=== PATIENT | male | born 1960 | race Caucasian/White ===

== ENCOUNTER 2018-10-06 13:06 | Emergency (ER) | payer MEDICAID, SELFPAY ==
[2018-10-06 13:07] VITALS: BP 93/65; PULSE 103; RESP 15; TEMP 36.7; O2SAT 88; BMI 26.3
--- NOTE | 2018-10-06 13:18 | EKG12_ITS ---
Test Reason : SUBSTANCE ABUSE Blood Pressure : / mmHG Vent. Rate : 091 BPM Atrial Rate : 091 BPM P-R Int : 156 ms QRS Dur : 092 ms QT Int : 366 ms P-R-T Axes : 066 080 070 degrees QTc Int : 450 ms Normal sinus rhythm Normal ECG Confirmed by HUMPHREY RAMIREZ, URI ([id number]), industrial editor LI ORTIZ ([id number]) on 10/09/2018 1:53:50 PM Referred By: JASPREET Confirmed By:URI YIN MD
--- NOTE | 2018-10-06 13:18 | RAD_ITS ---
HISTORY: Cough XR Chest 1 View TECHNIQUE: Single frontal view of chest. # of images incl. paperwork: 1 COMPARISON: None. FINDINGS: Hyperinflated lungs. Peripheral attenuation and pruning of the pulmonary vascular tree. Normal heart size. No pulmonary venous congestion. Severe left upper lobe and left apical pleural parenchymal scarring. Remainder of the lungs are clear. No pleural effusions or pneumothorax. No acute osseous abnormality of the thorax. RAD/Chest 1 View (Portable) IMPRESSION: 1. Severe left upper lobe and left apical pleural parenchymal scarring. Without the benefit of prior exams, neoplasm in this region cannot be excluded. Comparison with prior chest x-rays versus follow-up CT chest is recommended. 2. COPD. 3. Otherwise, no acute cardiopulmonary disease. at 1354 Reported and signed by: Nicko Winter MD Electronically Signed: Nicko Winter MD at 13:53 EDT Tel , Service support ,
--- NOTE | 2018-10-06 13:20 | ED.DCSUM_ITS ---
- ER Visit Summary Date of Service: 10/06/18 Chief Complaint: Alcohol abuse History of Present Illness: The patient is a 58 M presents to the emergency department complaining of problem with alcohol. Patient states that he drinks at least 1/2 gallon of vodka a day. States his neighbors told him that he needs to get help. He states he has been through detox twice through the [address] [place] [id number]. He denies any recent detox. He denies any other drug use. He states he has been through withdrawal, but does not think he is ever had a seizure from it. Patient does have a history of COPD but is not on any medication. He denies any other symptoms. Physical Examination: Vital signs reviewed General: Well-nourished, well-developed Head: Normocephalic, atraumatic Eyes: Pupils equal and reactive, extraocular muscles intact Neck, supple, no lymphadenopathy Heart: Regular rate and rhythm Respiratory: No distress, scant wheeze throughout Abdomen: Soft, nontender, nondistended, no peritoneal signs Back: Nontender Extremities: Nontender, no edema, no cords Skin: Normal color no rash Neuro: Alert and oriented, no focal or lateralizing deficits Test Results: [] Emergency Department Course and Treatment: The patient presents with alcohol intoxication. After further discussion with him, he states he is not really interested in detox. He was wheezing and had a borderline oxygen level he was given nebulized breathing treatments with his improvement of aeration. Chest x- ray was concerning for. Atypical pneumonia versus obstructive process. The patient has a long smoking history. He underwent CT of tthe chest. This was relatively inconclusive for malignancy versus scarring. The patient has not had productive sputum. He denies any fevers or weight loss. Due to concern for postobstructive process, I am going to cover him with antibiotics. The patient would benefit from outpatient pulmonology follow-up. He was counseled on his results. However, patient is markedly intoxicated. He will be observed until he can demonstrate clinical sobriety and then will be discharged home as he does not have interest in detox at this time. The patient was evaluated by social work to arrange outpatient resources and appropriate follow-up. Treatment Plan: [] Disposition: Discharge Impression: 1. Alcohol abuse 2. Left upper lobe pneumonia versus malignancy This note was generated with [employer] software. It may contain incorrect words, spelling, and punctuation that were not noted in review of the chart prior to signing ED Disposition - Plan for ED Patient: Instructions: PNEUMONIA (Adult), Alcohol Abuse Prescriptions: Amox/Clavulanate Tablet [Augmentin Tablet] 875 mg PO Q12H #20 tab Prescription Printed Referrals: Tien Baca MD [STAFF PHYSICIAN] -
[2018-10-06] MEDS: 0.9% Normal Saline 1,000 ML 1000 ML IV (13:29)
[2018-10-06 13:36] VITALS: O2SAT 88
[2018-10-06] MEDS: Ipratropium/Albuterol Sulfate 3 ML AMPUL.NEB INHALATION (13:36)
[2018-10-06 13:37] VITALS: PULSE 98; RESP 20
[2018-10-06 13:38] LABS: Absolute Lymphocyte Count 2.85 X10^3/ul (0.83-4.51); Absolute Neutrophil Count 3.3 X10^3/uL (2.0-7.7); Basophil# 0.02 X10^3/uL; Basophil% 0.3 % (0-1); Eosinophil# 0.07 X10^3/uL; Hemoglobin 13.9 g/dl (13.0-16.5); Lymphocyte # 2.85 X10^3/ul (4.0); Lymphocyte % 42.7 % (19-41); Mean Corp Hgb Conc 35.6 g/gl (32-36); Mean Corpuscular Hgb 32.9 pg (27.0-32.0); Mean Corpuscular Volume 92.2 fL (80-94); Mean Platelet Vol. 10.6 fl (6.2-12.0); Monocyte# 0.38 X10^3/uL; Monocyte% 5.7 % (0-10); Neutrophil # 3.33 X10^3/uL (2.7-7.7); Neutrophil % 49.9 % (47-70); Platelet Count 136 K/mm3 (150-450); RBC Distribution Width CV 18.6 % (11.6-14.6); RBC Distribution Width SD 63.1 fl (35.1-43.9); Red Blood Count 4.23 M/mm3 (4.6-6.2); White Blood Count 6.7 K/mm3 (4.4-11.0)
[2018-10-06 13:39] LABS: POSITIVE COUNT NO; POSITIVE DIFFERENTIAL NO; POSITIVE MORPHOLOGY NO
[2018-10-06 13:49] LABS: ALB/GLOB Ratio 0.7 RATIO (0.9-2.4); AST(SGOT) 219 U/L (15-37); Alanine Aminotransfer ALT/SGPT 53 U/L (16-61); Albumin, Serum 3.3 g/dL (3.2-5.0); Alkaline Phosphatase 207 U/L (45-117); Anion Gap 12 (5-15); BUN 13 mg/dL (7-18); BUN/Creat Ratio 14.4 RATIO (10-20); Calcium,Total 8.5 mg/dL (8.5-10.1); Chloride 87 mmol/L (98-107); EST Glomerular Filtration Rate 92 mL/min (>60); Est Glom Filt Rate - Afr Amer 111 mL/min (>60); Estimated Creatinine Clearance 96.45 ml/min; Globulin 4.6 g/dL (2.2-4.2); Glucose 62 mg/dL (74-106); Potassium 3.4 mmol/L (3.5-5.1); Protein, Total 7.9 g/dL (6.4-8.2); Sodium Level 127 mmol/L (136-145)
--- NOTE | 2018-10-06 14:00 | CT_ITS ---
HISTORY: Abnormal chest x-ray, follow-up COMPARISON: Chest x-ray performed earlier same day TECHNIQUE: Helical CT axial images of the thorax with 100 ml of Isovue 300 intravenous contrast. Multiplanar reconstruction. A radiation dose optimization technique was used for this scan. # of images incl. paperwork: 594 FINDINGS: LUNGS and MEDIASTINUM: Large area of left apical and left upper lobe masslike scarring with cystic bronchiectasis versus chronic postobstructive consolidation. There is a left hilar soft tissue density masslike structure measuring 1.8 x 2.4 x 1.8 cm in greatest TV/AP/CC dimensions best seen on axial slice 44 and corresponding coronal slice 75. Mild interstitial parenchymal scarring posterior left upper lobe abutting the major fissure. Within the superior segment left upper lobe best seen on axial slice 54 is a spiculated 1.5 cm density. Subcentimeter area of focal scarring posterior medial left lower lobe, axial slice image 71. No other suspicious pulmonary nodules or densities. Right lung is clear. No confluent areas of acute consolidation of left lower lobe.. Borderline mediastinal lymphadenopathy involving the prevascular space and AP window with lymph nodes measuring 0.9 x 1.3 cm and 0.7 x 1.2 cm. No right hilar lymphadenopathy. PLEURA: No pleural effusion. No pneumothorax. CARDIAC: Normal heart size. No pericardial effusion. VASCULAR: Thoracic aorta is normal in caliber without aneurysm. The pulmonary vasculature demonstrates no significant dilatation. CHEST WALL: Chest wall is intact. No abnormal axillary lymphadenopathy. BONES: No suspicious osseous lytic or blastic lesions seen. Mild thoracic spine degenerative changes. UPPER ABDOMEN: The visualized upper abdomen demonstrates no acute abnormality. Partially seen severe hepatic steatosis. CT/Chest WITH Contrast IMPRESSION: 1. Left hilar soft tissue density mass 1.8 x 2.4 x 1.8 cm which may represent neoplasm with postobstructive chronic consolidation involving the left upper lobe and left apex. Alternatively, findings within the left upper lobe may represent parenchymal scarring with cystic bronchiectasis and reactive left hilar lymphadenopathy. Borderline mediastinal lymphadenopathy. Further evaluation with PET/CT is recommended to evaluate metabolic activity of the left hilar abnormality. 2. Superior segment left lower lobe spiculated 1.5 cm density likely representing a focal area of scarring. Again, neoplasm cannot be excluded and correlation with PET/CT is warranted. Individualized dose optimization techniques were used for this CT. at 1530 Reported and signed by: Nicko Winter MD Electronically Signed: Nicko Winter MD at 15:28 EDT Tel , Service support ,
--- NOTE | 2018-10-06 14:00 | CT_ITS ---
HISTORY: Altered mental status COMPARISON: 12/14/2016 TECHNIQUE: Helical CT axial images are obtained from the base of skull through the vertex without IV contrast. Multiplanar reconstruction. A radiation dose optimization technique was used for this scan. # of images incl. paperwork: 248 FINDINGS: No parenchymal hemorrhage, infarct, intra-axial mass, mass effect, or midline shift. No abnormal extra-axial fluid collections. Ventricles are normal in size and configuration. No hydrocephalus. Minimal periventricular white matter hypodensities. Bone windows show no skull fracture or calvarial lesions. Visualized paranasal sinuses are clear. Visualized mastoid air cells are clear. ASPECTS Score for Acute Strokes: 10 CT/Brain/Head without Contrast IMPRESSION: 1. No acute intracranial disease. 2. Minimal chronic small vessel ischemic white matter changes. 3. No significant interval change. Individualized dose optimization techniques were used for this CT. at 1506 Reported and signed by: Nicko Winter MD Electronically Signed: Nicko Winter MD at 15:05 EDT Tel , Service support ,
--- NOTE | 2018-10-06 14:01 | NURSING ---
NEW VISION WITH PATIENT
--- NOTE | 2018-10-06 14:09 | ED.RN ---
LAB CALLS WITH CRITICAL RESULT, ETOH 487, DR. YOON MADE AWARE.
[2018-10-06 14:16] VITALS: BP 108/78; PULSE 103; RESP 16; O2SAT 93
[2018-10-06 14:18] LABS: Bacteria 0 SEEN /hpf (None Seen); Mucous, Urine 0 SEEN /hpf (<or=2+); Red Blood Cells-Urine 0 SEEN /hpf (0-5); Squamous Epithelial Cells - UA 0 SEEN /hpf (0-5); White Blood Cells 0 SEEN /hpf (0-5)
--- NOTE | 2018-10-06 14:19 | ED.RN ---
PT ATTEMPTING TO LIGHT CIGARETTE WHEN THIS RN ENTERED ROOM. PT EDUCATED ON NO SMOKING POLICY, DANGER OF SMOKING WHILE WEARING O2. PT VOICES UNDERSTANDING, NICOTINE PATCH ORDERED. SKIN PEELING MACHINE OPERATOR REMOVED FROM ROOM.
[2018-10-06 14:23] LABS: Color, Urine Yellow (Yellow); Glucose, Dipstick Normal (Normal); Ketone-Dipstick 15 mg/dl (Negative); Leukocyte Esterase-Dipstick Negative /ul (Negative); Nitrite-Dipstick Negative (Negative); Occult Blood-Urine Negative /ul (Negative); Protein-Dipstick 15 mg/dl (Negative); Specific Gravity, Urine 1.005 (1.002-1.030); Urine Bilirubin Dipstick Negative (Negative); Urine Clarity Clear (Clear); Urine Urobilinogen Normal (Normal); Urine pH 6.5 (5.0 - 8.0)
[2018-10-06 14:46] LABS: Amphetamine Urine VISTA NEGATIVE (<1000 ng/mL); Barbiturate Urine VISTA NEGATIVE (< 200 ng/mL); Benzodiazepine Urine VISTA NEGATIVE (< 200 ng/mL); Cocaine Urine VISTA NEGATIVE (< 300 ng/mL); Ecstacy Urine VISTA NEGATIVE (< 500 ng/mL); Methadone Urine VISTA NEGATIVE (< 300 ng/mL); PCP Urine VISTA NEGATIVE (< 25 ng/mL); THC Urine VISTA NEGATIVE (< 50 ng/mL); Vista UDS pH Range 6
--- NOTE | 2018-10-06 15:30 | CM.ED ---
Social Work Consult: ETOH Abuse, no PCP Informant: Dr. Esposito Spoke with patient in room. Patient reporting to have a primary care physician: Dr. Aggarwal and to be connect with [facility] for substance abuse. Patient reporting to have a weekly appointment with the counselor at [facility] (every at 2:00pm). Patient reporting to have tried AA support groups in the past but to have not found one that would work right now. Patient reporting to not be interested in detox at this time. Patient is open to this social media senior associate setting up a PCP appointment with Dr. Aggarwal as Dr. Esposito is recommending a PCP follow up due to some findings on a scan while in the ED. Telephone call made to Dr. Aggarwal, no open appointments at this time. Patient placed on a waiting list. Patient aware of being placed on waiting list and is not wanting to establish care with any other doctor. Per ED doctor, patient will not be admitted to medical floor. Patient to discharge to the community. Patient stating to not have a ride but to have a card for [employer]. This social media senior associate assisted patient in finding patient way to bus stop for [employer] at [facility]. Patient voicing no further needs. Patient does live at [address] due to loosing housing due to landlord selling property. Patient reporting to be working on finding other housing and to have no concerns with finding other housing. Patient has been living at [address] for the past week. Support provided. PLAN: Patient to discharge to community. Reynaldo BROWN, KATHE
[2018-10-06] MEDS: Amox/Clavulanate 875 MG Tablet PO (15:58)
[2018-10-06 16:29] VITALS: BP 108/61; PULSE 78; RESP 16; O2SAT 94
== END 2018-10-06 16:31 | disposition home or self-care (01) ==
LOC: ED 13:33
PROVIDERS: Emergency Provider Emergency Medicine; Family Provider Family Medicine; PCP Family Medicine
DX: F10.129 Alcohol abuse with intoxication, unspecified (principal); J44.0 Chronic obstructive pulmonary disease with (acute) lower respiratory infection; J18.9 Pneumonia, unspecified organism; R91.8 Other nonspecific abnormal finding of lung field; Z72.0 Tobacco use
CPT/HCPCS: 70450; 71045; 71260; 80053; 80307; 80320; 81001; 85025; 93005; 94640; 96360; 99285; J7030; Q9967; A4216; G0480

== ENCOUNTER 2019-01-12 15:12 | Inpatient (IN) | payer MEDICAID, SELFPAY ==
[2019-01-12] VITALS (8 sets, daily range): BP systolic 112–139; BP diastolic 66–82; PULSE 93–112; RESP 13–24; TEMP 36.7–37.2; O2SAT 82–94; BMI 24.8; BMI 24.7
--- NOTE | 2019-01-12 15:20 | RAD_ITS ---
STUDY: X-RAY CHEST REASON FOR EXAM: Male, 58 years old. Cough. Ethanol abuse. TECHNIQUE: Single AP portable view of the chest. COMPARISON: Comparison is made with prior study dated October 06, 2018. FINDINGS: EKG electrodes are seen. Hyperinflation. Persistent soft tissue density in the medial aspect of the left upper lobe. This has improved as compared to prior study. There is no demonstrated pleural abnormality. Normal size heart. Normal mediastinum and bartolo. Normal visualized pulmonary arteries. Normal visualized aortic arch and descending thoracic aorta. There are diffuse degenerative changes of the visualized thoracic spine. There is degenerative osteoarthritis of the bilateral shoulders. There is no demonstrated abnormality of the visualized soft tissue structures of the upper abdomen. RAD/Chest 1 View (Portable) IMPRESSION: Mild improvement in the soft tissue density in the medial aspect of the left upper lobe. Electronically Signed: Neno Ibarra, at 15:44 EDT , Service support ,
--- NOTE | 2019-01-12 15:20 | EKG12_ITS ---
Test Reason : ETOH Blood Pressure : / mmHG Vent. Rate : 092 BPM Atrial Rate : 092 BPM P-R Int : 150 ms QRS Dur : 080 ms QT Int : 362 ms P-R-T Axes : 063 079 075 degrees QTc Int : 447 ms Normal sinus rhythm Septal infarct , age undetermined Abnormal ECG Confirmed by HUMPHREY RAMIREZ, URI ([id number]), supervising film or videotape editor LI ORTIZ ([id number]) on 01/16/2019 10:23:44 AM Referred By: JASPREET Confirmed By:URI YIN MD
--- NOTE | 2019-01-12 15:33 | ED.DCSUM_ITS ---
History of Present Illness Chief Complaint: ETOH Intox Informant: Patient Onset: Days Context: Gradual Onset Timing: Continuous Current Severity: Moderate Maximum Severity: Moderate Narrative: The patient presents to the emergency department with alcohol abuse. The patient has a long-standing history of alcohol abuse. He states he drinks half gallon of vodka a day. He is unsure why he is even in the emergency department. He states that he has had a cough and been short of breath. The patient was actually evaluated here just over 3 months ago. At that point, he was found to have questionable upper lobe mass. The patient was given oral antibiotics and outpatient follow-up, but states he never followed up. He does smoke at least a pack a day. He is unsure if he had fever. He states he has no interest in detox. He is never been on oxygen in the past. Prior similar symptoms: Yes Recent Illness/Hospitalization: No Past Medical History - Allergies and Home Meds Allergies/Adverse Reactions: Allergies No Known Allergies Allergy (Verified 01/12/19 15:12) Prior records reviewed: Yes Past Medical History: None Smoking Status: Current every day smoker Review of Systems General: Denies: Chills, Fever, Sweats Eyes: Denies: Visual changes - bilaterally, Diplopia ENT: Denies: Rhinorrhea, Sore throat Cardiovascular: Denies: Chest pain, Palpitations Respiratory: Reports: Dyspnea, Cough. Denies: Dyspnea on exertion Gastrointestinal: Denies: Abdominal pain, Nausea, Vomiting, Diarrhea, Melena, Hematochezia Genitourinary: Denies: Dysuria, Hematuria, Frequency Musculoskeletal: Denies: Back pain, Extremity Pain Skin: Denies: Rash, Wounds Neurological: Denies: Headache, Weakness, Numbness Physical Exam Vital Signs/Narrative: Vital Signs Temp Pulse Resp BP Pulse Ox 01/12/19 15:21 92 01/12/19 15:16 98.1 F 95 24 H 123/82 H 83 Inital Vital Signs reviewed: Yes General: Well nourished, Well developed, No Acute Distress Head: Normocephalic, Atraumatic Eyes: Perrl, EOMI ENT: Moist mucous membranes, No rhinorrhea Neck: Supple, Nontender Cardiovascular: Regular rate, Regular rhythm, No murmurs Respiratory: No distress, Chest nontender, Decreased Air Movement Abdomen: Soft, Nontender, Nondistended, Normal bowel sounds Back: Nontender, Normal Inspection Extremities: Nontender, No edema Skin: Normal color, No rash Neurological: Alert, Oriented x3, Cranial nerves II-XII grossly intact, Normal Strength, Normal Sensation Psychological: Normal affect, Normal Mood Diagnostic/Tx/Re-eval Chest X-Ray - ED: 1 View, Normal, Heart, Left Infiltrate Clinical Impression(s) from Imaging Studies Chest X-Ray 01/12/19 15:20 IMPRESSION: Mild improvement in the soft tissue density in the medial aspect of the left upper lobe. Electronically Signed: Neno Stacey, at 15:44 EDT , Service support , Abnormal Lab Results 01/12/19 01/12/19 01/12/19 15:31 15:31 15:31 WBC 14.4 H RBC 4.52 L Hgb 14.1 Hct 44.3 MCV 98.0 H MCH 31.2 MCHC 31.8 L RDW Std Deviation 47.8 H RDW Coeff of Jose J 13.2 Plt Count 214 MPV 9.8 Immature Gran % (Auto) 0.600 Neut % (Auto) 77.2 H Lymph % (Auto) 17.2 L [place] % (Auto) 4.5 Eos % (Auto) 0.1 Baso % (Auto) 0.4 Absolute Neuts (auto) 11.1 H Absolute Lymphs (auto) 2.48 Nucleated RBC % 0 Sodium 135 L Potassium 4.0 Chloride 96 L Carbon Dioxide 28.0 Anion Gap 11 BUN 12 Creatinine 0.88 Estim Creat Clear Calc 98.64 Est GFR (MDRD) Af Amer 114 Est GFR (MDRD) Non-Af 94 BUN/Creatinine Ratio 13.6 Glucose 114 H Lactic Acid Calcium 8.5 Total Bilirubin 0.60 AST 20 ALT 13 L Alkaline Phosphatase 146 H Total Protein 8.5 H Albumin 3.3 Globulin 5.2 H Albumin/Globulin Ratio 0.6 L Ethyl Alcohol 484.0 H* 01/12/19 16:00 WBC RBC Hgb Hct MCV MCH MCHC RDW Std Deviation RDW Coeff of Jose J Plt Count MPV Immature Gran % (Auto) Neut % (Auto) Lymph % (Auto) [place] % (Auto) Eos % (Auto) Baso % (Auto) Absolute Neuts (auto) Absolute Lymphs (auto) Nucleated RBC % Sodium Potassium Chloride Carbon Dioxide Anion Gap BUN Creatinine Estim Creat Clear Calc Est GFR (MDRD) Af Amer Est GFR (MDRD) Non-Af BUN/Creatinine Ratio Glucose Lactic Acid 4.0 H* Calcium Total Bilirubin AST ALT Alkaline Phosphatase Total Protein Albumin Globulin Albumin/Globulin Ratio Ethyl Alcohol - Rhythm Strip Rhythm Strip: Sinus Rhythm Rate: 80 Ectopy: None - Medical Decision Making The patient presents to the emergency department alcohol abuse and hypoxia. He has not had a fever. He was not tachycardic. Metabolic work-up was pursued. He does have mild leukocytosis. His x-ray does demonstrate a left upper lobe infiltrate versus mass. The patient states he is actually getting worked up for lung cancer but has not started any treatment. He is intoxicated with an alcohol level of almost 500. He does have a lactic acidosis at the level of septic shock, but in light of his alcohol abuse and hypoxemia, I do not feel that this represents septic shock from infectious process. However, given his underlying oxygen requirement I do feel that he is going to require admission. The patient was discussed with the hospitalist. Impression 1. Hypoxia 2. Severe sepsis 3. Left upper lobe pneumonia ED Disposition - Plan for ED Patient: Disposition: Home or Assisted Living
[2019-01-12 15:50] LABS: Absolute Lymphocyte Count 2.48 X10^3/uL (0.83-4.51); Absolute Neutrophil Count 11.1 X10^3/uL (2.0-7.7); Basophil# 0.06 X10^3/uL; Basophil% 0.4 % (0-1); Eosinophil# 0.02 X10^3/uL; Eosinophils% 0.1 % (0-5); Hematocrit 44.3 % (40-54); Hemoglobin 14.1 g/dL (13.0-16.5); Lymphocyte # 2.48 X10^3/ul (4.0); Lymphocyte % 17.2 % (19-41); Mean Corp Hgb Conc 31.8 g/dL (32-36); Mean Corpuscular Hgb 31.2 pg (27.0-32.0); Mean Platelet Vol. 9.8 fl (6.2-12.0); Monocyte# 0.65 X10^3/uL; Monocyte% 4.5 % (0-10); NRBC Flagged by Analyzer 0 % (0-5); Neutrophil % 77.2 % (47-70); Platelet Count 214 K/mm3 (150-450); RBC Distribution Width CV 13.2 % (11.6-14.6); RBC Distribution Width SD 47.8 fl (35.1-43.9); Red Blood Count 4.52 M/mm3 (4.6-6.2); White Blood Count 14.4 K/mm3 (4.4-11.0)
[2019-01-12] MEDS: Albuterol 2.5 MG/3 ML VIAL.NEB. INHALATION ×3 (15:50)
[2019-01-12] MEDS: Ipratropium/Albuterol Sulfate 3 ML AMPUL.NEB INHALATION (15:50)
[2019-01-12 16:08] LABS: ALB/GLOB Ratio 0.6 RATIO (0.9-2.4); AST(SGOT) 20 U/L (15-37); Alanine Aminotransfer ALT/SGPT 13 U/L (16-61); Albumin, Serum 3.3 g/dL (3.2-5.0); Alkaline Phosphatase 146 U/L (45-117); Anion Gap 11 (5-15); BUN 12 mg/dL (7-18); BUN/Creat Ratio 13.6 RATIO (10-20); Calcium,Total 8.5 mg/dL (8.5-10.1); Chloride 96 mmol/L (98-107); Creatinine, Serum 0.88 mg/dL (0.70-1.30); EST Glomerular Filtration Rate 94 mL/min (>60); Est Glom Filt Rate - Afr Amer 114 mL/min (>60); Estimated Creatinine Clearance 98.64 ml/min; Globulin 5.2 g/dL (2.2-4.2); Glucose 114 mg/dL (74-106); Protein, Total 8.5 g/dL (6.4-8.2); Sodium Level 135 mmol/L (136-145)
--- NOTE | 2019-01-12 17:09 | ED.RN ---
LACTIC ACID 4.0, DR. YOON AWARE.
--- NOTE | 2019-01-12 17:17 | ED.RN ---
ALCOHOL 484. AWARE.
[2019-01-12] MEDS: 0.9% Normal Saline 1,000 ML 999 ML IV ×2 (17:29→17:30)
--- NOTE | 2019-01-12 17:42 | HP.PCM_ITS ---
Problem List (1) Severe sepsis Status: Acute (2) Pneumonia Status: Acute Qualifiers: Laterality: left Lung location: upper lobe of lung (3) Hypoxia Status: Acute (4) Lung cancer Status: Chronic Qualifiers: Laterality: left Lung location: upper lobe of lung Qualified Code(s): C34.12 - Malignant neoplasm of upper lobe, left bronchus or lung (5) COPD (chronic obstructive pulmonary disease) Status: Chronic (6) Acute alcohol intoxication with alcoholism Status: Chronic History of Present Illness Date of Admission: 01/12/19 Chief Complaint: SOB The patient is a 58 year old M with pmhx of recently diagnosed lung cancer CHE, alcoholism with prior seizures, COPD, and nicotine abuse who presents to the ER by EMS after being brought. He thinks they were called because he was short of breath. He is drunk in the ER and cannot recall much of the events of today, or provide much hx at all. Initially he did not relay that he knew he had lung cancer. He was recently diagnosed with lung cancer. In September he was in the ER and the CHE mass was found. CXR shows this CHE mass. He has had a cough productive of green sputum. He denies hemoptysis. He was hypoxic in the ER at presentation - does not use home o2- was 87% on Room air and stable with 2lpm of O2. He is tachycardic, with leukocytosis, without fever. His mom had lung cancer, dad had liver cancer. He currently drinks about a fifth of diluted vodka per day. He smokes a pack to a pack and a half of cigarettes daily. [] Past Medical History Past Medical History (Chronic Problems): Chronic Problems Lung cancer (Chronic) COPD (chronic obstructive pulmonary disease) (Chronic) Acute alcohol intoxication with alcoholism (Chronic) Allergies No Known Allergies Allergy (Verified 01/12/19 15:12) Home Medications: Ambulatory Orders Medication Instructions Recorded Albuterol Inhaler [Ventolin Hfa 1 - 2 puff INHALATION Q4H PRN PRN 01/12/19 (SP)] Fluticasone/Vilanterol [Breo 1 ea IH DAILY 01/12/19 Ellipta Inhaler] Surgical History: tonsillectomy Psychiatric History: No pertinent psych hx Lives: Alone Smoking Status: Current every day smoker Review of Systems Constitutional: Denies: Chills, Fever, Weight Change HEENT: Denies: Head Aches, Sinus Congestion, Sinus Drainage Cardiovascular: Denies: Chest Pain, Edema, Palpitations Respiratory: Reports: Cough, Shortness of Breath, Shortness of breath at rest, Shortness of breath upon exertion, Sputum production. Denies: Hemoptysis, Wheezing Gastrointestinal: Denies: Abdominal Pain, Nausea, Vomiting Genitourinary: Denies: Dysuria Musculoskeletal: Denies: Joint Pain, Joint Tenderness Skin: Denies: Rash, Wounds Neurological: Denies: Numbness, Tingling, Focal weakness Psychiatric: Denies: Anxiety, Depression, Homicidal Ideations, Suicidal Ideations Hematologic/ Lymphatic: Denies: Easy Bruising, Easy Bleeding VTE Information - Inpt Only VTE Present on Admission: No VTE Mechan Device Prophylaxis: None VTE Pharm Prophylaxis ordered?: Yes Patient Problems: Active and Suspected Problems Severe sepsis (Acute) Pneumonia (Acute) Hypoxia (Acute) - Physical Exam General: Alert, Oriented x3, Cooperative, - - intoxicated HEENT: Atraumatic, PERRLA, EOMI, Normocephalic Neck: Supple, No JVD, Negative Carotid Bruits Lungs: Normal air movement, Diminished, Short of Breath Cardiovascular: Regular rate, No murmurs Abdomen: Bowel Sounds Present, Soft, Non Tender Extremities: No edema, Capillary Refill Less than 3 Seconds Skin: No rashes, No breakdown Musculoskeletal: No Tenderness to Palpation of Joints or Extremities Neurological: Cranial nerves II-XII grossly intact Psych/Mental Status: Normal Affect, Appropriate Vital Signs Temp Pulse Resp BP Pulse Ox 98.1 F 93 18 112/77 93 01/12/19 15:16 01/12/19 15:50 01/12/19 15:50 01/12/19 15:34 01/12/19 15:34 Oxygen Flow Rate (L/min) 3 Oxygen Delivery Method Nasal Cannula Weight: 178 lb 5.663 oz Body Mass Index (BMI) 24.8 Intake and Output for Last 24 Hours 01/10/19 01/11/19 01/12/19 23:59 23:59 23:59 Intake Total 16.65 / 16.65 Balance 16.65 / 16.65 Laboratory Tests Past 24 Hrs 01/12/19 01/12/19 01/12/19 15:31 15:31 15:31 WBC 14.4 H RBC 4.52 L Hgb 14.1 Hct 44.3 MCV 98.0 H MCH 31.2 MCHC 31.8 L RDW Std Deviation 47.8 H RDW Coeff of Jose J 13.2 Plt Count 214 MPV 9.8 Immature Gran % (Auto) 0.600 Neut % (Auto) 77.2 H Lymph % (Auto) 17.2 L [place] % (Auto) 4.5 Eos % (Auto) 0.1 Baso % (Auto) 0.4 Absolute Neuts (auto) 11.1 H Absolute Lymphs (auto) 2.48 Nucleated RBC % 0 Sodium 135 L Potassium 4.0 Chloride 96 L Carbon Dioxide 28.0 Anion Gap 11 BUN 12 Creatinine 0.88 Estim Creat Clear Calc 98.64 Est GFR (MDRD) Af Amer 114 Est GFR (MDRD) Non-Af 94 BUN/Creatinine Ratio 13.6 Glucose 114 H Lactic Acid Calcium 8.5 Total Bilirubin 0.60 AST 20 ALT 13 L Alkaline Phosphatase 146 H Total Protein 8.5 H Albumin 3.3 Globulin 5.2 H Albumin/Globulin Ratio 0.6 L Ethyl Alcohol 484.0 H* 01/12/19 16:00 WBC RBC Hgb Hct MCV MCH MCHC RDW Std Deviation RDW Coeff of Jose J Plt Count MPV Immature Gran % (Auto) Neut % (Auto) Lymph % (Auto) [place] % (Auto) Eos % (Auto) Baso % (Auto) Absolute Neuts (auto) Absolute Lymphs (auto) Nucleated RBC % Sodium Potassium Chloride Carbon Dioxide Anion Gap BUN Creatinine Estim Creat Clear Calc Est GFR (MDRD) Af Amer Est GFR (MDRD) Non-Af BUN/Creatinine Ratio Glucose Lactic Acid 4.0 H* Calcium Total Bilirubin AST ALT Alkaline Phosphatase Total Protein Albumin Globulin Albumin/Globulin Ratio Ethyl Alcohol Assessment/Plan All Active Problems Severe sepsis (Acute) Pneumonia (Acute) Hypoxia (Acute) 1. Severe sepsis 2/2 post obstructive pna, respiratory insufficiency - CHE soft tissue density - productive cough, leukocytosis, tachycardia, elevated lactate. Not septic shock despite lactate of 4.0 - lactate is elevated 2/2 hypoxia as per #3. Start Vanc/Zosyn. Received unasyn in the ER. Culture blood/sputum. Check urine antigens. Mucinex, duonebs, IS, PEP therapy. 87% on room air. Continue prn o2. -Masses seen on chest CT dated 10/06/2018: Left hilar mass, left lower lobe spiculated lesion 2. Lung CA - f/u oncology needs to initiate treatment. It is unclear what has been done as an outpatient. The patient is apparently aware that he has a diagnosis of lung cancer. 3. Lactic acidosis 2/2 hypoxia - he does not have severe sepsis despite his lactate of 4.0, this is likely due to his hypoxia. 4. COPD - no wheezing, diminished lungs. prn albuterol, duonebs. defer steroids at this time. 5. Alcoholism with acute intoxication - alcohol level 484. hx seizure per prior ER visit. not on anticonvulsants, suspect withdrawal seizures. CIWA protocol, folate, thiamine, ativan prn or it would be reasonable to provide vodka prn as he has no plans to stop drinking. He drinks a fifth of vodka daily (diluted). 6. Nicotine abuse - 1-1.5ppd smoker, nicotine patch while here. DVT ppx: lovenox This patient was seen by Gustavo Grimes PA-C under the supervision of Dr. Rosales.
[2019-01-12] MEDS: 0.9% Normal Saline 1,000 ML 125 ML IV (19:19)
[2019-01-12] MEDS: diazePAM 5 MG Tablet 10 MG PO ×2 (20:04→21:51)
[2019-01-12 20:08] LABS: Reflex Lactate? Y
[2019-01-12] MEDS: Folic Acid 1 MG Tablet PO (21:34)
[2019-01-12] MEDS: Thiamine Hydrochloride 100 MG Tablet PO (21:34)
[2019-01-12 21:37] LABS: Lactic Acid 3.5 mmol/L (0.4-2.0)
[2019-01-13] VITALS (18 sets, daily range): BP systolic 127–150; BP diastolic 71–97; PULSE 87–132; RESP 16–20; TEMP 36.6–37.3; O2SAT 92–96
[2019-01-13] MEDS: Budesonide Respules 0.5 MG/2 ML AMPUL.NEB. INHALATION ×2 (00:10→07:00)
[2019-01-13] MEDS: 0.9% Normal Saline 1,000 ML 125 ML IV ×3 (03:18→19:47)
--- NOTE | 2019-01-13 05:00 | RAD_ITS ---
STUDY: X-RAY CHEST REASON FOR EXAM: Male, 58 years old. Right-sided chest pain. TECHNIQUE: PA and lateral views of the chest. COMPARISON: 01/12/2017. FINDINGS: There is persistent soft tissue density and mild stranding in the medial aspect of the right upper lobe unchanged since the prior examination. The lungs remain hyperinflated. No new infiltrate is seen. There is no demonstrated pleural abnormality. Normal size heart. Normal mediastinum and bartolo. Normal visualized pulmonary arteries. Normal visualized aortic arch and descending thoracic aorta. There are degenerative changes of the visualized thoracic spine. There is no demonstrated abnormality of the visualized soft tissue structures of the upper abdomen. RAD/Chest PA and Lateral IMPRESSION: 1. No significant change. 2. Persistent left upper lobe opacity unchanged since the prior examination. 3. No new infiltrate is seen Electronically Signed: Eugenio Larsen MD at 9:06 EDT Tel , Service support ,
[2019-01-13] MEDS: Acetaminophen 325 MG Tablet 650 MG PO (05:25)
[2019-01-13] MEDS: 0.9% NaCl Peripheral Flush Adult/Peds IV ×3 (05:43→21:23)
[2019-01-13] MEDS: 0.9% NaCl IVPB Med Flush (250 mL) 15 ML IV (05:43)
[2019-01-13 06:05] LABS: Color, Urine Yellow (Yellow); Glucose, Dipstick 250 mg/dl (Normal); Ketone-Dipstick 5 mg/dl (Negative); Leukocyte Esterase-Dipstick Negative /ul (Negative); Nitrite-Dipstick Negative (Negative); Occult Blood-Urine Negative /ul (Negative); Protein-Dipstick 15 mg/dl (Negative); Specific Gravity, Urine 1.015 (1.002-1.030); Urine Bilirubin Dipstick Negative (Negative); Urine Clarity Clear (Clear); Urine Urobilinogen 1 mg/dl (Normal)
[2019-01-13] MEDS: oxyCODONE 5 MG Tablet 10 MG PO ×2 (06:16→19:51)
[2019-01-13 06:39] LABS: Absolute Lymphocyte Count 0.87 X10^3/uL (0.83-4.51); Absolute Neutrophil Count 7.8 X10^3/uL (2.0-7.7); Basophil# 0.03 X10^3/uL; Basophil% 0.3 % (0-1); Eosinophil# 0.01 X10^3/uL; Eosinophils% 0.1 % (0-5); Hematocrit 34.3 % (40-54); Hemoglobin 11.2 g/dL (13.0-16.5); Lymphocyte # 0.87 X10^3/ul (4.0); Lymphocyte % 9.3 % (19-41); Mean Corp Hgb Conc 32.7 g/dL (32-36); Mean Corpuscular Hgb 31.7 pg (27.0-32.0); Mean Corpuscular Volume 97.2 fL (80-94); Mean Platelet Vol. 10.2 fl (6.2-12.0); Monocyte# 0.64 X10^3/uL; Monocyte% 6.8 % (0-10); NRBC Flagged by Analyzer 0 % (0-5); Platelet Count 141 K/mm3 (150-450); RBC Distribution Width CV 13.7 % (11.6-14.6); RBC Distribution Width SD 48.6 fl (35.1-43.9); Red Blood Count 3.53 M/mm3 (4.6-6.2); White Blood Count 9.4 K/mm3 (4.4-11.0)
[2019-01-13 06:55] LABS: Anion Gap 3 (5-15); BUN 8 mg/dL (7-18); BUN/Creat Ratio 13.1 RATIO (10-20); Calcium,Total 8.1 mg/dL (8.5-10.1); Chloride 105 mmol/L (98-107); Creatinine, Serum 0.61 mg/dL (0.70-1.30); EST Glomerular Filtration Rate 144 mL/min (>60); Est Glom Filt Rate - Afr Amer 174 mL/min (>60); Estimated Creatinine Clearance 137.96 ml/min; Glucose 107 mg/dL (74-106); Potassium 3.8 mmol/L (3.5-5.1); Sodium Level 137 mmol/L (136-145)
[2019-01-13] MEDS: Ipratropium/Albuterol Sulfate 3 ML AMPUL.NEB INHALATION ×4 (06:59→18:51)
--- NOTE | 2019-01-13 08:25 | EKG12_ITS ---
Test Reason : AM EKG Blood Pressure : / mmHG Vent. Rate : 093 BPM Atrial Rate : 083 BPM P-R Int : 000 ms QRS Dur : 100 ms QT Int : 362 ms P-R-T Axes : 000 070 049 degrees QTc Int : 450 ms Atrial fibrillation Abnormal ECG Confirmed by HUMPHREY RAMIREZ, URI ([id number]), web editor LI ORTIZ ([id number]) on 01/17/2019 2:39:29 PM Referred By: DR JUNG Confirmed By:URI YIN MD
[2019-01-13] MEDS: Thiamine Hydrochloride 100 MG Tablet PO (08:43)
[2019-01-13] MEDS: Multivitamins,Therapeutic Tablet 1 TABLET PO (08:43)
[2019-01-13] MEDS: diazePAM 5 MG Tablet 10 MG PO ×4 (08:43→21:22)
[2019-01-13] MEDS: Folic Acid 1 MG Tablet PO (08:43)
--- NOTE | 2019-01-13 08:50 | ECHOCS_ITS ---
Version 2 Reason For Study: AFIB Procedure This was a 2D Doppler, Color Flow transthoracic echocardiogram. The study was technically limited. Contrast injection was performed. Difficult to assess valves due to heart rate. Exam performed portable in patient room. Left Ventricle Normal size and thickness. The estimated ejection fraction is 65 %. Unable to assess diastolic dysfunction due to arrhythmia. No regional wall motion abnormalities noted. Right Ventricle Normal size and thickness. Normal systolic function. Atria Normal left atrium. Normal right atrium. Normal atrial septum. Mitral Valve The mitral valve is structurally normal. No prolapse or stenosis seen. Tricuspid Valve Normal tricuspid valve. Mild (1+) tricuspid valve insufficiency. Right ventricular systolic pressure estimated to be 44 mmHg. Mild pulmonary hypertension. Aortic Valve Normal aortic valve. Trisinus/trileaflet aortic valve. Pulmonic Valve Normal pulmonic valve. Great Vessels Normal aortic root. Normal arch. Normal inferior vena cava. Inferior vena cava collapse with sniff. Medication Diluted definity 2.0ml given slow IV push to enhance endocardial definition. MMode/2D Measurements & Calculations LVIDd: 4.0 cm IVSd: 1.1 cm Ao root diam: 4.0 cm LVIDs: 3.2 cm LVPWd: 1.1 cm FS: 20.5 % LA dimension(2D): 4.1 cm Doppler Measurements & Calculations Ao V2 max: 105.7 cm/sec LV V1 max: 95.1 cm/sec TR max siddhartha: 261.9 cm/sec Ao max P.5 mmHg LV V1 max P.6 mmHg TR max P.7 mmHg Interpretation Summary The estimated ejection fraction is 65 %. Unable to assess diastolic dysfunction due to arrhythmia. Mild (1+) tricuspid valve insufficiency. Right ventricular systolic pressure estimated to be 44 mmHg. Mild pulmonary hypertension. Pt appears to be in atrial fibrillation. The study was technically difficult. Contrast injection was performed. There is no comparison study available. Ordering Physician: Gustavo Grimes Referring Physician: IDA COREAS Performed By: Lisa Oden, DEMETRIUS, RVT
[2019-01-13 08:58] LABS: Magnesium 1.5 mg/dL (1.6-2.6)
[2019-01-13 09:04] LABS: Phosphorus 2.2 mg/dL (2.5-4.9)
[2019-01-13] MEDS: Metoprolol Tartrate 25 MG Tablet PO ×2 (10:21→15:15)
[2019-01-13] MEDS: Enoxaparin 40 MG/0.4 ML Syringe SC ×2 (10:22→11:32)
--- NOTE | 2019-01-13 11:57 | BH.SGPN.T2 ---
Behaviors/Verbalizations/Mental Status: [] Client Response/Progress/Benefit: [] Narrative Note: []patient up to bathroom, voids with no difficulty, assisted back to bed, bed alarm intact. call light in reach.
--- NOTE | 2019-01-13 13:31 | PCM.PROGNOTE ---
<Gustavo Grimes - Last Filed: 01/13/19 13:31> Patient Problems: Active and Suspected Problems Severe sepsis (Acute) Pneumonia (Acute) Hypoxia (Acute) Subjective: Improved SOB. Improved mentation. He cannot remember being in the ER last night. Ongoing productive cough. No fever/chills. No LE edema. Mild tremor in the hands. Denies payroll auditor/visual hallucinations. He has not seen any oncologist yet. He was supposed to see an oncologist at the [facility] last week but missed his appointment. - Physical Exam General: Alert, Oriented x3, Cooperative HEENT: Atraumatic, PERRLA, EOMI, Normocephalic Neck: Supple, No JVD, Negative Carotid Bruits Lungs: Diminished, Wheezes Cardiovascular: Regular rate, No murmurs Abdomen: Bowel Sounds Present, Soft, Non Tender Extremities: No edema, Capillary Refill Less than 3 Seconds Skin: No rashes, No breakdown Musculoskeletal: No Tenderness to Palpation of Joints or Extremities Neurological: Cranial nerves II-XII grossly intact Psych/Mental Status: Normal Affect, Appropriate, Alert and oriented to time, place, person, mood and affect Vital Signs Temp Pulse Resp BP Pulse Ox 97.9 F 113 H 16 130/83 H 95 01/13/19 10:35 01/13/19 13:18 01/13/19 13:18 01/13/19 10:35 01/13/19 10:35 Oxygen Flow Rate (L/min) 4 Oxygen Delivery Method Nasal Cannula Weight: 176 lb 9.444 oz Body Mass Index (BMI) 24.7 Intake and Output for Last 24 Hours 01/11/19 01/12/19 01/13/19 23:59 23:59 23:59 Intake Total 2769.15 / 2769.15 2110.08 / 1.08 Balance 2769.15 / 2769.15 2110. / 2110.08 Microbiology Past 72 Hours 01/13/19 05:20 Legionella Antigen - Final Urine, Clean Catch Laboratory Tests Past 24 Hrs 01/12/19 01/12/19 01/12/19 15:31 15:31 15:31 WBC 14.4 H RBC 4.52 L Hgb 14.1 Hct 44.3 MCV 98.0 H MCH 31.2 MCHC 31.8 L RDW Std Deviation 47.8 H RDW Coeff of Jose J 13.2 Plt Count 214 MPV 9.8 Immature Gran % (Auto) 0.600 Neut % (Auto) 77.2 H Lymph % (Auto) 17.2 L [place] % (Auto) 4.5 Eos % (Auto) 0.1 Baso % (Auto) 0.4 Absolute Neuts (auto) 11.1 H Absolute Lymphs (auto) 2.48 Nucleated RBC % 0 Sodium 135 L Potassium 4.0 Chloride 96 L Carbon Dioxide 28.0 Anion Gap 11 BUN 12 Creatinine 0.88 Estim Creat Clear Calc 98.64 Est GFR (MDRD) Af Amer 114 Est GFR (MDRD) Non-Af 94 BUN/Creatinine Ratio 13.6 Glucose 114 H Lactic Acid Calcium 8.5 Phosphorus Magnesium Total Bilirubin 0.60 AST 20 ALT 13 L Alkaline Phosphatase 146 H Total Protein 8.5 H Albumin 3.3 Globulin 5.2 H Albumin/Globulin Ratio 0.6 L Urine Color Urine Clarity Urine pH Ur Specific [place] Urine Protein Urine Glucose (UA) Urine Ketones Urine Occult Blood Urine Nitrite Urine Bilirubin Urine Urobilinogen Ur Leukocyte Esterase Ethyl Alcohol 484.0 H* 01/12/19 01/12/19 01/13/19 16:00 20:42 05:20 WBC RBC Hgb Hct MCV MCH MCHC RDW Std Deviation RDW Coeff of Jose J Plt Count MPV Immature Gran % (Auto) Neut % (Auto) Lymph % (Auto) [place] % (Auto) Eos % (Auto) Baso % (Auto) Absolute Neuts (auto) Absolute Lymphs (auto) Nucleated RBC % Sodium Potassium Chloride Carbon Dioxide Anion Gap BUN Creatinine Estim Creat Clear Calc Est GFR (MDRD) Af Amer Est GFR (MDRD) Non-Af BUN/Creatinine Ratio Glucose Lactic Acid 4.0 H* 3.5 H Calcium Phosphorus Magnesium Total Bilirubin AST ALT Alkaline Phosphatase Total Protein Albumin Globulin Albumin/Globulin Ratio Urine Color Yellow Urine Clarity Clear Urine pH 6.0 Ur Specific [place] 1.015 Urine Protein 15 H Urine Glucose (UA) 250 H Urine Ketones 5 H Urine Occult Blood Negative Urine Nitrite Negative Urine Bilirubin Negative Urine Urobilinogen 1 H Ur Leukocyte Esterase Negative Ethyl Alcohol 01/13/19 01/13/19 01/13/19 05:49 05:49 05:49 WBC 9.4 RBC 3.53 L Hgb 11.2 L Hct 34.3 L MCV 97.2 H MCH 31.7 MCHC 32.7 RDW Std Deviation 48.6 H RDW Coeff of Jose J 13.7 Plt Count 141 L MPV 10.2 Immature Gran % (Auto) 0.500 Neut % (Auto) 83.0 H Lymph % (Auto) 9.3 L [place] % (Auto) 6.8 Eos % (Auto) 0.1 Baso % (Auto) 0.3 Absolute Neuts (auto) 7.8 H Absolute Lymphs (auto) 0.87 Nucleated RBC % 0 Sodium 137 Potassium 3.8 Chloride 105 Carbon Dioxide 29.0 Anion Gap 3 L BUN 8 Creatinine 0.61 L Estim Creat Clear Calc 137.96 Est GFR (MDRD) Af Amer 174 Est GFR (MDRD) Non-Af 144 BUN/Creatinine Ratio 13.1 Glucose 107 H Lactic Acid Calcium 8.1 L Phosphorus Magnesium 1.5 L Total Bilirubin AST ALT Alkaline Phosphatase Total Protein Albumin Globulin Albumin/Globulin Ratio Urine Color Urine Clarity Urine pH Ur Specific [place] Urine Protein Urine Glucose (UA) Urine Ketones Urine Occult Blood Urine Nitrite Urine Bilirubin Urine Urobilinogen Ur Leukocyte Esterase Ethyl Alcohol 01/13/19 05:49 WBC RBC Hgb Hct MCV MCH MCHC RDW Std Deviation RDW Coeff of Jose J Plt Count MPV Immature Gran % (Auto) Neut % (Auto) Lymph % (Auto) [place] % (Auto) Eos % (Auto) Baso % (Auto) Absolute Neuts (auto) Absolute Lymphs (auto) Nucleated RBC % Sodium Potassium Chloride Carbon Dioxide Anion Gap BUN Creatinine Estim Creat Clear Calc Est GFR (MDRD) Af Amer Est GFR (MDRD) Non-Af BUN/Creatinine Ratio Glucose Lactic Acid Calcium Phosphorus 2.2 L Magnesium Total Bilirubin AST ALT Alkaline Phosphatase Total Protein Albumin Globulin Albumin/Globulin Ratio Urine Color Urine Clarity Urine pH Ur Specific [place] Urine Protein Urine Glucose (UA) Urine Ketones Urine Occult Blood Urine Nitrite Urine Bilirubin Urine Urobilinogen Ur Leukocyte Esterase Ethyl Alcohol Medical Necessity - Tobacco Use Smoking Status: Current every day smoker Assessment/Plan All Active Problems Severe sepsis (Acute) Pneumonia (Acute) Hypoxia (Acute) 1. Severe sepsis 2/2 post obstructive pna, acute hypoxic respiratory failure (present on admissin) - requiring 4lpm o2 to maintain good sats continue zosyn. legionella ag pending. Strep urine ag pending. WBCs improved. sputum/blood pending. Add IS/PEP therapy. 2. Afib with RVR - new onset. Cardiology consulted. Start metoprolol, lovenox. No prior hx. 3. Lung CA - f/u oncology needs to initiate treatment. It is unclear what has been done as an outpatient. The patient is apparently aware that he has a diagnosis of lung cancer. 4. Lactic acidosis 2/2 hypoxia - he does not have severe sepsis despite his lactate of 4.0, this is likely due to his hypoxia. 5. Acute COPD exacerbation - more wheezy today, add solumedrol, IS, continue duonebs. 6. Alcoholism with acute intoxication - continue CIWA, folate, thiamine, ativan, valium. He has no intention to quit. 7. Nicotine abuse - 1-1.5ppd smoker, nicotine patch while here. 8. Low mag/phos - replete. DVT ppx: lovenox This patient was seen by Gustavo Grimes PA-C under the supervision of Dr. Soriano <Karyn Soriano - Last Filed: 01/13/19 13:58> - Physical Exam Vital Signs Temp Pulse Resp BP Pulse Ox 97.9 F 113 H 16 130/83 H 95 01/13/19 10:35 01/13/19 13:18 01/13/19 13:18 01/13/19 10:35 01/13/19 10:35 Oxygen Flow Rate (L/min) 4 Oxygen Delivery Method Nasal Cannula Weight: 80.1 kg Body Mass Index (BMI) 24.7 Intake and Output for Last 24 Hours 01/11/19 01/12/19 01/13/19 23:59 23:59 23:59 Intake Total 2769.15 / 2769.15 2215.08 / 2215.08 Balance 2769.15 / 2769.15 2215.08 / 2215.08 Microbiology Past 72 Hours 01/13/19 10:30 Gram Stain - Final Sputum, Expectorated/Coughed 01/13/19 05:20 Legionella Antigen - Final Urine, Clean Catch Laboratory Tests Past 24 Hrs 01/12/19 01/12/19 01/12/19 15:31 15:31 15:31 WBC 14.4 H RBC 4.52 L Hgb 14.1 Hct 44.3 MCV 98.0 H MCH 31.2 MCHC 31.8 L RDW Std Deviation 47.8 H RDW Coeff of Jose J 13.2 Plt Count 214 MPV 9.8 Immature Gran % (Auto) 0.600 Neut % (Auto) 77.2 H Lymph % (Auto) 17.2 L [place] % (Auto) 4.5 Eos % (Auto) 0.1 Baso % (Auto) 0.4 Absolute Neuts (auto) 11.1 H Absolute Lymphs (auto) 2.48 Nucleated RBC % 0 Sodium 135 L Potassium 4.0 Chloride 96 L Carbon Dioxide 28.0 Anion Gap 11 BUN 12 Creatinine 0.88 Estim Creat Clear Calc 98.64 Est GFR (MDRD) Af Amer 114 Est GFR (MDRD) Non-Af 94 BUN/Creatinine Ratio 13.6 Glucose 114 H Lactic Acid Calcium 8.5 Phosphorus Magnesium Total Bilirubin 0.60 AST 20 ALT 13 L Alkaline Phosphatase 146 H Total Protein 8.5 H Albumin 3.3 Globulin 5.2 H Albumin/Globulin Ratio 0.6 L Urine Color Urine Clarity Urine pH Ur Specific [place] Urine Protein Urine Glucose (UA) Urine Ketones Urine Occult Blood Urine Nitrite Urine Bilirubin Urine Urobilinogen Ur Leukocyte Esterase Ethyl Alcohol 484.0 H* 01/12/19 01/12/19 01/13/19 16:00 20:42 05:20 WBC RBC Hgb Hct MCV MCH MCHC RDW Std Deviation RDW Coeff of Jose J Plt Count MPV Immature Gran % (Auto) Neut % (Auto) Lymph % (Auto) [place] % (Auto) Eos % (Auto) Baso % (Auto) Absolute Neuts (auto) Absolute Lymphs (auto) Nucleated RBC % Sodium Potassium Chloride Carbon Dioxide Anion Gap BUN Creatinine Estim Creat Clear Calc Est GFR (MDRD) Af Amer Est GFR (MDRD) Non-Af BUN/Creatinine Ratio Glucose Lactic Acid 4.0 H* 3.5 H Calcium Phosphorus Magnesium Total Bilirubin AST ALT Alkaline Phosphatase Total Protein Albumin Globulin Albumin/Globulin Ratio Urine Color Yellow Urine Clarity Clear Urine pH 6.0 Ur Specific [place] 1.015 Urine Protein 15 H Urine Glucose (UA) 250 H Urine Ketones 5 H Urine Occult Blood Negative Urine Nitrite Negative Urine Bilirubin Negative Urine Urobilinogen 1 H Ur Leukocyte Esterase Negative Ethyl Alcohol 01/13/19 01/13/19 01/13/19 05:49 05:49 05:49 WBC 9.4 RBC 3.53 L Hgb 11.2 L Hct 34.3 L MCV 97.2 H MCH 31.7 MCHC 32.7 RDW Std Deviation 48.6 H RDW Coeff of Jose J 13.7 Plt Count 141 L MPV 10.2 Immature Gran % (Auto) 0.500 Neut % (Auto) 83.0 H Lymph % (Auto) 9.3 L [place] % (Auto) 6.8 Eos % (Auto) 0.1 Baso % (Auto) 0.3 Absolute Neuts (auto) 7.8 H Absolute Lymphs (auto) 0.87 Nucleated RBC % 0 Sodium 137 Potassium 3.8 Chloride 105 Carbon Dioxide 29.0 Anion Gap 3 L BUN 8 Creatinine 0.61 L Estim Creat Clear Calc 137.96 Est GFR (MDRD) Af Amer 174 Est GFR (MDRD) Non-Af 144 BUN/Creatinine Ratio 13.1 Glucose 107 H Lactic Acid Calcium 8.1 L Phosphorus Magnesium 1.5 L Total Bilirubin AST ALT Alkaline Phosphatase Total Protein Albumin Globulin Albumin/Globulin Ratio Urine Color Urine Clarity Urine pH Ur Specific [place] Urine Protein Urine Glucose (UA) Urine Ketones Urine Occult Blood Urine Nitrite Urine Bilirubin Urine Urobilinogen Ur Leukocyte Esterase Ethyl Alcohol 01/13/19 05:49 WBC RBC Hgb Hct MCV MCH MCHC RDW Std Deviation RDW Coeff of Jose J Plt Count MPV Immature Gran % (Auto) Neut % (Auto) Lymph % (Auto) [place] % (Auto) Eos % (Auto) Baso % (Auto) Absolute Neuts (auto) Absolute Lymphs (auto) Nucleated RBC % Sodium Potassium Chloride Carbon Dioxide Anion Gap BUN Creatinine Estim Creat Clear Calc Est GFR (MDRD) Af Amer Est GFR (MDRD) Non-Af BUN/Creatinine Ratio Glucose Lactic Acid Calcium Phosphorus 2.2 L Magnesium Total Bilirubin AST ALT Alkaline Phosphatase Total Protein Albumin Globulin Albumin/Globulin Ratio Urine Color Urine Clarity Urine pH Ur Specific [place] Urine Protein Urine Glucose (UA) Urine Ketones Urine Occult Blood Urine Nitrite Urine Bilirubin Urine Urobilinogen Ur Leukocyte Esterase Ethyl Alcohol Assessment/Plan This patient was seen in conjunction with HEMALATHA Mccray. I have independently interviewed and examined the patient and reviewed pertinent historical, laboratory, and other data. Please refer to HEMALATHA Mccray note for his patient's presentation, findings, and recommendations. I have reviewed and his note and concur with his documentation Patient seen and examined. He denies any new complains. Cannot remember why he is in the hospital. Telemetry shows new onset A fib with RVR Physical Exam: Gen: Looks in some discomfort, not pale, not jaundiced CVS:HS I +II, irregular, no murmurs RESP: Diminished, scattered wheezes+ GI: BS present and normal, soft, nontender, no palpable organs EXT:No edema Labs: Blood cultures are pending, Legionella antigen negative ASSESSMENT: 1. Sepsis secondary to postobstructive pneumonia 2. A. fib with RVR 3. Hypomagnesemia 4. Hypophosphatemia 5. Lung CA 6. Acute COPD exacerbation 7. Alcohol use disorder with intoxication 8. Nicotine dependence Plan: Continue with metoprolol, therapeutic Lovenox Alcohol withdrawal protocol Solu-Medrol IV, continue with breathing treatments Replace electrolytes Code Visit Inpatient E&M: 28544 Subs Hosp L2
--- NOTE | 2019-01-13 14:10 | CM.UR ---
RN CM Assessment Introduced role of RN CM to patient. Patient is alert and able to participate in RN CM Assessment. Care providers, pharmacy, and demographics verified. No family at bedside. Presentation: Presented to ER for sob and cough. was intoxicated. Admit Dx: severe sepsis and left upper lobe pneumonia. dx about 3 months ago with Lung cancer. He no-showed to his [facility] appt for it. Re-Admit: no Barriers/Issues: alcoholism. Mental trauma from watching his mother from Lung ca. PCP: magali Preferred Pharmacy: [facility] Insurance: [employer] Benefit: yes, no concerns about paying for meds. LNOK: Sister Siomara LW/HPOA: No and declined education. Living Arrangements: Currently lives in [facility] ADL?s: Independent with all adls. Transportation: Bus or bicycle. DME: None DME co: no preference, just in-network HHC: None SNF: None Goal: [facility]. DC PLAN: to return to [facility]. Possibly need O2 and nebulizer. Green sheet placed on chart for both. Eden Moody RN, CCM.
[2019-01-13] MEDS: Na Biphos/Potassium Phosphate PACKET 1 PACKET PO ×4 (15:18→21:22)
[2019-01-13] MEDS: Metoprolol Tartrate 50 MG Tablet PO (21:21)
[2019-01-13] MEDS: Enoxaparin 80 MG/0.8 ML Syringe SC (21:21)
[2019-01-14] VITALS (18 sets, daily range): BP systolic 108–140; BP diastolic 80–97; PULSE 70–132; RESP 16–18; TEMP 36.4–36.6; O2SAT 90–115
[2019-01-14] MEDS: Ipratropium/Albuterol Sulfate 3 ML AMPUL.NEB INHALATION ×5 (02:10→23:35)
[2019-01-14] MEDS: 0.9% Normal Saline 1,000 ML 125 ML IV ×3 (03:15→19:34)
[2019-01-14] MEDS: oxyCODONE 5 MG Tablet 10 MG PO ×2 (03:18→13:59)
[2019-01-14] MEDS: 0.9% NaCl Peripheral Flush Adult/Peds IV ×2 (05:15→18:35)
[2019-01-14] MEDS: Folic Acid 1 MG Tablet PO (07:58)
[2019-01-14] MEDS: Thiamine Hydrochloride 100 MG Tablet PO (07:58)
[2019-01-14] MEDS: Multivitamins,Therapeutic Tablet 1 TABLET PO (07:58)
[2019-01-14 08:05] LABS: BUN 8 mg/dL (7-18); BUN/Creat Ratio 13.8 RATIO (10-20); Calcium,Total 8.6 mg/dL (8.5-10.1); Creatinine, Serum 0.58 mg/dL (0.70-1.30); EST Glomerular Filtration Rate 153 mL/min (>60); Est Glom Filt Rate - Afr Amer 185 mL/min (>60); Estimated Creatinine Clearance 145.09 ml/min; Glucose 178 mg/dL (74-106); Potassium 4.4 mmol/L (3.5-5.1); Sodium Level 139 mmol/L (136-145)
[2019-01-14 08:06] LABS: Anion Gap 5 (5-15); Chloride 105 mmol/L (98-107)
[2019-01-14 08:37] LABS: Hemoglobin 13.1 g/dL (13.0-16.5); Mean Corp Hgb Conc 32.8 g/dL (32-36); Mean Corpuscular Hgb 32.2 pg (27.0-32.0); Mean Corpuscular Volume 98.3 fL (80-94); Platelet Count 147 K/mm3 (150-450); RBC Distribution Width CV 13.4 % (11.6-14.6); RBC Distribution Width SD 48.5 fl (35.1-43.9); Red Blood Count 4.07 M/mm3 (4.6-6.2); White Blood Count 5.8 K/mm3 (4.4-11.0)
[2019-01-14 08:38] LABS: Absolute Lymphocyte Count 0.46 X10^3/uL (0.83-4.51); Absolute Neutrophil Count 5.2 X10^3/uL (2.0-7.7); Basophil# 0.01 X10^3/uL; Basophil% 0.2 % (0-1); Differential Indicated SCAN CRITERIA MET; Lymphocyte # 0.46 X10^3/ul (4.0); Lymphocyte % 7.9 % (19-41); Mean Platelet Vol. 10.5 fl (6.2-12.0); Monocyte# 0.16 X10^3/uL; Monocyte% 2.7 % (0-10); Neutrophil # 5.17 X10^3/uL (2.7-7.7); Neutrophil % 88.7 % (47-70)
[2019-01-14 08:44] LABS: NRBC Flagged by Analyzer 0 % (0-5)
[2019-01-14] MEDS: Metoprolol Tartrate 50 MG Tablet PO ×2 (09:57→12:16)
[2019-01-14] MEDS: Enoxaparin 80 MG/0.8 ML Syringe SC ×2 (09:57→21:42)
[2019-01-14] MEDS: diazePAM 5 MG Tablet 10 MG PO ×4 (09:58→21:41)
[2019-01-14 11:04] LABS: Magnesium 1.9 mg/dL (1.6-2.6); Phosphorus 3.5 mg/dL (2.5-4.9)
--- NOTE | 2019-01-14 11:57 | PCM.PROGNOTE ---
<Gustavo Grimes - Last Filed: 01/14/19 11:57> Patient Problems: Active and Suspected Problems Severe sepsis (Acute) Pneumonia (Acute) Hypoxia (Acute) Subjective: Pt reports cough is nonproductive so far today. He feels his breathing is improved. No palp. Still with afib/tachy. No Dizziness / LH. Today he is more nausous and has been vomiting - began after eating breakfast. He is less wheezy today. No LE edema. - Physical Exam General: Alert, Oriented x3, Cooperative HEENT: Atraumatic, PERRLA, EOMI, Normocephalic Neck: Supple, No JVD, Negative Carotid Bruits Lungs: Diminished, Rales - RLL, Wheezes - L>R Cardiovascular: No murmurs, Irregular Rate, Tachycardic Abdomen: Bowel Sounds Present, Soft, Non Tender Extremities: No edema, Capillary Refill Less than 3 Seconds Skin: No rashes, No breakdown Musculoskeletal: No Tenderness to Palpation of Joints or Extremities Neurological: Cranial nerves II-XII grossly intact Psych/Mental Status: Normal Affect, Appropriate, Alert and oriented to time, place, person, mood and affect Vital Signs Temp Pulse Resp BP Pulse Ox 97.6 F L 115 H 16 136/90 H 94 01/14/19 07:40 01/14/19 11:20 01/14/19 07:40 01/14/19 09:57 01/14/19 07:40 Oxygen Flow Rate (L/min) 3 Oxygen Delivery Method Nasal Cannula Weight: 176 lb 9.444 oz Body Mass Index (BMI) 24.7 Intake and Output for Last 24 Hours 01/12/19 01/13/19 01/14/19 23:59 23:59 23:59 Intake Total 2769.15 / 2769.15 5028.33 / 5028.33 1628.33 / 1628.33 Balance 2769.15 / 2769.15 5028.33 / 5028.33 1628.33 / 1628.33 Microbiology Past 72 Hours 01/13/19 10:30 Gram Stain - Final Sputum, Expectorated/Coughed Respiratory Culture - Preliminary Appears to be normal respiratory cheryl. Further studies to follow. 01/14/19 07:40 Stool Occult Blood (GAGE) - Final Stool 01/13/19 05:20 Legionella Antigen - Final Urine, Clean Catch Laboratory Tests Past 24 Hrs 01/14/19 01/14/19 01/14/19 07:29 07:29 07:29 WBC 5.8 RBC 4.07 L Hgb 13.1 Hct 40.0 MCV 98.3 H MCH 32.2 H MCHC 32.8 RDW Std Deviation 48.5 H RDW Coeff of Jose J 13.4 Plt Count 147 L MPV 10.5 Immature Gran % (Auto) 0.500 Neut % (Auto) 88.7 H Lymph % (Auto) 7.9 L [place] % (Auto) 2.7 Eos % (Auto) 0.0 Baso % (Auto) 0.2 Absolute Neuts (auto) 5.2 Absolute Lymphs (auto) 0.46 L Nucleated RBC % 0 Sodium 139 Potassium 4.4 Chloride 105 Carbon Dioxide 29.0 Anion Gap 5 BUN 8 Creatinine 0.58 L Estim Creat Clear Calc 145.09 Est GFR (MDRD) Af Amer 185 Est GFR (MDRD) Non-Af 153 BUN/Creatinine Ratio 13.8 Glucose 178 H Calcium 8.6 Phosphorus 3.5 Magnesium 1.9 Medical Necessity - Tobacco Use Smoking Status: Current every day smoker Assessment/Plan All Active Problems Severe sepsis (Acute) Pneumonia (Acute) Hypoxia (Acute) 1. Severe sepsis 2/2 post obstructive pna, acute hypoxic respiratory failure (present on admissin) - requiring 4lpm o2 to maintain good sats continue zosyn. legionella ag negative. Strep urine ag pending. WBCs now normal. sputum with normal cheryl. Blood cx pending. Continue IS/PEP therapy. 2. Afib with RVR - new onset. Cardiology consulted. Metoprolol increased again today. Continue lovenox. No prior hx. Electrolytes replaced. -Stool occult blood is negative. 3. Lung CA - f/u oncology needs to initiate treatment. It is unclear what has been done as an outpatient. The patient is apparently aware that he has a diagnosis of lung cancer. 4. Lactic acidosis 2/2 hypoxia - he does not have severe sepsis despite his lactate of 4.0, this is likely due to his hypoxia. 5. Acute COPD exacerbation - wheezing improved, continue solumedrol, IS, continue duonebs. Wean o2 as tolerated. 6. Alcoholism with withdrawal- continue CIWA, folate, thiamine, ativan, valium. He has no intention to quit. 7. Nicotine abuse - 1-1.5ppd smoker, nicotine patch while here. 8. Low mag/phos - repleted again. DC planning: will likely need home O2. DVT ppx: lovenox This patient was seen by Gustavo Grimes PA-C under the supervision of Dr. Soriano <Krayn Soriano - Last Filed: 01/14/19 13:21> - Physical Exam Vital Signs Temp Pulse Resp BP Pulse Ox 97.6 F L 120 H 16 136/90 H 94 01/14/19 07:40 01/14/19 12:16 01/14/19 07:40 01/14/19 09:57 01/14/19 07:40 Oxygen Flow Rate (L/min) 3 Oxygen Delivery Method Nasal Cannula Weight: 80.1 kg Body Mass Index (BMI) 24.7 Intake and Output for Last 24 Hours 01/12/19 01/13/19 01/14/19 23:59 23:59 23:59 Intake Total 2769.15 / 2769.15 5028.33 / 5028.33 2037.33 / 2037.33 Output Total 200 / 200 Balance 2769.15 / 2769.15 5028.33 / 5028.33 1837.33 / 1837.33 Microbiology Past 72 Hours 01/14/19 11:30 Streptococcus pneumoniae Antigen (M - Final Urine, Clean Catch 01/13/19 10:30 Gram Stain - Final Sputum, Expectorated/Coughed Respiratory Culture - Preliminary Appears to be normal respiratory cheryl. Further studies to follow. 01/14/19 07:40 Stool Occult Blood (GAGE) - Final Stool 01/13/19 05:20 Legionella Antigen - Final Urine, Clean Catch Laboratory Tests Past 24 Hrs 01/14/19 01/14/19 01/14/19 07:29 07:29 07:29 WBC 5.8 RBC 4.07 L Hgb 13.1 Hct 40.0 MCV 98.3 H MCH 32.2 H MCHC 32.8 RDW Std Deviation 48.5 H RDW Coeff of Jose J 13.4 Plt Count 147 L MPV 10.5 Immature Gran % (Auto) 0.500 Neut % (Auto) 88.7 H Lymph % (Auto) 7.9 L [place] % (Auto) 2.7 Eos % (Auto) 0.0 Baso % (Auto) 0.2 Absolute Neuts (auto) 5.2 Absolute Lymphs (auto) 0.46 L Nucleated RBC % 0 Sodium 139 Potassium 4.4 Chloride 105 Carbon Dioxide 29.0 Anion Gap 5 BUN 8 Creatinine 0.58 L Estim Creat Clear Calc 145.09 Est GFR (MDRD) Af Amer 185 Est GFR (MDRD) Non-Af 153 BUN/Creatinine Ratio 13.8 Glucose 178 H Calcium 8.6 Phosphorus 3.5 Magnesium 1.9 Assessment/Plan This patient was seen in conjunction with HEMALATHA Mccray. I have independently interviewed and examined the patient and reviewed pertinent historical, laboratory, and other data. Please refer to HEMALATHA Mccray note for his patient's presentation, findings, and recommendations. I have reviewed and his note and concur with his documentation Patient seen and examined. Remains in A. fib. On 4L oxygen. Denies any complains. Physical Exam: Gen:Comfortable, not pale, not jaundiced CVS:HS I +II, irregular, no murmurs RESP: Diminished, vesicular BS GI: BS present and normal, soft, nontender, no palpable organs EXT:No edema Labs: Blood cultures are pending, Legionella antigen negative, sputum culture negative ASSESSMENT: 1. Sepsis secondary to postobstructive pneumonia 2. A. fib with RVR 3. Hypomagnesemia 4. Hypophosphatemia 5. Lung CA 6. Acute COPD exacerbation 7. Alcohol use disorder with intoxication 8. Nicotine dependence Plan: Increase 50 mg twice daily Continue on therapeutic Lovenox for now Replace magnesium Alcohol withdrawal protocol Switch to short course of oral prednisone from tomorrow Code Visit Inpatient E&M: 40833 Subs Hosp L2
[2019-01-14] MEDS: dilTIAZem 25 MG/5 ML Vial 10 MG IV BOLUS (18:34)
[2019-01-14] MEDS: dilTIAZem CD 180 MG Capsule PO (21:45)
[2019-01-15] VITALS (21 sets, daily range): BP systolic 127–146; BP diastolic 72–95; PULSE 73–125; RESP 18–22; TEMP 36.4–36.8; O2SAT 88–98
[2019-01-15] MEDS: Ipratropium/Albuterol Sulfate 3 ML AMPUL.NEB INHALATION ×3 (00:16→13:30)
[2019-01-15] MEDS: 0.9% Normal Saline 1,000 ML 125 ML IV ×2 (03:56→14:40)
--- NOTE | 2019-01-15 05:00 | STEWCON_ITS ---
Reason For Study: Atrial Fibrillation Stress Results Protocol: Dobutamine Stress Echo Maximum Predicted HR: 163 bpm Target HR: 139 bpm % Maximum Predicted HR: 105 % DurationHeart Rate Stage (mm:ss) (bpm) BP Comment Baseline 104 141/86No Chest Pain; 5 ML Diluted Definity Given DSE 10 MCG 3:00 105 131/75No Chest Pain DSE 20 MCG 2:10 171 142/78No Chest Pain Recovery 101 137/77No Chest Pain Stress Duration: 5:10 mm:ss Maximum Stress HR: 171 bpm METS: 1 Baseline Echocardiogram Findings The estimated ejection fraction is 65 %. Stress Echo Wall motion Data Resting WM Intermediate WM Stress WM Resting Wall Motion Wall Motion Stress No regional wall motion No regional wall motion abnormalities noted. abnormalities noted. EKG Data Atrial fibrillation. The patient was titrated from 10 mcg to a maximum of 20 mcg of dobutamine during the stress. The maximum heart rate attained was 171 beats per minute. This was 104% of maximum predicted heart rate. During dobutamine infusion, there were no ST or T wave changes noted to suggest ischemia. No clinical angina was noted. Interpretation Summary The estimated ejection fraction is 65 %. Normal adequate dobutamine echocardiogram. Negative for ischemia by EKG and echocardiographic criteria. No anginal symptoms noted. Rare PVC noted. Baseline atrial fibrillation with controlled ventricular response. Decreased sensitivity due to poor echo windows and atrial fibrillation requiring Definity enhancing agent. Final LVEF is 75%. Patient tolerated the procedure well. No complication. Test terminated due to the attainment of target heart rate. The study was technically difficult. Contrast injection was performed. Ordering Physician: Jimbo Dent M.D. Referring Physician: Farhan Aggarwal M.D. Performed By: Kellie Fuller, DEMETRIUS, RVT
[2019-01-15] MEDS: LORazepam 2 MG/ML Syringe IV (05:30)
[2019-01-15] MEDS: 0.9% NaCl Peripheral Flush Adult/Peds IV ×2 (05:33→12:28)
--- NOTE | 2019-01-15 05:55 | EKG12_ITS ---
Test Reason : RHYTHM Blood Pressure : / mmHG Vent. Rate : 131 BPM Atrial Rate : 131 BPM P-R Int : 000 ms QRS Dur : 088 ms QT Int : 280 ms P-R-T Axes : 000 078 030 degrees QTc Int : 413 ms Atrial fibrillation with rapid ventricular response Abnormal ECG Confirmed by HUMPHREY RAMIREZ, URI ([id number]), newspaper editor managing LI ORTIZ ([id number]) on 01/17/2019 2:07:03 PM Referred By: NELLY Confirmed By:URI YIN MD
--- NOTE | 2019-01-15 06:03 | NURSING ---
Pt attempting to leave AMA, pt confused-thinks he is at the [facility]. Explained to pt he is in [facility] and reason he is here. Pt still stating plan to leave AMA. Charge Nurse Annette to room, reinforced reasons for hospitalization. PRN Ativan given, pt resting comfortably in bed.
[2019-01-15 06:44] LABS: Albumin, Serum 2.3 g/dL (3.2-5.0); BUN 11 mg/dL (7-18); BUN/Creat Ratio 18.1 RATIO (10-20); Calcium,Total 8.7 mg/dL (8.5-10.1); Chloride 107 mmol/L (98-107); Creatinine, Serum 0.61 mg/dL (0.70-1.30); EST Glomerular Filtration Rate 145 mL/min (>60); Est Glom Filt Rate - Afr Amer 175 mL/min (>60); Estimated Creatinine Clearance 137.96 ml/min; Glucose 167 mg/dL (74-106); Phosphorus 3.4 mg/dL (2.5-4.9); Sodium Level 142 mmol/L (136-145)
--- NOTE | 2019-01-15 07:30 | NURSING ---
Called and spoke with KHADIJAH Willoughby in Nuclear Med. Updated her on patient's condition this am. Fartun states that she will speak with Dr. Dent and the rest of the team and call me back with further instruction.
--- NOTE | 2019-01-15 11:21 | CON.PCM_ITS ---
Problem List (1) Atrial fibrillation Status: Acute (2) Severe sepsis Status: Acute (3) Hypoxia Status: Acute (4) Lung cancer Status: Chronic Qualifiers: Laterality: left Lung location: upper lobe of lung Qualified Code(s): C34.12 - Malignant neoplasm of upper lobe, left bronchus or lung (5) COPD (chronic obstructive pulmonary disease) Status: Chronic (6) Acute alcohol intoxication with alcoholism Status: Chronic Reason for Consult Date of Consultation: 01/15/19 Reason for Consultation: Atrial fibrillation History of Present Illness: The patient is a 58 year old M, no previous cardiac history, no previous atrial fibrillation, heavy alcohol user who was admitted intoxicated and hypoxic requiring IV antibiotic therapy, does not recall the circumstances of his admission, history of heavy smoking of approximately 45 pack years and currently smokes. Patient was admitted for confusion, possible pneumonia, hypoxia, and transition to atrial fibrillation with rapid ventricular response on 01/13/2019. The patient was initially treated with beta-jonatan therapy which is titrated up then appeared to respond to IV Cardizem therapy. Patient was changed from Lopressor to Cardizem CD 180 mg daily. His chest x-ray was not all that impressive for infiltrative processes. Nonetheless he was treated with antibiotic therapy. Upon further history the patient denies any previous atrial fibrillation, cannot sense that he is in atrial fibrillation, denies any associated chest pain, angina, shortness of breath. He underwent an echocardiogram on 01/13/2019 with the following results: Interpretation Summary The estimated ejection fraction is 65 %. Unable to assess diastolic dysfunction due to arrhythmia. Mild (1+) tricuspid valve insufficiency. Right ventricular systolic pressure estimated to be 44 mmHg. Mild pulmonary hypertension. Pt appears to be in atrial fibrillation. The study was technically difficult. Contrast injection was performed. There is no comparison study available. Patient was referred for a dobutamine stress echocardiogram which is pending. Currently he is in atrial fibrillation with controlled ventricular response although he has episodes where his heart rate goes up into the 1 teens when ambulation. He denies any symptoms with his atrial fibrillation. [] Past Medical History Allergies/Adverse Reactions: Allergies No Known Allergies Allergy (Verified 01/12/19 15:12) Home Medications: Ambulatory Orders Medication Instructions Recorded Albuterol Inhaler [Ventolin Hfa 1 - 2 puff INHALATION Q4H PRN PRN 01/12/19 (SP)] Fluticasone/Vilanterol [Breo 1 ea IH DAILY 01/12/19 Ellipta Inhaler] Past Medical History (Chronic Problems): Chronic Problems Lung cancer (Chronic) COPD (chronic obstructive pulmonary disease) (Chronic) Acute alcohol intoxication with alcoholism (Chronic) Surgical History: tonsillectomy Psychiatric History: No pertinent psych hx Lives: Alone Smoking Status: Current every day smoker Review of Systems - Review of Systems General: Denies: Fever, Night Sweats, Fatigue Cardiovascular: Denies: Chest Discomfort, Shortness of Breath, Orthopnea, PND, Peripheral Edema, Palpitations, Lightheadedness, Dizziness, Near Syncope, S yncope Respiratory: Denies: Cough, Sputum Production, Hemoptysis Gastrointestinal: Denies: Hematemesis, Hematochezia, Melena Genitourinary: Denies: Dysuria, Hematuria Skin: Denies: Rash Subjectve: Patient resting comfortably, no acute distress. Objective: Vital Signs Temp Pulse Resp BP Pulse Ox 98.2 F 73 22 H 127/84 H 95 01/15/19 11:00 01/15/19 11:00 01/15/19 11:00 01/15/19 11:00 01/15/19 11:00 Oxygen Flow Rate (L/min) 2 Oxygen Delivery Method Nasal Cannula Weight: 176 lb 9.444 oz Body Mass Index (BMI) 24.7 Intake and Output for Last 24 Hours 01/13/19 01/14/19 01/15/19 23:59 23:59 23:59 Intake Total 5028.33 / 5028.33 4171.33 / 4171.33 Output Total 200 / 200 Balance 5028.33 / 5028.33 3971.33 / 3971.33 General: Awake, Alert, Oriented x 3 HEENT: PERRL, EOMI, Sclera Non Icteric Neck: Supple, Good ROM, No Lymph Node Enlargement Lungs: Clear to auscultation Cardiovascular: Irregular Rhythm, Normal S1, Normal S2, No Murmurs, No Rubs, No Gallops Vascular: No Carotid Bruits, Normal Femoral Pulses, Normal Radial Pulses, Normal Dorsalis Pedal Pulse, Normal Posterior Tibial Pulses Abdomen: Bowel Sounds Present, Soft, Non Tender, No HSM, No Organomegaly Extremities: No Cyanosis, No Clubbing, No edema Neurological: No Focal Motor or Sensory Deficit 01/14/19 07:29: Sodium 139, Potassium 4.4, Chloride 105, Carbon Dioxide 29.0, Anion Gap 5, BUN 8, Creatinine 0.58 L, Est GFR (MDRD) Af Amer 185, Est GFR (MDRD) Non-Af 153, BUN/Creatinine Ratio 13.8, Glucose 178 H, Calcium 8.6 01/15/19 05:46: Sodium 142, Potassium 4.0, Chloride 107, Carbon Dioxide 29.0, BUN 11, Creatinine 0.61 L, Est GFR (MDRD) Af Amer 175, Est GFR (MDRD) Non-Af 145, BUN/Creatinine Ratio 18.1, Glucose 167 H, Calcium 8.7, Phosphorus 3.4 Rhythm: EKG: Atrial fibrillation with controlled ventricular response, no previous myocardial infarction or dynamic changes noted. ECHO:Interpretation Summary The estimated ejection fraction is 65 %. Unable to assess diastolic dysfunction due to arrhythmia. Mild (1+) tricuspid valve insufficiency. Right ventricular systolic pressure estimated to be 44 mmHg. Mild pulmonary hypertension. Pt appears to be in atrial fibrillation. The study was technically difficult. Contrast injection was performed. There is no comparison study available. Stress Test: Pending Cardiac Cath: PCI: CT Surgery: Holter monitor: EPS: PPM: CXR: Chest CT Scan: Assessment/Plan 1. Atrial fibrillation: The patient has new onset atrial fibrillation superimposed on acute alcohol withdrawal which may be exacerbating his atrial fibrillation. He is asymptomatic from an atrial fibrillation standpoint and cannot tell when he goes in and out of atrial fibrillation. To his knowledge he has had no previous diagnosis of atrial fibrillation and denies any previous coronary artery disease. He denies any anginal symptoms with his rapid heart rate. His echocardiogram shows normal LV size and function with an EF of 65% and he is ruled out for myocardial infarction. We have struggled to control his heart rate with initially beta-blockers and then transition to calcium channel blockers. There appeared to be some benefit with heart rate control with calcium channel blockers. He is undergoing a dobutamine echocardiogram currently, with results pending. Assuming that is negative, we will hold off on diagnostic coronary angiogram. If it is abnormal, the patient will require diagnostic coronary angiogram. The patient is a very poor candidate for anticoagulation therapy given his ongoing alcohol use for the past 35 years. However while he is in the hospital would recommend continuing subcu Lovenox for both DVT and CVA. Would recommend starting the patient on Cardizem CD 180 mg p.o. twice daily, and if this fails to control his heart rate he may require beta-jonatan therapy as well. Hopefully the patient's rhythm will normalize once he is through his acute inflammatory illness, and alcohol withdrawal. He is a poor candidate for amiodarone given his ongoing alcohol abuse although his LFTs are within normal limits. If the patient was able to demonstrate refraining from alcohol use, I would recommend anticoagulation therapy such as Eliquis 5 mg p.o. twice daily for 3 weeks time followed by DC cardioversion. Another option would be for a transesophageal evaluation to determine if he has any left atrial appendage thrombus, followed by immediate DC cardioversion. 2. Alcohol abuse: I had a long thorough discussion regarding the patient's alcohol use, strongly encouraged him to discontinue all alcohol products. I have thoroughly explained to the patient the relationship between alcohol use, cardiomyopathy, and atrial fibrillation. 3. Tobacco abuse: I had a long thorough discussion with patient regarding tobacco abuse as well, strongly encouraged him to discontinue all tobacco products. Patient is voiced understanding and agrees to comply. 4. Hyperlipidemia: Recommend obtaining a fasting lipid profile once his acute illness has resolved. 5. Thank you very much for the opportunity to participate in the cardiac care of this patient. Consultation time took place between 8 AM and 8:30 AM. Code Visit Inpatient E&M: 94525 Init Hosp L2
[2019-01-15] MEDS: Multivitamins,Therapeutic Tablet 1 TABLET PO (12:35)
[2019-01-15] MEDS: diazePAM 5 MG Tablet 10 MG PO ×3 (12:35→22:34)
[2019-01-15] MEDS: dilTIAZem CD 180 MG Capsule PO ×2 (12:36→22:34)
--- NOTE | 2019-01-15 13:04 | CASEMGMT ---
SW spoke with patient. Introduced self and role at [facility]. SW talked with patient about his possibly needing O2 and not being able to return to [facility] on O2. He has nowhere else to go. SW spoke with him about mental health diagnoses and he said he has some Anxiety. He is not on medication. SW spoke with him about his alcohol use. He said that is going to stop. SW asked if he needed any resources for mental health or alcohol treatment agencies. He denies any need for any resources. SW asked how he is doing since he found out about his Cancer diagnosis. He said it is what it is and he can't change it now. SW went back to needing O2 at d/c and not being able to go back to [facility]. He said he guesses he would have to go to a detention. He asked SW if SW called anyone at [facility]. SW told him SW has not, but plans on doing so. ALEK then called [facility] and spoke with Kieran. She said patient could return on O2 at d/c. ALEK went back to patient's room and let him know this information. He said that is fine and he will go back there at d/c. Plan: d/c back to [facility] as he is allowed to return on O2. Mayda BROWN
--- NOTE | 2019-01-15 13:39 | PCM.PROGNOTE ---
Patient Problems: Active and Suspected Problems Severe sepsis (Acute) Pneumonia (Acute) Hypoxia (Acute) Atrial fibrillation (Acute) Subjective: No N/V this AM. No abdominal pain. Still with some tachy afib on the monitor. No CP/palp. Going for stress test this AM. Still SOB with exertion and requiring O2. - Physical Exam General: Alert, Oriented x3, Cooperative HEENT: Atraumatic, PERRLA, EOMI, Normocephalic Neck: Supple, No JVD, Negative Carotid Bruits Lungs: Normal air movement, Diminished Cardiovascular: Irregular Rate, Tachycardic Abdomen: Bowel Sounds Present, Soft, Non Tender Extremities: No edema, Capillary Refill Less than 3 Seconds Skin: No rashes, No breakdown Musculoskeletal: No Tenderness to Palpation of Joints or Extremities Neurological: Cranial nerves II-XII grossly intact Psych/Mental Status: Normal Affect, Appropriate Vital Signs Temp Pulse Resp BP Pulse Ox 97.8 F 110 H 20 H 133/89 H 93 01/15/19 12:13 01/15/19 12:13 01/15/19 12:13 01/15/19 12:13 01/15/19 12:13 Oxygen Flow Rate (L/min) 2 Oxygen Delivery Method Nasal Cannula Weight: 176 lb 9.444 oz Body Mass Index (BMI) 24.7 Intake and Output for Last 24 Hours 01/13/19 01/14/19 01/15/19 23:59 23:59 23:59 Intake Total 5028.33 / 5028.33 4171.33 / 4171.33 2019.58 / 2019.58 Output Total 200 / 200 1000 / 1000 Balance 5028.33 / 5028.33 3971.33 / 3971.33 1019.58 / 1019.58 Microbiology Past 72 Hours 01/13/19 10:30 Gram Stain - Final Sputum, Expectorated/Coughed Respiratory Culture - Final Mixed normal respiratory cheryl. No Streptococcus pneumoniae, beta-hemolytic Streptococcus or Staphylococcus aureus isolated. 01/12/19 16:00 Blood Culture - Preliminary Blood Culture (Wb) - Anticubital Right No growth in 48 hours. 01/12/19 18:05 Blood Culture - Preliminary Blood Culture (Wb) - Anticubital Right No growth in 48 hours. 01/14/19 11:30 Streptococcus pneumoniae Antigen (M - Final Urine, Clean Catch 01/14/19 07:40 Stool Occult Blood (GAGE) - Final Stool 01/13/19 05:20 Legionella Antigen - Final Urine, Clean Catch Laboratory Tests Past 24 Hrs 01/15/19 05:46 Sodium 142 Potassium 4.0 Chloride 107 Carbon Dioxide 29.0 BUN 11 Creatinine 0.61 L Estim Creat Clear Calc 137.96 Est GFR (MDRD) Af Amer 175 Est GFR (MDRD) Non-Af 145 BUN/Creatinine Ratio 18.1 Glucose 167 H Calcium 8.7 Phosphorus 3.4 Albumin 2.3 L Medical Necessity - Tobacco Use Smoking Status: Current every day smoker Assessment/Plan All Active Problems Severe sepsis (Acute) Pneumonia (Acute) Hypoxia (Acute) Atrial fibrillation (Acute) 1. Severe sepsis 2/2 post obstructive pna, acute hypoxic respiratory failure (present on admissin) - requiring 4lpm o2 to maintain good sats continue zosyn. legionella ag negative. Strep urine ag pending. WBCs now normal. sputum with normal cheryl. Blood cxs negative. Continue IS/PEP therapy. 2. Afib with RVR - new onset. Cardiology consulted. Metoprolol/Cardizem. Lovenox, may need xarelto/eliquis. However he is an alcoholic so his risk is elevated. Stress test today: EF 65-75%, no ischemic changes. RVSP 44mmHg on 2d echo. 3. Lung CA - f/u oncology needs to initiate treatment. 4. Lactic acidosis 2/2 hypoxia - he does not have severe sepsis despite his lactate of 4.0, this is likely due to his hypoxia. 5. Acute COPD exacerbation - wheezing improved, continue solumedrol, IS, continue duonebs. Wean o2 as tolerated. 6. Alcoholism with withdrawal- continue CIWA, folate, thiamine, ativan, valium. He has no intention to quit. 7. Nicotine abuse - 1-1.5ppd smoker, nicotine patch while here. 8. Low mag/phos - repleted. DC planning: will likely need home O2. DVT ppx: lovenox This patient was seen by Gustavo Grimes PA-C under the supervision of Dr. Tang
--- NOTE | 2019-01-15 16:30 | ONC.CONS.INP ---
Consult Referring Physician: Dr. Ruba Tang Consult Results: Left hilar mass with Upper lobe collapse. Subjective Date of Service:: 01/15/19 Chief Complaint: Asked to see Pt for left hilar mass and upper lobe collapse. History of Present Illness: 58y.o.man, poor historian, was found to have Left hilar mass and partial upper lobe collapse since September [address] done here in September 2018. He was seen at [facility], had a PET CT scan done on 12/12/2018 which showed hypermetabolic mass involving the left upper lobe and hilar area. He was scheduled for bronchoscopy but could not make the appointment. He is now admitted [facility] with Marley. arabella. Past Medical History: Chronic Problems Lung cancer (Chronic) COPD (chronic obstructive pulmonary disease) (Chronic) Acute alcohol intoxication with alcoholism (Chronic) Hilar mass (Chronic) Atelectasis of left lung (Chronic) Past Medical/Surgical History: Past Medical History - Most Recent Inpatient Visit Past Medical History Start: 01/12/19 18:59 Text: Status: Complete Freq: ONCE Protocol: Document 01/12/19 18:59 ZZB (Rec: 01/12/19 19:14 ZZB [id number]) BMI Required to complete PMH What is Patient's BMI 24.7 Past Medical History Unable History Recalled No Query Text:Pt Unable/Family Not Present Neurologic Medical History Hx Stroke/TIA No Hx Dementia/Alzheimer's No Hx Parkinson's Disease No Hx Seizures No Hx Multiple Sclerosis No Cardiac Medical History VTE Present on Admission No Hx of Deep Vein Thrombosis/VTE/PE No Hx Hypertension No Hx Heart Attack No Hx Cardiac Surgery/Stents/Etc. No Hx Heart Failure No Hx Pacemaker/AICD No Hx Irregular Heartbeat and/or Afib No Hx Anticoagulant Therapy No Query Text:(Coumadin, Aspirin, Plavix, Xarelto, etc.) Respiratory Medical History Hx COPD Yes Hx Emphysema No Smoking Status Current every day smoker Years Smoking 40 Packs Smoked per Day 1 Hx Tobacco Use in last 12 months Yes Sent to [facility] Yes Hx Sleep Apnea No Do you snore loudly (louder than talking No or can be heard through closed doors)? Do you often feel tired/ fatigued/ No sleepy during daytime? Has anyone observed you stop breathing No during sleep? STOP Results Negative GI Medical History Hx Ulcer No Hx Hepatitis No Hx Cirrhosis No Hx GI Bleed No Hx Unplanned Weight Loss No Genitourinary Medical History Indwelling Catheter in Place on Arrival/ No Admission Hx Renal Disease No Hx Dialysis No Musculoskeletal History Hx Arthritis No Hx Rheumatoid Arthritis No Endocrine Medical History Hx Diabetes No Hx Thyroid Disease No Hematologic Medical History Hx of Blood Transfusion No Hx of Transfusion in last 3 Months No Ever experience any problems with No transfusion(s)? Hx of Preganancy in last 3 Months N/A Nurse Filling Out Transfusion & ZBEAM Questions: Date: 01/12/19 Time: 19:13 Psycho/Social Medical History Hx Depression No Hx Anxiety No Hx Behavior Disorder No Hx Alcohol Use Yes: 1/5 of vodka daily Hx Substance Use No Other Medical History Hx Blood Disorders No Hx Anemia No Wound/Pressure Injury Present on Arrival No /Admission Query Text:If yes, chart assessment in Shift/Clinical Findings Central Line/PICC/VAD Present on Arrival No /Admission Risk for Readmission Number of Risk Factors 2 At Risk for Readmission Patient is Not at Risk Patient is eligible for Call Back N - Social History Lives: Alone Smoking Status: Current every day smoker Allergies/Adverse Reactions: Allergy/AdvReac Type Severity Reaction Status Date / Time No Known Allergies Allergy Verified 01/12/19 15:12 Review of Systems Constitutional:: Denies: Fever, Sweats, Weight loss, Appetite change, Chills Cardiovascular:: Denies: Chest pain, Palpitations, Dyspnea on exertion, Orthopnea, PND, Shortness of breath Respiratory: Reports: Cough, Sputum production - sometimes.. Denies: Hemoptysis, Shortness of Breath, Wheezing Gastrointestinal:: Denies: Abdominal pain, Nausea, Vomiting, Diarrhea, Constipation, Hematochezia Genitourinary: Denies: Dysuria, Hematuria, 15, Flank pain Musculoskeletal:: Denies: Back pain, Myalgia, Arthralgia Skin: Denies: Rash, Skin Changes, Wounds Neurological:: Denies: Headache, Dizziness, Visual changes, Tinnitus, Hearing loss Psychiatric: Denies: Anxiety, Depression, Homicidal Ideations, Suicidal Ideations Vital Signs Height 5 ft 10.87 in Weight: 80.1 kg Weight in Pounds 176.6 lbs Pulse Ox [AMBULATION with 92 Oxygen] Pulse Ox [AMBULATING on Room 88 Air] Pulse Ox [At REST on Room Air] 98 Pulse Ox 97 Temperature 98.0 F Pulse Rate 117 Respiratory Rate 20 Blood Pressure 139/78 Blood Pressure Position Supine - Physical Exam General: Alert, Oriented x3, No apparent distress HEENT: Atraumatic, PERRLA, EOMI, Normocephalic Oropharynx:: Dry mucosa Neck:: Supple, Trachea midline. Negative for: JVD, bilateral Cardiac:: Normal S1, Normal S2, Irregular rate. Negative for: Regular rate, Regular rhythm, Murmur Lungs: Clear to auscultation, Excusion symmetrical. Negative for: Rhonchi, Wheezes Abdomen:: Bowel sounds x 4, Soft, Non-tender, Non-distended. Negative for: Hepatosplenomegaly Extremities:: Negative for: Cyanosis, Edema Neurological: Neuro grossly intact Skin:: Negative for: Lesions, Rash, Petechiae, Ecchymosis Psychiatric:: Appropriate affect, Euthymic Lymphatics:: Negative for: Cervical lymphadenopathy, Supraclavicular lymphadenopathy, Axillary lymphadenopathy Laboratory Data: Microbiology 01/13/19 10:30 Gram Stain - Final Sputum, Expectorated/Coughed Respiratory Culture - Final Mixed normal respiratory cheryl. No Streptococcus pneumoniae, beta-hemolytic Streptococcus or Staphylococcus aureus isolated. 01/12/19 16:00 Blood Culture - Preliminary Blood Culture (Wb) - Anticubital Right No growth in 48 hours. 01/12/19 18:05 Blood Culture - Preliminary Blood Culture (Wb) - Anticubital Right No growth in 48 hours. 01/14/19 11:30 Streptococcus pneumoniae Antigen (M - Final Urine, Clean Catch 01/14/19 07:40 Stool Occult Blood (GAGE) - Final Stool 01/13/19 05:20 Legionella Antigen - Final Urine, Clean Catch Laboratory Tests 01/15/19 Range/Units 05:46 Sodium 142 (136-145) mmol/L Potassium 4.0 (3.5-5.1) mmol/L Chloride 107 (98-107) mmol/L Carbon Dioxide 29.0 (21.0-32.0) mmol/L BUN 11 (7-18) mg/dL Creatinine 0.61 L (0.70-1.30) mg/dL Estim Creat Clear Calc 137.96 ml/min Est GFR (MDRD) Af Amer 175 (>60) mL/min Est GFR (MDRD) Non-Af 145 (>60) mL/min BUN/Creatinine Ratio 18.1 (10-20) RATIO Glucose 167 H (74-106) mg/dL Calcium 8.7 (8.5-10.1) mg/dL Phosphorus 3.4 (2.5-4.9) mg/dL Albumin 2.3 L (3.2-5.0) g/dL Diagnostic Data: Diagnostic Data Chest X-Ray 01/13/19 05:00 IMPRESSION: 1. No significant change. 2. Persistent left upper lobe opacity unchanged since the prior examination. 3. No new infiltrate is seen Electronically Signed: Eugenio Larsen MD at 9:06 EDT Tel , Service support , 10/06/[address]/Chest WITH Contrast IMPRESSION: 1. Left hilar soft tissue density mass 1.8 x 2.4 x 1.8 cm which may represent neoplasm with postobstructive chronic consolidation involving the left upper lobe and left apex. Alternatively, findings within the left upper lobe may represent parenchymal scarring with cystic bronchiectasis and reactive left hilar lymphadenopathy. Borderline mediastinal lymphadenopathy. Further evaluation with PET/CT is recommended to evaluate metabolic activity of the left hilar abnormality. 2. Superior segment left lower lobe spiculated 1.5 cm density likely representing a focal area of scarring. Again, neoplasm cannot be excluded and correlation with PET/CT is warranted. Individualized dose optimization techniques were used for this CT. at 1530 Reported and signed by: Nicko Winter MD Electronically Signed: Nicko Winter MD at 15:28 EDT Assessment and Plan Hypermetabolic mass involving the Left hilum and upper lobe suggestive of malignancy. Needs FOB with biopsy since this looks like central lesion with atelectasis. Suggestion: To obtain CT chest to assess lesion. Obtain Pulmonary consult for FOB and biopsy. Will follow with further suggestions based on biopsy report. Thank you. Medications: Prescriptions This Visit Medication Instructions Recorded Albuterol Inhaler [Ventolin Hfa 1 - 2 puff INHALATION Q4H PRN PRN 01/12/19 (SP)] Fluticasone/Vilanterol [Breo 1 ea IH DAILY 01/12/19 Ellipta Inhaler] Medications Added to Medication List This Visit Category Date Time Status Diazepam [Valium] Med 01/15/19 22:00 Active 10 mg PO BID Diltiazem CD [Cardizem CD] Med 01/15/19 22:00 Active 180 mg PO Q12 Folic Acid Med 01/15/19 17:00 Active 1 mg PO BIDCM Ipratropium [Atrovent] Med 01/15/19 19:00 Active 0.5 mg INHALATION Q6HWA.RT MethylPREDNISolone [Solu-Medrol] Med 01/15/19 22:00 Active 40 mg IV Q12 Metoprolol(XL)Succ [Toprol Xl (Beta Usman)] Med 01/16/19 10:00 Active 25 mg PO DAILY Nicotine Polacrilex [Rugby Nicotine (BKC)] Med 01/15/19 16:00 Active 2 mg PO Q2H PRN PRN Sertraline HCl [Zoloft] Med 01/16/19 10:00 Active 50 mg PO DAILY Thiamine Hydrochloride [Vitamin B1] Med 01/15/19 15:57 Active 100 mg PO DAILYCM Primary Care Provider: Armando Aggarwal MD Referring Provider: - Problem List (1) Hilar mass Status: Chronic (2) Atelectasis of left lung Status: Chronic Code Visit Office Visits / Consults: [id number] IP Consult L5
[2019-01-15 16:39] LABS: Hemoglobin A1c 5.4 % (4.2-6.3)
[2019-01-15] MEDS: Thiamine Hydrochloride 100 MG Tablet PO (17:15)
[2019-01-15] MEDS: Folic Acid 1 MG Tablet PO (17:15)
[2019-01-15 17:17] LABS: International Normalized Ratio 1.1; Prothrombin Time (Protime)PT. 13.5 SECONDS (11.7-14.9)
[2019-01-15 17:18] LABS: Partial Thromboplast Time 28.7 Seconds (24.1-36.2)
[2019-01-15] MEDS: Ipratropium 0.5 MG/2.5 ML SOLUTION INHALATION (18:49)
[2019-01-15] MEDS: oxyCODONE 5 MG Tablet 10 MG PO (19:32)
[2019-01-15] MEDS: Enoxaparin 80 MG/0.8 ML Syringe SC (22:35)
[2019-01-16] VITALS (9 sets, daily range): BP systolic 103–119; BP diastolic 63–77; PULSE 74–112; RESP 16–19; TEMP 36.6–36.7; O2SAT 87–95
[2019-01-16] MEDS: Ipratropium 0.5 MG/2.5 ML SOLUTION INHALATION (07:13)
--- NOTE | 2019-01-16 07:45 | CT_ITS ---
STUDY: CT CHEST WITH CONTRAST REASON FOR EXAM: Male, 58 years old. Pneumonia RADIATION DOSAGE (If Supplied By Facility): CTDIvol = ( 16.08 ) mGy, DLP = ( 440.46 ) mGycm TECHNIQUE: Transaxial imaging was performed following intravenous administration of IV 100mL Isovue-300 100. Individualized dose optimization techniques were used for this CT. COMPARISON: Prior CT scan of the chest obtained on 09/11/2018 FINDINGS: A small right lung base pleural effusions identified with adjacent subsegmental atelectasis which has increased when compared with the previous CT scan of the chest. Again noted is atelectasis involving the left upper lobe. There appears to be an enlarged left hilar lymph node of uncertain etiology. This measures 3.29 x 2.11 cm in size. Inflammatory reaction versus an underlying neoplasm are the diagnostic possibilities. The overlying inflammatory reaction in the left upper lobe has improved when compared with the previous CT scan of the chest. Calcifications are noted in the coronary arteries due to coronary calcific arteriosclerosis. The heart is otherwise normal. Normal mediastinum. Right hilum appears to be normal. Normal enhanced pulmonary arteries. Normal aorta arch and descending thoracic aorta. Bone scanning windows through the thorax show the ribs and thoracic spine to be normal. No extrathoracic masses or lesions are seen. The visualized liver, spleen, and adrenals are normal. CT/Chest WITH Contrast IMPRESSION: An enlarged left hilar lymph node measuring 3.29 x 2.11 is identified of uncertain etiology (inflammatory versus neoplastic), which has increased in size when compared with the previous study and is causing subsegmental atelectasis of the left upper lobe. The previously noted left upper lobe pneumonic infiltrate has improved. Electronically Signed: Jaycob Hernández, at 9:48 EDT Tel , Service support ,
--- NOTE | 2019-01-16 08:03 | CON.PCM_ITS ---
Reason for Consult Date of Consultation: 01/16/19 Reason for Consultation: Lung Mass History of Present Illness: The patient is a 58-year-old male, with a history as outlined below, who initially presented to the emergency department on January 12 with cough and shortness of breath. The patient was also noted to be acutely intoxicated on alcohol. Patient does have a long-standing alcohol and tobacco abuse history. He does currently drink vodka daily. He reports a 35-[id number]-[id number] smoking history but is cut back to smoking 0.5 packs of cigarettes per day. In September 2018, the patient was identified on CT is having a left upper lobe lung mass. He was subsequently referred to the [facility], where he had a PET scan completed on December 12, which revealed a hypermetabolic mass involving the left upper lobe. On review of the patient's last chest CT, there appeared to be questionable airspace disease in the left upper lobe, more so than a definitive mass. The inflammatory reaction appears to have improved on follow-up chest CT completed earlier this morning. The patient is currently homeless and residing at the [facility]. He has limited resources and was therefore unable to follow-up with the [facility], who had apparently planned to perform some sort of bronchoscopic evaluation on the patient. The patient does report a good appetite and denies any unintentional weight loss. Past Medical History Past Medical History (Chronic Problems): Chronic Problems Lung cancer (Chronic) COPD (chronic obstructive pulmonary disease) (Chronic) Acute alcohol intoxication with alcoholism (Chronic) Hilar mass (Chronic) Atelectasis of left lung (Chronic) Allergies No Known Allergies Allergy (Verified 01/12/19 15:12) Home Medications: Ambulatory Orders Medication Instructions Recorded Fluticasone/Vilanterol [Breo 1 ea IH DAILY 01/12/19 Ellipta 100-25 Mcg INH] Albuterol Inhaler [Ventolin Hfa] 1 - 2 puff INHALATION Q4H PRN PRN 01/16/19 #1 inhaler Amoxicillin/Potassium Clav 1 ea PO BID #5 tab 01/16/19 [Augmentin 875-125 Tablet] Diltiazem CD [Cardizem CD] 180 mg PO Q12 #60 cap 01/16/19 Metoprolol(XL)Succ [Toprol Xl 25 mg PO DAILY #30 tab 01/16/19 (Beta Usman)] Prednisone 10 mg PO UD 12 Days #30 tab 01/16/19 Surgical History: tonsillectomy Psychiatric History: No pertinent psych hx Lives: Alone Smoking Status: Current every day smoker Review of Systems Constitutional: Denies: Chills, Fever Eyes: Denies: Blurred vision, Double vision HEENT: Denies: Head Aches, Sinus Congestion, Sinus Drainage Cardiovascular: Denies: Chest Pain, Palpitations Respiratory: Denies: Cough, Shortness of breath at rest, Sputum production Gastrointestinal: Denies: Abdominal Pain, Nausea, Vomiting Genitourinary: Denies: Dysuria Musculoskeletal: Denies: Joint Pain, Joint Tenderness Skin: Denies: Rash, Wounds Neurological: Denies: Numbness, Tingling, Focal weakness Psychiatric: Denies: Anxiety, Depression, Homicidal Ideations, Suicidal Ideations Hematologic/ Lymphatic: Denies: Easy Bruising, Easy Bleeding Objective: The patient's most recent lab work, culture data and imaging studies have all been personally reviewed. - Physical Exam General: Alert, Oriented x3, Cooperative, No apparent distress HEENT: Atraumatic, PERRLA, Normocephalic Oral: No Gingival or Mucosal Lesions/ Ulcerations Neck: Supple, No Nodes, Trachea Midline Lungs: No rhonchi, No wheeze, No rales Cardiovascular: Regular rate, Regular Rhythm, Normal S1, Normal S2, No murmurs Abdomen: Bowel Sounds Present, Soft, Non Tender Extremities: No clubbing, No cyanosis, No edema Skin: No breakdown Musculoskeletal: No Tenderness to Palpation of Joints or Extremities Lymphatic: No Cervical, Supraclavicular, or Inguinal Adenopathy Neurological: Cranial nerves II-XII grossly intact, Neuro grossly intact Psych/Mental Status: Normal Affect, Appropriate Vital Signs Temp Pulse Resp BP Pulse Ox 97.8 F 74 16 115/77 93 01/16/19 02:20 01/16/19 07:28 01/16/19 02:20 01/16/19 02:20 01/16/19 02:20 Oxygen Flow Rate (L/min) [ 2 AMBULATION with Oxygen] Oxygen Flow Rate (L/min) 2 Oxygen Delivery Method Nasal Cannula Weight: 176 lb 9.444 oz Body Mass Index (BMI) 24.7 Intake and Output for Last 24 Hours 01/14/19 01/15/19 01/16/19 23:59 23:59 23:59 Intake Total 4171.33 / 4171.33 3521.75 / 3521.75 365.75 / 365.75 Output Total 200 / 200 1420 / 1420 Balance 3971.33 / 3971.33 2101.75 / 2101.75 365.75 / 365.75 Microbiology Past 72 Hours 01/13/19 10:30 Gram Stain - Final Sputum, Expectorated/Coughed Respiratory Culture - Final Mixed normal respiratory cheryl. No Streptococcus pneumoniae, beta-hemolytic Streptococcus or Staphylococcus aureus isolated. 01/12/19 16:00 Blood Culture - Preliminary Blood Culture (Wb) - Anticubital Right No growth in 48 hours. 01/12/19 18:05 Blood Culture - Preliminary Blood Culture (Wb) - Anticubital Right No growth in 48 hours. 01/14/19 11:30 Streptococcus pneumoniae Antigen (M - Final Urine, Clean Catch 01/14/19 07:40 Stool Occult Blood (GAGE) - Final Stool 01/13/19 05:20 Legionella Antigen - Final Urine, Clean Catch Laboratory Tests Past 24 Hrs 01/15/19 01/15/19 05:46 16:36 PT 13.5 INR 1.1 APTT 28.7 Hemoglobin A1c 5.4 Clinical Impression(s) from Imaging Studies Chest X-Ray 01/12/19 15:20 IMPRESSION: Mild improvement in the soft tissue density in the medial aspect of the left upper lobe. Electronically Signed: Neno Ibarra, at 15:44 EDT , Service support , Chest X-Ray 01/13/19 05:00 IMPRESSION: 1. No significant change. 2. Persistent left upper lobe opacity unchanged since the prior examination. 3. No new infiltrate is seen Electronically Signed: Eugenio Larsen MD at 9:06 EDT Tel , Service support , Assessment/Plan All Active Problems Severe sepsis (Acute) Pneumonia (Acute) Hypoxia (Acute) Atrial fibrillation (Acute) RECOMMENDATIONS: 1. Outpatient pulmonary follow-up within 2 weeks of discharge. 2. We will assist in arranging bronchoscopic evaluation of the patient's abnormality noted on CT chest. 3. Continue bronchodilators at the time of discharge. 4. Walking oximetry study prior to consideration for discharge home. 5. Recommend outpatient pulmonary function studies be completed and baseline inhaler regimen optimized. IMPRESSIONS: 1. Abnormal chest CT CT chest completed in September 2018 revealed an opacity in the left upper lobe, which could have been infectious in nature. There appeared to be reactive lymphadenopathy as well. In light of the patient's extensive tobacco abuse history, he was referred to the [facility], where a PET scan was completed and revealed a hypermetabolic lesion in the left upper lobe. He was therefore scheduled to undergo bronchoscopic evaluation, but failed to follow-up. A repeat chest CT completed earlier today did reveal improvement in the left upper lobe lesion. However, an abnormality was still present and appeared to be extending towards the left hilum. The patient was not felt to be a candidate for percutaneous biopsy, following evaluation by radiology. Therefore, the next best option would be bronchoscopic evaluation via EBUS. This can be arranged for the patient on an outpatient basis. 2. Long-standing tobacco and alcohol abuse The patient was counseled extensively regarding the importance of tobacco cessation. I would recommend that he follow-up in the pulmonary medicine clinic so that baseline pulmonary function studies can be obtained. I would recommend that a walking oximetry study be completed prior to discharge home to assess for exertional oxygen need. As needed bronchodilators can be continued until the patient follows up with us. This note was generated with [employer] dictation software. It may contain incorrect words, spelling, and punctuation that were not noted in checking the note before signing. Code Visit Inpatient E&M: 42077 Init Hosp L3
[2019-01-16] MEDS: Multivitamins,Therapeutic Tablet 1 TABLET PO (09:02)
[2019-01-16] MEDS: Metoprolol(XL)Succ 25 MG Tablet PO (09:02)
[2019-01-16] MEDS: Folic Acid 1 MG Tablet PO (09:02)
[2019-01-16] MEDS: Thiamine Hydrochloride 100 MG Tablet PO (09:04)
[2019-01-16] MEDS: Enoxaparin 80 MG/0.8 ML Syringe SC (09:04)
[2019-01-16] MEDS: Sertraline 50 MG Tablet PO (09:05)
[2019-01-16] MEDS: dilTIAZem CD 180 MG Capsule PO (09:05)
[2019-01-16] MEDS: diazePAM 5 MG Tablet 10 MG PO (09:18)
--- NOTE | 2019-01-16 10:18 | PN_ITS ---
Progress Note Patient is scheduled for a post hospital follow-up with Amina Farmer, Physician [employer], with the [facility] on 02/12/2019 at 1:30 PM.
[2019-01-16] MEDS: LORazepam 1 MG Tablet 2 MG PO (11:28)
--- NOTE | 2019-01-16 12:43 | PCM.DC ---
- Discharge Diagnoses Current Active Problems: Current Active and Chronic Problems Severe sepsis (Acute) Pneumonia (Acute) Hypoxia (Acute) Lung cancer (Chronic) COPD (chronic obstructive pulmonary disease) (Chronic) Acute alcohol intoxication with alcoholism (Chronic) Atrial fibrillation (Acute) Hilar mass (Chronic) Atelectasis of left lung (Chronic) You will use the following diet at home:: Other - no alcohol at all Your food should be the consistency of: Regular Your liquids should be the consistency of: Regular/Thin Discharge Activity: Return to Normal Activity Allergies/Adverse Reactions: Allergies No Known Allergies Allergy (Verified 01/12/19 15:12) Medications to take at Discharge Fluticasone/Vilanterol [Breo Ellipta 100-25 Mcg INH] 1 ea IH DAILY 01/12/19 Albuterol Inhaler [Ventolin Hfa] 1 - 2 puff INHALATION Q4H PRN PRN #1 inhaler 01/16/19 Amoxicillin/Potassium Clav [Augmentin 875-125 Tablet] 1 ea PO BID #5 tab 01/16/19 Diltiazem CD [Cardizem CD] 180 mg PO Q12 #60 cap 01/16/19 Metoprolol(XL)Succ [Toprol Xl (Beta Usman)] 25 mg PO DAILY #30 tab 01/16/19 The following prescriptions were given: Amoxicillin/Potassium Clav [Augmentin 875-125 Tablet] 1 ea PO BID #5 tab Transmission Status: Pending to [facility] Diltiazem CD [Cardizem CD] 180 mg PO Q12 #60 cap Transmission Status: Pending to [facility] Metoprolol(XL)Succ [Toprol Xl (Beta Usman)] 25 mg PO DAILY #30 tab Transmission Status: Pending to [facility] Albuterol Inhaler [Ventolin Hfa] 1 - 2 puff INHALATION Q4H PRN PRN #1 inhaler PRN Reason: Sob &/Or Wheezing Transmission Status: Pending to [facility] Primary Care Physician: Armando Aggarwal MD [Primary Care Provider] - Please follow up with your Primary Care Physician in: 1-2 weeks Test Results: Test results from this visit will be discussed in further detail at your follow-up appointment, if applicable. Please Follow Up With: Howard Bolton MD When: Within 1 week Please Follow Up With: Davonte Winters MD When: call for appointment Please Follow Up With: Jimbo Dent MD When: as directed Proposed Discharge Date: 01/16/19
--- NOTE | 2019-01-16 13:01 | CASEMGMT ---
Per Lisa LUCIO, pt does not qualify for home oxygen at this time. Pt's meds were sent to [facility] retail pharmacy and Lisa LUCIO is calling them to have meds delivered to room prior to discharge. Pt is anxious to leave at this time and states no further needs at this time. Adolfo LUCIO CM
--- NOTE | 2019-01-16 14:00 | DS.PCM_ITS ---
Discharge Date and Diagnosis Date of Admission: 01/12/19 Date of Discharge: 01/16/19 - Primary Discharge Diagnosis Acute severe sepsis 2/2 post obstructive pna with acute hypoxic respiratory failure Acute COPD exacerbation Left upper lobe mass presumed cancer Afib with RVR Pulmonary htn Lactic acidosis 2/2 hypoxia Alcoholism, with acute intoxication followed by withdrawal Nicotine abuse Hypomag, hypophos - Secondary Discharge Diagnosis Chronic Problems Lung cancer (Chronic) COPD (chronic obstructive pulmonary disease) (Chronic) Acute alcohol intoxication with alcoholism (Chronic) Hilar mass (Chronic) Atelectasis of left lung (Chronic) Hospital Course and Treatment Imaging Results: DIAGNOSTICS: RAD/Chest 1 View (Portable) IMPRESSION: Mild improvement in the soft tissue density in the medial aspect of the left upper lobe. RAD/Chest PA and Lateral IMPRESSION: 1. No significant change. 2. Persistent left upper lobe opacity unchanged since the prior examination. 3. No new infiltrate is seen Echo: Interpretation Summary The estimated ejection fraction is 65 %. Unable to assess diastolic dysfunction due to arrhythmia. Mild (1+) tricuspid valve insufficiency. Right ventricular systolic pressure estimated to be 44 mmHg. Mild pulmonary hypertension. Pt appears to be in atrial fibrillation. The study was technically difficult. Contrast injection was performed. There is no comparison study available. Stress Echo: Interpretation Summary The estimated ejection fraction is 65 %. Normal adequate dobutamine echocardiogram. Negative for ischemia by EKG and echocardiographic criteria. No anginal symptoms noted. Rare PVC noted. Baseline atrial fibrillation with controlled ventricular response. Decreased sensitivity due to poor echo windows and atrial fibrillation requiring Definity enhancing agent. Final LVEF is 75%. Patient tolerated the procedure well. No complication. Test terminated due to the attainment of target heart rate. The study was technically difficult. Contrast injection was performed. CT/Chest WITH Contrast IMPRESSION: An enlarged left hilar lymph node measuring 3.29 x 2.11 is identified of uncertain etiology (inflammatory versus neoplastic), which has increased in size when compared with the previous study and is causing subsegmental atelectasis of the left upper lobe. The previously noted left upper lobe pneumonic infiltrate has improved. Consults: [facility] - pulmonary medicine Dent - cardiology [facility] - Oncology Operations: None Procedures: 2-D Echocardiogram, Stress test Summary of Care Provided: Hospital Course: The patient is a 58 year old M with pmhx of lung mass, nicotine abuse, alcoholism, COPD, who presented to the ER with SOB. He was recently found to have a lung mass and sent to pulmonology in [place], [place] where a PET scan was done showing likely lung cancer. He did not complete any follow up after that. He came to the ER with acute intoxication with alcohol, SOB, and cough productive of green sputum. CXR was suggestive of pna. Lactate was elevated at 4.0 however he was not felt to be in shock and this was attributed to hypoxia. He required up to 4 lpm O2 to maintain good sats. He was admitted to the PCU and placed on telemetry. He was placed on zosyn for suspected post obstructive pna. He developed wheezing and steroids and aerosols were given for suspected COPD exacerbation. He was given valium and ativan for alcohol withdrawal. CT chest was suggestive of lung mass and pneumonia. He developed Afib with RVR. Cardiology was constuled. He was treated with toprol and cardizem. He had a stress echo which was negative. Pulnonary medicine was consulted and suggested follow up with Dr. Howard Bolton at [facility] for bronchial endoscopy and biopsy of the lesion, as Dr. Herrera would not be able to biopsy this due to location. Oncology was consulted as the patient desired to not follow up with oncology in [place] and wanted local care here. The patient continued to have Afib RVR, however was insistent upon discharge and highly agitated despite ativan and valium. He was given augmentin to complete 7 days of abx therapy. He was given a rescue inhaler. He was given a prednisone taper. He was given Rxs for cardizem and toprol. He was given follow up instructions for Dr. Bolton pulmonology in 1 week, Dr. Winters as directed, Dr. Dent as directed, and with his PCP in 1-2 weeks. He was discharged home in stable condition home. He did not qualify for home O2 at the time of discharge. This patient was seen by Gustavo Grimes PA-C under the supervision of Dr. Tang. [] - Physical Exam General: Alert, Oriented x3, Cooperative HEENT: Atraumatic, PERRLA, EOMI, Normocephalic Neck: Supple, No JVD, Negative Carotid Bruits Lungs: Clear to auscultation, Diminished Cardiovascular: Regular rate, No murmurs Abdomen: Bowel Sounds Present, Soft, Non Tender Extremities: No edema, Capillary Refill Less than 3 Seconds Skin: No rashes, No breakdown Musculoskeletal: No Tenderness to Palpation of Joints or Extremities Neurological: Cranial nerves II-XII grossly intact Psych/Mental Status: Agitated, Anxious, Alert and oriented to time, place, person, mood and affect Vital Signs Temp Pulse Resp BP Pulse Ox 98.1 F 109 H 18 103/63 93 01/16/19 11:16 01/16/19 11:16 01/16/19 11:16 01/16/19 11:16 01/16/19 13:10 Oxygen Flow Rate (L/min) [ 2 AMBULATION with Oxygen] Oxygen Flow Rate (L/min) 2 Oxygen Delivery Method Room Air Weight: 176 lb 9.444 oz Body Mass Index (BMI) 24.7 Intake and Output for Last 24 Hours 01/14/19 01/15/19 01/16/19 23:59 23:59 23:59 Intake Total 4171.33 / 4171.33 3521.75 / 3521.75 415.75 / 415.75 Output Total 200 / 200 1420 / 1420 Balance 3971.33 / 3971.33 2101.75 / 2101.75 415.75 / 415.75 Microbiology Past 72 Hours 01/13/19 10:30 Gram Stain - Final Sputum, Expectorated/Coughed Respiratory Culture - Final Mixed normal respiratory cheryl. No Streptococcus pneumoniae, beta-hemolytic Streptococcus or Staphylococcus aureus isolated. 01/12/19 16:00 Blood Culture - Preliminary Blood Culture (Wb) - Anticubital Right No growth in 48 hours. 01/12/19 18:05 Blood Culture - Preliminary Blood Culture (Wb) - Anticubital Right No growth in 48 hours. 01/14/19 11:30 Streptococcus pneumoniae Antigen (M - Final Urine, Clean Catch 01/14/19 07:40 Stool Occult Blood (GAGE) - Final Stool Laboratory Tests Past 24 Hrs 01/15/19 01/15/19 05:46 16:36 PT 13.5 INR 1.1 APTT 28.7 Hemoglobin A1c 5.4 Discharge Diet: No Restrictions, - - no alcohol Discharge Activity: Return to Normal Activity Home Medications: Medications to take at Discharge Fluticasone/Vilanterol [Breo Ellipta 100-25 Mcg INH] 1 ea IH DAILY 01/12/19 Albuterol Inhaler [Ventolin Hfa] 1 - 2 puff INHALATION Q4H PRN PRN #1 inhaler 01/16/19 Amoxicillin/Potassium Clav [Augmentin 875-125 Tablet] 1 ea PO BID #5 tab 01/16/19 Diltiazem CD [Cardizem CD] 180 mg PO Q12 #60 cap 01/16/19 Metoprolol(XL)Succ [Toprol Xl (Beta Usman)] 25 mg PO DAILY #30 tab 01/16/19 Following Prescrptions Were Given to Patient: Amoxicillin/Potassium Clav [Augmentin 875-125 Tablet] 1 ea PO BID #5 tab Transmission Status: Received by [facility] Diltiazem CD [Cardizem CD] 180 mg PO Q12 #60 cap Transmission Status: Received by [facility] Metoprolol(XL)Succ [Toprol Xl (Beta Usman)] 25 mg PO DAILY #30 tab Transmission Status: Received by [facility] Albuterol Inhaler [Ventolin Hfa] 1 - 2 puff INHALATION Q4H PRN PRN #1 inhaler PRN Reason: Sob &/Or Wheezing Transmission Status: Received by [facility] Primary Care Physician: Armando Aggarwal MD [Primary Care Provider] - Please follow up with your Primary Care Physician in: 1-2 weeks Please Follow Up With: Howard Bolton MD When: Within 1 week Please Follow Up With: Davonte Winters MD When: call for appointment Please Follow Up With: Jimbo Dent MD When: as directed Please Follow Up With: Armando Aggarwal MD Disposition: Home Minutes spent on discharge:: 40 Patient Condition:: Stable Medical Necessity - Tobacco Use Smoking Status: Current every day smoker Meaningful Use Info Meaningful Use Diagnoses (Choose all that apply): None applicable
--- NOTE | 2019-01-16 14:10 | NURSING ---
Attempted to contact patient regarding the need to come back to [facility] retail pharmacy for a prescription. Patient does not have a phone and is staying at the [facility]. Phoned [facility] to speak with patient. Patient has not returned to the facility at this time. Message left with Neeraj at the [facility] regarding the patient needing to return to the retail pharmacy to meat pickler a prescription that was filed after the patient left. She voices she will give him the message.
--- NOTE | 2019-01-16 14:17 | NURSING ---
Mailed new discharge instructions with prednisone taper to [facility] in care of Pedro Nicole.
== END 2019-01-16 13:30 | disposition home or self-care (01) | DRG 139 ==
LOC: ED 16:03 → PCU 18:31
PROVIDERS: Internal Medicine; Physician Assistant; Admitting Provider Internal Medicine; Emergency Provider Emergency Medicine; Family Provider Family Medicine; PCP Family Medicine; Visit Provider Internal Medicine
DX: J18.9 Pneumonia, unspecified organism (principal); E87.2 Acidosis; F10.229 Alcohol dependence with intoxication, unspecified; Y90.8 Blood alcohol level of 240 mg/100 ml or more; E86.0 Dehydration; I48.0 Paroxysmal atrial fibrillation; I27.20 Pulmonary hypertension, unspecified; E83.42 Hypomagnesemia; E83.39 Other disorders of phosphorus metabolism; J44.1 Chronic obstructive pulmonary disease with (acute) exacerbation; J44.0 Chronic obstructive pulmonary disease with (acute) lower respiratory infection; R91.8 Other nonspecific abnormal finding of lung field; R06.89 Other abnormalities of breathing; F17.210 Nicotine dependence, cigarettes, uncomplicated; F10.239 Alcohol dependence with withdrawal, unspecified; C34.12 Malignant neoplasm of upper lobe, left bronchus or lung; R09.02 Hypoxemia
CPT/HCPCS: 36415; 71045; 71046; 71260; 80048; 80053; 80069; 80320; 81002; 82274; 83036; 83605; 83735; 84100; 85025; 85610; 85730; 87040; 87070; 87205; 87449; 93005; 93017; 93306; 93350; 94640; 94667; 94668; 97802; 99285; 99406; J7030; J7040; J7050; Q9957; Q9967; A4216; C8928; C8929; G0480; J0295

== ENCOUNTER 2019-01-17 22:02 | Inpatient (IN) | payer MEDICAID, SELFPAY ==
[2019-01-12 18:59] VITALS: BMI 24.7
[2019-01-17 22:04] VITALS: BP 84/48; PULSE 80; PULSE 83; RESP 18; TEMP 36.5; O2SAT 94; BMI 28.2
[2019-01-17 22:17] VITALS: BP 95/57
--- NOTE | 2019-01-17 22:36 | EKG12_ITS ---
Test Reason : GEN. ILLNESS Blood Pressure : / mmHG Vent. Rate : 080 BPM Atrial Rate : 098 BPM P-R Int : 000 ms QRS Dur : 102 ms QT Int : 400 ms P-R-T Axes : 000 072 034 degrees QTc Int : 461 ms Atrial fibrillation Abnormal ECG Confirmed by WELLINGTON RAMIREZ, RAMIREZ ([id number]), editorial director MARYJO SAVAGE ([id number]) on 01/24/2019 9:31:54 A M Referred By: Inder Martinez Confirmed By:ANYI PARIS MD
[2019-01-17] MEDS: 0.9% Normal Saline 1,000 ML 1000 ML IV (22:41)
--- NOTE | 2019-01-17 22:41 | ED.VIS.GEN ---
History of Present Illness Chief Complaint: General Illness Informant: Patient Onset: Today Narrative: Patient brought in by EMS reported symptoms of feelingshitty. Patient left AMA from the hospital he reports this morning, however from records discharge summary was yesterday. He was admitted on the fourth for postobstructive pneumonia. Developed paroxysmal atrial fibrillation in the hospital. He was hypoxic initially from his admission. His concerns for left upper lobe lung cancer but no definitive diagnosis at this time. His difficulties with equipment for attempts to get a tissue sample. Reports alcohol history, he states he left the hospital because he needed to smoke and states he was in the hospital too long. He does admit to drinking alcohol today again. He cannot tell me how much. Denies chest pains or abdominal pains. Denies vomiting or diarrhea. Denies any urinary symptoms. Discharge summary discharged on Augmentin, diltiazem, metoprolol, reports he did take his medications and took it this evening. From EMS report noted he was hypotensive systolic 85. Denies any lightheaded symptoms. He returns to the ED to be readmitted. Past Medical History - Allergies and Home Meds Allergies/Adverse Reactions: Allergies No Known Allergies Allergy (Verified 01/17/19 22:08) Surgical History: tonsillectomy Smoking Status: Current every day smoker - Family History Paternal Family History: Reports: Cancer, - - Lung cancer in father and other family member but not in siblings. Review of Systems General: Denies: Chills, Fever, Sweats Eyes: Denies: Visual changes - bilaterally, Diplopia ENT: Denies: Rhinorrhea, Sore throat Cardiovascular: Denies: Chest pain, Palpitations Respiratory: Reports: Cough. Denies: Dyspnea, Dyspnea on exertion Gastrointestinal: Denies: Abdominal pain, Nausea, Vomiting, Diarrhea, Melena, Hematochezia Genitourinary: Denies: Dysuria, Hematuria, Frequency Musculoskeletal: Denies: Back pain, Extremity Pain Skin: Denies: Rash, Wounds Neurological: Denies: Headache, Weakness, Numbness Physical Exam Vital Signs/Narrative: Vital Signs Temp Pulse Resp BP Pulse Ox 01/17/19 22:17 95/57 L 01/17/19 22:04 97.7 F L 80 18 84/48 L 94 Inital Vital Signs reviewed: Yes General: Well nourished, Well developed, No Acute Distress Head: Normocephalic, Atraumatic Eyes: Perrl, EOMI ENT: Moist mucous membranes, No rhinorrhea Neck: Supple, Nontender Cardiovascular: Regular rate, No murmurs, Irregular Respiratory: No distress, CTA bilaterally, Chest nontender Abdomen: Soft, Nontender, Nondistended, Normal bowel sounds Back: Nontender, Normal Inspection Extremities: Nontender, No edema Skin: Normal color, No rash Neurological: Alert, Oriented x3, Cranial nerves II-XII grossly intact, Normal Strength, Normal Sensation Psychological: Normal affect, Normal Mood Diagnostic/Tx/Re-eval Clinical Impression(s) from Imaging Studies Chest X-Ray 01/18/19 00:00 IMPRESSION: 1. Small residual right-sided pleural effusion and subsegmental atelectasis. 2. Persistent left upper lobe postobstructive atelectasis and/or airspace disease. Electronically Signed: Heather Méndez MD at 0:32 EDT , Service support , Abnormal Lab Results 01/17/19 01/17/19 01/17/19 22:20 22:20 22:20 WBC 7.9 RBC 4.05 L Hgb 13.0 Hct 40.0 MCV 98.8 H MCH 32.1 H MCHC 32.5 RDW Std Deviation 51.6 H RDW Coeff of Jose J 14.0 Plt Count 206 MPV 10.5 Immature Gran % (Auto) 1.400 H Neut % (Auto) 85.5 H Lymph % (Auto) 7.8 L Gooding % (Auto) 5.2 Eos % (Auto) 0.0 Baso % (Auto) 0.1 Absolute Neuts (auto) 6.7 Absolute Lymphs (auto) 0.61 L Nucleated RBC % 0 Differential Comment SCANNED Sodium 146 H Potassium 3.3 L Chloride 107 Carbon Dioxide 25.0 Anion Gap 14 BUN 32 H Creatinine 1.27 Estim Creat Clear Calc 66.26 Est GFR (MDRD) Af Amer 75 Est GFR (MDRD) Non-Af 62 BUN/Creatinine Ratio 25.2 H Glucose 233 H Lactic Acid Calcium 8.2 L Magnesium 2.0 Ethyl Alcohol 248.0 01/17/19 01/18/19 22:20 01:20 WBC RBC Hgb Hct MCV MCH MCHC RDW Std Deviation RDW Coeff of Jose J Plt Count MPV Immature Gran % (Auto) Neut % (Auto) Lymph % (Auto) Gooding % (Auto) Eos % (Auto) Baso % (Auto) Absolute Neuts (auto) Absolute Lymphs (auto) Nucleated RBC % Differential Comment Sodium Potassium Chloride Carbon Dioxide Anion Gap BUN Creatinine Estim Creat Clear Calc Est GFR (MDRD) Af Amer Est GFR (MDRD) Non-Af BUN/Creatinine Ratio Glucose Lactic Acid 3.7 H 2.3 H Calcium Magnesium Ethyl Alcohol - EKG Initial EKG Interpretation: Atrial Fibrillation - A. fib, 80s, no ST or T wave changes. - Medical Decision Making Patient admits to alcohol, he was awake answering questions. Slightly poor historian reporting he left this morning however from records she left yesterday AMA. He was hypotensive from EMS, systolic 90s in the ED. Initiated fluids, labs were obtained. Known pneumonia on CT and suspected left upper lobe mass. Unclear if he is taking his antibiotics. Labs white count renal function normal. Potassium 3.3 magnesium normal is orally replaced. His lactic acid returned at 3.7 he was given sepsis bolus of at least 30 cc/kg. Cultures were redrawn. In addition added urine and tox screens for further evaluation. I did recheck a x-ray of his chest shows no acute findings from radiology. Broadly covered with Zosyn for which she was on his last admission. Blood pressure reevaluation with improving maintained in the 90s with a map in the 70s. Alcoholic did return elevated. I discussed with hospitalist Dr. Martinez for admission. He will be placed in stepdown for close monitoring. - Critical Care Time Critical care time (excluding procedures): 30-74 minutes, Discussing w/Consultants, Arranging Admission or Transfer ED Disposition - Plan for ED Patient: Disposition: Acute Care Hospital [facility] Diagnosis: Severe sepsis, Atrial fibrillation, Acute alcohol intoxication with alcoholism, Pneumonia
[2019-01-17 22:43] LABS: Absolute Lymphocyte Count 0.61 X10^3/uL (0.83-4.51); Absolute Neutrophil Count 6.7 X10^3/uL (2.0-7.7); Basophil# 0.01 X10^3/uL; Basophil% 0.1 % (0-1); Lymphocyte # 0.61 X10^3/ul (4.0); Lymphocyte % 7.8 % (19-41); Mean Corp Hgb Conc 32.5 g/dL (32-36); Mean Corpuscular Hgb 32.1 pg (27.0-32.0); Mean Corpuscular Volume 98.8 fL (80-94); Mean Platelet Vol. 10.5 fl (6.2-12.0); Monocyte# 0.41 X10^3/uL; Monocyte% 5.2 % (0-10); NRBC Flagged by Analyzer 0 % (0-5); Neutrophil # 6.72 X10^3/uL (2.7-7.7); Neutrophil % 85.5 % (47-70); POSITIVE MORPHOLOGY YES; Platelet Count 206 K/mm3 (150-450); RBC Distribution Width SD 51.6 fl (35.1-43.9); Red Blood Count 4.05 M/mm3 (4.6-6.2); White Blood Count 7.9 K/mm3 (4.4-11.0)
[2019-01-17 22:46] LABS: Differential Indicated SCAN CRITERIA MET
[2019-01-17 22:54] LABS: Anion Gap 14 (5-15); BUN 32 mg/dL (7-18); BUN/Creat Ratio 25.2 RATIO (10-20); Calcium,Total 8.2 mg/dL (8.5-10.1); Chloride 107 mmol/L (98-107); Creatinine, Serum 1.27 mg/dL (0.70-1.30); EST Glomerular Filtration Rate 62 mL/min (>60); Est Glom Filt Rate - Afr Amer 75 mL/min (>60); Estimated Creatinine Clearance 66.26 ml/min; Glucose 233 mg/dL (74-106); Potassium 3.3 mmol/L (3.5-5.1); Sodium Level 146 mmol/L (136-145)
[2019-01-17 23:02] VITALS: BP 90/59; PULSE 75; RESP 16; TEMP 36.8; O2SAT 93
[2019-01-17 23:03] LABS: Differential Comment SCANNED; Lactic Acid 3.7 mmol/L (0.4-2.0)
--- NOTE | 2019-01-17 23:03 | ED.RN ---
LACTIC ACID 3.7, DR. HERMAN.
[2019-01-17] MEDS: 0.9% Normal Saline 1,000 ML 999 ML IV (23:35)
[2019-01-17] MEDS: 0.9% Normal Saline 1,000 ML 150 ML IV (23:41)
[2019-01-18] VITALS (25 sets, daily range): BP systolic 84–117; BP diastolic 49–80; PULSE 77–109; RESP 13–21; TEMP 36.4–37.1; O2SAT 92–98; BMI 28.0; BMI 28.1
--- NOTE | 2019-01-18 | RAD_ITS ---
STUDY: X-RAY CHEST REASON FOR EXAM: Male, 58 years old. Dyspnea and hypotension. TECHNIQUE: Single AP portable view of the chest. COMPARISON: CT of the chest dated January 16, 2019. FINDINGS: Cardiac monitoring leads are present. The lungs are clear and hyperexpanded. Interstitial thickening is visible throughout both lungs. There is a small right-sided pleural effusion. There is right basilar subsegmental atelectasis. Appears to be postobstructive atelectasis within the left upper lobe similar to previous CT. Normal size heart. Normal mediastinum and bartolo. There is prominence of the pulmonary hilar arteries with peripheral pulmonary vascular congestion. Normal visualized aortic arch and descending thoracic aorta. There are diffuse degenerative changes of the visualized thoracic spine. Normal visualized ribs, clavicles, and shoulders. There is no demonstrated abnormality of the visualized soft tissue structures of the upper abdomen. RAD/Chest 1 View (Portable) IMPRESSION: 1. Small residual right-sided pleural effusion and subsegmental atelectasis. 2. Persistent left upper lobe postobstructive atelectasis and/or airspace disease. Electronically Signed: Heather Méndez MD at 0:32 EDT , Service support ,
[2019-01-18] MEDS: 0.9% Normal Saline 1,000 ML 999 ML IV ×3 (00:39→04:13)
--- NOTE | 2019-01-18 01:28 | ED.RN ---
PER REPORT FROM PREVIOUS RN NOT WORRIED ABOUT URINE COLLECTION, ZOSYN WILL COVER ANY URINE BACTERIA.
--- NOTE | 2019-01-18 01:39 | HP.PCM_ITS ---
Problem List (1) Severe sepsis Status: Acute (2) Pneumonia Status: Acute Qualifiers: Laterality: left Lung location: upper lobe of lung (3) Hypoxia Status: Acute (4) Lung cancer Status: Chronic Qualifiers: Laterality: left Lung location: upper lobe of lung Qualified Code(s): C34.12 - Malignant neoplasm of upper lobe, left bronchus or lung (5) COPD (chronic obstructive pulmonary disease) Status: Chronic (6) Acute alcohol intoxication with alcoholism Status: Chronic (7) Atrial fibrillation Status: Acute (8) Hilar mass Status: Chronic (9) Atelectasis of left lung Status: Chronic History of Present Illness Date of Admission: 01/18/19 Chief Complaint: Generalized weakness, dyspnea on exertion The patient is a 58 year old M with multiple comorbidities with recently diagno sed left upper lobe lung cancer, chronic alcoholism with prior seizures, COPD and nicotine use who signed AMA on 01/16 came back for similar symptoms of dyspnea on exertion, generalized weakness and tiredness. He denies fever or chills. Has mild cough but no change recently with severe shortness of breath on exertion. He said he used to walk 5 to 6 miles but he gets easily short of breath. Currently patient is intoxicated with alcohol and probably that is the reason for signing AMA as his alcohol and nicotine dependent. During previous visit on 01/12 and signed AMA 01/16, he was found hypoxic 83% and he was intoxicated. He has diagnosed lung cancer and was scheduled to get treatment 2 weeks ago the [facility] but he missed his appointment. During previous visit he was admitted for left upper lobe postobstructive pneumonia does not IV antibiotics, lactic acidosis and was seen by mold checker and trash collector. This time, blood pressure is low at 85/60. Prior to AMA his baseline blood pressure IS 103/63 and 119/71. EKG shows A. fib at 80 bpm. QTc 461 ms. K3.3. No leukocytosis. Glucose 233 A1c 5.4 on 01/15. Magnesium 2.0. Lactic acid 3.7. Past Medical History Past Medical History (Chronic Problems): Chronic Problems Lung cancer (Chronic) COPD (chronic obstructive pulmonary disease) (Chronic) Acute alcohol intoxication with alcoholism (Chronic) Hilar mass (Chronic) Atelectasis of left lung (Chronic) Allergies No Known Allergies Allergy (Verified 01/17/19 22:08) Home Medications: Ambulatory Orders Medication Instructions Recorded Fluticasone/Vilanterol [Breo 1 ea IH DAILY 01/12/19 Ellipta 100-25 Mcg INH] Albuterol Inhaler [Ventolin Hfa] 1 - 2 puff INHALATION Q4H PRN PRN 01/16/19 #1 inhaler Amoxicillin/Potassium Clav 1 ea PO BID #5 tab 01/16/19 [Augmentin 875-125 Tablet] Diltiazem CD [Cardizem CD] 180 mg PO Q12 #60 cap 01/16/19 Metoprolol(XL)Succ [Toprol Xl 25 mg PO DAILY #30 tab 01/16/19 (Beta Usman)] Prednisone 10 mg PO UD 12 Days #30 tab 01/16/19 Surgical History: tonsillectomy Psychiatric History: No pertinent psych hx Smoking Status: Current every day smoker - *Family History Paternal History Items: Cancer, - - Lung cancer in father and other family member but not in siblings. Review of Systems Constitutional: Reports: Weakness. Denies: Chills, Fever HEENT: Denies: Head Aches, Sinus Congestion, Sinus Drainage Cardiovascular: Denies: Chest Pain, Palpitations Respiratory: Reports: Cough, Shortness of breath at rest, Shortness of breath upon exertion, Sputum production, Wheezing Genitourinary: Denies: Dysuria, Frequency Musculoskeletal: Denies: Joint Pain Unable to obtain accurate/complete ROS d/t: Patient is intoxicated with alcohol VTE Information - Inpt Only VTE Present on Admission: No VTE Mechan Device Prophylaxis: None VTE Pharm Prophylaxis ordered?: Yes - Physical Exam General: Oriented x3, Lethargic, Non-Cooperative, - - Patient lethargic and answers questions with closed eyes. Hardly open eyes and then again closes. HEENT: Atraumatic, PERRLA, EOMI, Normocephalic Oral: Dry Mucosa Neck: Supple, No JVD, Negative Carotid Bruits Lungs: Diminished - Air entry diminished bilaterally., Rhonchi, Short of Breath, Wheezes Cardiovascular: Regular rate, Normal S1, Normal S2, No murmurs, Irregular Rate Abdomen: Bowel Sounds Present, Soft, Non Tender, Non-Distended Extremities: Capillary Refill Less than 3 Seconds, Edema Skin: No rashes, No breakdown Musculoskeletal: No Tenderness to Palpation of Joints or Extremities, Arthritic Changes Neurological: Cranial nerves II-XII grossly intact, Neuro grossly intact Psych/Mental Status: Normal Affect, Appropriate Vital Signs Temp Pulse Resp BP Pulse Ox 98.1 F 81 18 85/60 L 97 01/18/19 01:26 01/18/19 01:26 01/18/19 01:26 01/18/19 01:26 01/18/19 01:26 Oxygen Flow Rate (L/min) 4 Oxygen Delivery Method Nasal Cannula Weight: 196 lb 13.965 oz Body Mass Index (BMI) 28.2 Intake and Output for Last 24 Hours 01/16/19 01/17/19 01/18/19 23:59 23:59 23:59 Intake Total 2111.5 / 2111.5 Balance 2111. / 2111. Laboratory Tests Past 24 Hrs 01/17/19 01/17/19 01/17/19 22:20 22:20 22:20 WBC 7.9 RBC 4.05 L Hgb 13.0 Hct 40.0 MCV 98.8 H MCH 32.1 H MCHC 32.5 RDW Std Deviation 51.6 H RDW Coeff of Jose J 14.0 Plt Count 206 MPV 10.5 Immature Gran % (Auto) 1.400 H Neut % (Auto) 85.5 H Lymph % (Auto) 7.8 L [place] % (Auto) 5.2 Eos % (Auto) 0.0 Baso % (Auto) 0.1 Absolute Neuts (auto) 6.7 Absolute Lymphs (auto) 0.61 L Nucleated RBC % 0 Differential Comment SCANNED Sodium 146 H Potassium 3.3 L Chloride 107 Carbon Dioxide 25.0 Anion Gap 14 BUN 32 H Creatinine 1.27 Estim Creat Clear Calc 66.26 Est GFR (MDRD) Af Amer 75 Est GFR (MDRD) Non-Af 62 BUN/Creatinine Ratio 25.2 H Glucose 233 H Lactic Acid Calcium 8.2 L Magnesium 2.0 Ethyl Alcohol 248.0 01/17/19 01/18/19 22:20 01:20 WBC RBC Hgb Hct MCV MCH MCHC RDW Std Deviation RDW Coeff of Jose J Plt Count MPV Immature Gran % (Auto) Neut % (Auto) Lymph % (Auto) [place] % (Auto) Eos % (Auto) Baso % (Auto) Absolute Neuts (auto) Absolute Lymphs (auto) Nucleated RBC % Differential Comment Sodium Potassium Chloride Carbon Dioxide Anion Gap BUN Creatinine Estim Creat Clear Calc Est GFR (MDRD) Af Amer Est GFR (MDRD) Non-Af BUN/Creatinine Ratio Glucose Lactic Acid 3.7 H Pending Calcium Magnesium Ethyl Alcohol Assessment/Plan All Active Problems Severe sepsis (Acute) Pneumonia (Acute) Hypoxia (Acute) Atrial fibrillation (Acute) The patient is a 58 year old M with multiple comorbidities with recently diagnosed left upper lobe lung cancer, chronic alcoholism with prior seizures, COPD and nicotine use who signed AMA on 01/16 came back for similar symptoms of dyspnea on exertion, generalized weakness and tiredness. He denies fever or chills. This time, blood pressure is low at 85/60. Prior to AMA his baseline blood pressure IS 103/63 and 119/71. EKG shows A. fib at 80 bpm. QTc 461 ms. K3.3. No leukocytosis. Glucose 233 A1c 5.4 on 01/15. Magnesium 2.0. Lactic acid 3.7. 1. Severe sepsis (hypotension and lactic acidosis) probably from posto bstructive pneumonia: Patient had CT chest with contrast on 01/16 and reported as enlarged left hilar lymph node 3.29 x 2.11 cm which has increased in size compared to the previous study of September 2018. Small right pleural effusion. Left upper lobe atelectasis although inflammatory reaction in the left upper lobe has improved. Time chest x-ray shows small residual right sided pleural effusion and subsegmental atelectasis with persistent left upper lobe postobstructive atelectasis/airspace disease similar to the CT scan previous chest x-ray. Patient signed AMA and was given Augmentin, diltiazem, tapering dose of prednisone and albuterol and Breo. Started on IV Zosyn. Patient had recent pneumonia work-up which was negative including urinary antigens and sputum culture. Repeat blood culture ordered from ER. Respiratory panel ordered. 2. Acute hypoxic respiratory insufficiency: During previous admission he was hypoxic 88% on room air. At the time of discharge his pulse ox was 95% on room air. This time 93% on room air. 3. Left hilar lymph node mass with postoperative atelectasis consistent with left upper lobe lung cancer as mentioned in HPI, patient has diagnosis of left upper lobe lung cancer and had a scheduled to start chemotherapy about 2 weeks at the previous admission but has missed appointment. Noncompliance is big issue in the management. He was seen by oncologist last visit. 4. Paroxysmal A. fib: Currently patient heart rate controlled 80/min. QTc 461 ms. Started on Eliquis 5 mg twice daily. Continue metoprolol and diltiazem CD. 5. Alcohol intoxication with chronic alcohol use and dependence and nicotine use: Patient is smokes 1-1 and half pack per day since teenage. Patient also drinks a pint of vodka, claims it started last 1 to 2 years. Continue CIWA monitoring, folate, thiamine, Ativan and Valium. Patient has no intention to quit. 6. Hypokalemia secondary to chronic alcohol use: Magnesium is 2.0. K3.3. Potassium being replaced. Clinical Impression(s) from Imaging Studies Chest X-Ray 01/18/19 00:00 IMPRESSION: 1. Small residual right-sided pleural effusion and subsegmental atelectasis. 2. Persistent left upper lobe postobstructive atelectasis and/or airspace disease. Laboratory Results 01/17/19 22:20: WBC 7.9, RBC 4.05 L, Hgb 13.0, Hct 40.0, MCV 98.8 H, MCH 32.1 H, MCHC 32.5, RDW Std Deviation 51.6 H, RDW Coeff of Jose J 14.0, Plt Count 206, MPV 10.5, Immature Gran % (Auto) 1.400 H, Neut % (Auto) 85.5 H, Lymph % (Auto) 7.8 L , [place] % (Auto) 5.2, Eos % (Auto) 0.0, Baso % (Auto) 0.1, Absolute Neuts (auto) 6.7, Absolute Lymphs (auto) 0.61 L, Nucleated RBC % 0, Differential Comment SCANNED 01/17/19 22:20: Sodium 146 H, Potassium 3.3 L, Chloride 107, Carbon Dioxide 25.0, Anion Gap 14, BUN 32 H, Creatinine 1.27, Estim Creat Clear Calc 66.26, Est GFR (MDRD) Af Amer 75, Est GFR (MDRD) Non-Af 62, BUN/Creatinine Ratio 25.2 H, Glucose 233 H, Calcium 8.2 L, Magnesium 2.0 01/17/19 22:20: Ethyl Alcohol 248.0 01/17/19 22:20: Lactic Acid 3.7 H 01/18/19 01:20: Lactic Acid Pending Code Visit Inpatient E&M: 98871 Init Hosp L3
[2019-01-18 02:00] LABS: Lactic Acid 2.3 mmol/L (0.4-2.0)
[2019-01-18 02:41] LABS: Reflex Lactate? Y
[2019-01-18] MEDS: 0.9% Normal Saline 1,000 ML 150 ML IV ×4 (03:15→21:59)
[2019-01-18 03:20] LABS: AST(SGOT) 60 U/L (15-37); Alanine Aminotransfer ALT/SGPT 86 U/L (16-61); Albumin, Serum 2.4 g/dL (3.2-5.0); Alkaline Phosphatase 65 U/L (45-117); Bilirubin, Direct < 0.05 mg/dL (0.00-0.30); Globulin 3.1 g/dL (2.2-4.2); Magnesium 1.9 mg/dL (1.6-2.6); Protein, Total 5.5 g/dL (6.4-8.2); Total Bilirubin < 0.10 mg/dL (0.20-1.00)
[2019-01-18 03:21] LABS: Lactic Acid 2.1 mmol/L (0.4-2.0)
[2019-01-18] MEDS: Ipratropium/Albuterol Sulfate 3 ML AMPUL.NEB INHALATION ×5 (03:30→19:26)
[2019-01-18 05:27] LABS: Reflex Lactate? Y
[2019-01-18 05:33] LABS: Absolute Lymphocyte Count 0.63 X10^3/uL (0.83-4.51); Absolute Neutrophil Count 4.9 X10^3/uL (2.0-7.7); Basophil# 0.01 X10^3/uL; Basophil% 0.2 % (0-1); Hematocrit 34.8 % (40-54); Hemoglobin 10.8 g/dL (13.0-16.5); Lymphocyte # 0.63 X10^3/ul (4.0); Mean Corpuscular Hgb 31.1 pg (27.0-32.0); Mean Corpuscular Volume 100.3 fL (80-94); Mean Platelet Vol. 10.3 fl (6.2-12.0); Monocyte# 0.61 X10^3/uL; Monocyte% 9.7 % (0-10); NRBC Flagged by Analyzer 0 % (0-5); Neutrophil # 4.92 X10^3/uL (2.7-7.7); Neutrophil % 78.2 % (47-70); Platelet Count 159 K/mm3 (150-450); RBC Distribution Width CV 14.3 % (11.6-14.6); RBC Distribution Width SD 52.3 fl (35.1-43.9); Red Blood Count 3.47 M/mm3 (4.6-6.2); White Blood Count 6.3 K/mm3 (4.4-11.0)
[2019-01-18 05:38] LABS: Bacteria 0 SEEN /hpf (None Seen); Mucous, Urine 0 SEEN /hpf (<or=2+); Red Blood Cells-Urine 0 SEEN /hpf (0-5); Squamous Epithelial Cells - UA 0 SEEN /hpf (0-5); White Blood Cells 0 SEEN /hpf (0-5)
[2019-01-18 06:11] LABS: Amphetamine Urine VISTA NEGATIVE (<1000 ng/mL); Barbiturate Urine VISTA NEGATIVE (< 200 ng/mL); Benzodiazepine Urine VISTA POSITIVE (< 200 ng/mL); Cocaine Urine VISTA NEGATIVE (< 300 ng/mL); Ecstacy Urine VISTA NEGATIVE (< 500 ng/mL); Methadone Urine VISTA NEGATIVE (< 300 ng/mL); PCP Urine VISTA NEGATIVE (< 25 ng/mL); THC Urine VISTA NEGATIVE (< 50 ng/mL); Vista UDS pH Range 5
[2019-01-18 06:12] LABS: Lactic Acid 1.7 mmol/L (0.4-2.0)
[2019-01-18 06:16] LABS: Calcium Oxalate Crystals Ur RARE /hpf (<or=2+); Color, Urine Yellow (Yellow); Glucose, Dipstick Normal (Normal); Ketone-Dipstick Negative (Negative); Leukocyte Esterase-Dipstick Negative /ul (Negative); Nitrite-Dipstick Negative (Negative); Occult Blood-Urine Negative /ul (Negative); Protein-Dipstick Negative (Negative); Urine Bilirubin Dipstick Negative (Negative); Urine Clarity Clear (Clear); Urine Urobilinogen Normal (Normal)
[2019-01-18 06:20] LABS: ALB/GLOB Ratio 0.8 RATIO (0.9-2.4); AST(SGOT) 58 U/L (15-37); Alanine Aminotransfer ALT/SGPT 80 U/L (16-61); Albumin, Serum 2.3 g/dL (3.2-5.0); Alkaline Phosphatase 62 U/L (45-117); Anion Gap 8 (5-15); BUN 23 mg/dL (7-18); BUN/Creat Ratio 31.2 RATIO (10-20); Calcium,Total 7.3 mg/dL (8.5-10.1); Chloride 116 mmol/L (98-107); Cholesterol 128 mg/dL (200); Creatinine, Serum 0.74 mg/dL (0.70-1.30); EST Glomerular Filtration Rate 116 mL/min (>60); Est Glom Filt Rate - Afr Amer 140 mL/min (>60); Estimated Creatinine Clearance 113.72 ml/min; Glucose 166 mg/dL (74-106); High Density Lipoprotein 49 mg/dL; Potassium 3.9 mmol/L (3.5-5.1); Protein, Total 5.3 g/dL (6.4-8.2); Sodium Level 148 mmol/L (136-145); Thyroid Stim Hormone (TSH) 0.57 uIU/mL (0.358-3.74); Triglycerides 117 mg/dL; Very Low Density Lipoprotein 23 mg/dL (5-40)
[2019-01-18 06:40] LABS: Bedside Glucose 166 mg/dL (70-110)
[2019-01-18] MEDS: Insulin Lispro 100 UNIT/ML INSULN.PEN SC ×2 (06:41→22:07)
[2019-01-18] MEDS: Folic Acid 1 MG Tablet PO (09:26)
[2019-01-18] MEDS: Multivitamins,Ther W-Minerals Tablet 1 TABLET PO (09:26)
[2019-01-18] MEDS: Thiamine Hydrochloride 100 MG Tablet PO ×2 (09:26→17:13)
[2019-01-18] MEDS: APIXABAN 5 MG TABLET PO ×2 (09:26→22:07)
[2019-01-18] MEDS: guaiFENesin 1,200 MG Tablet 1200 MG PO ×2 (09:28→22:07)
[2019-01-18 12:16] LABS: Bedside Glucose 141 mg/dL (70-110)
--- NOTE | 2019-01-18 12:52 | PN_ITS ---
Patient Problems: Active and Suspected Problems Severe sepsis (Acute) Pneumonia (Acute) Atrial fibrillation (Acute) Subjective: Patient seen and examined. He was drowsy, and complained of feeling tired. He denied any fever, chills, palpitations, dizziness, admitted to shortness of breath and a cough which was nonproductive. Patient was discharged from [facility] just a couple of days ago, after being admitted and managed for post obstructive pneumonia; during that admission, he was found to be saturating at 83% on admission and chest x-ray showed a persistent left upper lobe mass versus infiltrate. He had a CT scan had been done in the previous admission which showed cystic bronchiectasis versus mass. He had elevated white cell count. He was admitted and started on IV Zosyn for possible postobstructive pneumonia. He was eventually discharged on 01/16/2019 and was supposed to follow-up with the player manager. Oncology was also consulted and pulmonology were consulted at that time for possible EBUS but due to lack of availability of correct probe, he was referred to [place]. However patient left on 01/16/2019 after insistent on being discharged. He was then readmitted today with the above-mentioned symptoms. Cough has persisted since he was discharged that he states is nonproductive. He is currently being managed for sepsis due to postobstructive pneumonia. He is on IV Zosyn. Review of systems as above. Vitals/I&O's: Vital Signs Temp Pulse Resp BP Pulse Ox 98.3 F 99 21 H 102/80 97 01/18/19 09:33 01/18/19 11:25 01/18/19 11:25 01/18/19 09:33 01/18/19 09:33 Oxygen Flow Rate (L/min) 3 Oxygen Delivery Method Nasal Cannula Weight: 196 lb 3.382 oz Body Mass Index (BMI) 28.0 Intake and Output for Last 24 Hours 01/16/19 01/17/19 01/18/19 23:59 23:59 23:59 Intake Total 6777.5 / 6777.5 Output Total 600 / 600 Balance 6177.5 / 6177.5 General: Alert, Oriented x3, Cooperative, No apparent distress HEENT: Atraumatic, PERRLA, EOMI, Normocephalic Oral: Moist Mucosa Neck: Supple, No JVD, Negative Carotid Bruits Lungs: - - decreased breath sounds bibasally, few crackles bibasally. No wheezes or rhonchi Cardiovascular: Regular rate, Regular Rhythm, Normal S1, Normal S2, No murmurs Abdomen: Bowel Sounds Present, Soft, Non Tender, Non-Distended, No Hepato- splenomegaly Extremities: No clubbing, No cyanosis, No edema, Capillary Refill Less than 3 Seconds Skin: No rashes, No breakdown Musculoskeletal: No Tenderness to Palpation of Joints or Extremities Lymphatic: No Cervical, Supraclavicular, or Inguinal Adenopathy Neurological: Cranial nerves II-XII grossly intact, Neuro grossly intact, Motor Exam 5/5 strength throughout Psych/Mental Status: Anxious, Alert and oriented to time, place, person, mood and affect Microbiology Past 72 Hours 01/18/19 03:35 Mucosa - Nose Respiratory Panel (PCR) - Final Laboratory Results 01/17/19 22:20: WBC 7.9, RBC 4.05 L, Hgb 13.0, Hct 40.0, MCV 98.8 H, MCH 32.1 H, MCHC 32.5, RDW Std Deviation 51.6 H, RDW Coeff of Jose J 14.0, Plt Count 206, MPV 10.5, Immature Gran % (Auto) 1.400 H, Neut % (Auto) 85.5 H, Lymph % (Auto) 7.8 L , [place] % (Auto) 5.2, Eos % (Auto) 0.0, Baso % (Auto) 0.1, Absolute Neuts (auto) 6.7, Absolute Lymphs (auto) 0.61 L, Nucleated RBC % 0, Differential Comment SCANNED 01/17/19 22:20: Sodium 146 H, Potassium 3.3 L, Chloride 107, Carbon Dioxide 25.0, Anion Gap 14, BUN 32 H, Creatinine 1.27, Estim Creat Clear Calc 66.26, Est GFR (MDRD) Af Amer 75, Est GFR (MDRD) Non-Af 62, BUN/Creatinine Ratio 25.2 H, Glucose 233 H, Calcium 8.2 L, Magnesium 2.0 01/17/19 22:20: Ethyl Alcohol 248.0 01/17/19 22:20: Lactic Acid 3.7 H 01/18/19 01:20: Lactic Acid 2.3 H 01/18/19 02:43: Magnesium 1.9, Total Bilirubin < 0.10 L, Direct Bilirubin < 0.05, AST 60 H, ALT 86 H, Alkaline Phosphatase 65, Troponin I < 0.015, Total Protein 5.5 L, Albumin 2.4 L, Globulin 3.1 01/18/19 02:43: Ethyl Alcohol 113.0 01/18/19 02:43: Lactic Acid 2.1 H 01/18/19 05:09: Urine Opiates Screen NEGATIVE, Urine Methadone Screen NEGATIVE, Ur Barbiturates Screen NEGATIVE, Ur Phencyclidine Scrn NEGATIVE, Ur Amphetamines Screen NEGATIVE, U Methamphetamin-MDMA NEGATIVE, U Benzodiazepines Scrn POSITIVE H, Urine Cocaine Screen NEGATIVE, U Cannabinoids Screen NEGATIVE, Ur Drug Screen Comment 01/18/19 05:09: Urine Color Yellow, Urine Clarity Clear, Urine pH 5.0, Ur Specific Howes 1.020, Urine Protein Negative, Urine Glucose (UA) Normal, Urine Ketones Negative, Urine Occult Blood Negative, Urine Nitrite Negative, Urine Bilirubin Negative, Urine Urobilinogen Normal, Ur Leukocyte Esterase Negative, Urine RBC 0 SEEN, Urine WBC 0 SEEN, Ur Squamous Epith Cells 0 SEEN, Calcium Oxalate Crystal RARE, Urine Bacteria 0 SEEN, Urine Mucus 0 SEEN 01/18/19 05:20: WBC 6.3, RBC 3.47 L, Hgb 10.8 L, Hct 34.8 L, MCV 100.3 H, MCH 31.1, MCHC 31.0 L, RDW Std Deviation 52.3 H, RDW Coeff of Jose J 14.3, Plt Count 159, MPV 10.3, Immature Gran % (Auto) 1.900 H, Neut % (Auto) 78.2 H, Lymph % (Auto) 10.0 L, [place] % (Auto) 9.7, Eos % (Auto) 0.0, Baso % (Auto) 0.2, Absolute Neuts (auto) 4.9, Absolute Lymphs (auto) 0.63 L, Nucleated RBC % 0 01/18/19 05:20: Sodium 148 H, Potassium 3.9, Chloride 116 H, Carbon Dioxide 24.0, Anion Gap 8, BUN 23 H, Creatinine 0.74, Estim Creat Clear Calc 113.72, Est GFR (MDRD) Af Amer 140, Est GFR (MDRD) Non-Af 116, BUN/Creatinine Ratio 31.2 H, Glucose 166 H, Calcium 7.3 L, Total Bilirubin 0.10 L, AST 58 H, ALT 80 H, Alkaline Phosphatase 62, Troponin I < 0.015, Total Protein 5.3 L, Albumin 2.3 L, Globulin 3.0, Albumin/Globulin Ratio 0.8 L, Triglycerides 117, Cholesterol 128, LDL Cholesterol 56, VLDL Cholesterol 23, HDL Cholesterol 49, TSH 0.57 01/18/19 05:20: Lactic Acid 1.7 01/18/19 06:36: POC Glucose 166 H 01/18/19 08:43: Troponin I < 0.015 01/18/19 12:05: POC Glucose 141 H Current Medications Acetaminophen (Tylenol) 650 mg PO Q6H PRN PRN PRN Reason: Pain Score 1-3/Temp > 100.7 F Al Hydroxide/Mg Hydroxide (Mylanta Ii) 30 ml PO Q6H PRN PRN PRN Reason: Gastric Burning Albuterol Sulfate (Ventolin Aerosols) 2.5 mg INHALATION Q2H PRN PRN PRN Reason: SHORTNESS OF BREATH Albuterol/Ipratropium (Duoneb) 3 ml INHALATION Q4H.RT [facility] Last Admin: 01/18/19 11:13 Dose: 3 ml Documented by: Apixaban (Eliquis) 5 mg PO BID [facility] Last Admin: 01/18/19 09:26 Dose: 5 mg Documented by: Dextrose (D50w Syringe) 0 gm IV X1 PRN; Protocol PRN Reason: Hypoglycemia Diazepam (Valium) 5 mg PO Q24H PRN PRN Reason: Agitation Diltiazem HCl (Cardizem Cd) 180 mg PO Q12 [facility] Folic Acid (Folic Acid) 1 mg PO DAILY@0800 [facility] Stop: 01/20/19 08:01 Last Admin: 01/18/19 09:26 Dose: 1 mg Documented by: Glucagon () 1 mg IM .X1 PRN PRN Reason: Hypoglycemia Guaifenesin (Mucinex) 1,200 mg PO BID [facility] Last Admin: 01/18/19 09:28 Dose: 1,200 mg Documented by: Sodium Chloride () 1,000 mls @ 150 mls/hr IV .Q6H40M [facility] Last Admin: 01/18/19 09:23 Dose: 150 mls/hr Documented by: Piperacillin Sod/Tazobactam (Sod 3.375 gm/ Sodium Chloride) 50 mls @ 12.5 mls/hr IV Q8 [facility] Last Infusion: 01/18/19 09:16 Dose: Infused Documented by: Sodium Chloride () 250 mls @ 15 mls/hr IV .[id number] PRN PRN Reason: SALINE FLUSH Insulin Human Lispro (Humalog Kwikpen (Bkc)) 0 unit SC ACHS [facility]; Protocol Last Admin: 01/18/19 06:41 Dose: 2 u Documented by: Lorazepam (Ativan) 2 mg PO Q2H PRN PRN; Protocol PRN Reason: CIWA score > 8 but <15 Lorazepam (Ativan) 2 mg PO UD PRN; Protocol PRN Reason: CIWA score >/=15. Lorazepam (Ativan) 2 mg IV Q2H PRN PRN; Protocol PRN Reason: CIWA score > 8 but <15 Lorazepam (Ativan) 2 mg IV UD PRN; Protocol PRN Reason: CIWA score >/=15. Lorazepam (Ativan) 1 mg PO Q24H PRN PRN Reason: Agitation Lorazepam (Ativan) 2 mg PO Q6H [facility]; Taper Stop: 01/24/19 02:14 Last Admin: 01/18/19 09:39 Dose: Not Given Documented by: Methylprednisolone (Solu-Medrol) 40 mg IV Q8 [facility] Last Admin: 01/18/19 05:19 Dose: Not Given Documented by: Metoprolol Succinate (Toprol Xl (Beta Usman)) 25 mg PO DAILY [facility] Morphine Sulfate () 2 mg IV Q3H PRN PRN PRN Reason: Pain Score 6-10/10 Multivitamins/Minerals (Multivitamin With Minerals) [facility] Admin: 01/18/19 09:26 Dose: 1 tablet Documented by: Nitroglycerin (Nitrostat) 0.4 mg SUBLINGUAL Q5M PRN PRN Reason: CARDIAC/CHEST PAIN Nutritional Formula (Lactose Free) (Ensure Enlive) 120 ml PO 4X/DAY [facility] Last Admin: 01/18/19 09:26 Dose: Not Given Documented by: Ondansetron HCl (Zofran) 4 mg IV Q8H PRN PRN PRN Reason: NAUSEA/VOMITING Oxycodone HCl (Oxyir) 5 mg PO Q4H PRN PRN PRN Reason: Pain Score 4-5/10 Prochlorperazine Edisylate (Compazine Iv) 5 mg IV Q4H PRN PRN PRN Reason: Breakthrough Nausea/Vomiting Senna/Docusate Sodium (Senokot-S, Umm-Colace) 2 tablet PO BID PRN PRN PRN Reason: Constipation Sodium Chloride () 5 - 15 ml IV UD PRN PRN Reason: SALINE FLUSH Thiamine HCl (Vitamin B1) 100 mg PO BIDCM [facility] Stop: 01/20/19 17:01 Last Admin: 01/18/19 09:26 Dose: 100 mg Documented by: Medical Necessity - Tobacco Use Smoking Status: Current every day smoker Tobacco Use: Cigarettes Assessment/Plan All Active Problems Severe sepsis (Acute) Pneumonia (Acute) Hypoxia (Acute) Atrial fibrillation (Acute) 1. Lactic acidosis and hypotension * likely due to dehydration * I am not convinced patient has sepsis, as he meet any SIRS criteria (tachypnea, tachycardia, fever or leucocytosis). His lactic acidosis and hypotension could be explained by dehydration, as patient had reduced oral intake. * he also received IV zosyn for several days before discharge just 2 days ago. * CXR on admission showed small residual right sided pleural effusion, subsegmental atelectasis and persistent left upper lobe post obstructive atelectasis and/or airspace disease * UA also showed no evidence of UTI * will dc antibiotics and continue hydrating with IVF * 2. Acute hypoxic respiratory insufficiency due to suspeted lung cancer * previous imaging showed left upper lobe mass * oncology saw him at last visit, and he was supposed to see a player manager in [place] for EBUS; yet to follow up. * continue titrateing oxygen to maintain sats at >90% * breathing treatments prn * 3. Paroxysmal afib: rate controlled. On eliquis, metoprolol and cardizem. These meds may be contributing to his hypotension. Will hold for now 4. Acute alcohol intoxictaion * serum alcohol level was 248 on admission. * on alcohol withdrawal protocol with CIWA * on folate, thiamine and ativan as well as multivites. 5. Hypernatremia: * Na is 148 today. * This may be due to IVF administration, as Cl is also elevated. * will cut down on IVF and monitor * 6. Hypokalemia: resolved. DVT prophylaxis; on eliquis Code Visit Inpatient E&M: 00950 Subs Hosp L3
--- NOTE | 2019-01-18 13:41 | CASEMGMT ---
Readmission chart review: Pt was initially admitted 01/12-01/16/19 for severe sepsis, lung CA, and ETOH abuse. See assessment completed by Santo LUCIO CM on 01/13/19. Pt declined resources for ETOH abuse and stated he did not plan on quitting drinking ETOH. Pt's ETOH on arrival was 484.0. Pt was aware of the cancer dx prior to this visit but never f/u with oncology. Pt is currently living at the [facility] and meds were obtained from [facility] retail pharmacy prior to discharge home. Pt did threaten to leave AMA several times but was actually discharged and took prescribed meds with him. Pt then returned 01/17/19 for SOB, pna, Afib, lung CA and was once again intoxicated with a level of 248.0. Prednisone was added to at home meds s/p discharge but according to [facility] retail pharmacy, pt did have friend pick this up at that time. Pt states was taking all meds as directed. Pt states came back due to 'feeling horrible' but does admit to drinking ETOH. This RN CM asked pt what the plan is for the drinking and pt states 'I know I need to stop.' Pt states has been to 180 n the past and 'that didn't work.' Pt states he might try the counseling center and this RN CM advised that to this RN CM's knowledge, they don't really take care of substance abuse there and pt states, 'Well, the reason I drink is because I am depressed.' Pt states that is not currently seeing anyone for this at this time and is willing to talk to [facility] at this time. This RN CM did ask pt about going back to [facility] at discharge and he states 'That's a bad idea' and references that there are too many temptations/bad influences there. Pt also states that he has no where else to go. When this RN CM mentions his sister, he immediately states, 'that's not an option.' This RN CM did not ask pt to elaborate on this at this time and pt was not forthcoming with any further information. Pt also does mention that someone spoke to him about Hospice as well, but cannot remember who it was. Pt states no further questions/concerns at this time. Faisal GASTON aware of all, voices understanding. Call to Mychal at [facility] and he states that he should be able to come see pt tomorrow am. Adolfo LUCIO CM
[2019-01-18] MEDS: LORazepam 1 MG Tablet 2 MG PO ×2 (15:15→20:28)
[2019-01-18] MEDS: 0.9% NaCl Peripheral Flush Adult/Peds IV (15:15)
--- NOTE | 2019-01-18 15:33 | CPS ---
started by simone
[2019-01-18 17:20] LABS: Bedside Glucose 148 mg/dL (70-110)
[2019-01-18] MEDS: dilTIAZem CD 180 MG Capsule PO (22:07)
[2019-01-19] VITALS (9 sets, daily range): BP systolic 120–121; BP diastolic 80–90; PULSE 83–108; RESP 16–20; TEMP 36.6; O2SAT 92–99
[2019-01-19 00:46] LABS: Bedside Glucose 207 mg/dL (70-110)
[2019-01-19] MEDS: LORazepam 1 MG Tablet 2 MG PO ×2 (02:45→09:40)
[2019-01-19] MEDS: 0.9% Normal Saline 1,000 ML 150 ML IV (04:00)
[2019-01-19 05:14] LABS: Absolute Lymphocyte Count 0.37 X10^3/uL (0.83-4.51); Absolute Neutrophil Count 6.6 X10^3/uL (2.0-7.7); Basophil# 0.01 X10^3/uL; Basophil% 0.1 % (0-1); Hematocrit 38.7 % (40-54); Lymphocyte # 0.37 X10^3/ul (4.0); Mean Corpuscular Hgb 31.7 pg (27.0-32.0); Mean Corpuscular Volume 102.4 fL (80-94); Mean Platelet Vol. 10.8 fl (6.2-12.0); Monocyte# 0.34 X10^3/uL; Monocyte% 4.6 % (0-10); NRBC Flagged by Analyzer 0 % (0-5); Neutrophil # 6.59 X10^3/uL (2.7-7.7); Neutrophil % 88.4 % (47-70); POSITIVE DIFFERENTIAL YES; Platelet Count 171 K/mm3 (150-450); RBC Distribution Width CV 14.2 % (11.6-14.6); RBC Distribution Width SD 53.2 fl (35.1-43.9); Red Blood Count 3.78 M/mm3 (4.6-6.2); White Blood Count 7.5 K/mm3 (4.4-11.0)
[2019-01-19 05:28] LABS: Differential Indicated SCAN CRITERIA MET
[2019-01-19 05:33] LABS: Anion Gap 4 (5-15); BUN 20 mg/dL (7-18); BUN/Creat Ratio 26.9 RATIO (10-20); Calcium,Total 7.9 mg/dL (8.5-10.1); Chloride 113 mmol/L (98-107); Creatinine, Serum 0.74 mg/dL (0.70-1.30); EST Glomerular Filtration Rate 115 mL/min (>60); Est Glom Filt Rate - Afr Amer 139 mL/min (>60); Estimated Creatinine Clearance 113.72 ml/min; Glucose 175 mg/dL (74-106); Potassium 4.3 mmol/L (3.5-5.1); Sodium Level 143 mmol/L (136-145)
[2019-01-19] MEDS: Insulin Lispro 100 UNIT/ML INSULN.PEN SC (06:36)
[2019-01-19 06:45] LABS: Bedside Glucose 176 mg/dL (70-110)
[2019-01-19] MEDS: Ipratropium/Albuterol Sulfate 3 ML AMPUL.NEB INHALATION ×2 (07:02→10:43)
[2019-01-19] MEDS: Thiamine Hydrochloride 100 MG Tablet PO (09:40)
[2019-01-19] MEDS: Multivitamins,Ther W-Minerals Tablet 1 TABLET PO (09:40)
[2019-01-19] MEDS: APIXABAN 5 MG TABLET PO (09:40)
[2019-01-19] MEDS: dilTIAZem CD 180 MG Capsule PO (09:40)
[2019-01-19] MEDS: Folic Acid 1 MG Tablet PO (09:40)
[2019-01-19] MEDS: guaiFENesin 1,200 MG Tablet 1200 MG PO (09:40)
--- NOTE | 2019-01-19 11:10 | PCM.DC ---
- Discharge Diagnoses Current Active Problems: Current Active and Chronic Problems Severe sepsis (Acute) Pneumonia (Acute) Acute alcohol intoxication with alcoholism (Chronic) Atrial fibrillation (Acute) You will use the following diet at home:: Cardiac Your food should be the consistency of: Regular Your liquids should be the consistency of: Regular/Thin Discharge Activity: Return to Normal Activity Weight Bearing Status: Weight bearing as tolerated Call your doctor if you observe: Shortness of breath, Increased palpitations (irregular heartbeat) Instructions: What Is Atrial Flutter/Atrial Fibrillation? Allergies/Adverse Reactions: Allergies No Known Allergies Allergy (Verified 01/17/19 22:08) Medications to take at Discharge Fluticasone/Vilanterol [Breo Ellipta 100-25 Mcg INH] 1 ea IH DAILY 01/12/19 Albuterol Inhaler [Ventolin Hfa] 1 - 2 puff INHALATION Q4H PRN PRN #1 inhaler 01/16/19 Prednisone 10 mg PO UD 12 Days #30 tab 01/16/19 Diltiazem CD [Cardizem CD] 180 mg PO DAILY #30 cap 01/19/19 Guaifenesin [Mucinex] 1,200 mg PO BID #30 tab 01/19/19 The following prescriptions were given: Diltiazem CD [Cardizem CD] 180 mg PO DAILY #30 cap Transmission Status: Pending to [facility] Guaifenesin [Mucinex] 1,200 mg PO BID #30 tab Primary Care Physician: Armando Aggarwal MD [Primary Care Provider] - Please follow up with your Primary Care Physician in: one week Test Results: Test results from this visit will be discussed in further detail at your follow-up appointment, if applicable. Please Follow Up With: Amina Jefferson PA When: 02/12/19 as scheduled, at 1:30pm Please Follow Up With: Davonte Winters MD When: 1-2 weeks When: follow up with track mechanic at [facility] as scheduled for EBUS Proposed Discharge Date: 01/19/19
--- NOTE | 2019-01-19 11:17 | PCM.DC.SUM ---
Discharge Date and Diagnosis Date of Admission: 01/18/19 Date of Discharge: 01/19/19 - Primary Discharge Diagnosis Active and Suspected Problems hypotension dehydration lactic acidosis due to dehydration acute hypoxic respiratory insufficiency acute alcohol withdrawal - Secondary Discharge Diagnosis Chronic Problems Lung cancer (Chronic) COPD (chronic obstructive pulmonary disease) (Chronic) Acute alcohol intoxication with alcoholism (Chronic) Hilar mass (Chronic) Atelectasis of left lung (Chronic) Hospital Course and Treatment Imaging Results: Diagnostic Data Chest X-Ray 01/18/19 00:00 IMPRESSION: 1. Small residual right-sided pleural effusion and subsegmental atelectasis. 2. Persistent left upper lobe postobstructive atelectasis and/or airspace disease. Electronically Signed: Heather Méndez MD at 0:32 EDT , Service support , Operations: None Procedures: None Summary of Care Provided: The patient is a 58 year old M with an extensive PMH as listed. He was admitted on 01/16/19 with a complaint of exertional shortness of breath, generalised weakness and tiredness. He had no associated fever or chills, and had a mild cough. Patient was discharged from [facility] on 01/16/19, after being admitted and managed for post obstructive pneumonia; during that admission, he was found to be saturating at 83% on admission and chest x-ray showed a persistent left upper lobe mass versus infiltrate. He had a CT scan had been done in the previous admission which showed cystic bronchiectasis versus mass. He had elevated white cell count. He was admitted and started on IV Zosyn for possible postobstructive pneumonia. He was eventually discharged on 01/16/2019 and was supposed to follow-up with the agency sales representative. Oncology was also consulted and pulmonology were consulted at that time for possible EBUS but due to lack of availability of correct probe, he was referred to [facility]. However patient left on 01/16/2019 after being discharged. He was then readmitted today with the above-mentioned symptoms on . Cough has persisted since he was discharged that he states is nonproductive. He is was initially managed for sepsis due to postobstructive pneumonia. He was started on IV zosyn. However, diagnosis was revised to lactic acidosis due to hypotension, and hypotension likely due to decreased intake, as well as acute alcohol alcohol intoxication. Seurm alcohol level was Patient didn't meet any criteria for sepsis. Patient therefore did not have sepsis due to pneumonia. Symptoms resolved with fluid administration. He had been started on verapamil and metoprolol during the previous admission for Afib. This was thought to be contributing to the hypotension. This was discussed with his talkback host - DR Dent, and decision was made to reduce cardizem to 120mg daily; metoprolol was discontinued. Decision made per discussion with cardiology not to put patient on anticoagulation o/a of patient;s chronic alcoholism, making him high risk. Patient was weaned off oxygen and discharged home on 01/19/19; he is to follow up with his PCP and talkback host, and was counseled to follow up with agency sales representative in [facility] as scheduled, to get EBUS to biopsy lung mass. Patient seen and examined prior to discharge. He had no complaints and felt well. Review of systems was otherwise negative. Labs and vitals reviewed. Home medications reviewed and reconciled. o/e: Vital Signs Height 5 ft 10.08 in Weight: 196 lb 3.382 oz Weight in Pounds 196.2 lbs Pulse Ox 92 Temperature 98 F Pulse Rate 108 Respiratory Rate 20 Blood Pressure [2nd BP] 90/66 Blood Pressure 120/80 Blood Pressure Position [2nd Semi-Fowlers BP] Blood Pressure Position Semi-Fowlers [] General: Alert, Oriented x3, Cooperative, No apparent distress HEENT: Atraumatic, PERRLA, EOMI, Normocephalic Oral: Moist Mucosa Neck: Supple, No JVD, Negative Carotid Bruits Lungs: - - decreased breath sounds bibasally, no crackles, wheezes or rhonchi Cardiovascular: Regular rate, Regular Rhythm, Normal S1, Normal S2, No murmurs Abdomen: Bowel Sounds Present, Soft, Non Tender, Non-Distended, No Hepato-splenomegaly Extremities: No clubbing, No cyanosis, No edema, Capillary Refill Less than 3 Seconds Skin: No rashes, No breakdown Musculoskeletal: No Tenderness to Palpation of Joints or Extremities Lymphatic: No Cervical, Supraclavicular, or Inguinal Adenopathy Neurological: Cranial nerves II-XII grossly intact, Neuro grossly intact, Motor Exam 5/5 strength throughout Psych/Mental Status: Anxious, Alert and oriented to time, place, person, mood and affect Plan as above. Patient had a walking pulse ox, and was saturating at 90% on room air; therefore, he didnt qualify for home oxygen. - Physical Exam Vital Signs Temp Pulse Resp BP Pulse Ox 98 F 108 H 20 H 120/80 92 01/19/19 08:50 01/19/19 10:43 01/19/19 10:43 01/19/19 08:50 01/19/19 10:44 Oxygen Flow Rate (L/min) 1 Oxygen Delivery Method Room Air Weight: 196 lb 3.382 oz Body Mass Index (BMI) 28.0 Intake and Output for Last 24 Hours 01/17/19 01/18/19 01/19/19 23:59 23:59 23:59 Intake Total 9447.5 / 9447.5 1952.5 / 1952.5 Output Total 1150 / 1150 600 / 600 Balance 8297.5 / 8297.5 1352.5 / 1352.5 Microbiology Past 72 Hours 01/18/19 05:09 Urine Culture - Preliminary Urine, Clean Catch Culture exhibits no growth. 01/18/19 03:35 Respiratory Panel (PCR) - Final Mucosa - Nose Laboratory Tests Past 24 Hrs 01/19/19 01/19/19 04:52 04:52 WBC 7.5 RBC 3.78 L Hgb 12.0 L Hct 38.7 L MCV 102.4 H MCH 31.7 MCHC 31.0 L RDW Std Deviation 53.2 H RDW Coeff of Jose J 14.2 Plt Count 171 MPV 10.8 Immature Gran % (Auto) 1.900 H Neut % (Auto) 88.4 H Lymph % (Auto) 5.0 L [place] % (Auto) 4.6 Eos % (Auto) 0.0 Baso % (Auto) 0.1 Absolute Neuts (auto) 6.6 Absolute Lymphs (auto) 0.37 L Nucleated RBC % 0 Sodium 143 Potassium 4.3 Chloride 113 H Carbon Dioxide 26.0 Anion Gap 4 L BUN 20 H Creatinine 0.74 Estim Creat Clear Calc 113.72 Est GFR (MDRD) Af Amer 139 Est GFR (MDRD) Non-Af 115 BUN/Creatinine Ratio 26.9 H Glucose 175 H Calcium 7.9 L Magnesium 2.0 POC Glucose 01/19/19 01/18/19 01/18/19 06:34 22:06 17:09 POC Glucose 176 H 207 H 148 H 01/18/19 12:05 POC Glucose 141 H Discharge Diet: Low fat/ Low Cholesterol Discharge Activity: Return to Normal Activity Weight Bearing Status: Weight bearing as tolerated Call your doctor if you observe: Shortness of breath, Increased palpitations (irregular heartbeat) Home Medications: Medications to take at Discharge Fluticasone/Vilanterol [Breo Ellipta 100-25 Mcg INH] 1 ea IH DAILY 01/12/19 Albuterol Inhaler [Ventolin Hfa] 1 - 2 puff INHALATION Q4H PRN PRN #1 inhaler 01/16/19 Prednisone 10 mg PO UD 12 Days #30 tab 01/16/19 Diltiazem CD [Cardizem CD] 180 mg PO DAILY #30 cap 01/19/19 Guaifenesin [Mucinex] 1,200 mg PO BID #30 tab 01/19/19 Following Prescrptions Were Given to Patient: Diltiazem CD [Cardizem CD] 180 mg PO DAILY #30 cap Transmission Status: Received by [facility] Guaifenesin [Mucinex] 1,200 mg PO BID #30 tab Primary Care Physician: Armando Aggarwal MD [Primary Care Provider] - Please follow up with your Primary Care Physician in: one week Please Follow Up With: Amina Jefferson PA When: 02/12/19 as scheduled, at 1:30pm Please Follow Up With: Davonte Winters MD When: 1-2 weeks When: follow up with agency sales representative at [facility] as scheduled for EBUS Patient Instructions: What Is Atrial Flutter/Atrial Fibrillation? Disposition: Home Minutes spent on discharge:: 45 Patient Condition:: Stable Medical Necessity - Tobacco Use Smoking Status: Current every day smoker Tobacco Use: Cigarettes Meaningful Use Info Meaningful Use Diagnoses (Choose all that apply): None applicable Code Visit Inpatient E&M: 22177 Disch Hosp
--- NOTE | 2019-01-19 11:27 | CASEMGMT ---
Mychal from Behavioral Health here to see pt at this time. Pt is up for discharge after his assessment. Pt does not qualify for home oxygen at this time. Adolfo LUCIO CM
--- NOTE | 2019-01-19 11:47 | BH.NOTE ---
BH: Inpatient Note - Notes Behavioral [facility] Inpatient Note: 01/19/19 11:[address] [facility] to discuss treatment options for pt with dual diagnosis. Met with pt in his room. Pt was cooperative. Smiling and joking at times. Alert and oriented. Mood was euthymic. Affect was full. No mary alice or delusions noted. Thoughts were linear and logical. Denies any suicidal ideations, plan, or intent. Denies any hx of attempts. States I never have thoughts like that. Recent medical complications including dx of lung cancer. Has upcoming appointment with oncology next week. Admits to alcohol abuse on daily basis with last drink prior to admission. Reports that at times he drinks due to depression. Detox in the past (2012) and was recently enrolled in [facility]'s IOP program. We talked about treatment options. Encouraged pt to get evaluation at [facility] for residential or sober living. Pt reports that he was recently turned down for residential by [facility]. Encouraged him to seek new evaluation. Also given referral to [facility] in [place] which is substance abuse outpatient program which has IOP. Was agreeable with evaluation there.
--- NOTE | 2019-01-19 11:50 | CASEMGMT ---
Mychal from [facility] states that he gave pt information for [facility] here in [place]. Pt has f/u appt with Dr. Winters on Tuesday01/22/19 at 1400 and pt is aware of appt and states can take the bus to appt on that day. Pt is aware of how to set up transportation thru [facility] but states 'it's a pain.' Pt was made aware that he can utilize [facility] [employer] transportation for any appt's with [facility] physicians and pt voices understanding at this time. Pt was provided with [facility] van tranportation info at this time. Pt voices no further questions/concerns/needs at this time. Adolfo LUCIO CM
--- NOTE | 2019-01-22 15:25 | CASEMGMT ---
Case Management DC F/u Call: DC Date: 01/19/19 DC Diagnosis: hypotension, dehydration, lactic acidosis due to dehydration, acute hypoxic respiratory insufficiency, acute alcohol withdrawal DC Disposition: Home and given information for [facility] here in [place] Lace/Strata: 02/11 No F/u call made d/t patient not having a listed contact number. Hailee Duarte RNCM
== END 2019-01-19 12:57 | disposition home or self-care (01) | DRG 422 ==
LOC: ED 22:39 → PCU 01-18 01:47
PROVIDERS: Admitting Provider Internal Medicine; Emergency Provider Emergency Medicine; Family Provider Family Medicine; PCP Family Medicine; Referring Provider Internal Medicine; Visit Provider Student in an Organized Health Care Education/Training Program
DX: E86.0 Dehydration (principal); I95.9 Hypotension, unspecified; F10.229 Alcohol dependence with intoxication, unspecified; F10.239 Alcohol dependence with withdrawal, unspecified; Y90.8 Blood alcohol level of 240 mg/100 ml or more; E87.6 Hypokalemia; E87.2 Acidosis; E87.0 Hyperosmolality and hypernatremia; C34.12 Malignant neoplasm of upper lobe, left bronchus or lung; J44.9 Chronic obstructive pulmonary disease, unspecified; R09.02 Hypoxemia; R06.89 Other abnormalities of breathing; I48.0 Paroxysmal atrial fibrillation; F17.210 Nicotine dependence, cigarettes, uncomplicated; Z91.19 Patient's noncompliance with other medical treatment and regimen; Z79.899 Other long term (current) drug therapy
CPT/HCPCS: 36415; 71045; 80048; 80053; 80061; 80076; 80307; 80320; 81001; 82962; 83605; 83735; 84443; 84484; 85025; 87040; 87086; 87633; 93005; 94640; 97802; 99285; J7030; A4216; G0480

== ENCOUNTER 2019-01-20 00:05 | Emergency (ER) | payer MEDICAID, SELFPAY ==
[2019-01-18 02:43] VITALS: BMI 28.0
[2019-01-20 00:07] VITALS: BP 119/84; PULSE 86; RESP 18; TEMP 36.5; O2SAT 94; BMI 30.2
[2019-01-20 00:13] VITALS: BP 119/84; PULSE 92; RESP 23; O2SAT 93
[2019-01-20 00:18] VITALS: O2SAT 94
--- NOTE | 2019-01-20 00:38 | EKG12_ITS ---
Test Reason : DYSRHYTHMIA Blood Pressure : / mmHG Vent. Rate : 096 BPM Atrial Rate : 174 BPM P-R Int : 000 ms QRS Dur : 094 ms QT Int : 348 ms P-R-T Axes : 000 063 037 degrees QTc Int : 439 ms Atrial fibrillation Abnormal ECG Confirmed by WELLINGTON RAMIREZ, RAMIREZ ([id number]), editor department TORRES CROW ([id number]) on 01/24/2019 9:41:02 AM Referred By: SIS Confirmed By:ANYI PARIS MD
[2019-01-20 01:22] LABS: Absolute Neutrophil Count 6.7 X10^3/uL (2.0-7.7); Basophil# 0.02 X10^3/uL; Basophil% 0.2 % (0-1); Hematocrit 38.8 % (40-54); Hemoglobin 12.5 g/dL (13.0-16.5); Lymphocyte % 9.7 % (19-41); Mean Corp Hgb Conc 32.2 g/dL (32-36); Mean Corpuscular Hgb 32.1 pg (27.0-32.0); Mean Corpuscular Volume 99.7 fL (80-94); Mean Platelet Vol. 10.5 fl (6.2-12.0); Monocyte# 0.63 X10^3/uL; Monocyte% 7.6 % (0-10); NRBC Flagged by Analyzer 0 % (0-5); Neutrophil # 6.65 X10^3/uL (2.7-7.7); Neutrophil % 80.7 % (47-70); Platelet Count 202 K/mm3 (150-450); RBC Distribution Width CV 14.3 % (11.6-14.6); RBC Distribution Width SD 51.9 fl (35.1-43.9); Red Blood Count 3.89 M/mm3 (4.6-6.2); White Blood Count 8.3 K/mm3 (4.4-11.0)
--- NOTE | 2019-01-20 01:27 | ED.DCSUM_ITS ---
History of Present Illness Chief Complaint: General Illness Detail of Chief Complaint: I do not feel Informant: Patient Onset: Days Context: Gradual Onset Timing: Continuous Quality: Palpitations, generalized weakness and fatigue Location: Chest and generalized Current Severity: Mild Maximum Severity: Moderate Worsened by: Nothing Relieved by: Nothing Associated Symptoms: No fever, chills or night sweats. No orthostatic symptoms. No dyspnea or Narrative: Patient is 58-year-old male who was recently discharged in the PCU. He was admitted for pneumonia. He denies fever, chills or night sweats. He denies rhi norrhea, congestion or postnasal drainage. He does report cough. He denies chest pain. He denies shortness of breath or dyspnea on exertion. He denies GI symptoms. He denies leg pain, swelling discoloration. He does smoke. Prior similar symptoms: Yes Recent Illness/Hospitalization: Yes - Past Medical History (1) Atrial fibrillation Status: Acute (2) Pneumonia Status: Acute (3) Acute alcohol intoxication with alcoholism Status: Chronic (4) COPD (chronic obstructive pulmonary disease) Status: Chronic (5) Hilar mass Status: Chronic (6) Lung cancer Status: Chronic Past Medical History - Allergies and Home Meds Allergies/Adverse Reactions: Allergies No Known Allergies Allergy (Verified 01/17/19 22:08) Primary Care Physician: Armando Aggarwal MD [Primary Care Provider] - Prior records reviewed: Yes Surgical History: tonsillectomy Lives: Alone Smoking Status: Current every day smoker Alcohol: Heavy Drugs: None - Family History Paternal Family History: Reports: Cancer, - - Lung cancer in father and other family member but not in siblings. Review of Systems General: Reports: Malaise. Denies: Chills, Fever, Subjective, Sweats, Weight loss, - Eyes: Denies: Visual changes - bilaterally, Blurred Vision - bilaterally, Diplopia ENT: Denies: Bilateral ear pain, Rhinorrhea, Sore throat Cardiovascular: Reports: Palpitations. Denies: Chest pain, Heart racing, -, - Respiratory: Reports: Cough. Denies: Dyspnea, Sputum, Dyspnea on exertion, Orthopnea, Paroxysmal nocturnal dyspnea, -, - Gastrointestinal: Denies: Abdominal pain, Nausea, Vomiting, Diarrhea, Melena, Hematochezia Musculoskeletal: Reports: Myalgias. Denies: Arthralgias, Neck pain, Back pain, Swelling, Extremity Pain Skin: Denies: Rash, Wounds Neurological: Denies: Headache, Weakness, Numbness Endocrine: Denies: Polyuria, Polydipsia Hematologic: Denies: Easy bruising, Easy bleeding Allergy: Denies: Uticaria, Swelling of the mouth, Swelling of the tongue Physical Exam Vital Signs/Narrative: Vital Signs Temp Pulse Resp BP Pulse Ox 01/20/19 00:13 92 23 H 119/84 H 93 01/20/19 00:07 97.7 F L 86 18 119/84 H 94 Inital Vital Signs reviewed: Yes General: Well nourished, Well developed, No Acute Distress Head: Normocephalic, Atraumatic Eyes: Perrl, EOMI ENT: Moist mucous membranes, No rhinorrhea, TM's clear Neck: Supple, Nontender, No lymphadenopathy, No JVD Cardiovascular: Regular rate, Regular rhythm, No murmurs, Normal S1, Normal S2 Respiratory: No distress, CTA bilaterally, Chest nontender Abdomen: Soft, Nontender, Nondistended, Normal bowel sounds Back: Nontender, Normal Inspection Extremities: Nontender, No edema Skin: Normal color, No rash Neurological: Alert, Oriented x3, Cranial nerves II-XII grossly intact, Normal Strength, Normal Sensation Psychological: Normal affect, Normal Mood Diagnostic/Tx/Re-eval Laboratory Results 01/20/19 01:10 WBC 8.3 RBC 3.89 L Hgb 12.5 L Hct 38.8 L MCV 99.7 H MCH 32.1 H MCHC 32.2 RDW Std Deviation 51.9 H RDW Coeff of Jose J 14.3 Plt Count 202 MPV 10.5 Immature Gran % (Auto) 1.800 H Neut % (Auto) 80.7 H Lymph % (Auto) 9.7 L [place] % (Auto) 7.6 Eos % (Auto) 0.0 Baso % (Auto) 0.2 Absolute Neuts (auto) 6.7 Absolute Lymphs (auto) 0.80 L Nucleated RBC % 0 Laboratory Results 01/20/19 01/20/19 01:10 01:10 WBC 8.3 RBC 3.89 L Hgb 12.5 L Hct 38.8 L MCV 99.7 H MCH 32.1 H MCHC 32.2 RDW Std Deviation 51.9 H RDW Coeff of Jose J 14.3 Plt Count 202 MPV 10.5 Immature Gran % (Auto) 1.800 H Neut % (Auto) 80.7 H Lymph % (Auto) 9.7 L [place] % (Auto) 7.6 Eos % (Auto) 0.0 Baso % (Auto) 0.2 Absolute Neuts (auto) 6.7 Absolute Lymphs (auto) 0.80 L Nucleated RBC % 0 Sodium 145 Potassium 3.7 Chloride 112 H Carbon Dioxide 25.0 Anion Gap 8 BUN 16 Creatinine 0.77 Estim Creat Clear Calc 109.29 Est GFR (MDRD) Af Amer 133 Est GFR (MDRD) Non-Af 110 BUN/Creatinine Ratio 20.7 H Glucose 125 H Calcium 8.3 L Patient's blood work was compared to most recent and is essentially unchanged. H&H is slightly low. Blood sugar is mildly elevated. Chloride is elevated and was elevated on prior. - EKG Initial EKG Interpretation: Atrial Fibrillation - H fibrillation with ventricular rate 96. QRS duration 94 ms. QT duration 348 ms. [place] is normal. - Medical Decision Making Patient was recently admitted. With his generalized vague symptoms will obtain CBC to assess for anemia and white count. Basic metabolic panel was obtained to assess renal function, CO2 anion gap and electrolytes. Because he is complaining of palpitation history of chronic A. fib EKG was obtained and did reveal A. fib with a controlled ventricular rate. Since his results are unchanged from prior and he has vague symptoms and is not hemodynamically unstable and there is no evidence of respiratory distress or hypoxia he will be discharged home. Suspect his palpitations are secondary to atrial fibrillation. ED Disposition - Plan for ED Patient: Disposition: Home or Assisted Living Diagnosis: Atrial fibrillation with controlled ventricular rate, Generalized muscle weakness, Lung mass Instructions: WEAKNESS, Unk Cause, Atrial Fibrillation Referrals: Armando Aggarwal MD [Primary Care Provider] - 3-5 Days
--- NOTE | 2019-01-20 01:28 | ED.RN ---
pt refusing to keep cardiac monitoring on.
[2019-01-20 01:36] LABS: Anion Gap 8 (5-15); BUN 16 mg/dL (7-18); BUN/Creat Ratio 20.7 RATIO (10-20); Calcium,Total 8.3 mg/dL (8.5-10.1); Chloride 112 mmol/L (98-107); Creatinine, Serum 0.77 mg/dL (0.70-1.30); EST Glomerular Filtration Rate 110 mL/min (>60); Est Glom Filt Rate - Afr Amer 133 mL/min (>60); Estimated Creatinine Clearance 109.29 ml/min; Glucose 125 mg/dL (74-106); Potassium 3.7 mmol/L (3.5-5.1); Sodium Level 145 mmol/L (136-145)
[2019-01-20 01:57] VITALS: BP 115/80; PULSE 72; RESP 23; TEMP 36.5; O2SAT 93
--- NOTE | 2019-01-20 02:07 | ED.RN ---
PT ambulated with a steady and independent gait to lobby. PT stated he was going back to the [facility].
== END 2019-01-20 02:08 | disposition home or self-care (01) ==
PROVIDERS: Emergency Provider Emergency Medicine; Family Provider Family Medicine; PCP Family Medicine
DX: I48.91 Unspecified atrial fibrillation (principal); M62.81 Muscle weakness (generalized); R91.8 Other nonspecific abnormal finding of lung field; C34.90 Malignant neoplasm of unspecified part of unspecified bronchus or lung; J44.9 Chronic obstructive pulmonary disease, unspecified; Z87.01 Personal history of pneumonia (recurrent); F10.20 Alcohol dependence, uncomplicated; F17.200 Nicotine dependence, unspecified, uncomplicated; S39.012A Strain of muscle, fascia and tendon of lower back, initial encounter; J34.89 Other specified disorders of nose and nasal sinuses; R00.0 Tachycardia, unspecified; X58.XXXA Exposure to other specified factors, initial encounter; Y93.9 Activity, unspecified; Y92.9 Unspecified place or not applicable; Z85.118 Personal history of other malignant neoplasm of bronchus and lung
CPT/HCPCS: 80048; 85025; 93005; 96372; 99282; 99285

== ENCOUNTER 2019-01-20 20:01 | Emergency (ER) | payer MEDICAID, SELFPAY ==
[2019-01-20 00:07] VITALS: BMI 30.2
[2019-01-20 20:02] VITALS: BP 98/65; PULSE 99; RESP 16; TEMP 36.8; O2SAT 95; BMI 25.8
--- NOTE | 2019-01-20 21:58 | ED.VISSUMM ---
- ER Visit Summary Date of Service: 01/20/19 Chief Complaint: Back pain History of Present Illness: The patient is a 58 M presents with back pain that began today. Patient states she woke up with the pain. Patient states pain is over the lower lumbar area. Patient describes the pain is sharp. Patient denies any trauma or injury. Patient denies any radiation of the pain. Patient denies any bowel or bladder changes. Patient denies any saddle anesthesia. Physical Examination: Vital signs are stable. Patient is afebrile. Patient is in no acute distress. Cranial nerves II through XII are intact. Strength is 5/5 bilateral knee upper and lower extremities. Patient was able to ambulate without difficulty. Deep tendon reflexes were 2/4 bilaterally in the lower extremities. There is tenderness over the right lower lumbar paraspinal muscles. There is no midline tenderness. There is no bony crepitance or step-off. Range of motion was slightly limited in all motions of the lumbar spine secondary to pain. Emergency Department Course and Treatment: Patient was given an injection of Toradol here. Patient was given a prescription for Naprosyn. Patient was instructed to use ice to the area. Patient was instructed to follow-up with his primary care physician in 3 to 5 days. Patient understood and was agreeable with the plan. All questions were answered. Disposition: Discharge home Impression: Lumbosacral strain This note was generated with [employer] dictation software. It may contain incorrect words, spelling, and punctuation that were not noted in review of the chart prior to signing ED Disposition - Plan for ED Patient: Disposition: Home or Assisted Living Diagnosis: Lumbosacral strain Instructions: Back Sprain/Strain Prescriptions: Naproxen [Naprosyn] 500 mg PO BID PRN #20 tab Prescription Printed Referrals: Armando Aggarwal MD [Primary Care Provider] - 3-5 Days
[2019-01-20] MEDS: Ketorolac 60 MG/2 ML Vial IM (22:13)
[2019-01-20 22:28] VITALS: BP 100/40; PULSE 85; RESP 18; O2SAT 97
== END 2019-01-20 22:30 | disposition home or self-care (01) ==
PROVIDERS: Emergency Provider Emergency Medicine; Family Provider Family Medicine; PCP Family Medicine
DX: S39.012A Strain of muscle, fascia and tendon of lower back, initial encounter (principal); J34.89 Other specified disorders of nose and nasal sinuses; R00.0 Tachycardia, unspecified; X58.XXXA Exposure to other specified factors, initial encounter; Y93.9 Activity, unspecified; Y92.9 Unspecified place or not applicable; J44.9 Chronic obstructive pulmonary disease, unspecified; Z85.118 Personal history of other malignant neoplasm of bronchus and lung; F17.200 Nicotine dependence, unspecified, uncomplicated
CPT/HCPCS: 99282

== ENCOUNTER → 2019-03-20 08:14 | Outpatient (CLI) | payer MEDICAID, SELFPAY ==
[2019-02-21 14:54] VITALS: BMI 24.7
--- NOTE | 2019-03-20 17:20 | PFTCOMP_ITS ---
COMPLETE PULMONARY FUNCTION TEST INTERPRETATION Brief HPI: Patient is a 59 year old male, currently under the care of Dr. Herrera, who presents to [facility] for complete pulmonary function tests secondary to diagnosis of COPD. Respiratory therapist reports good effort and reproducible results. Interpretation: Forced expiration spirometry shows a moderately severe large airways obstructive ventilatory defect with an FEV1 of 56% predicted. There is no significant bronchodilator response by strict ATS criteria. Spirograms are of good quality and plateau slowly, indicating slowly emptying areas of the lungs. The respiratory flow volume loop shows decreased expiratory flow rates at all lung volumes consistent with airway obstruction. Lung volumes by body plethysmography show an elevated total lung capacity at 7.86 L, 118% predicted. FRC and RV are elevated out of proportion. Lung volume measurements are consistent with hyperinflation and air-trapping. Diffusion capacity by carbon monoxide is at the lower limit of normal at 78% predicted. The airway resistance is elevated. No previous pulmonary function tests were available for review. Impression: Irreversible moderately severe large airways obstructive ventilatory defect resulting in air trapping with hyperinflation
== END ==
PROVIDERS: Family Provider Family Medicine; PCP Family Medicine; Referring Provider Internal Medicine Critical Care Medicine; Visit Provider Internal Medicine Critical Care Medicine
DX: J44.9 Chronic obstructive pulmonary disease, unspecified (principal)
CPT/HCPCS: 94060; 94726; 94729

== ENCOUNTER → 2019-04-24 09:07 | Outpatient (CLI) | payer MEDICAID, SELFPAY ==
[2019-04-24 08:21] VITALS: BMI 25.9
[2019-04-24 09:50] LABS: Anion Gap 3 (5-15); BUN 9 mg/dL (7-18); Chloride 107 mmol/L (98-107); EST Glomerular Filtration Rate 92 mL/min (>60); Est Glom Filt Rate - Afr Amer 111 mL/min (>60); Glucose 97 mg/dL (74-106); Potassium 4.5 mmol/L (3.5-5.1); Sodium Level 139 mmol/L (136-145)
== END ==
PROVIDERS: Nurse Practitioner Acute Care; Family Provider Family Medicine; PCP Family Medicine; Referring Provider Internal Medicine Critical Care Medicine; Visit Provider Internal Medicine Critical Care Medicine
DX: C34.90 Malignant neoplasm of unspecified part of unspecified bronchus or lung (principal)
CPT/HCPCS: 36415; 80048

== ENCOUNTER → 2019-07-04 13:11 | Outpatient (CLI) | payer MEDICAID, SELFPAY ==
[2019-02-21 14:54] VITALS: BMI 24.7
[2019-04-24 08:21] VITALS: BMI 25.9
--- NOTE | 2019-07-04 13:13 | CT_ITS ---
STUDY: CT CHEST WITH CONTRAST REASON FOR EXAM: Male, 59 years old. Lung cancer evaluation with lung mass, no treatment yet. Current 3/4 pack per day smoker x 40 years, COPD. RADIATION DOSAGE (If Supplied By Facility): CTDIvol = ( 18.13 ) mGy, DLP = ( 544.24 ) mGycm TECHNIQUE: Transaxial imaging was performed following intravenous administration of IV 100mL Isovue-300. Multiplanar coronal and sagittal images were reformatted. Individualized dose optimization techniques were used for this CT. COMPARISON: Comparison is made with prior examination dated January 16, 2019. FINDINGS: The inhomogeneous infiltration in the medial aspect of the left upper lobe has progressed as well. There is evidence of bronchiectasis. There now is evidence of a 2.6 cm x 2.1 cm cystic density with air-fluid level. This most likely is post obstructive pneumonitis and possible infection. There is no demonstrated pleural abnormality. Normal heart and pericardium. There are multiple small lymph nodes within the mediastinum, which are normal in size and morphology most compatible with reactive lymph hyperplasia. The left suprahilar mass has increased in size as compared to prior study. It presently measures 3.5 cm x 4.1 cm. . Normal enhanced pulmonary arteries. Normal aorta arch and descending thoracic aorta. There are multi-level degenerative changes of the thoracic spine. There is no demonstrated abnormality of the visualized upper abdomen. CT/Chest WITH Contrast IMPRESSION: Progressive increase in size of the left suprahilar mass and postobstructive pneumonitis with new cystic density in the left upper lobe with an air-fluid level. Superimposed inflammatory changes should be ruled out. Electronically Signed: Neno Ibarra, at 14:35 EDT , Service support ,
[2019-07-04 13:35] LABS: CREATININE FINGERSTICK 1.2 mg/dL (0.70-1.30)
== END ==
PROVIDERS: Family Provider Family Medicine; PCP Family Medicine; Referring Provider Nurse Practitioner Acute Care; Visit Provider Nurse Practitioner Acute Care
DX: C34.90 Malignant neoplasm of unspecified part of unspecified bronchus or lung (principal)
CPT/HCPCS: 71260; Q9967

== ENCOUNTER → 2019-08-13 13:12 | Outpatient (CLI) | payer MEDICAID, SELFPAY ==
[2019-08-02 11:22] VITALS: BMI 25.9
[2019-08-13 13:38] LABS: Absolute Lymphocyte Count 1.66 X10^3/uL (0.83-4.51); Basophil# 0.06 X10^3/uL; Basophil% 0.7 % (0-1); Eosinophil# 0.14 X10^3/uL; Eosinophils% 1.6 % (0-5); Hematocrit 37.5 % (40-54); Lymphocyte # 1.66 X10^3/ul (4.0); Lymphocyte % 19.3 % (19-41); Mean Corpuscular Hgb 29.8 pg (27.0-32.0); Mean Corpuscular Volume 93.1 fL (80-94); Mean Platelet Vol. 9.4 fl (6.2-12.0); Monocyte# 0.78 X10^3/uL; Monocyte% 9.1 % (0-10); NRBC Flagged by Analyzer 0 % (0-5); Neutrophil # 5.95 X10^3/uL (2.7-7.7); Neutrophil % 69.1 % (47-70); Platelet Count 324 K/mm3 (150-450); RBC Distribution Width SD 47.8 fl (35.1-43.9); Red Blood Count 4.03 M/mm3 (4.6-6.2); White Blood Count 8.6 K/mm3 (4.4-11.0)
[2019-08-13 13:51] LABS: International Normalized Ratio 1.1; Prothrombin Time (Protime)PT. 13.8 SECONDS (11.7-14.9)
== END ==
PROVIDERS: PCP Family Medicine; Referring Provider Internal Medicine Critical Care Medicine; Visit Provider Internal Medicine Critical Care Medicine
DX: R91.8 Other nonspecific abnormal finding of lung field (principal)
CPT/HCPCS: 36415; 85025; 85610

== ENCOUNTER 2019-08-17 11:10 | Day surgery (SDC) | payer MEDICAID, SELFPAY ==
[2019-08-02 11:22] VITALS: BMI 25.9
[2019-08-17] VITALS (8 sets, daily range): BP systolic 98–121; BP diastolic 66–78; PULSE 16–89; RESP 16; TEMP 36.6–37.2; O2SAT 92–99; BMI 27.3
--- NOTE | 2019-08-17 | FLU_PTH ---
PATIENT: SHER PENNINGTON LOC: EN U#:[id number] AGE/SX: 59/M ROOM: RE08/17/[address]: Dr. Tariq Herrera DO : 1960 BED: DIS: 08/17/2019 SPEC #: [id number] RECD: 08/17/19 13:41 STATUS: NAVEED RESunny #: [id number] ROLANDO: 08/17/19 00:[address]: Tariq Herrera DEPT: CYTOLOGY RECD BY: Reji Menchaca ENTERED: 08/17/19 13:43 SP TYPE: Fluid OTHR DR: Dr. Armando Aggarwal MD Tissues: A - Lung, NOS B - Lung, NOS C - Lung, NOS D - Lung, NOS E - Lung, NOS F - Lung, NOS Procedures: FNA Specimen Adequacy Special Stain Group II Special Stain Group I Surgery Specimen Level IV AFB Stain (control) GMS Stain (control) Cytospin Fluid HEADER OPERATION: Endobronchial ultrasound (MAC) PRE-OP DIAGNOSIS: Lung mass; mediastinal lymphadenopathy TISSUE SUBMITTED: A - EBUS, TBNA, aspiration #1, site 7, B - EBUS, TBNA, aspiration #2, site 10L, C - EBUS, TBNA, aspiration #3, site 10L, D - EBUS, TBNA, aspiration #4, site 10L, E - TBNA site 7, F - TBNA site 10L, G - BAL, CHE DIAGNOSIS CYTOLOGY A. EBUS, TBNA, aspiration #1, site 7 (smears): Predominantly blood. A few respiratory epithelial cells and lymphocytes noted. Negative for malignant cells. B. EBUS, TBNA, aspiration #2, site 10L (smears): Positive for malignant cells derived from non-small cell carcinoma. C. EBUS, TBNA, aspiration #3, site 10L (smears): Positive for malignant cells derived from non-small cell carcinoma. D. EBUS, TBNA, aspiration #4, site 10L (smears): Predominantly blood. A few respiratory epithelial cells and lymphocytes noted. Negative for malignant cells. E. EBUS, TBNA, site 7 fluid (cell block): Paucicellular specimen. Negative for malignant cells. F. EBUS, TBNA, site 10L fluid (cell block): Malignant cells present derived from metastatic non-cell cell carcinoma, favor squamous cell carcinoma. See comment. G. BAL, CHE (cytospin and cell block): Negative for malignant cells. Special stains for acid fast bacilli and fungi are negative for organisms; matched controls are appropriate. SJ:karen 08/20/19 COMMENT The specimen is evaluated at the time of procedure by Dr. Davis. Immediate Evaluation: A. EBUS, TBNA, aspiration #1, site 7: Predominantly blood. A few respiratory epithelial cells and lymphocytes noted. Negative for malignant cells. B. EBUS, TBNA, aspiration #2, site 10L: Positive for malignant cells derived from non-small cell carcinoma. C. EBUS, TBNA, aspiration #3, site 10L: Positive for malignant cells derived from non-small cell carcinoma. D. EBUS, TBNA, aspiration #4, site 10L: Predominantly blood. Negative for malignant cells. F. Immunohistochemistry ([id number]) supports the above diagnosis. Molecular studies on the tumor can be performed if clinically indicated. Please notify the laboratory if they are needed. Case has been reviewed in consultation with Dr. Hollis who concurs with the above diagnosis. IDC:AM CYTOLOGY STUDY Slides are reviewed. CYTOLOGY GROSS A - Received labeled with the patient's name and and designated EBUS, TBNA, aspiration #1, site 7. The specimen consists of two smears. The smears are submitted for immediate cytologic evaluation (wet read). B - Received labeled with the patient's name and and designated EBUS, TBNA, aspiration #2, site 10L. The specimen consists of two smears. The smears are submitted for immediate cytologic evaluation (wet read). C - Received labeled with the patient's name and and designated EBUS, TBNA, aspiration #3, site 10L. The specimen consists of two smears. The smears are submitted for immediate cytologic evaluation (wet read). D - Received labeled with the patient's name and and designated EBUS, TBNA, aspiration #4, site 10L. The specimen consists of two smears. The smears are submitted for immediate cytologic evaluation (wet read). E - Received is 20 ml of red cloudy fluid labeled with the patient's name and and designated EBUS, TBNA, site 7 submitted for cell block. F - Received is 20 ml of red cloudy fluid labeled with the patient's name and and designated EBUS, TBNA, site 10L submitted for cell block. G - Received labeled with the patient's name and and designated BAL, CHE, submitted for cell block and cytospin preparation. A fragment of cartilage is also noted. / SJ:rg 08/17/19 TC:0 CPT: 58957 x3, 06427, 43242 x2, 40352 x2, 02396 x2, 00179 x2
--- NOTE | 2019-08-17 | IMM_PTH ---
PATIENT: SHER PENNINGTON LOC: EN U#:[id number] AGE/SX: 59/M ROOM: RE08/17/[address]: Dr. Tariq Herrera DO : 1960 BED: DIS: 08/17/2019 SPEC #: [id number] RECD: 08/20/19 11:39 STATUS: NAVEED REQ #: [id number] ROLANDO: 08/17/19 00:[address]: Tariq Herrera DEPT: IMMUNOHISTOCHEMISTRY RECD BY: Nimo Ng ENTERED: 08/20/19 11:40 SP TYPE: IMMUNO OTHR DR: Dr. Armando Aggarwal MD Tissues: F - Lung, NOS Procedures: RCC (add) NAPSIN A (add) CK20 (add) CK5-6 (add) CK7 (add) CK8 (add) HEP PAR (add) P16 (add) TTF1 (add) Pankeratin (initial) P40 (add) PSAP (add) PHYSICIAN & [address] [address] SPECIMEN INFORMATION: Tissue Source: F - TBNA site 10L Clinical Info: Lung mass; mediastinal lymphadenopathy Specimen Number: [id number] CPT code: 81676, 49259 x11 METHODOLOGY: Deparaffinized sections of prefer/formalin-fixed tissue or PAP/DQ stained slides are incubated with monoclonal/polyclonal antibodies/oligonucleotide probes. Localization is made via biotin free immunoperoxidase method. Appropriate controls are performed and reacted as expected. Results on target cell population are indicated in the following table: RESULTS: ANTIBODY / CLONE RESULT Block F AE1-3 (AE1/AE3/PCK26) positive CK7 (OV-TL12/30) negative CK8 (02corpF32) positive CK20 (KS20.8) negative TTF-1 (8G7G3/1) negative Napsin A (Rabbit Polyclonal) negative RCC (PN-15) negative PSAP (PASE/4LJ) negative CK5-6 (D5 & 1684) positive P40 (BC28) positive P16 (E6H4) negative HepPar (OCh1E5) negative These tests were developed and their performance characteristics determined by [facility]. They may not have been cleared or approved by the U.S. Food and Drug Administration. The FDA has determined that such clearance or approval is not necessary. The above immunohistochemical/dualISH markers are ordered and reviewed by the Pathologist. INTERPRETATION: F. TBNA site 10L: Malignant cells present derived from metastatic non-small cell carcinoma, favor squamous cell carcinoma. SJ:karen 08/21/19
--- NOTE | 2019-08-17 09:13 | PCM.HP.STD ---
History of Present Illness Date of Admission: 08/17/19 Chief Complaint: Lung mass The patient is a 59-year-old male with a history of COPD and lung mass who I initially saw in consultation when he was admitted to the hospital in January 2019. At that time, the patient was noted to have a left hilar lung mass. It was recommended that the patient undergo a biopsy. However, the patient was subsequently lost to all form of follow-up with me until July 2019. A repeat chest CT had just been completed in June which revealed a progressive increase in the size of the left suprahilar mass. There was also concern for a cystic density with an air-fluid level in the same region which could represent infection. Following my discussion with the patient in July, he was agreeable to proceeding with bronchoscopic airway evaluation with possible transbronchial needle aspiration of the left suprahilar mass. Risks and benefits of the proposed procedure were discussed with the patient. Past Medical History Past Medical History (Chronic Problems): Chronic Problems (Last Reviewed 08/02/19 @ 11:[address] Tariq Herrera DO) Tobacco abuse (Chronic) Cigarettes 1/2 pack/day Lung cancer (Chronic) COPD (chronic obstructive pulmonary disease) (Chronic) Acute alcohol intoxication with alcoholism (Chronic) Atrial fibrillation (Chronic) Hilar mass (Chronic) Atelectasis of left lung (Chronic) Medical History: Medical History (Last Reviewed 08/02/19 @ 11:[address] Tariq Herrera DO) Severe sepsis (Acute) A41.9, R65.20 Pneumonia (Acute) J18.9 Hypoxia (Acute) R09.02 Lung cancer (Chronic) C34.90 COPD (chronic obstructive pulmonary disease) (Chronic) J44.9 Acute alcohol intoxication with alcoholism (Chronic) F10.229 Atrial fibrillation (Chronic) I48.91 Hilar mass (Chronic) R91.8 Atelectasis of left lung (Chronic) J98.11 Allergies No Known Allergies Allergy (Verified 08/14/19 14:53) Home Medications: Ambulatory Orders Medication Instructions Recorded Albuterol Inhaler [Ventolin Hfa] 1 - 2 puff INHALATION Q4H PRN PRN 01/16/19 #1 inhaler fluticasone propionate 250 1 inh INHALATION BID #60 ea 07/03/19 mcg/actuation blister powder for inhalation Glycopyrrolate/Formoterol Fum 2 puff INHALATION BID 08/14/19 [Bevespi Aerosphere] Sertraline HCl [Zoloft] 50 mg PO DAILY 08/14/19 Surgical History: Surgical History (Last Reviewed 08/02/19 @ 11:[address] Tariq Herrera DO) History of tonsillectomy (Resolved) Z90.89 Surgical History: tonsillectomy Psychiatric History: No pertinent psych hx Smoking Status: Current every day smoker Tobacco Use: Non-smoker - *Family History Paternal Family History: Family History (Last Reviewed 08/02/19 @ 11:[address] Tariq Herrera DO) Sister Uterine cancer Mother Emphysema lung Grandfather Emphysema lung Grandmother Emphysema lung History Items: Cancer, - - Lung cancer in father and other family member but not in siblings. Review of Systems Constitutional: Denies: Chills, Fever, Weight Change HEENT: Denies: Head Aches, Sinus Congestion, Sinus Drainage Cardiovascular: Denies: Chest Pain, Palpitations Respiratory: Reports: Cough, Shortness of Breath. Denies: Hemoptysis Gastrointestinal: Denies: Abdominal Pain, Nausea, Vomiting Genitourinary: Denies: Dysuria Musculoskeletal: Denies: Joint Pain, Joint Tenderness Skin: Denies: Rash, Wounds Neurological: Denies: Numbness, Tingling, Focal weakness Psychiatric: Denies: Anxiety, Depression, Homicidal Ideations, Suicidal Ideations Hematologic/ Lymphatic: Denies: Easy Bruising, Easy Bleeding VTE Information - Inpt Only VTE Present on Admission: No VTE Mechan Device Prophylaxis: None VTE Pharm Prophylaxis ordered?: No Reason prophylaxis not ordered:: Treatment Not Indicated - Physical Exam Vitals/I&O's: Body Mass Index (BMI) 25.9 General: Alert, Cooperative HEENT: Atraumatic, Normocephalic Oral: No Gingival or Mucosal Lesions/ Ulcerations Neck: Supple, No Nodes, Trachea Midline Lungs: Diminished Cardiovascular: Regular rate, Regular Rhythm Abdomen: Bowel Sounds Present, Soft Extremities: No clubbing, No cyanosis Skin: No breakdown Musculoskeletal: No Tenderness to Palpation of Joints or Extremities Neurological: Neuro grossly intact Psych/Mental Status: Normal Affect, Appropriate Assessment/Plan All Active Problems (Last Reviewed 08/02/19 @ 11:[address] Tariq Herrera DO) History of tonsillectomy (Resolved) Severe sepsis (Acute) Pneumonia (Acute) Hypoxia (Acute) Assessment & Plan Problems 1. Hilar mass R91.8 Plan The patient's chest CT completed last month did reveal increased size of the left suprahilar mass. I did explain to the patient that these findings could certainly represent malignancy. I offered to move forward with performing bronchoscopic airway evaluation with mediastinal sampling via EBUS. Risks and benefits of the procedure were reviewed with the patient. He is in agreement to proceed.
[2019-08-17] MEDS: Lactated Ringers 1,000 ML 100 ML IV (11:40)
--- NOTE | 2019-08-17 13:16 | OP.BRONCH_ITS ---
Patient Name: Pedro Nicole Procedure Date: 08/17/2019 9:23 AM Date of : 1960 Age: 59 Procedure: Bronchoscopy Indications: Lung mass suspicious for cancer Providers: Tariq Herrera MD Referring MD: Tariq Herrera MD Complications: No immediate complications Procedure: Pre-Anesthesia Assessment: - A History and Physical has been performed. Patient meds and allergies have been reviewed. The risks and benefits of the procedure and the sedation options and risks were discussed with the patient. All questions were answered and informed consent was obtained. Patient identification and proposed procedure were verified prior to the procedure by the physician and the nurse in the procedure room. Mental Status Examination: alert and oriented. Airway Examination: normal oropharyngeal airway. Respiratory Examination: poor air movement. CV Examination: normal. ASA Grade Assessment: II - A patient with mild systemic disease. After reviewing the risks and benefits, the patient was deemed in satisfactory condition to undergo the procedure. The anesthesia plan was to use general anesthesia. Immediately prior to administration of medications, the patient was re-assessed for adequacy to receive sedatives. The heart rate, respiratory rate, oxygen saturations, blood pressure, adequacy of pulmonary ventilation, and response to care were monitored throughout the procedure. The physical status of the patient was re-assessed after the procedure. After I obtained informed consent, the scope was passed under direct vision. Throughout the procedure, the patient's blood pressure, pulse, and oxygen saturations were monitored continuously.The procedure was accomplished without difficulty. The patient tolerated the procedure well. The ultrasound bronchoscope was introduced through the mouth, via laryngeal mask airway and advanced to the tracheobronchial tree. Findings: The nasopharynx/oropharynx appears normal. The larynx appears normal. The vocal cords appear normal. The subglottic space is normal. The trachea is of normal caliber. The sacha is sharp. The tracheobronchial tree of the right lung was examined to at least the first subsegmental level. Bronchial mucosa and anatomy in the right lung are normal; there are no endobronchial lesions, and no secretions. Copious, mucoid, thick secretions were found in the left mainstem bronchus. Copious, mucoid, thick secretions were found in the left upper lobe. They were partially obstructing the airway. BAL was performed in the left upper lobe of the lung and sent for cell count, bacterial culture, viral smears & culture, and fungal & AFB analysis. 60 mL of fluid were instilled. 20 mL were returned. The return was bloody. Mucous plugs were present in the return fluid. Erythema was found in the left upper lobe. The scope was withdrawn and replaced with the EBUS bronchoscope to accomplish the ultrasound examination. Lymph Nodes: An endobronchial ultrasound-guided transbronchial needle aspiration was performed using an Olympus EBUS-TBNA 19 gauge needle and sent for routine cytology. Specimens were obtained from the 7 (subcarinal) and 10L (hilar) lymph nodes. One sample was obtained from lymph node station #7 ([place]carina) and sent for cytology. Three samples were obtained from station #10L and sent for cytology. Lymph Nodes: Rapid On-Site Evaluation (FABIOLA): Preliminary cytology was suggestive of small cell carcinoma (final results are pending) in the left hilar region (level 10L). Impression: - Lung mass suspicious for cancer - The airway examination of the right lung was normal. - Bronchoalveolar lavage was performed. - Transbronchial needle aspiration was performed. - Rapid On-Site Evaluation (FABIOLA): Preliminary cytology was suggestive of small cell carcinoma in node level 10L (final results are pending). Recommendation: - Await BAL and biopsy results. Procedure Code(s): --- Professional --- 57170, Bronchoscopy, rigid or flexible, including fluoroscopic guidance, when performed; with endobronchial ultrasound (EBUS) guided transtracheal and/or transbronchial sampling (eg, aspiration[s]/biopsy[ies]), one or two mediastinal and/or hilar lymph node stations or structures 00667, Bronchoscopy, rigid or flexible, including fluoroscopic guidance, when performed; with bronchial alveolar lavage Diagnosis Code(s): --- Professional --- R91.8, Other nonspecific abnormal finding of lung field CPT copyright 2017 [employer] [place] [employer]. All rights reserved. The codes documented in this report are preliminary and upon medical records coder review may be revised to meet current compliance requirements. DO Tariq Maria MD 08/17/2019 1:16:15 PM This report has been signed electronically. Number of Addenda: 0 Note Initiated On: 08/17/2019 9:23 AM
[2019-08-17 14:18] LABS: Cytology, Washings SEE PATHOLOGY REPORT
[2019-08-17 16:07] LABS: Appearance/Body Fluid CLOUDY; Color/Body Fluid RED; Lymphocytes 12 %; Neutrophil (Segs) 88 %; Red Cell Count/Body Fluid 578 /mm3; Source- Body Fluid BRONCHIAL LAVAGE
[2019-08-17 16:08] LABS: Body Fluid QC Type(s) BF1Q,BF2Q; White Blood Count/Body Fluid 18 /mm3
[2019-08-20 11:24] LABS: Pathologist Comment/Body Fluid Reviewed
== END 2019-08-17 15:03 | disposition home or self-care (01) ==
LOC: EN 11:11 → AC 11:12
PROVIDERS: PCP Family Medicine; Referring Provider Internal Medicine Critical Care Medicine; Visit Provider Internal Medicine Critical Care Medicine
PROC: BB4BZZZ Ultrasonography of Pleura (ICD-10-PCS; CPT 31624; principal; 2019-08-17 11:30)
DX: C34.02 Malignant neoplasm of left main bronchus (principal); I27.20 Pulmonary hypertension, unspecified; J44.9 Chronic obstructive pulmonary disease, unspecified; F32.9 Major depressive disorder, single episode, unspecified; F41.9 Anxiety disorder, unspecified; F17.200 Nicotine dependence, unspecified, uncomplicated; Z79.51 Long term (current) use of inhaled steroids; Z80.1 Family history of malignant neoplasm of trachea, bronchus and lung
CPT/HCPCS: 31624; 31652; 87015; 87070; 87077; 87116; 87205; 87206; 88108; 88172; 88305; 88312; 88313; 88341; 88342; 89050; J7120; J2405

== ENCOUNTER → 2019-08-24 07:10 | Outpatient (CLI) | payer MEDICAID, SELFPAY ==
[2019-08-23 06:25] VITALS: BMI 27.3
--- NOTE | 2019-08-24 07:11 | MRI_ITS ---
STUDY: MRI BRAIN WITH AND WITHOUT CONTRAST REASON FOR EXAM: Male, 59 years old. h/o non small cell lung cancer, ??? brain mets, no complaints TECHNIQUE: Standardized multiplanar fat and water weighted pulse sequences were obtained. IV 17cc dotarem was administered for the contrast portion of the examination. COMPARISON: CT 10/06/2018 FINDINGS: There is mild cerebral atrophy with widening of the extra-axial spaces and ventricular dilatation. Normal white matter tracts of the supratentorial brain. There is no evidence for recent intracranial ischemia or other cause of cytotoxic edema on diffusion weighted imaging (DWI). Normal T2* images of the brain without demonstrated susceptibility artifact. There is no demonstrated hemosiderin stain. Normal bilateral basal ganglia. Normal thalami. There is no extra-axial fluid accumulation. Normal flow voids within the major intracranial circulation suggesting patency by spin echo criteria. Normal venous enhancement. There is no enhancing intra-axial or extra-axial abnormality. Normal sella turcica, pituitary gland, infundibular stalk, optic chiasm and hypothalamus. Normal tectal plate and pineal gland. Normal midbrain, khushboo and medulla. Normal cerebellum. Normal basal cisterns. Normal bilateral temporal bones. Normal bilateral internal auditory canals. No demonstrated orbital abnormality, within the constraints of a routine brain study. Normal visualized paranasal sinuses. Normal calvarium and skull base. Normal visualized soft tissue structures. Normal visualized upper cervical spine. MRI/Brain W/WO Contrast IMPRESSION: Involutional changes of the brain, as described above. No MR evidence of metastatic disease. Electronically Signed: Parviz Larios MD at 11:19 EDT Tel , Service support ,
--- OUTSIDE RECORDS SUMMARY | 2020-01-22 10:56 | XMS RPT_ITS | CCD ---
:1960 External Reference #:[id number] Author Organization [facility] Care Team Providers Name Role Phone Ida Aggarwal) Primary Care Provider Medications Medication Name Sig Date Prescriber Location Albuterol albuterol HFA 01-01-2019 Ida Roman) [facility] (PROVENTIL HFA) 90 Jasen (81087) mcg/actuation inhaler Indications: Wheezing , SOB (shortness of breath) Inhale 2 Puffs as instructed every 4 hours as needed for Wheezing/Shortness of Breath. 1 Inhaler 5 01/01/2019 Active Comment: Inhale 2 Puffs as instructed every 4 hours as needed for Wheezing/Shortness of Breath. Sertraline sertraline (ZOLOFT) 50 07-20-2019 Ida Roman) [facility] mg tablet Indications: Jasen (4419 5) Current moderate episode of major depressive disorder without prior episode (HCC) Take 1 tablet by mouth once daily. 30 tablet 2 07/20/2019 Active Comment: Take 1 tablet by mouth once daily. Problems Active Problems Category Problem Name Status Date Location Alcohol-related History of alcohol Active [facility] disorders abuse (47846) Chronic obstructive Chronic obstructive Active [facility] pulmonary disease and lung disease (46995 ) bronchiectasis Disorders of lipid Mixed hyperlipidemia Active 2007 [facility] metabolism (44189) Residual codes; Tobacco user Active [facility] in unclassified (91068) Past or Other Problems Category Problem Name Status Date Location Diabetes mellitus Impaired fasting Completed 2007 - [facility] without complication glycaemia (76390) Residual codes; FH: Cardiovascular Completed 2007 - [facility] unclassified disease (24640) Results Result Name Value Range Unit Interpretation Flag Date Location progress on 2019-10 PROGRESS HNO ID: [id number] Normal 11-09-2019 [facility] Author: Mario Leiva ([id number]) Service: ? Author Type: Physician Type: Progress Notes Filed: 11/09/2019 3:07 PM Note Text: Patient presents with: ED Follow-up Suture Removal HPI: Patient presents today for office visit for follow up. Had a head injury on the . Required stapling. Incision is healing well. No drainage or bleeding. No headache or neuro complaints. MEDICATIONS: Current Outpatient Medications Medication Sig - sertraline (ZOLOFT) 50 mg tablet Take 1 tablet by mouth on ce daily. - albuterol HFA (PROVENTIL HFA) 90 mcg/actuation inhaler Inh jeannie 2 Puffs as instructed every 4 hours as needed for Wheezing/Shortness of Breath. No current facility-administered medications for this visit. ALLERGIES: ALLERGIES No Known Allergies PAST MEDICAL HISTORY Diagnosis Date - COPD (chronic obstructive pulmonary disease) (HCC) - History of alcohol abuse seeing [facility] weekly - Hyperglycemia - Hyperlipidemia - Tobacco use disorder age 19 PAST SURGICAL HISTORY Procedure Laterality Date - REMOVE TONSILS/ADENOIDS,<12 Y/O age 6 - VASECTOMY 1988 FAMILY HISTORY Problem Relation Age of Onset - Cancer Father liver (primary, as far as pt knows) - Peripheral Artery Disease Mother blockages in groin - Emphysema Mother smoker - Diabetes Mother diet controlled - Colon Cancer Other none - Coronary Artery Disease Other none - Prostate Cancer Other none - Cancer Sister uterine - No Known Problems Brother - No Known Problems Maternal Grandmother - No Known Problems Maternal Grandfather - No Known Problems Paternal Grandmother - No Known Problems Paternal Grandfather - No Known Problems Daughter - No Known Problems Son Social History Tobacco Use - Smoking status: Current Every Day Smoker Packs/day: 1.00 Years: 45.00 Pack years: 45.00 Types: Cigarettes - Smokeless tobacco: Never Used Substance Use Topics - Alcohol use: Yes Comment: once or twice weekly - Drug use: No Reviewed current medications, allergies, past medical histor y, surgical history, family history and social history today. REVIEW OF SYSTEMS All other reviewed and negative other than HPI. VITALS: BP 116/68 Pulse 90 Wt 81.6 kg (179 lb 12.8 oz) SpO2 97 % BMI 26.54 kg/m? Last 4 Encounter Wt Readings: Date: Wt: 11/09/2019 81.6 kg (179 lb 12.8 oz) 12/20/2018 82 kg (180 lb 11.2 oz) 12/13/2018 79.8 kg (176 lb) 03/16/2018 77.6 kg (171 lb) PHYSICAL EXAMINATION: General appearance: Well appearing, alert, in no acute distr ess, well-hydrated, well nourished. Skin: stellate scalp wound with five shadia. Cleansed with alcohol and removed without difficulties. Tolerated well. ASSESSMENT/PLAN: 1. Laceration of scalp, initial encounter - ICD9: 873.0, ICD 10: S01.01XA - wound care given. - closed head instructions given. rto prn. MD india Torre on 2019-11-09 CNOV Office Visit (FAMPWS) Normal 11-09-[address] [place] [address] [facility] SHER NICOLE ([id number]) 1960 [facility] Date Time Provider Department ([id number]) 11/09/19 2:40 PM [facility] During your visit today, we recorded the following informati on about you: Pulse Blood pressure Weight 90/minute 116/68 81.6 kg Bonita Huerta Ma 11/09/2019 2:49 PM Signed HOSPITAL/ER FOLLOW UP: Reason for visit: head injury after fall Which facility: [facility] Date of visit: 10/30/19 Diagnosis: laceration Testing done: ct of head Treatment given: 5 shadia Current symptoms: no pain Mario Whitten MD 11/09/2019 3:07 PM Signed Patient presents with: ED Follow-up Suture Removal HPI: Patient presents today for office visit for follow up. Had a head injury on the . Required stapling. Incision is healing well. No drainage or bleeding. No headache or neuro complaints. MEDICATIONS: Current Outpatient Medications Medication Sig - sertraline (ZOLOFT) 50 mg tablet Take 1 tablet by mouth on ce daily. - albuterol HFA (PROVENTIL HFA) 90 mcg/actuation inhaler Inh jeannie 2 Puffs as instructed every 4 hours as needed for Wheezing/Shortness of Breath. No current facility-administered medications for this visit. ALLERGIES: ALLERGIES No Known Allergies PAST MEDICAL HISTORY Diagnosis Date - COPD (chronic obstructive pulmonary disease) (HCC) - History of alcohol abuse seeing [facility] weekly - Hyperglycemia - Hyperlipidemia - Tobacco use disorder age 19 PAST SURGICAL HISTORY Procedure Laterality Date - REMOVE TONSILS/ADENOIDS,<12 Y/O age 6 - VASECTOMY 1988 FAMILY HISTORY Problem Relation Age of Onset - Cancer Father liver (primary, as far as pt knows) - Peripheral Artery Disease Mother blockages in groin - Emphysema Mother smoker - Diabetes Mother diet controlled - Colon Cancer Other none - Coronary Artery Disease Other none - Prostate Cancer Other none - Cancer Sister uterine - No Known Problems Brother - No Known Problems Maternal Grandmother - No Known Problems Maternal Grandfather - No Known Problems Paternal Grandmother - No Known Problems Paternal Grandfather - No Known Problems Daughter - No Known Problems Son Social History Tobacco Use - Smoking status: Current Every Day Smoker Packs/day: 1.00 Years: 45.00 Pack years: 45.00 Types: Cigarettes - Smokeless tobacco: Never Used Substance Use Topics - Alcohol use: Yes Comment: once or twice weekly - Drug use: No Reviewed current medications, allergies, past medical histor y, surgical history, family history and social history today. REVIEW OF SYSTEMS All other reviewed and negative other than HPI. VITALS: BP 116/68 Pulse 90 Wt 81.6 kg (179 lb 12.8 oz) SpO2 97 % BMI 26.54 kg/m? Last 4 Encounter Wt Readings: Date: Wt: 11/09/2019 81.6 kg (179 lb 12.8 oz) 12/20/2018 82 kg (180 lb 11.2 oz) 12/13/2018 79.8 kg (176 lb) 03/16/2018 77.6 kg (171 lb) PHYSICAL EXAMINATION: General appearance: Well stuart earing, alert, in no acute distress, well-hydrated, well nourished. Skin: stellate scalp wound w ith five shadia. Cleansed with alcohol and removed without difficulties. Tolerated well. ASSESSMENT/PLAN: 1. Laceration of scalp, initial encounter - ICD9: 873.0, ICD 10: S01.01XA - wound care given. - closed head instructions given. rto prn. Mario Whitten MD Referring Provider: IDA AGGARWAL) [[id number]] Allergies As of Date: 11/09/2019 (No Known Allergies) Date Reviewed: 11/09/2019 Reviewed by: Bonita Huerta Ma - Fully Assessed Reason for Visit: ED Follow-up [821] Suture Removal [105] Primary Visit Diagnosis:Laceration of scalp, initial encount er [S01.01XA] Prescriptions as of 11/09/2019 Sig: SERTRALINE 50 MG TABLET Take 1 tablet by mouth once d* ALBUTEROL SULFATE HFA 90 MCG/* Inhale 2 Puffs as instructed * Problem List As Of Date 11/09/2019 Noted Resolved TOBACCO USE DISORDER [F17.200] MIXED HYPERLIPIDEMIA [E78.2] 2007 IMPAIRED FASTING GLUCOSE [R73.01] 2007 More... FAMILY HX CARDIOVAS DIS NEC [V17.4] 2007 More... COPD (chronic obstructive pulmonary disease) (H* History of alcohol abuse [F10.11] More... Visit Notes: >> Bonita Huerta Ma Fri Nov 09, 2019 2:47 PM Status: Signed HOSPITAL/ER FOLLOW UP: Reason for visit: head injury after fall Which facility: [facility] Date of visit: 10/30/19 Diagnosis: laceration Testing done: ct of head Treatment given: 5 shadia Current symptoms: no pain Medications Discontinued During This Encounter fluticasone-vilanterol (BREO ELLIPTA* 28 E* 5 10/23/201811/08 Route: INHALATION Sig: Inhale 1 Inhalation as instructed once daily. Patient not taking: Reported on 11/09/2019 Disc: Reason for discontinue is not on file. Disposition: Return if symptoms worsen or fail to improve. Follow-up and Disposition History Recorded Encounter Status:Closed by MARIO WHITTEN MD on 11/09/19 progress on 2019-07 PROGRESS HNO ID: [id number] Normal 07-20-2019 [facility] Author: Ida Roman) Jasen Leiva ([id number]) Service: ? Author Type: Physician Type: Progress Notes Filed: 07/20/2019 10:47 AM Note Text: This Team Access Model visit is a phone encounter. It requir ed patient-provider interaction for the medical decision making as documented below. Chief Complaint Patient presents with: Telemedicine Depression HPI Sher Nicole is a 59 year old male who presents here today f or Evaluation of new depression symptoms. States that he has had the following depression symptoms for the last 3 weeks. Currently homeless and staying at the [facility]. Following COVID 19 restrictions of staying inside and washing hands. S haring rooms and bunk beds with other residents. No history of depression or anxiety. Not seeing counseling currently, but has in the past at 180. PHQ-9 (Patient Health Questionnaire-9) from [employer] on 01/2020 All calculations should be rechecked by clinician prior t o use RESULT SUMMARY: 13 points Scores 10-14 suggest moderate depression severity; patients should have a treatment plan ranging form counseling, followup, and/or pha rmacotherapy. Functionally, the patient does not report limitations due to their symptoms. INPUTS: Little interest or pleasure in doing things? ?> 2 = More sabine n half the days Feeling down, depressed, or hopeless? ?> 3 = Nearly every da y Trouble falling or staying asleep, or sleeping too much? ?> 2 = More than half the days Feeling tired or having little energy? ?> 3 = Nearly every d ay Poor appetite or overeating? ?> 0 = Not at all Feeling bad about yourself ? or that you are a failure or lópez ve let yourself or your family down? ?> 1 = Several days Trouble concentrating on things, such as reading the newspap er or watching television? ?> 2 = More than half the days Moving or speaking so slowly that other people could have no ticed? Or so fidgety or restless that you have been moving a lot more sabine n usual? ?> 0 = Not at all Thoughts that you would be better off , or thoughts of h urting yourself in some way? ?> 0 = Not at all Past medical history, appointments, medications, allergies r eviewed. Previous Medical History PAST MEDICAL HISTORY Diagnosis Date - COPD (chronic obstructive pulmonary disease) (HCC) - History of alcohol abuse seeing [facility] weekly - Hyperglycemia - Hyperlipidemia - Tobacco use disorder age 19 Previous Surgical History PAST SURGICAL HISTORY Procedure Laterality Date - REMOVE TONSILS/ADENOIDS,<12 Y/O age 6 - VASECTOMY 1988 Family History FAMILY HISTORY Problem Relation Age of Onset - Cancer Father liver (primary, as far as pt knows) - Peripheral Artery Disease Mother blockages in groin - Emphysema Mother smoker - Diabetes Mother diet controlled - Colon Cancer Other none - Coronary Artery Disease Other none - Prostate Cancer Other none - Cancer Sister uterine - No Known Problems Brother - No Known Problems Maternal Grandmother - No Known Problems Maternal Grandfather - No Known Problems Paternal Grandmother - No Known Problems Paternal Grandfather - No Known Problems Daughter - No Known Problems Son Patient Allergies ALLERGIES No Known Allergies Current Medications Current Outpatient Medications on File Prior to Visit Medication Sig - albuterol HFA (PROVENTIL HFA) 90 mcg/actuation inhaler Inh jeannie 2 Puffs as instructed every 4 hours as needed for Wheezing/Shortness of Breath. - fluticasone-vilanterol (BREO ELLIPTA) 100-25 mcg/dose inha ler Inhale 1 Inhalation as instructed once daily. No current facility-administered medications on file prior t o visit. Social History Social History Tobacco Use - Smoking status: Current Every Day Smoker Packs/day: 1.00 Years: 45.00 Pack years: 45.00 Types: Cigarettes - Smokeless tobacco: Never Used Substance Use Topics - Alcohol use: Yes Comment: once or twice weekly - Drug use: No Review of Symptoms REVIEW OF SYSTEMS See HPI EXAM: There were no vitals taken for this visit. General Appearance: Well sounding, alert, able to talk in co mplete sentences. Health Maintenance List HIV SCREENING due on 1979 HEPATITIS C SCREENING due on 2005 COLORECTAL CANCER SCREENING,SEE MODIFIER due on 2011 SHINGRIX VACCINE(1 of 2) due on 2011 LIPID SCREEN due on 04/07/2012 INFLUENZA(Season Ended) due on 12/11/2019 ANNUAL PCP TEAM CHRONIC DISEASE VISIT due on 12/14/2019 LUNG CANCER SCREENING due on 01/05/2020 DIABETES SCREEN due on 12/27/2021 PROSTATE CANCER SCREENING DISCUSSION due on 03/06/2023 DTAP,TDAP,TD(2 - Td) due on 03/06/2028 SPIROMETRY Completed ONE [facility] PRIOR TO AGE 66 Completed ASSESSMENT/PLAN: 1. Current moderate episode of major depressive disorder brandan vasquez prior episode (HCC) - ICD9: 296.22, ICD10: F32.1 Refusing counseling. Start SSRI. Call in 4 weeks if not impr oving or sooner with side effects. F/u in 3 months. - SERTRALINE 50 MG TABLET I spent 7 minutes in the visit, with more than 50% of the to richmond [id number] time of the visit in counseling / coordination of care. MD navarro Watson [facility] 2019-07-18 [facility]) Normal 07-18-2019 [facility] SHER NICOLE ([id number]) 1960 [facility] Date Time Provider Department ([id number]) 07/18/19 IDA AGGARWAL) [facility] During your visit today, we recorded the following informati on about you: Jaycob Todd [facility] 07/18/2019 4:04 PM Signed Patient called in and requested seeing our Psychologist, Neo Manning. I scheduled him for 07/25/2019 at 10:[address] am[address] He said that Dr. Aggarwal was aware of this, but I did not see an order. If you could please just place an order. I did ask him what the diagnosis was, and I said, Depression? and he replied, yes. Thank you, Jaycob Soriano APRN.CNP 07/19/2019 3:26 PM Signed Order signed. Siomara Soriano APRN.NEHAL Allergies As of Date: 07/18/2019 (No Known Allergies) Date Reviewed: 01/02/2019 Reviewed by: Ivania (Rn) MITALI Camarena - Fully Assessed Reason for Visit: order needed [Other] Primary Visit Diagnosis:Depression, unspecified depression t ype [F32.9] Prescriptions as of 07/18/2019 Sig: ALBUTEROL SULFATE HFA 90 MCG/* Inhale 2 Puffs as instructed * FLUTICASONE FUROATE 100 MCG-V* Inhale 1 Inhalation as instru * Problem List As Of Date 07/18/2019 Noted Resolved TOBACCO USE DISORDER [F17.200] MIXED HYPERLIPIDEMIA [E78.2] 2007 IMPAIRED FASTING GLUCOSE [R73.01] 2007 More... FAMILY HX CARDIOVAS DIS NEC [V17.4] 2007 More... COPD (chronic obstructive pulmonary disease) (H* History of alcohol abuse [F10.11] More... Encounter Status:Closed by PODLOGSIOMARA NIXON CNP on 07/19/19 cnpn on 2019-07-17 CNPN Telephone (FAMPWS) Normal 07-17-2019 [facility] SHER NICOLE ([id number]) 1960 [facility] Date Time Provider Department ([id number]) 07/17/19 IDA AGGARWAL) [facility] During your visit today, we recorded the following informati on about you: Charu Ann, SHOP HAND, SHOP HAND 07/17/2019 12:19 PM Signed Clau nurse from Pulmonary here in [place] calls states pt voices to them that he is depressed And would like someone to talk to. 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 They did ask him if he was suicidal or if he had a plan of hurting himself he told them no. Would you like an appointmen t set up and is there any other information you may like set up or passed along before we reach out to him? Ida Aggarwal MD 07/17/2019 12:33 PM Signed Please contact patient to set up virtual visit or phon e encounter later this week. Farheen Jean Pss 07/17/2019 2:07 PM Signed Unable to reach patient. Called # in chart, states wrong #. Maria Bui Pss 07/18/2019 12:38 PM Signed Spoke with Eliot at [facility]. The patient is re siding there. She will have the patient return call to our office after lunch. Fredrick Singh RN 07/18/2019 3:58 PM Signed Patient returned call. Transferred to [facility] for VV with PCP. Fredrick Singh RN Jossie Javier [facility] 07/19/2019 11:37 AM Signed Spoke with patient who has been scheduled for a TeleMed visit tomorrow, 07/19. Patient voiced understanding. Allergies As of Date: 07/17/2019 (No Known Allergies) Date Reviewed: 01/02/2019 Reviewed by: Ivania ChristiansenRn) MITALI Camarena - Fully Assessed Reason for Visit: Depression [32] Prescriptions as of 07/17/2019 Sig: ALBUTEROL SULFATE HFA 90 MCG/* Inhale 2 Puffs as instructed * FLUTICASONE FUROATE 100 MCG-V* Inhale 1 Inhalation as instru * Problem List As Of Date 07/17/2019 Noted Resolved TOBACCO USE DISORDER [F17.200] MIXED HYPERLIPIDEMIA [E78.2] 2007 IMPAIRED FASTING GLUCOSE [R73.01] 2007 More... FAMILY HX CARDIOVAS DIS NEC [V17.4] 2007 More... COPD (chronic obstructive pulmonary disease) (H* History of alcohol abuse [F10.11] More... Encounter Status:Closed by FREDRICK SINGH RN on 07/18/19 progress on 2019-03 PROGRESS HNO ID: [id number] Normal 03-22-2019 [facility] Author: Jessica ChristiansenRn) MITALI Cooper [place] ([id number]) Service: ? Author Type: Registered Nurse Type: Progress Notes Filed: 03/22/2019 8:38 AM Note Text: PRIMARY CARE COORDINATION DISCHARGE Patient has been identified by name and date of : Yes Patient discharged from Primary Care Coordination: YES Active Goals - Current status as of 03/22/2019 at 8:34 AM - Address all appropriate HM and disease care gaps - Confirm medication adherence of all prescribed medications and uses them correctly - Demonstrates proper inhaler technique - Improve Breathlessness Score - Uses rescue inhaler at appropriate times - Weight mgmt/activity Goals met Unable to reach pt Goals not met Patient engagement has not occurred despite ongoing educatio n provided regarding the importance of following the physician plan of treatment Patient knowledgeable and confident in contacting Health Car e Providers for questions or concerns: NO Reinforced with patient and/or caregiver that Primary Care C oordination may be reinitiated if a change in status warrants navigation readmission: Not applicable Discussed with: unable to reach pt What was the Focus/Challenges addressed in Care Coordination ? unable to reach pt for education and assistance Disposition: Follow up with PCP Care Team Tab - End: YES Have reached out to pt via phone and letter. Letter returned , address unknown. ER contact also unable to reach pt. Jessica Cooper RN PROGRESS HNO ID: [id number] Normal 03-22-2019 [facility] Author: Jessica ChristiansenRn) MITALI Cooper ([id number]) Service: ? Author Type: Registered Nurse Type: Progress Notes Filed: 03/22/2019 10:45 AM Note Text: PRIMARY CARE COORDINATION QUICK NOTE Provider Action/FYI Unable to reach pt. Will discharge from care coordination. Patient identified by name and date . Received return letter. [facility] Post Office was unable to deliver. cnptoutreach on 201 12-22-11 CNPTOUTREACH Patient Outreach (FAMPWS) Normal 1 05-23-2018 [facility] SHER NICOLE ([id number]) 1960 [facility] Date Time Provider Department ([id number]) 03/22/19 JESSICA COOPER (RN) FAMPWS During your visit today, we recorded the following informati on about you: Jessica Cooper RN, RN 03/22/2019 8:38 AM Signed PRIMARY CARE COORDINATION DISCHARGE Patient has been identified by name and date of : Yes Patient discharged from Primary Care Coordination: YES Active Goals - Current status as of 03/22/2019 at 8:34 AM - Address all appropriate HM and disease care gaps - Confirm medication adherence of all prescribed medications and uses them correctly - Demonstrates proper inhaler technique - Improve Breathlessness Score - Uses rescue inhaler at appropriate times - Weight mgmt/activity Goals met Unable to reach pt Goals not met Patient engagement has not occurred despite ongoing educatio n provided regarding the importance of following the physician plan of treatment Patient knowledgeable and confident in contacting Health C are Providers for questions or concerns: NO Reinforced with patient and/or caregiver that Primary Care Coordination may be reinitiated if a change in status warrants navigation readmi ssion: Not applicable Discussed with: unable to reach pt What was the Focus/Challenges addressed in Care Coordination? unable to reach pt for education and assistance Disposition: Follow up with PCP Care Team Tab - End: YES Have reached out to pt via phone and let ter. Letter returned, address unknown. ER contact also unable to reach pt. 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 FAMILY HX CARDIOVAS DIS NEC [V17.4] 2007 More... COPD (chronic obstructive pulmonary disease) (H* History of alcohol abuse [F10.11] More... Encounter Status:Closed by JESSICA COOPER on 03/22/19 [facility] Outreach (FAMPWS) Normal 1 05-23-2018 [facility] SHER NICOLE ([id number]) 1960 [facility] Date Time Provider Department ([id number]) 03/22/19 JESSICA COOPER (MITALI) FAMPWS During your visit today, we recorded the following informati on about you: Jessica Cooper RN, RN 03/22/2019 10:45 AM Signed PRIMARY CARE COORDINATION QUICK NOTE Provider Action/FYI Unable to reach pt. Will discharge from care coordination. Patient identified by name and date . Received return letter. [facility] Post Office was unable to deliver. 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 FAMILY HX CARDIOVAS DIS NEC [V17.4] 2007 More... COPD (chronic obstructive pulmonary disease) (H* History of alcohol abuse [F10.11] More... Encounter Status:Closed by JESSICA COOPER on 03/22/19 progress on 2019-02 PROGRESS HNO ID: [id number] Normal 02-22-2019 [facility] Author: MITALI Aguilar Rnveland ([id number]) Service: ? Author Type: Registered Nurse Type: Progress Notes Filed: 02/26/2019 1:36 PM Note Text: PRIMARY CARE COORDINATION QUICK NOTE Provider Action/FYI Letter sent. Patient identified by name and date . Sent certified letter about need to follow up with Care Coor dinator progress on 2019-02 PROGRESS HNO ID: [id number] Normal 02-14-2019 [facility] Author: Ida Roman) Jasen Leiva ([id number]) Service: ? Author Type: Physician Type: Progress Notes Filed: 02/14/2019 9:22 AM Note Text: Reviewed. Send letter? PROGRESS HNO ID: [id number] Normal 02-14-2019 [facility] Author: MITALI Aguilar Rn ([id number]) Service: ? Author Type: Registered Nurse Type: Progress Notes Filed: 02/26/2019 1:36 PM Note Text: PRIMARY CARE COORDINATION QUICK NOTE Provider Action/FYI Still unable to reach pt. Patient identified by name and date . Called patient, phone is not accepting phone calls. Called t o [facility], no one staying there by that name. cnptoutreach on 201 12-20-05 CNPTOUTREACH Patient Outreach (FAMPWS) Normal 1 04-16-2018 [place] SHER Segura ([id number]) 1960 [facility] Date Time Provider Department ([id number]) 02/14/19 JESSICA COOPER (RN) [facility] During your visit today, we recorded the following informati on about you: Jessica Cooper RN, RN 02/26/2019 1:36 PM Signed PRIMARY CARE COORDINATION QUICK NOTE Provider Action/FYI Still unable to reach pt. Patient identified by name and date . Called patient, phone is not accepting phone myra ls. Called to [facility], no one staying there by that name. Ida Aggarwal MD 02/14/2019 9:22 AM Signed Reviewed. Send letter? Jessica Cooper RN, RN 02/26/2019 1:36 PM Signed PRIMARY CARE COORDINATION QUICK NOTE Provider Action/FYI Letter sent. Patient identified by name and date . Sent certified letter about need to follow up with Care Coor dinator Allergies As of Date: 02/14/2019 (No Known Allergies) Date Reviewed: 01/02/2019 Reviewed by: Ivania (Rn) MITALI Camarena - Fully Assessed Reason for Visit: Reducing System Operator Chronic Care [9237] Prescriptions as of 02/14/2019 Sig: ALBUTEROL SULFATE HFA 90 MCG/* Inhale 2 Puffs as instructed * FLUTICASONE FUROATE 100 MCG-V* Inhale 1 Inhalation as instru * Problem List As Of Date 02/14/2019 Noted Resolved TOBACCO USE DISORDER [F17.200] MIXED HYPERLIPIDEMIA [E78.2] 2007 IMPAIRED FASTING GLUCOSE [R73.01] 2007 More... FAMILY HX CARDIOVAS DIS NEC [V17.4] 2007 More... COPD (chronic obstructive pulmonary disease) (H* History of alcohol abuse [F10.11] More... Letter Text Encounter Status:Closed by JESSICA COOPER on 02/26/19 progress on 2019-01 PROGRESS HNO ID: [id number] Normal 01-24-2019 [facility] Author: Jessica (Rn) MITALI Cooper Leiva ([id number]) Service: ? Author Type: Registered Nurse Type: Progress Notes Filed: 01/24/2019 11:04 AM Note Text: PRIMARY CARE COORDINATION QUICK NOTE Patient identified by name and date . Called again to phone number in chart. Currently not accepti ng calls. Unable to contact pt at this time. cnptoutreach on 12-20-15 CNPTOUTREACH Patient Outreach (FAMPWS) Normal 1 [place] [facility] SHER NICOLE ([id number]) 1960 [facility] Date Time Provider Department ([id number]) 01/24/19 JESSICA COOPER (RN) FAMPWS During your visit today, we recorded the following informati on about you: Jessica Cooper RN, RN 01/24/2019 11:04 AM Signed PRIMARY CARE COORDINATION QUICK NOTE Patient identified by name and date . Called again to phone number in chart. Currently not accepting calls. Unable to contact pt at this time. Allergies As of Date: 01/24/2019 (No Known Allergies) Date Reviewed: 01/02/2019 Reviewed by: Ivania ChristiansenRn) MITALI Camarena - Fully Assessed Prescriptions as of 01/24/2019 Sig: ALBUTEROL SULFATE HFA 90 MCG/* Inhale 2 Puffs as instructed * FLUTICASONE FUROATE 100 MCG-V* Inhale 1 Inhalation as instru * Problem List As Of Date 01/24/2019 Noted Resolved TOBACCO USE DISORDER [F17.200] MIXED HYPERLIPIDEMIA [E78.2] INVALID FOR* IMPAIRED FASTING GLUCOSE [R73.01] INVALID FOR* More... FAMILY HX CARDIOVAS DIS NEC [V17.4] INVALID FOR* More... COPD (chronic obstructive pulmonary disease) (H* History of alcohol abuse [F10.11] More... Encounter Status:Closed by JESSICA COOPER on 01/24/19 progress on 2019-01 PROGRESS HNO ID: [id number] Normal 01-23-2019 [facility] Author: Siomara Paniagua) Bo [place] ([id number]) Service: ? Author Type: Nurse Practitioner Type: Progress Notes Filed: 01/23/2019 9:37 AM Note Text: Reviewed. Siomara Harden, VIKKI.[facility] PROGRESS HNO ID: [id number] Normal 01-23-2019 [facility] Author: Jessica (Rn) MITALI Cooper [place] ([id number]) Service: ? Author Type: Registered Nurse Type: Progress Notes Filed: 01/24/2019 10:46 AM Note Text: PRIMARY CARE COORDINATION QUICK NOTE Provider Action/FYI Unable to reach pt for TCM. No longer staying at [facility] A rmy Patient identified by name and date . Called to [facility], [facility]. They have no other information about him. rolando on 201 12-19-14 CNPTOUTREACH Patient Outreach (FAMPWS) Normal 1 [place] [facility] SHER NICOLE ([id number]) 1960 Darian Leiva Date Time Provider Department ([id number]) 01/23/19 JESSICA COOPER (RN) FAMPWS During your visit today, we recorded the following informati on about you: Jessica Cooper RN, RN 01/24/2019 10:46 AM Signed PRIMARY CARE COORDINATION QUICK NOTE Provider Action/FYI Unable to reach pt for TCM. No longer staying at [facility] A rmy Patient identified by name and date . Called to [facility] , [facility]. They have no other information about him. Siomara Soriano APRN.ENGRAVER COPPERPLATE 01/23/2019 9:37 AM Signed Reviewed. Thanks, Siomara Soriano APRN.ENGRAVER COPPERPLATE Allergies As of Date: 01/23/2019 (No Known Allergies) Date Reviewed: 01/02/2019 Reviewed by: Ivania (Rn) MITALI Camarena - Fully Assessed Reason for Visit: Reducing System Operator Hospital Follow Up [3610] Prescriptions as of 01/23/2019 Sig: ALBUTEROL SULFATE HFA 90 MCG/* Inhale 2 Puffs as instructed * FLUTICASONE FUROATE 100 MCG-V* Inhale 1 Inhalation as instru * Problem List As Of Date 01/23/2019 Noted Resolved TOBACCO USE DISORDER [F17.200] MIXED HYPERLIPIDEMIA [E78.2] INVALID FOR* IMPAIRED FASTING GLUCOSE [R73.01] INVALID FOR* More... FAMILY HX CARDIOVAS DIS NEC [V17.4] INVALID FOR* More... COPD (chronic obstructive pulmonary disease) (H* History of alcohol abuse [F10.11] More... Encounter Status:Closed by JESSICA COOPER on 01/24/19 progress on 2019-01 PROGRESS HNO ID: [id number] Normal 01-22-2019 [facility] Author: Jessica (Mitali) MITALI Cooper [place] ([id number]) Service: ? Author Type: Registered Nurse Type: Progress Notes Filed: 01/22/2019 4:56 PM Note Text: PRIMARY CARE COORDINATION QUICK NOTE Patient identified by name and date . Called for TCM follow up. Pt is unavailable and unable to le ave voice message.10:24am Called for TCM follow up. Pt is unavailable and unable to le ave voice message. Called to sister, the other contact in the chart bu t this just went to voice mail. Called again for TCM follow up. Pt is unavailable and unable to leave a voice message. Called to sister, per sister, we have no con tact with him at all. The last I knew, he was living at the [facility] , I told the other girl that called that as well PROGRESS HNO ID: [id number] Normal 01-22-2019 [facility] Author: Charu Farmer (Composition Worker) IDALIA Ann [place] ([id number]) Service: ? Author Type: LICENSED NURSE Type: Progress Notes Filed: 02/19/2019 3:01 AM Note Text: [facility] and discharged the coul d not complete tcm due to being discharged same day. Spoke with Siomara in Dr Carina Aggarwal's absence and she agrees Pt should have care coordination foll owing him. Gave papers to Jessica LUCIO to follow per TCM. rolando on 12-19-13 CNPTOUTREACH Patient Outreach (FAMPWS) Normal 1 [place] [facility] SHER NICOLE ([id number]) 1960 [place] Date Time Provider Department ([id number]) 01/22/19 JESSICA COOPER (RN) FAMPWS During your visit today, we recorded the following informati on about you: Jessica Cooper RN, RN 01/22/2019 4:56 PM Signed PRIMARY CARE COORDINATION QUICK NOTE Patient identified by name and date . Called for TCM follow up. Pt is unavailable and unable to le ave voice message.10:24am Called for TCM follow up. Pt is unavaila ble and unable to leave voice message. Called to sister, the other contact in the chart but t his just went to voice mail. Called again for TCM follow up. Pt is unavailabl e and unable to leave a voice message. Called to sister, p er sister, we have no contact with him at all. The last I knew, he was living at the [facility], I to ld the other girl that called that as well Allergies As of Date: 01/22/2019 (No Known Allergies) Date Reviewed: 01/02/2019 Reviewed by: Ivania (Rn) MITALI Camarena - Fully Assessed Reason for Visit: Reducing System Operator Hospital Follow Up [3610] Prescriptions as of 01/22/2019 Sig: ALBUTEROL SULFATE HFA 90 MCG/* Inhale 2 Puffs as instructed * FLUTICASONE FUROATE 100 MCG-V* Inhale 1 Inhalation as instru * Problem List As Of Date 01/22/2019 Noted Resolved TOBACCO USE DISORDER [F17.200] MIXED HYPERLIPIDEMIA [E78.2] INVALID FOR* IMPAIRED FASTING GLUCOSE [R73.01] INVALID FOR* More... FAMILY HX CARDIOVAS DIS NEC [V17.4] INVALID FOR* More... COPD (chronic obstructive pulmonary disease) (H* History of alcohol abuse [F10.11] More... Encounter Status:Closed by JESSICA COOPER on 01/22/19 progress on 2019-01 PROGRESS HNO ID: [id number] Normal 01-18-2019 [facility] Author: Charu Farmer (Idalia) IDALIA Ann ([id number]) Service: ? Author Type: LICENSED NURSE Type: Progress Notes Filed: 02/19/2019 3:01 AM Note Text: Attempted to reach pt on two other atemps and machine just s [employer] pt not available but is not a answering machine where message can b e left.Pt does have a hospital f/up scheduled with Siomara Soriano CNP ON . cnptoutreach on 201 12-19-08 CNPTOUTREACH Patient Outreach (FAMPWS) Normal 1 [place] [facility] SHER NICOLE ([id number]) 1960 [facility] Date Time Provider Department ([id number]) 01/17/19 IDA AGGARWAL) FAMPWS During your visit today, we recorded the following informati on about you: [place] Ann LPN, IDALIA 02/19/2019 3:01 AM Signed Attempted to call pt for tcm, number buchanan s not have answering machine will need to try back. TRANSITION CARE MANAGEMENT (TCM) INITIAL CONTACT Electric Organ Inspector And Repairer Outreach Provider Action/FYI: Initial contact with patient post discharge, spoke to . Patient identified by name and . TRANSITION CARE MANAGEMENT INITIAL OUTREACH DOCUMENTATION: Date of Outreach: 01/17/2019 Date of Discharge 01/16/2019 Some recent data might be hidden SUMMARY: -Pt discharged from on . -Admitted for: Do you have a hospital follow up appointment with your PCP? Appointment on with . MEDICATIONS: Many patients have questions or concerns about their medications once they are home. Were you prescribed any new medications? Were you told to hold any medications? Were any of your medications discontinued? Do you have any questions about getting or taking your medic ations? Your discharge instructions/After visit Summary (AVS) are important in guiding you through the recovery pro cess. Is there anything I might help you understand? Do you have all the necessary equipment and supplies at home ? Medical records from recent hospitalization: Charu Darian Ann LPN, IDALIA 02/19/2019 3:01 AM Signed Attempted to reach pt on two other atemps and machine just s tates pt not available but is not a answe ring machine where message can be left.Pt does have a hospital f/up scheduled with Siomara Soriano CNP ON 9. Charu Ann LPN, IDALIA 02/19/2019 3:01 AM Signed Received discharge papers fr [facility] 01/19/19 again pt was readmitted on the and discharged t he could not complete tcm due to being discharged same day. Spoke with Siomara in Dr. Casey lopez's absence and she agrees Pt should have care c oordination following him. Gave papers to Jessica LUCIO to follow per TCM. Allergies As of Date: 01/17/2019 (No Known Allergies) Date Reviewed: 01/02/2019 Reviewed by: Ivania ChristiansenRn) MITALI Camarena - Fully Assessed Reason for Visit: Transition Of Care [4074] Prescriptions as of 01/17/2019 Sig: ALBUTEROL SULFATE HFA 90 MCG/* Inhale 2 Puffs as instructed * FLUTICASONE FUROATE 100 MCG-V* Inhale 1 Inhalation as instru * Problem List As Of Date 01/17/2019 Noted Resolved TOBACCO USE DISORDER [F17.200] MIXED HYPERLIPIDEMIA [E78.2] 2007 IMPAIRED FASTING GLUCOSE [R73.01] 2007 More... FAMILY HX CARDIOVAS DIS NEC [V17.4] 2007 More... COPD (chronic obstructive pulmonary disease) (H* History of alcohol abuse [F10.11] More... Encounter Status:Closed by [employer], PurkinjeUSER on 02/19/19 progress on 2018-12 PROGRESS HNO ID: [id number] Normal 01-04-2019 [facility] Author: Evangelina Payne [place] ([id number]) Service: ? Author Type: ? Type: Progress Notes Filed: 01/04/2019 1:50 PM Note Text: Radiology Service Progress Note PATIENT NAME: Sher Nicole DATE OF SERVICE: January 04, 2019 TIME: 1:50 PM PATIENT IDENTITY VERIFICATION COMPLETED USING TWO (2) METHOD S: Name and Date of confirmed by patient verbally. PATIENT GENDER DATA: Male PATIENT RELEVANT IMPLANT DATA REVIEWED: Not Applicable RADIOLOGY DEPARTMENT: CT; Exam(s) Completed: Chest PERIPHERAL IV DATA: Not applicable SIGNED BY: Evangelina Payne January 04, 2019 1:50 PM obsolete on 2018-12 OBSOLETE Refill (FAMPWS) Normal 12-29-2018 [facility] SHER NICOLE ([id number]) 1960 [facility] Date Time Provider Department ([id number]) 12/29/18 IDA AGGARWAL) FAMPWS During your visit today, we recorded the following informati on about you: Claudia Thomas LPN 12/30/2018 8:37 AM Signed Patient has been identified by name and date of : Yes Pending Prescriptions Disp Refills ALBUTEROL SULFATE HFA 90 MCG/ACTUATION AEROSOL INHALER 1 Inh aler 5 Sig: Inhale 2 Puffs as instructed every 4 hours as needed fo r Wheezing/Shortness of Breath. ERNA: No RX INSTRUCTIONS: MyChart request. Claudia Thomas SHOP HAND Allergies As of Date: 12/29/2018 (No Known Allergies) Date Reviewed: 12/20/2018 Reviewed by: Trung Briones - Fully Assessed Reason for Visit: Refill Request [94] Visit Diagnoses:Wheezing [R06.2] SOB (shortness of breath) [R06.02] Order(s):albuterol HFA (PROVENTIL HFA) 90 mcg/ac tuation inhalerInhale 2 Puffs as instructed every 4 hours as needed for Wheezing/Shortness of Breath.Disp: 1 InhalerRfl: 5 Prescriptions as of 12/29/2018 Sig: ALBUTEROL SULFATE HFA 90 MCG/* Inhale 2 Puffs as instructed * FLUTICASONE FUROATE 100 MCG-V* Inhale 1 Inhalation as instru * Problem List As Of Date 12/29/2018 Noted Resolved TOBACCO USE DISORDER [F17.200] MIXED HYPERLIPIDEMIA [E78.2] INVALID FOR* IMPAIRED FASTING GLUCOSE [R73.01] INVALID FOR* More... FAMILY HX CARDIOVAS DIS NEC [V17.4] INVALID FOR* More... COPD (chronic obstructive pulmonary disease) (H* History of alcohol abuse [F10.11] More... Prescriptions ordered this encounter Disp Refills Start End ALBUTEROL SULFATE HFA 90 MCG/ACTUATI* 1 In* 5 01/01/2019 Cmt: Generic or brand: dispense inhaler preferre d by patient/insurance unless ERNA flag is selected. Route: INHALATION Sig: Inhale 2 Puffs as instructed every 4 hours as needed fo r Wheezing/Shortness of Breath. Medications Discontinued During This Encounter albuterol HFA (PROVENTIL HFA) 90 mcg* 1 In* 5 03/20/201812/11 Route: INHALATION Sig: Inhale 2 Puffs as instr ucted every 4 hours as needed for Wheezing/Shortness of Breath. Disc: Reason for discontinue is not on file. Encounter Status:Closed by IDA AGGARWAL MD on 9 cnpn on 2018-12-29 CNPN Telephone ([id number]) Normal 12-29 [place] [facility] SHER NICOLE ([id number]) 1960 [facility] Date Time Provider Department ([id number]) 12/29/18 AIMEE HERNANDEZ [id number] During your visit today, we recorded the following informati on about you: Theresa Thibodeaux 01/02/2019 3:50 PM Signed Called patient again, and le ft a detailed message; again, requested return call. Theresa Thibodeaux 01/03/2019 1:33 PM Signed Patient returned call from message re scheduled appointme nts. Patient requested and confirmed appointments on 01/07 AND 01/10/19. CT is being done at [place] on 01/04/19 Trung Briones MD 01/18/2019 7:40 AM Signed Looks like he cancelled his biopsy procedure Please call and find out how he is doing and if he is agreeable to rescheduling so I can reach out to the procedure team to help Avi Lowe Ma 01/18/2019 11:03 AM Signed [facility] but per recording pt was unavailable. Attempted to call emergency contact Siomara , no answer, LMOVM for Sher to contact office regarding message below. Obdulia Amezcua 01/22/2019 4:10 PM Signed Called pt number on file states pt is unavailable. Called pt contact, and left a message for his sister Siomara, stating we are having a hard time reaching pt as his phone numb er rings unavailable. I asked Siomara to give the office a call back regarding this. Obdulia Amezcua 01/23/2019 11:19 AM Addendum Called pt regarding message below, pt phone is not in servic e. Looking at a recent out reach message it says pt has calvin moore dismissed from the [facility] where he was staying, and the [facility] has no other information about him, noted today. Allergies As of Date: 12/29/2018 (No Known Allergies) Date Reviewed: 12/20/2018 Reviewed by: Trung Briones - Fully Assessed Reason for Visit: Appointment [186] Cmt: Bronch Scheduling (01/05/19) Prescriptions as of 12/29/2018 Sig: ALBUTEROL SULFATE HFA 90 MCG/* Inhale 2 Puffs as instructed * FLUTICASONE FUROATE 100 MCG-V* Inhale 1 Inhalation as instru * Problem List As Of Date 12/29/2018 Noted Resolved TOBACCO USE DISORDER [F17.200] MIXED HYPERLIPIDEMIA [E78.2] INVALID FOR* IMPAIRED FASTING GLUCOSE [R73.01] INVALID FOR* More... FAMILY HX CARDIOVAS DIS NEC [V17.4] INVALID FOR* More... COPD (chronic obstructive pulmonary disease) (H* History of alcohol abuse [F10.11] More... Encounter Status:Closed by THERESA THIBODEAUX on 01/03/19 protime on PT Coag (PPP) [Time] 1.0 0.9-1.3 s Normal 9 [facility] ([id number]) Comment: Result Comment: Vitamin K An tagonist (VKA) Therapeutic Range: INR 2 to 3 (Target INR of 2.5) Note: For patients treated w ith VKA drugs, such as warfarin, the [place] [employer] 2012 Guideline recommends a therapeutic INR range of 2 to 3 (target INR of 2.5). This recommendation includes high-risk patients with antiphospholipid syndrome with previous arterial or venous thromboembolism, current-generation mechanical or bioprosthetic aortic heart valve replacement. Note: Patients with filling machine set up mechanic al aortic valve replacement and additional risk factors for thromboembolic events (atrial fibrillation, previous thromboembolism, LV dysfunction, hypercoagulable conditions) or an older generation mecha nical AVR (i.e., ball in-Cage) or any mechanical MVR should have a INR therapeutic range of 2.5 to 3.5 (target INR of 3). Kalen GH, et al. Chest 2012 , 141:7S-47S Kayla PINEDA, et al. [facility] 20 17, 70: 252-289 Performed By: #### CBCDIF, P T, PTT, BMP ####[place] [address] [place], [place] [phone] PT Coag (PPP) [Time] 10.6 9.7-13.0 sec Normal 9 [facility] ([id number]) Comment: Performed By: #### CBCDIF, P T, PTT, BMP ####[place] [address] [address] [place], [place] [phone] cbc and differential on 2018-12-27 Abs Baso 0.06 <0.11 k/uL Normal 12-27-2018 [facility] ([id number]) Comment: Performed By: #### CBCDIF, P T, PTT, BMP ####[place] [address] [address] [place] [phone] Abs [place] 0.64 <0.87 k/uL Normal 12-27-2018 [facility] ([id number]) Comment: Performed By: #### CBCDIF, P T, PTT, BMP ####[place] [address] [address] [place], [place] [phone] Abs Neut 7.32 1.45-7.50 k/uL Normal 12-27-2018 [facility] (82085) Comment: Performed By: #### CBCDIF, P T, PTT, BMP ####[place] [address] [address] [place], [place] [phone] Absolute nRBC <0.01 <0.01 Normal 12-27-2018 [facility] ([id number]) Comment: Performed By: #### CBCDIF, P T, PTT, BMP ####[place] [address] [place], [place] [phone] Basophils/100 WBC (Bld) 0.6 % Normal 2018 [facility] (52717) Comment: Performed By: #### CBCDIF, P T, PTT, BMP ####[place] [address] [place], [place] [phone] DTYPE Auto Diff Normal 12-27-2018 [facility] ([id number]) Comment: Performed By: #### CBCDIF, P T, PTT, BMP ####[place] [address] [address] [place], [place] [phone] Eosinophils (Bld) [#/Vol] 0.16 <0.46 k/uL Normal 12-10 [facility] (71045) Comment: Performed By: #### CBCDIF, P T, PTT, BMP ####[place] [address] [place], [place] [phone] Eosinophils/100 WBC (Bld) 1.6 % Normal 12-10 [facility] (23906) Comment: Performed By: #### CBCDIF, P T, PTT, BMP ####[place] [address] [address] [place] [phone] Erythrocyte distribution 12.7 11.5-15.0 % Normal 12-27 [facility] width (RBC) [Ratio] [place] (14646) Comment: Performed By: #### CBCDIF, P T, PTT, BMP ####[place] [address] [address] [place], [place] [phone] Hematocrit (Bld) [Volume 39.5 39.0-51.0 % Normal 12-27 [facility] fraction] [place] ([id number]) Comment: Performed By: #### CBCDIF, P T, PTT, BMP ####[place] [address] [address] [place] [phone] Hemoglobin (Bld) 12.4 13.0-17.0 g/dL Low 12-27-2018 [facility] [Mass/Vol] [place] (99495) Comment: Performed By: #### CBCDIF, P T, PTT, BMP ####[place] [address] [place], [place] [phone] Lymphocytes (Bld) [#/Vol] 1.72 1.00-4.00 k/uL Normal 12-10 [facility] (56327) Comment: Performed By: #### CBCDIF, P T, PTT, BMP ####[place] [address] [place], [place] [phone] Lymphocytes/100 WBC (Bld) 17.4 % Normal 12-10 [facility] (26455) Comment: Performed By: #### CBCDIF, P T, PTT, BMP ####[place] [address] [place], [place] [phone] MCH (RBC) [Entitic mass] 31.2 26.0-34.0 pG Normal 12-27 [facility] ([id number]) Comment: Performed By: #### CBCDIF, P T, PTT, BMP ####[place] [address] [place], [place] [phone] MCHC (RBC) [Mass/Vol] 31.4 30.5-36.0 g/dL Normal 12-28-19 [facility] (08792) Comment: Performed By: #### CBCDIF, P T, PTT, BMP ####[place] [address] [place] [phone] MCV (RBC) [Entitic vol] 99.2 80.0-100.0 fL Normal 12-27 [facility] ([id number]) Comment: Performed By: #### CBCDIF, P T, PTT, BMP ####[place] [address] [place], [place] [phone] Monocytes/100 WBC (Bld) 6.5 % Normal 2018 [facility] ([id number]) Comment: Performed By: #### CBCDIF, P T, PTT, BMP ####[place] [address] [place], [place] [phone] Neutrophils/100 WBC (Bld) 73.9 % Normal 12-10 [facility] ([id number]) Comment: Performed By: #### CBCDIF, P T, PTT, BMP ####[place] [address] [place], [place] [phone] NRBCs 0.0 0 /100 WBC Normal 12-27-2018 [facility] ([id number]) Comment: Performed By: #### CBCDIF, P T, PTT, BMP ####[facility] [address] [place], [place] [phone] Platelet mean volume 11.0 9.0-12.7 fL Normal [facility] (Bld) [Entitic vol] [place] ([id number]) Comment: Performed By: #### CBCDIF, P T, PTT, BMP ####[place] [address] [place], [place] [phone] Platelets (Bld) [#/Vol] 252 150-400 k/uL Normal 2018 [facility] ([id number]) Comment: Performed By: #### CBCDIF, P T, PTT, BMP ####[place] [address] [place], [place] [phone] RBC (Bld) [#/Vol] 3.98 4.20-6.00 m/uL Low 12-27-2018 [facility] ([id number]) Comment: Performed By: #### CBCDIF, P T, PTT, BMP ####[facility] [place], [place] [phone] WBC (Bld) [#/Vol] 9.90 3.70-11.00 k/uL Normal 12-27-2018 [facility] ([id number]) Comment: Performed By: #### CBCDIF, P T, PTT, BMP ####[place] [address] [place], [place] [phone] basic metabolic panl on 2018-12-27 Anion gap [Moles/Vol] 12 9-18 mmol/L Normal 12-28-19 [facility] ([id number]) Comment: Performed By: #### CBCDIF, P T, PTT, BMP ####[facility] [place], [place] [phone] Calcium [Mass/Vol] 9.2 8.5-10.2 mg/dL Normal 12-27-2018 [facility] ([id number]) Comment: Performed By: #### CBCDIF, P T, PTT, BMP ####[facility] [place], [place] [phone] Chloride [Moles/Vol] 100 97-105 mmol/L Normal [facility] ([id number]) Comment: Performed By: #### CBCDIF, P T, PTT, BMP ####[facility] [place], [place] [phone] CO2 [Moles/Vol] 27 22-30 mmol/L Normal 12-27-2018 [facility] ([id number]) Comment: Performed By: #### CBCDIF, P T, PTT, BMP ####[facility] [place], [place] [phone] Creatinine [Mass/Vol] 0.75 0.73-1.22 mg/dL Normal 12-28-19 [facility] ([id number]) Comment: Performed By: #### CBCDIF, P T, PTT, BMP ####[facility] [place], [place] [phone] eGFR- Amer. >60 Normal 12-27-2018 [facility] ([id number]) Comment: Performed By: #### CBCDIF, P T, PTT, BMP ####[facility] [place], [place] [phone] GFR/1.73 sq M predicted >60 mL/min/{1.73_m2} Normal 12-27-2018 [facility] among non-blacks MDRD [place] ([id number]) (S/P/Bld) [Vol rate/Area] Comment: Result Comment: eGFR (Estima donny GFR) Units of measure: mL/min/1.73 meters squared eGFR is derived from the ree xpressed MDRD Study equation using the following parameters: serum creatinine, age, gender and race. The creatinine assay has been calibrated to be traceable to IDMS. An eGFR <60 mL/min/1.73m2 fo r >3 months is consistent with chronic kidney disease. Refer to KDOQI guidelines for clinical interpretation. In patients with unstable re nal function, e.g. those with acute kidney injury, the eGFR may not accurately reflect actual GFR. Performed By: #### CBCDIF, P T, PTT, BMP ####[facility] [address] [place], [place] [phone] Glucose [Mass/Vol] 92 74-99 mg/dL Normal 12-27-2018 [facility] ([id number]) Comment: Result Comment: The [place] Diabetes Association (ADA) provides guidance for cutoff values for fasting glucose and random glucose. The ADA defines fasting as no caloric intake for at least 8 hours. Fas ting plasma glucose results between 100 to 125 mg/dL indicate increased risk for diabetes (prediabetes). Fasting plasma glucose resul ts greater than or equal to 126 mg/dL meet the criteria for diagnosis of diabetes. In the absence of unequivocal hyperglycemia, results should be confirmed by repeat testing. In a patient with classic s ymptoms of hyperglycemia or hyperglycemic crisis, random plasma glucose results greater than or equal to 200 mg/dL meet the criteria for diagnosis of diabetes. Reference: Standards of [facility] Care in Diabetes 2016, [place] Diabetes Association. Diabetes Care. 2016.39(Suppl 1). Performed By: #### CBCDIF, P T, PTT, BMP ####[facility] [address] to-BBB [place], [place] [phone] Potassium [Moles/Vol] 4.1 3.7-5.1 mmol/L Normal 12-28-19 19 [facility] ([id number]) Comment: Performed By: #### CBCDIF, P T, PTT, BMP ####[facility] [address] [place], [place] [phone] Sodium [Moles/Vol] 139 136-144 mmol/L Normal 12-27-2018 [facility] ([id number]) Comment: Performed By: #### CBCDIF, P T, PTT, BMP ####[facility] [place], [place] [phone] Urea nitrogen [Mass/Vol] 8 9-24 mg/dL Low 12-27 [facility] ([id number]) Comment: Performed By: #### CBCDIF, P T, PTT, BMP ####[facility] [place], [place] [phone] aptt on 2018-12-27 aPTT Coag (Bld) [Time] 28.5 23.0-32.4 sec Normal [address] [place] [address] ([id number]) Comment: Result Comment: Unfractionat ed Heparin Therapeutic Ranges: Standard Heparin Nomogram: 5 3 to 78 seconds (anti-Xa level of 0.3 to 0.7 U/ml) Low Dose/ACS Nomogram: 49 to 67 seconds (anti-Xa level of 0.2 to 0.5 U/ml) Stroke Treatment Nomogram: 4 9 to 67 seconds (anti-Xa level of 0.2 to 0.5 U/ml) Note: The APTT therapeutic r tana has been determined for the current lot of laboratory APTT reagent in use throughout the [facility]. Performed By: #### CBCDIF, P T, PTT, BMP ####[facility] [place], [place] [phone] cnpn on 2018-12-21 CNPN Telephone (LAYLA) Normal 12-21-2018 [place] [facility] SHER NICOLE ([id number]) 1960 [facility] Time Provider Department ([id number]) 12/21/18 TRUNG BRIONES During your visit today, we recorded the following informati on about you: Trung Briones MD 12/21/2018 9:42 AM Signed Please call and update patient that I sp toi to the [facility] team and one of their schedulers will call to set up a final pro cedure date, but they did ask that labs get done before the scheduled procedure. The orders are in, please see if he can get these done in the next few days at any local [facility] lab so that we can see the results. Obdulia Amezcua 12/21/2018 10:12 AM Signed Left a voicemail for the pt to call the office b ack in regards to the message below. If pt calls back please let him know [facility] will call him to schedule his procedure, but he first needs to have lab work done at any of our [facility] labs, the order for lab work is placed. If it is better to go to a lab in [place] I did research and this on is close to him. [facility] [place] [address] [place], [place] [address] Obdulia Amezcua 12/25/2018 3:55 PM Signed Left a voicemail for the pt to call the office b ack in regards to the message below. Obdulia Amezcua 12/26/2018 10:17 AM Signed Spoke with Pt, Pt verbalized understanding. No further quest ions. Pt has not heard from [facility] yet, he will g o and get the blood work done and then wait to hear back from [facility]. Trung Briones MD 12/27/2018 8:43 AM Signed Records from [place] received, 10/06/18 E D visit for which he seemed to present being intoxicated. Drinks 1/2 gallon of vodka a day. Unclear why but chest imaging was obtained CXR and the CT chest He was sent home with a course of Augmentin CD was sent, I have set the CT chest to upload into our syst em for further review an comparison. On my review there appears at least a postobstructive pneumo krystin in the CHE Comparing this to the most r ecent PET here, the pneumonia appears improved, but the hilar soft tissue density appears larger at this time. [facility] [place] is going to schedule interventional pulm f or further diagnostics Allergies As of Date: 12/21/2018 (No Known Allergies) Date Reviewed: 12/20/2018 Reviewed by: Trung Briones - Fully Assessed Reason for Visit: Treatment Planning [881] Prescriptions as of 12/21/2018 Sig: FLUTICASONE FUROATE 100 MCG-V* Inhale 1 Inhalation as instru * ALBUTEROL SULFATE HFA 90 MCG/* Inhale 2 Puffs as instructed * Problem List As Of Date 12/21/2018 Noted Resolved TOBACCO USE DISORDER [F17.200] MIXED HYPERLIPIDEMIA [E78.2] INVALID FOR* IMPAIRED FASTING GLUCOSE [R73.01] INVALID FOR* More... FAMILY HX CARDIOVAS DIS NEC [V17.4] INVALID FOR* More... COPD (chronic obstructive pulmonary disease) (H* History of alcohol abuse [F10.11] More... Encounter Status:Closed by OBDULIA AMEZCUA on 12/26/18 progress on 2018-12 PROGRESS HNO ID: [id number] Normal 12-20-2018 [place] Author: Aimee Hernandez [facility] Service: ? [place] Author Type: Physician ([id number]) Type: Progress Notes Filed: 12/21/2018 2:43 PM Note Text: Bronchoscopy Request: CLEARED for scheduling 12/21/18 JK Please schedule patient for the following: Staging EBUS Navigational Bronch PLEASE SCHEDULE ON 01/03 OR 01/04 A FLUORO STUDY PATIENT Clinical Trial Candidate: Yes- Augmented Fluoroscopy Visit and Bronchoscopy: Bronch only, visit not needed. Last HANDP: 12/20/2018 Time Allotment/Tier: TIER 3: 3 HOUR Physician Performing Bronchoscopy: Dr. Gomes or Dr. Hernandez Anesthesia Type: General Special Requests: None Needs Labs: Yes, CBC, BMP, PT/INR and PTT - asked for patien t to get this done prior to bronch day Needs EKG: No Needs CT prior: Yes EMN Bronchoscopy Protocol Chest CT Does the pt need cardiac clearance? No Is he/she on anticoagulants/anti-plt therapy? No Nursing Considerations: (ie: residential, TB, respiratory isolation, etc.) none Diagnosis/Reason for Bronchoscopy: 58 yo current smoker with enlarging CHE lesion Referred by: Trung Briones Reviewed by: EZEQUIEL Hernandez MD December 20, 2018 2:57 PM Addendum: CBC with diff: No results found for this basename: WBC,RBC,HB,HCT,MCV,MCH,MCHC,RDWCV,PLT,MPV,NEUTP,LYMPHP,MON OP,EODINP,BASOP,A BSNEUT,ABSLYM,ABSMONO,ABSEOSIN,ABSBASO No results found for: K No results found for: NA No results found for: BUN No results found for: CREAT PROGRESS HNO ID: [id number] Normal 12-20-2018 [place] Author: Trung Briones [facility] Service: ? [place] Author Type: Physician ([id number]) Type: Progress Notes Filed: 12/20/2018 1:25 PM Note Text: NEW PATIENT OFFICE VISIT Consultation requested by Dr. Ida Aggarwal for an opi nion regarding lung mass. Sher Nicole's PCP is Ida Aggarwal MD. My final recommendations will be communicated back to the requesting physician by way of shared Medical record or letter to requesting physici an via US mail. CC: New Patient (Left lung lesion ) HPI: Mr. Nicole is a 58 year old male who presents for evaluation of New Patient (Left lung lesion ) Seen by PCP on 12/13/[address] chest and PET scan results with patient which is very concerning for malignancy. Patient has not scheduled appointment to see pulmonology as of yet. Discussed importance of taking first available appointment with referral today so we can biopsy l esion to further direct treatment. Patient's questions answered today . Stated understanding of urgency of follow up. Has history of COPD which he treats with albuterol. Has req uired rescue inhaler 2x/day for coughing and wheezing. Denies nighttime a wakenings, steroid use, recent hospitalization. Has not had PFT in year s. Does not follow up with pulmonology. Still smoking 1/2-3/4 pack per d ay. Not interested in help with cessation today. Interested in daily inhaler and PFTs. The patient tells me that a CXR was part of his routine phys ical initially when seeing and meeting his new PCP. Possible the end of or beginning of this year A CT chest was obtained the end of September with finding of left hilar soft tissue density and possible post obstructive collapse. He did not follow up immediately, but ultimately had a PET s can last week which is concerning for a collection of intense FDG activit y (maximum SUV 16.1) associated with a 6.8 x 2.8 cm masslike consolidation in the left upper lobe medially abutting the mediastinum and extending t o the left pulmonary hilum, concerning for possible hypermetabolic abby gnancy. His symptoms have been chronic, main change is that his coug h is no longer productive Tells me he was told he has COPD, diagnosed about 3 years ag o. Breo daily Ventolin prn, about 1-2 time a day and none at times Chronic cough was dry for years, smoking cough, had been pro ductive then started being nonproductive Yellow-green tuesday had some blood and yesterday morning blood in it. f irst time more recently. Specks of blood about 2-3 mm, mostly phlegm He actually gained weight, no changes in appetite, always hu ngry No fevers, chills. No know cardiac disease, denies any chest pain. 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 No pets REVIEW OF SYSTEMS: GENERAL: No weight loss, malaise or fevers . HEENT: Negative for frequent or significant headaches NECK: Negative for pain or significant neck swelling RESPIRATORY: see HPI CARDIOVASCULAR: Negative for chest pain, leg swelling or pal pitations GI: No nausea, vomiting, or diarrhea : No history of dysuria or frequency MUSCULOSKELETAL: negative SKIN: Negative for lesions, rash, and itching . PSYCH: Negative for sleep disturbance, mood disorder and rec ent psychosocial stressors HEMATOLOGY/LYMPHOLOGY: Negative for prolonged bleeding, brui sing easily . ENDOCRINE: Negative for cold or heat intolerance, polyuria o r polydipsia . NEURO: No history of headaches, syncope The remainder of the review of systems is negative. PMH, FAMH, SOCIAL History AND Allergies were verified and up dated, and medications were reconciled with the patient at this visit. PAST MEDICAL HISTORY Diagnosis Date - COPD (chronic obstructive pulmonary disease) (HCC) - History of alcohol abuse seeing [facility] weekly - Hyperglycemia - Hyperlipidemia - Tobacco use disorder age 19 : PAST SURGICAL HISTORY Procedure Laterality Date - REMOVE TONSILS/ADENOIDS,<13 Y/O age 6 - VASECTOMY 1988 : FAMILY HISTORY Problem Relation Age of Onset - Cancer Father liver (primary, as far as pt knows) - Peripheral Artery Disease Mother blockages in groin - Emphysema Mother smoker - Diabetes Mother diet controlled - Colon Cancer Other none - Coronary Artery Disease Other none - Prostate Cancer Other none - Cancer Sister uterine - No Known Problems Brother - No Known Problems Maternal Grandmother - No Known Problems Maternal Grandfather - No Known Problems Paternal Grandmother - No Known Problems Paternal Grandfather - No Known Problems Daughter - No Known Problems Son : Mother with emphysema, she was a smoker No known lung cancer hitsory in family Social History Socioeconomic History Marital status: Single Spouse name: Not on file Number of children: Not on file Years of education: Not on file Highest education level: Not on file Occupational History Occupation: unemployed Social Needs Financial resource strain: Not on file Food insecurity: Worry: Not on file Inability: Not on file Transportation needs: Medical: Not on file Non-medical: Not on file Tobacco Use Smoking status: Current Every Day Smoker Packs/day: 1.00 Years: 45.00 Pack years: 46 Types: Cigarettes Smokeless tobacco: Never Used Substance and Sexual Activity Alcohol use: Yes Comment: once or twice weekly Drug use: No Sexual activity: Yes Partners: Female Comment: no std's, one clean tatoo, 1978 Lifestyle Physical activity: Days per week: Not on file Minutes per session: Not on file Stress: Not on file Relationships Social connections: Talks on phone: Not on file Gets together: Not on file Attends muslim service: Not on file Active member of club or organization: Not on file Attends meetings of clubs or organizations: Not on file Relationship status: Not on file Intimate partner violence: Fear of current or ex partner: Not on file Emotionally abused: Not on file Physically abused: Not on file Forced sexual activity: Not on file Other Topics Concerns: Not on file Social History Narrative Not on file Allergies: ALLERGIES No Known Allergies Current Medications: Current Outpatient Medications Medication Sig Dispense Refill - fluticasone-vilanterol (BREO ELLIPTA) 100-25 mcg/dose inha ler Inhale 1 Inhalation as instructed once daily. 28 Each 5 - albuterol HFA (PROVENTIL HFA) 90 mcg/actuation inhaler Inh jeannie 2 Puffs as instructed every 4 hours as needed for Wheezing/Shortness of Breath. 1 Inhaler 5 No current facility-administered medications for this visit. PHYSICAL EXAM: BP 115/71 Pulse 73 Temp (Src) 98.6 (Temporal) Ht 5' 9. 016 (1.75m) Wt 180 lb 11.2 oz (82.0kg) SpO2 98% BMI 26.67 kg/(m2). General appearance: well appearing, in no acute distress, al ert Skin: skin color normal, no rashes or lesions Eyes: Anicteric sclera. Extraocular movements are intact. Ears: External ears normal, canals clear Nose: Nasal mucosa appears normal Oropharynx: lips, mucosa, and tongue normal, oropharynx norm al Neck: Supple, no adenopathy Respiratory: lungs clear to auscultation, no wheezing or rho nchi Cardiovascular: S1, S2. RRR without murmur. No lower extremi ty edema Gastrointenstinal: Abdomen soft, non-tender Musculoskeletal: Extremities normal. No deformities or skin discoloration. Neuro: Gait normal. Sensation grossly intact. Data Review: I personally reviewed, interpreted, and discuss ed the labs, PFTs and radiographs with the patient as noted below: Chest CT: 10/06/[address] [facility] [address], no image to review directly just report PFT: 03/16/18 - Spirometry indicates mild obstruction. The flow volume demonstrates an obstructive pattern. There is no significant bronchodilator response. PET scan 12/12/18 - 1. ?NECK: No FDG avid neoplastic process. No hypermetabolic mass, adenopathy, or fluid collection. 2. ?CHEST: FDG avid masslike consolidation in the left upper lobe, suspicious for hypermetabolic malignancy. 3. ?ABDOMEN/PELVIS: No FDG avid neoplastic process. ?No hype rmetabolic mass, adenopathy, or fluid collection. ?4. ?EXTREMITIES/SKELETON: ?No suspicious FDG avid osseous process. Lungs and tracheobronchial tree: ?There is a collection of i ntense FDG activity (maximum SUV 16.1) associated with a 6.8 x 2.8 cm m asslike consolidation in the left upper lobe medially abutting the m ediastinum and extending to the left pulmonary hilum, concerning for po ssible hypermetabolic malignancy. Assessment/Plan: Assessment: 1. CHE mass/extending into left hilum - initially detected e september, however, I do not have scans to directly compare, but per re ports sounds like this may have increased in size; now with some specks o f blood in phlegm as of 2-3 days ago, otherwise symptoms are all stable and chronic 2. Mild COPD 3. Nicotine dependence - at least 40 pack years, however, do wn to 1/2 pack from 1 pack per day more recently Plan: - discussed concerns regarding possible malignancy. Report o f CT end of September indicating possibly smaller nodule/lesion, however, I d o not have the images to directly compare. - I will discuss with IP to help get him set up for EBUS to diagnose. He is aware that if positive for cancer we will need to set up with oncology - encouraged continued smoking cessation attempts; offered a ssistance if needed - if any worsening in blood in phlegm I have asked him to be evaluated sooner - if we can get an EKG today this will help in case of abnor mality (lives more than an hour away), preoperatively, but no clinical car diac issues. Not on any blood thinners - continue Breo and albuterol in the meantime - signature obtained to get actual images from [facility] The above plan was discussed with the patient and all questi ons were answered. I will see Mr. Nicole for follow-up in 2 months Trung Briones MD Pulmonary and Critical Care Medicine [facility] Respiratory [place] December 20, 2018 9:44 AM I spent 60 minutes in the visit, with more than 50% of the t otal [id number] time of the visit in counseling / coordination of care. cnov on 2018-12-20 CNOV Office Visit (PULMLO) Normal 12-21-19 19 [place] [facility] SHER NICOLE ([id number]) 1960 M URI[place] Date Time Provider Department ([id number]) 12/20/18 9:45 AM TRUNG BRIONES During your visit today, we recorded the following informati on about you: Temperature Pulse Blood pressure Weight 98.6 degrees 73/minute 115/71 82 kg Height 1.753 m Obdulia Amezcua 12/20/2018 9:39 AM Signed [facility] FACTS LAB HOURS: [facility] lab is open from 7:30am to 6pm , open from 7:30am-5pm on Tuesday and open 8am-12pm on Tuesday. Closed on Tuesday [facility] lab is open from 7:30am to 5pm Tuesday-, 8am-12pm on Tuesday, and closed on Tuesday. Routine Lab Orders 45 days after they are enter ed. If your lab orders , you may be required to wait in the lab while they ar e reinstated Future Orders are lab tests to be completed on the EXPECTED date. These orders 45 days after the expected date. Standing Orders are recurrin g orders with an expiration date. The interval will indicate how often the test should be completed. Fasting Lab means nothing to eat or drink (except water) 1 0-12 hours before your blood is drawn. CT/MRI/IVP: If you have one of these radiology e xams ordered along with blood work, please complete the blood work at least 24 hours prior to the scheduled exam. [facility] Express Care -- No appointment needed At the [facility], patients 2 years and older can get walk -in medical attention for common health problems including: Cold and flu symptoms Conjunctivitis Ear and throat infections Minor bumps and cuts Seasonal allergies Skin rashes Simple sprains and strains Sinus infections Urinary tract infections Upper respiratory tract infections Locations and Times [facility] - [address], [facility] - [address] [place] [address] [employer]uation App [facility] - Tuesday through Tuesday 6 AM - 9 PM - Tuesday and Tuesday 8 AM - 4 PM For Express Care LOCATIONS, HOURS OF OPERATION and CUR RENT WAIT TIMES, visit the following link for details. [email or web address] Department [facility] - [address]), [facility] [phone] Pharmacy Hours: Tuesday through Tuesday 8 am to 6 pm Opt in to receive text reminders for your appointments with [facility] Hospital specialist today. To opt in, text [id number] to [id number]. Trung Briones MD 12/20/2018 1:25 PM Signed NEW PATIENT OFFICE VISIT Consultation requested by Dr Carina Aggarwal for an opinion regarding lung mass. Sher Nicole's PCP is Ida Aggarwal MD. My fi nal recommendations will be comm unicated back to the requesting physician by way of shared Medical record or letter to requesting physician via US mail. CC: New Patient (Left lung lesion ) HPI: Mr. Nicole is a 58 year old male who presents for evaluati on of New Patient (Left lung lesion ) Seen by PCP on 12/13/[address] chest and PET scan results with patient which is very concerning for malignancy. Patient has not schedu led appointment to see pulmonology as of yet. Discussed importance of taking first available appointment with referral today so we can biopsy lesion to f urther direct treatment. Patient's questions answered today. Stated understanding of urgency of follow up. Has history of COPD which he treats with albuterol. Has req uired rescue inhaler 2x/day for coughing and wheezing . Denies nighttime awakenings, steroid use, recent hospitalization. Has not had PFT in years. Does not follow up with pulmonology. Still smoking 1/2-3/4 pack per day. Not i nterested in help with cessation today. Interested in daily inhaler and PFTs. The patient tells me that a CXR was part of his routine physical initially when seeing and meeting his new PCP. Possible the end of last year or beginning of this year A CT chest was obtained the end of September with finding of left hilar soft tissue density and possible post obstructive collapse. He did not follow up immedia tely, but ultimately had a PET scan last week which is concerning for a collection of intense FDG activity (max imum SUV 16.1) associated with a 6.8 x 2.8 cm masslike consolidation in the left upper lobe medially abutting the mediastinum and extending to the left pulmonary hilum, concerning for possible hypermetabolic malignancy. His symptoms have been chronic, main change is that his coug h is no longer productive Tells me he was told he has COPD, diagnosed about 3 years ag o. Breo daily Ventolin prn, about 1-2 time a day and none at times Chronic cough was dry for years, smoking cough, had been pro ductive then started being nonproductive Yellow-green tuesday had some blood and yesterday morning blood in it. f irst time more recently. Specks of blood about 2-3 mm, mostly phlegm He actually gained weight, no changes in appetite, always hu ngry No fevers, chills. No know cardiac disease, denies any chest pain. 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 No pets REVIEW OF SYSTEMS: GENERAL: No weight loss, malaise or fevers . HEENT: Negative for frequent or significant headaches NECK: Negative for pain or significant neck swelling RESPIRATORY: see HPI CARDIOVASCULAR: Negative for chest pain, leg swelling or pal pitations GI: No nausea, vomiting, or diarrhea : No history of dysuria or frequency MUSCULOSKELETAL: negative SKIN: Negative for lesions, rash, and itching . PSYCH: Negative for sleep disturbance, mood disorder a nd recent psychosocial stressors HEMATOLOGY/LYMPHOLOGY: Negative for prolonged bleeding, brui sing easily . ENDOCRINE: Negative for cold or heat intolerance, polyuria o r polydipsia . NEURO: No history of headaches, syncope The remainder of the review of systems is negative. PMH, FAMH, SOCIAL History AND Allergies were verified and up dated, and medications were reconciled with the patient at this visit. PAST MEDICAL HISTORY Diagnosis Date - COPD (chronic obstructive pulmonary disease) (HCC) - History of alcohol abuse seeing [facility] weekly - Hyperglycemia - Hyperlipidemia - Tobacco use disorder age 19 : PAST SURGICAL HISTORY Procedure Laterality Date - REMOVE TONSILS/ADENOIDS,<12 Y/O age 6 - VASECTOMY 1988 : FAMILY HISTORY Problem Relation Age of Onset - Cancer Father liver (primary, as far as pt knows) - Peripheral Artery Disease Mother blockages in groin - Emphysema Mother smoker - Diabetes Mother diet controlled - Colon Cancer Other none - Coronary Artery Disease Other none - Prostate Cancer Other none - Cancer Sister uterine - No Known Problems Brother - No Known Problems Maternal Grandmother - No Known Problems Maternal Grandfather - No Known Problems Paternal Grandmother - No Known Problems Paternal Grandfather - No Known Problems Daughter - No Known Problems Son : Mother with emphysema, she was a smoker No known lung cancer hitsory in family Social History Socioeconomic History Marital status: Single Spouse name: Not on file Number of children: Not on file Years of education: Not on file Highest education level: Not on file Occupational History Occupation: unemployed Social Needs Financial resource strain: Not on file Food insecurity: Worry: Not on file Inability: Not on file Transportation needs: Medical: Not on file Non-medical: Not on file Tobacco Use Smoking status: Current Every Day Smoker Packs/day: 1.00 Years: 45.00 Pack years: 45 Types: Cigarettes Smokeless tobacco: Never Used Substance and Sexual Activity Alcohol use: Yes Comment: once or twice weekly Drug use: No Sexual activity: Yes Partners: Female Comment: no std's, one clean tatoo, 1979 Lifestyle Physical activity: Days per week: Not on file Minutes per session: Not on file Stress: Not on file Relationships Social connections: Talks on phone: Not on file Gets together: Not on file Attends muslim service: Not on file Active member of club or organization: Not on file Attends meetings of clubs or organizations: Not on file Relationship status: Not on file Intimate partner violence: Fear of current or ex partner: Not on file Emotionally abused: Not on file Physically abused: Not on file Forced sexual activity: Not on file Other Topics Concerns: Not on file Social History Narrative Not on file Allergies: ALLERGIES No Known Allergies Current Medications: Current Outpatient Medications Medication Sig Dispense Refill - fluticasone-vilanterol (BREO ELLIPTA) 100-25 mcg/dose inha ler Inhale 1 Inhalation as instructed once daily. 28 Each 5 - albuterol HFA (PROVENTIL HFA) 90 mcg/actuation inhaler Inh jeannie 2 Puffs as instructed every 4 hours as needed for W heezing/Shortness of Breath. 1 Inhaler 5 No current facility-administered medications for this visit. PHYSICAL EXAM: BP 115/71 Pulse 73 Temp (Src) 98.6 (Temporal ) Ht 5' 9.016 (1.75m) Wt 180 lb 11.2 oz (82.0kg) SpO2 98% BMI 26.67 kg/(m2). General appearance: well appearing, in no acute distress, al ert Skin: skin color normal, no rashes or lesions Eyes: Anicteric sclera. Extraocular movements are intact. Ears: External ears normal, canals clear Nose: Nasal mucosa appears normal Oropharynx: lips, mucosa, and tongue normal, oropharynx norm al Neck: Supple, no adenopathy Respiratory: lungs clear to auscultation, no wheezing or rho nchi Cardiovascular: S1, S2. RRR without murmur. No lower extremi ty edema Gastrointenstinal: Abdomen soft, non-tender Musculoskeletal: Extremities normal. No deformities or skin discoloration. Neuro: Gait normal. Sensation grossly intact. Data Review: I personally reviewed, interpreted, and discussed the labs, PFTs and radiographs with the patient as noted below: Chest CT: 10/06/[address] [facility] [address], no im age to review directly just report PFT: 03/16/18 - Spirometry indicates mild obstruction. The flow volume demonstrates an obstructive pattern. There is no significant bronchodilator response. PET scan 12/12/18 - 1. ?NECK: No FDG avid neoplastic process. No hypermetabolic mass, adenopathy, or fluid collection. 2. ?CHEST: FDG avid masslike consolidation in the left upper lobe, suspicious for hypermetabolic malignancy. 3. ?ABDOMEN/PELVIS: No FDG avid neoplastic process. ?No hype rmetabolic mass, adenopathy, or fluid collection. ?4. ?EXTREMITIES/SKELETON: ?No suspicious FDG avid osseous process. Lungs and tracheobronchial tree: ?There is a collection of i ntense FDG activity (maximum SUV 16.1) associated with a 6.8 x 2.8 cm m asslike consolidation in the left upper lobe medially abutting the m ediastinum and extending to the left pulmonary hilum, concerning for po ssible hypermetabolic malignancy. Assessment/Plan: Assessment: 1. CHE mass/extending into left hilum - initially detected e september, however, I do not have scans to directly compare , but per reports sounds like this may have increased in size; now wit h some specks of blood in phlegm as of 2-3 days ago, otherwise symptoms are all stable and chronic 2. Mild COPD 3. Nicotine dependence - at least 40 pack years, however, down to 1/2 pack from 1 pack per day more recently Plan: - discussed concerns regarding possible malignancy. Re port of CT september indicating possibly smaller nodule/lesion, however, I do not have the images to directly compare. - I will discuss with IP to help get him set up for EBUS t o diagnose. He is aware that if positive for cancer we will need to set up wit h oncology - encouraged continued smoki ng cessation attempts; offered assistance if needed - if any worsening in blood in phlegm I have ask ed him to be evaluated sooner - if we can get an EKG today this will h elp in case of abnormality (lives more than an hour away), preoperatively, but no clinical cardiac issues. Not on any blood thinners - continue Breo and albuterol in the meantime - signature obtained to get actual images from [place] The above plan was discussed with the rubi botello and all questions were answered. I will see Mr. Nicole for follow-up in 2 months Trung Briones MD Pulmonary and Critical Care Medicine [facility] [place] December 20, 2018 9:44 AM I spent 60 minutes in the visit, with more than 50% of the total [id number] time of the visit in counseling / coordination of care. Referring Provider: IDA AGGARWAL) [[id number]] Allergies As of Date: 12/20/2018 (No Known Allergies) Date Reviewed: 12/20/2018 Reviewed by: Trung Briones - Fully Assessed Reason for Visit: New Patient [[id number]] Cmt: Left lung lesion Primary Visit Diagnosis:Lung mass [R91.8] Other Visit Diagnoses:Dyspnea on exertion [R06.09] Chronic obstructive pulmonary disease, unspecified COPD type (HCC) [J44.9] Order(s):ECG COMPLETE [ECG01] Order #: [id number] FUTURE Prescriptions as of 12/20/2018 Sig: FLUTICASONE FUROATE 100 MCG-V* Inhale 1 Inhalation as instru * ALBUTEROL SULFATE HFA 90 MCG/* Inhale 2 Puffs as instructed * Problem List As Of Date 12/20/2018 Noted Resolved TOBACCO USE DISORDER [F17.200] MIXED HYPERLIPIDEMIA [E78.2] INVALID FOR* IMPAIRED FASTING GLUCOSE [R73.01] INVALID FOR* More... FAMILY HX CARDIOVAS DIS NEC [V17.4] INVALID FOR* More... COPD (chronic obstructive pulmonary disease) (H* History of alcohol abuse [F10.11] More... Other instructions from your clinician: [employer] [facility] [employer] [facility] FACTS LAB HOURS: [facility] is open from 7:30am to 6pm M-, open from 7:30am -5pm on Tuesday and open 8am-12pm on Tuesday. Closed on Tuesday [employer] lab is open from 7:30am to 5pm Tuesday-, 8am-12pm on Tuesday, and closed on Tuesday. Routine Lab Orders 45 days after they are entered. If your lab orders , you may be required to wait in the lab while they are reinstated Future Orders are lab tests to be completed on the EXPECTED date. These orders 45 days after the expected date. Standing Orders are recurring orders with an expiration date . The interval will indicate how often the test should be completed. Fasting Lab means nothing to eat or drink (except water) 10- 12 hours before your blood is drawn. CT/MRI/IVP: If you have one of these radiology exams ordered along with blood work, please complete the blood work at least 24 hours prior to the scheduled exam. [facility] -- No appointment needed At the [facility], patients 2 years and older can get walk -in medical attention for common health problems including: Cold and flu symptoms Conjunctivitis Ear and throat infections Minor bumps and cuts Seasonal allergies Skin rashes Simple sprains and strains Sinus infections Urinary tract infections Upper respiratory tract infections Locations and Times [facility] - [address], [facility], [place] - [address] - Tuesday through Tuesday 6 AM - 9 PM - Tuesday and Tuesday 8 AM - 4 PM For Express Care LOCATIONS, HOURS OF OPERATION and CURRENT W AIT TIMES, visit the following link for details. [email or web address] [email or web address] Emergency Department [facility] - [address] (off of [address] [facility]), [place] [facility] [phone] Pharmacy Hours: Tuesday through Tuesday 8 am to 6 pm Opt in to receive text reminders for your appointments with [facility] health specialist today. To opt in, text [id number] to [id number]. Disposition: Return in about 2 months (around 02/19/2019). Follow-up and Disposition History Recorded Encounter Status:Closed by TRUNG BRIONES MD on 12/20/18 progress on 2018-12 PROGRESS HNO ID: [id number] Normal 12-13-2018 [facility] Author: Ida Gandara () Jasen Leiva ([id number]) Service: ? Author Type: Physician Type: Progress Notes Filed: 12/13/2018 11:43 AM Note Text: Chief Complaint Patient presents with: follow up PET scan results SILVERIO Nicole is a 58 year old male who presents here today f or Above Complaints.. Reviewed recent abnormal CT chest and PET scan results with patient which is very concerning for malignancy. Patient has not scheduled appointment to see pulmonology as of yet. Discussed importance of taking first available appointment with referral today so we can biopsy l esion to further direct treatment. Patient's questions answered today . Stated understanding of urgency of follow up. Past medical history, appointments, medications, allergies r donwed. Previous Medical History PAST MEDICAL HISTORY Diagnosis Date - COPD (chronic obstructive pulmonary disease) (HCC) - History of alcohol abuse seeing [facility] weekly - Hyperglycemia - Hyperlipidemia - Tobacco use disorder age 19 Previous Surgical History PAST SURGICAL HISTORY Procedure Laterality Date - REMOVE TONSILS/ADENOIDS,<12 Y/O age 6 - VASECTOMY 1988 Family History FAMILY HISTORY Problem Relation Age of Onset - Cancer Father liver (primary, as far as pt knows) - Peripheral Artery Disease Mother blockages in groin - Emphysema Mother smoker - Diabetes Mother diet controlled - Colon Cancer Other none - Coronary Artery Disease Other none - Prostate Cancer Other none - Cancer Sister uterine - No Known Problems Brother - No Known Problems Maternal Grandmother - No Known Problems Maternal Grandfather - No Known Problems Paternal Grandmother - No Known Problems Paternal Grandfather - No Known Problems Daughter - No Known Problems Son Patient Allergies ALLERGIES No Known Allergies Current Medications Current Outpatient Medications on File Prior to Visit: fluticasone-vilanterol (BREO ELLIPTA) 100-25 mcg/dose inhale r Inhale 1 Inhalation as instructed once daily. albuterol HFA (PROVENTIL HFA) 90 mcg/actuation inhaler Inhal e 2 Puffs as instructed every 4 hours as needed for Wheezing/Shortness of Breath. No current facility-administered medications on file prior t o visit. Social History Social History Socioeconomic History Marital status: Single Spouse name: Not on file Number of children: Not on file Years of education: Not on file Highest education level: Not on file Occupational History Occupation: unemployed Social Needs Financial resource strain: Not on file Food insecurity: Worry: Not on file Inability: Not on file Transportation needs: Medical: Not on file Non-medical: Not on file Tobacco Use Smoking status: Current Every Day Smoker Packs/day: 1.00 Years: 45.00 Pack years: 45 Types: Cigarettes Smokeless tobacco: Never Used Substance and Sexual Activity Alcohol use: Yes Comment: once or twice weekly Drug use: No Sexual activity: Yes Partners: Female Comment: no std's, one clean tatoo, 1979 Lifestyle Physical activity: Days per week: Not on file Minutes per session: Not on file Stress: Not on file Relationships Social connections: Talks on phone: Not on file Gets together: Not on file Attends muslim service: Not on file Active member of club or organization: Not on file Attends meetings of clubs or organizations: Not on file Relationship status: Not on file Intimate partner violence: Fear of current or ex partner: Not on file Emotionally abused: Not on file Physically abused: Not on file Forced sexual activity: Not on file Other Topics Concerns: Not on file Social History Narrative Not on file Review of Symptoms REVIEW OF SYSTEMS GENERAL: No weight loss, malaise or fevers EXAM: BP 128/62 Pulse 102 Resp 18 Wt 79.8 kg (176 lb) SpO2 95% BMI 25.99 kg/m? General Appearance: Well appearing, alert, in no acute distr ess, well-hydrated, well nourished.. Health Maintenance List HEPATITIS C SCREENING due on 2005 DIABETES SCREEN due on 04/07/2010 COLORECTAL CANCER SCREENING,SEE MODIFIER due on 2011 LIPID SCREEN due on 04/07/2012 LUNG CANCER SCREENING due on 2016 INFLUENZA(1) due on 12/10/2018 ANNUAL PCP TEAM CHRONIC DISEASE VISIT due on 03/06/2019 PROSTATE CANCER SCREENING DISCUSSION due on 03/06/2023 DTAP,TDAP,TD(2 - Td) due on 03/06/2028 ONE PNEUMOVAX PRIOR TO AGE 65 Completed Data reviewed PET scan 12/12 IMPRESSION: 1. ?NECK: No FDG avid neoplastic process. No hypermetabolic mass, adenopathy, or fluid collection. 2. ?CHEST: FDG avid masslike consolidation in the left upper lobe, suspicious for hypermetabolic malignancy. 3. ?ABDOMEN/PELVIS: No FDG avid neoplastic process. ?No hype rmetabolic mass, adenopathy, or fluid collection. ?4. ?EXTREMITIES/SKELETON: ?No suspicious FDG avid osseous process. ASSESSMENT/PLAN: 1. Mass of left lung - ICD9: 786.6, ICD10: R91.8 (primary di agnosis) Referral to pulm for biopsy as ordered KELLY. Will follow up recommendations. - CONSULT TO PULM/CRITICAL CARE 2. Abnormal PET scan of lung - ICD9: 794.2, ICD10: R94.2 Referral to pulm for biopsy as ordered KELLY. Will follow up recommendations. - CONSULT TO PULM/CRITICAL CARE MD india Watson on 2018-12-13 CNOV Office Visit (FAMPWS) Normal 12-14-19 [facility] SHER NICOLE ([id number]) 1960 [facility] Date Time Provider Department ([id number]) 12/13/18 11:20 AM IDA AGGARWAL) FAMPWS During your visit today, we recorded the following informati on about you: Pulse Respiration Blood pressure Weight 102/minute 18/minute 128/62 79.8 kg Ida Aggarwal MD 12/13/2018 11:43 AM Signed Chief Complaint Patient presents with: follow up PET scan results HPI Sher Nicole is a 58 year old male who presents here today f or Above Complaints.. Reviewed recent abnormal CT chest and PET scan results with patient which is very concerning for malignancy. Patient has not schedu led appointment to see pulmonology as of yet. Discussed importance of taking first available appointment with referral today so we can biopsy lesion to f urther direct treatment. Patient's questions answered today. Stated understanding of urgency of follow up. Past medical history, appointments, medications, allergies r lindsey. Previous Medical History PAST MEDICAL HISTORY Diagnosis Date - COPD (chronic obstructive pulmonary disease) (HCC) - History of alcohol abuse seeing [facility] weekly - Hyperglycemia - Hyperlipidemia - Tobacco use disorder age 19 Previous Surgical History PAST SURGICAL HISTORY Procedure Laterality Date - REMOVE TONSILS/ADENOIDS,<12 Y/O age 6 - VASECTOMY 1988 Family History FAMILY HISTORY Problem Relation Age of Onset - Cancer Father liver (primary, as far as pt knows) - Peripheral Artery Disease Mother blockages in groin - Emphysema Mother smoker - Diabetes Mother diet controlled - Colon Cancer Other none - Coronary Artery Disease Other none - Prostate Cancer Other none - Cancer Sister uterine - No Known Problems Brother - No Known Problems Maternal Grandmother - No Known Problems Maternal Grandfather - No Known Problems Paternal Grandmother - No Known Problems Paternal Grandfather - No Known Problems Daughter - No Known Problems Son Patient Allergies ALLERGIES No Known Allergies Current Medications Current Outpatient Medications on File Prior to Visit: fluticasone-vilanterol (BREO ELLIPTA) 100-25 mcg/dose inhale r Inhale 1 Inhalation as instructed once daily. albuterol HFA (PROVENTIL HFA) 90 mcg/actuation inhaler Inhal e 2 Puffs as instructed every 4 hours as needed for Wheezing/Shortness of Breath. No current facility-administered medications on file prior t o visit. Social History Social History Socioeconomic History Marital status: Single Spouse name: Not on file Number of children: Not on file Years of education: Not on file Highest education level: Not on file Occupational History Occupation: unemployed Social Needs Financial resource strain: Not on file Food insecurity: Worry: Not on file Inability: Not on file Transportation needs: Medical: Not on file Non-medical: Not on file Tobacco Use Smoking status: Current Every Day Smoker Packs/day: 1.00 Years: 45.00 Pack years: 45 Types: Cigarettes Smokeless tobacco: Never Used Substance and Sexual Activity Alcohol use: Yes Comment: once or twice weekly Drug use: No Sexual activity: Yes Partners: Female Comment: no std's, one clean tatoo, 1979 Lifestyle Physical activity: Days per week: Not on file Minutes per session: Not on file Stress: Not on file Relationships Social connections: Talks on phone: Not on file Gets together: Not on file Attends muslim service: Not on file Active member of club or organization: Not on file Attends meetings of clubs or organizations: Not on file Relationship status: Not on file Intimate partner violence: Fear of current or ex partner: Not on file Emotionally abused: Not on file Physically abused: Not on file Forced sexual activity: Not on file Other Topics Concerns: Not on file Social History Narrative Not on file Review of Symptoms REVIEW OF SYSTEMS GENERAL: No weight loss, malaise or fevers EXAM: BP 128/62 Pulse 102 Resp 18 Wt 79.8 kg (176 lb) SpO2 95% BMI 25.99 kg/m? General Appearance: Well stuart earing, alert, in no acute distress, well-hydrated, well nourished.. Health Maintenance List HEPATITIS C SCREENING due on 2005 DIABETES SCREEN due on 04/07/2010 COLORECTAL CANCER SCREENING,SEE MODIFIER due on 2011 LIPID SCREEN due on 04/07/2012 LUNG CANCER SCREENING due on 2016 INFLUENZA(1) due on 12/10/2018 ANNUAL PCP TEAM CHRONIC DISEASE VISIT due on 03/06/2019 PROSTATE CANCER SCREENING DISCUSSION due on 03/06/2023 DTAP,TDAP,TD(2 - Td) due on 03/06/2028 ONE PNEUMOVAX PRIOR TO AGE 65 Completed Data reviewed PET scan 12/12 IMPRESSION: 1. ?NECK: No FDG avid neoplastic process. No hypermetabolic mass, adenopathy, or fluid collection. 2. ?CHEST: FDG avid masslike consolidation in the left upper lobe, suspicious for hypermetabolic malignancy. 3. ?ABDOMEN/PELVIS: No FDG avid neoplastic process. ?No hype rmetabolic mass, adenopathy, or fluid collection. ?4. ?EXTREMITIES/SKELETON: ?No suspicious FDG avid osseous process. ASSESSMENT/PLAN: 1. Mass of left lung - ICD9: 786.6, ICD10: R91.8 (primary di agnosis) Referral to pulm for biopsy as ordered KELLY. Will foll ow up recommendations. - CONSULT TO PULM/CRITICAL CARE 2. Abnormal PET scan of lung - ICD9: 794.2, ICD10: R94.2 Referral to pulm for biopsy as ordered KELLY. Will foll ow up recommendations. - CONSULT TO PULM/CRITICAL CARE Ida Aggarwal MD Referring Provider: IDA AGGARWAL () [[id number]] Allergies As of Date: 12/13/2018 (No Known Allergies) Date Reviewed: 12/13/2018 Reviewed by: Natanael Dennis Ma - Fully Assessed Reason for Visit: follow up PET scan results [Other] Primary Visit Diagnosis:Mass of left lung [R91.8] Other Visit Diagnosis:Abnormal PET scan of lung [R94.2] Order(s):CONSULT TO PULM/CRITICAL CARE [[id number]] Order #: [id number]: 1 Prescriptions as of 12/13/2018 Sig: FLUTICASONE FUROATE 100 MCG-V* Inhale 1 Inhalation as instru * ALBUTEROL SULFATE HFA 90 MCG/* Inhale 2 Puffs as instructed * Problem List As Of Date 12/13/2018 Noted Resolved TOBACCO USE DISORDER [F17.200] MIXED HYPERLIPIDEMIA [E78.2] INVALID FOR* IMPAIRED FASTING GLUCOSE [R73.01] INVALID FOR* More... FAMILY HX CARDIOVAS DIS NEC [V17.4] INVALID FOR* More... COPD (chronic obstructive pulmonary disease) (H* History of alcohol abuse [F10.11] More... Disposition: Return if symptoms worsen or fail to improve. Follow-up and Disposition History Recorded Encounter Status:Closed by IDA AGGARWAL MD on 12/13/18 progress on 2018-12 PROGRESS HNO ID: [id number] Normal 12-12-2018 [place] [facility] Service: Nuclear Medicine ([id number]) Author Type: Video Game Creator Type: Progress Notes Filed: 12/12/2018 12:14 PM Note Text: RADIOLOGY SERVICE PROGRESS NOTE SERVICE DATE: 12/12/2018 SERVICE TIME: 12:14 PM PATIENT IDENTITY VERIFICATION COMPLETED USING TWO (2) METHOD S: Name and Date of confirmed by patient verbally PATIENT GENDER DATA: .male IV SITE: Ambulatory: RT AC POST EXAM PIV STATUS: Discontinued PROCEDURE TYPE: NM INJECT: PET/CT BODY SCAN. 10.0 mCi F18 FD G. No other medications given.. ADMINISTRATION TIME: 1200 PATIENT DISCHARGED TO: Ambulatory patient, left NM departmen t area. A Diagnostic radioactive procedure has taken place, with no further precautions necessary other than routine body substance prec autions. More information regarding radiation safety can be found using [facility] link: [email or web address] SIGNATURE: Prosper Montelongo [facility] PATIENT NAME: Sher Nicole DATE: December 12, 2018 TIME: 12:14 PM PAGER/CONTACT #: me pet/ct whole body init on 2018-12-12 NM PET/CT WHOLE * * *Final Report* * * Normal 0 12-12-[address] [facility] BODY INIT DATE OF EXAM: Dec 12 2018 1:29PM ([id number]) [facility] PET/CT WHOLE BODY INIT / PROCEDURE REASON: R91.8-Lung nodules * * * * Physician Interpretation * * * * EXAMINATION: REGIONAL BODY FDG PET/CT SCAN: (12/12/2018 1:51 P M) HISTORY: 58 years old Male with Lung nodules . INDICATION: Study performed for initial treatment strategy. TECHNIQUE: F18-FDG administered IV was followed about 60 min utes later by PET imaging from eyes to proximal thighs. Free breathing low dose CT was performed without contrast for attenuation correction and an atomic localization. FDG radionuclide dose: 10.[address] Dose-Length Product (DLP): 263 mGy*cm. CT Dose Reduction Employed: Automated exposure control (AEC) was used COMPARISON: None available. CORRELATION: None. RESULT: NECK: Physiologic FDG uptake seen in the visualized brain, parapha ryngeal soft tissues, base of tongue, vocal cords, and salivary glands. No hypermetabolic cervical lymphadenopathy or masses. No foc al hypermetabolic thyroid lesion. CHEST: Physiologic FDG uptake in the heart and mediastinum. Lungs and tracheobronchial tree: There is a collection of in tense FDG activity (maximum SUV 16.1) associated with a 6.8 x 2.8 cm m asslike consolidation in the left upper lobe medially abutting the m ediastinum and extending to the left pulmonary hilum, concerning for po ssible hypermetabolic malignancy. Pleura: No hypermetabolic pleural or pericardial effusion, o r pleural mass. Mediastinum and Lymph nodes: No hypermetabolic axillary or m ediastinal lymphadenopathy. No mediastinal mass. Chest wall: Unremarkable. ABDOMEN AND PELVIS: Physiologic FDG uptake seen in the and GI tracts. Liver: No hypermetabolic mass. Biliary: No bile duct dilation. Spleen: No hypermetabolic mass. No splenomegaly. Pancreas: No mass or duct dilation. Adrenals: No hypermetabolic mass. Kidneys: No stones, hydronephrosis, or hypermetabolic lesion s. GI tract: No dilation or wall thickening. Lymph nodes: No hypermetabolic abdominal or pelvic lymphaden opathy. Mesentery/Peritoneum: No ascites or mass. Vasculature: Vascular patency cannot be assessed due to lack of IV contrast. BONES AND EXTREMITIES: No suspicious FDG avid osseous foci are detected. The imaged portions of the skeleton disclose age-related degenerative changes, with no detectable destructive lytic or sclerotic lesions. ====== IMPRESSION: 1. NECK: No FDG avid neoplastic process. No hypermetabolic m ass, adenopathy, or fluid collection. 2. CHEST: FDG avid masslike consolidation in the left upper lobe, suspicious for hypermetabolic malignancy. 3. ABDOMEN/PELVIS: No FDG avid neoplastic process. No hyperm etabolic mass, adenopathy, or fluid collection. 4. EXTREMITIES/SKELETON: No suspicious FDG avid osseous process. Women'S Studies Professor: TC Transcribe Date/Time: Dec 12 2018 1:51P Dictated by : JAUN CHILD MD This examination was interpreted and the report reviewed and electronically signed by: JAUN CHILD MD on Dec 12 2018 1:58PM EST [id number] [facility]05 CNPN Telephone (ASWSTR) Normal 12-05-2018 [place] [facility] SHER NICOLE ([id number]) 1960 [facility] Date Time Provider Department ([id number]) 12/05/18 IDA AGGARWAL) ASWSTR During your visit today, we recorded the following informati on about you: Vickie Parks RN, RN 12/05/2018 7:54 AM Signed Patient is overdue for screening colonoscopy. Du e to medical history, patient needs to have consult first with Unique Reddy or Irene Corral. Please offer and arrange. MITALI Fontenot Pss 12/07/2018 11:31 AM Signed Patient declined the colonoscopy but agreed to t he IFOBT test. States he will pick it up after his appointments on 12/12/18. P tiana place order. Thank you. Jody Lewis Pss Allergies As of Date: 12/05/2018 (No Known Allergies) Date Reviewed: 03/16/2018 Reviewed by: Elana Harris (Tech) - Fully Assessed Reason for Visit: Outpatient Colonoscopy [482] Prescriptions as of 12/05/2018 Sig: FLUTICASONE FUROATE 100 MCG-V* Inhale 1 Inhalation as instru * ALBUTEROL SULFATE HFA 90 MCG/* Inhale 2 Puffs as instructed * Problem List As Of Date 12/05/2018 Noted Resolved TOBACCO USE DISORDER [F17.200] MIXED HYPERLIPIDEMIA [E78.2] INVALID FOR* IMPAIRED FASTING GLUCOSE [R73.01] INVALID FOR* More... FAMILY HX CARDIOVAS DIS NEC [V17.4] INVALID FOR* More... COPD (chronic obstructive pulmonary disease) (H* History of alcohol abuse [F10.11] More... Encounter Status:Closed by JODY WAGNER on 12/07/18 progress on 2018-11 PROGRESS HNO ID: [id number] Normal 11-30-2018 [facility] Author: Ida Roman) Jasen Leiva ([id number]) Service: ? Author Type: Physician Type: Progress Notes Filed: 11/30/2018 3:21 PM Note Text: Reviewed. Thanks. PROGRESS HNO ID: [id number] Normal 11-30-2018 [facility] Author: Taylor Ramirez Leiva ([id number]) Service: ? Author Type: Electric Organ Inspector And Repairer Type: Progress Notes Filed: 12/01/2018 10:49 AM Note Text: [facility] INSTRUCTOR QUICKNOTE Provider Action/FYI: I called and spoke with Trace and he said he will call to r/s his PET scan. He's aware he's due for fasting labs and an IFOBT. 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 He will make a follow up appointment with PCP after PET scan. Patient identified by name and . Taylor Ramirez CMA PROGRESS HNO ID: [id number] Normal 11-30-2018 [facility] Author: Taylor Ramirez Leiva ([id number]) Service: ? Author Type: Electric Organ Inspector And Repairer Type: Progress Notes Filed: 12/01/2018 10:49 AM Note Text: [facility] CARE GAP REGISTRY DOCUMENTATION (OUTSIDE TEAMLET) Provider Action/FYI: PSR Action/FYI: - r/s PET scan (will follow up with PCP after PET scan) - due for colonoscopy or IFOBT (ifobt ordered 03/06/2018) - lab orders in but will in February Health Maintenance Due: HEPATITIS C SCREENING due on 2005 DIABETES SCREEN due on 04/07/2010 - ordered COLORECTAL CANCER SCREENING,SEE MODIFIER due on 2011 LIPID SCREEN due on 04/07/2012 - ordered LUNG CANCER SCREENING due on 2016 INFLUENZA(1) due on 12/10/2018 Patient identified by name and date of . Last BP/Labs: Blood Pressure: Last 3 Encounter BP Readings: Date: BP: 03/06/2018 118/74 01/18/2017 120/70 05/09/2007 110/68 Lipids: No results found for: CHOL No results found for: HDL LDL Chol, Sonia (mg/dL) Date Value 04/07/2007 109 No results found for: TG HGB A1C: No results found for: HBA1C TSH: No results found for: TSH) ? Patient has the following care gap registry disease diagnosis:Hyperlipidemia ? COPD ? IFG ? Patient has the following open care gaps: Health Maintenance Due: HEPATITIS C SCREENING due on 2005 DIABETES SCREEN due on 04/07/2010 - ordered COLORECTAL CANCER SCREENING,SEE MODIFIER due on 2011 LIPID SCREEN due on 04/07/2012 - ordered LUNG CANCER SCREENING due on 2016 INFLUENZA(1) due on 12/10/2018 ? Last office visit: 03/06/2018 ? Future office visit:due for PET scan and colonoscopy/ifobt Taylor Ramirez CMA cnptoutreach on 201 12-17-21 CNPTOUTREACH Patient Outreach (FAMPWS) Normal 0 11-30-2018 [place] SHER Segura ([id number]) 1960 [facility] Date Time Provider Department ([id number]) [facility]/30[facility] FAMP[facility] During your visit today, we recorded the following informati on about you: Taylor Ramirez CMA 12/01/2018 10:49 AM Signed [facility] CARE GAP REGISTRY DOCUMENTATION (OUTSIDE TEAMLET) Provider Action/FYI: PSR Action/FYI: - r/s PET scan (will follow up with PCP after PET scan) - due for colonoscopy or IFOBT (ifobt ordered 03/06/2018) - lab orders in but will in February Health Maintenance Due: HEPATITIS C SCREENING due on 2005 DIABETES SCREEN due on 04/07/2010 - ordered COLORECTAL CANCER SCREENING,SEE MODIFIER due on 2011 LIPID SCREEN due on 04/07/2012 - ordered LUNG CANCER SCREENING due on 2016 INFLUENZA(1) due on 12/10/2018 Patient identified by name and date of . Last BP/Labs: Blood Pressure: Last 3 Encounter BP Readings: Date: BP: 03/06/2018 118/74 01/18/2017 120/70 05/09/2007 110/68 Lipids: No results found for: CHOL No results found for: HDL LDL Chol, [place] (mg/dL) Date Value 04/07/2007 109 No results found for: TG HGB A1C: No results found for: HBA1C TSH: No results found for: TSH) ? Patient has the following care gap reg istry disease diagnosis:Hyperlipidemia ? COPD ? IFG ? Patient has the following open care gaps: Health Maintenance Due: HEPATITIS C SCREENING due on 2005 DIABETES SCREEN due on 04/07/2010 - ordered COLORECTAL CANCER SCREENING,SEE MODIFIER due on 2011 LIPID SCREEN due on 04/07/2012 - ordered LUNG CANCER SCREENING due on 2016 INFLUENZA(1) due on 12/10/2018 ? Last office visit: 03/06/2018 ? Future office visit:due for PET scan and colonoscopy/ifobt ELLY Thakur CMA 12/01/2018 10:49 AM Signed [facility] INSTRUCTOR QUICKNOTE Provider Action/FYI: I called and spoke with Trace and he said he will call to r/s his PET scan. He's aware he's due for fasting labs and an IFOBT. 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 He will make a follow up appointment with PCP after PET scan. Patient identified by name and . ELLY Thakur MD 11/30/2018 3:21 PM Signed Reviewed. Thanks. Allergies As of Date: 11/30/2018 (No Known Allergies) Date Reviewed: 03/16/2018 Reviewed by: Olga (Elana) Elana Hutchins - Fully Assessed Reason for Visit: PHMA/Care Gap Outreach [[id number]] Prescriptions as of 11/30/2018 Sig: FLUTICASONE FUROATE 100 MCG-V* Inhale 1 Inhalation as instru * ALBUTEROL SULFATE HFA 90 MCG/* Inhale 2 Puffs as instructed * Problem List As Of Date 11/30/2018 Noted Resolved TOBACCO USE DISORDER [F17.200] MIXED HYPERLIPIDEMIA [E78.2] INVALID FOR* IMPAIRED FASTING GLUCOSE [R73.01] INVALID FOR* More... FAMILY HX CARDIOVAS DIS NEC [V17.4] INVALID FOR* More... COPD (chronic obstructive pulmonary disease) (H* History of alcohol abuse [F10.11] More... Encounter Status:Closed by TAYLOR RAMIREZ CMA on 12/01/18 progress on 2018-11 PROGRESS HNO ID: [id number] Normal 11-10-2018 [facility] Author: Ida Roman) Jasen ([id number]) Service: ? Author Type: Physician Type: Progress Notes Filed: 11/10/2018 10:15 AM Note Text: Reviewed. Thanks. PROGRESS HNO ID: [id number] Normal 11-10-2018 [facility] Author: Taylor Ramirez ([id number]) Service: ? Author Type: Electric Organ Inspector And Repairer Type: Progress Notes Filed: 11/10/2018 9:51 AM Note Text: [facility] INSTRUCTOR QUICKNOTE Provider Action/FYI: I spoke with Trace and he said he's calling today to reschedul e his PET scan (originally scheduled 10/31). He'll be going to [place] to hav e this completed. He will call me directly to schedule a follow up appointment with PCP after scan is completed. Patient identified by name and . Taylor Ramirez CMA progress on 2018-11 PROGRESS HNO ID: [id number] Normal 11-09-2018 [facility] Author: Taylor Leiva ([id number]) Service: ? Author Type: Electric Organ Inspector And Repairer Type: Progress Notes Filed: 11/10/2018 9:51 AM Note Text: PH[facility] TEAMLET DOCUMENTATION Provider Action/FYI: PSR Action/FYI: - due for follow up appointment - NEEDS TO SCHEDULE PET SCAN Health Maintenance Due: HEPATITIS C SCREENING due on 2005 DIABETES SCREEN due on 04/07/2010 - ordered COLORECTAL CANCER SCREENING,SEE MODIFIER due on 2011 LIPID SCREEN due on 04/07/2012 - ordered LUNG CANCER SCREENING due on 2016 INFLUENZA(1) due on 12/10/2018 Teamlet has identified patient by name and date of . Team: Siomara Piedra ? Last Office Visit:Visit date not found ? Next Office Visit: Visit date not found ? Last BP/Labs: Blood Pressure: Last 3 Encounter BP Readings: Date: BP: 03/06/2018 118/74 01/18/2017 120/70 05/09/2007 110/68 Lipids: No results found for: CHOL No results found for: HDL LDL Chol, [place] (mg/dL) Date Value 04/07/2007 109 No results found for: TG HGB A1C: No results found for: HBA1C TSH: No results found for: TSH) Care Gap: Hyperlipidemia COPD Plan: ? Confirm PCP / Status - active ? Type of appointment needed: Follow-up Next available with Provider pcp or pnp ? Consultation Appointments: PET SCAN Labs, HM and Immunization: Health Maintenance Due: HEPATITIS C SCREENING due on 2005 DIABETES SCREEN due on 04/07/2010 - ordered COLORECTAL CANCER SCREENING,SEE MODIFIER due on 2011 LIPID SCREEN due on 04/07/2012 - ordered LUNG CANCER SCREENING due on 2016 INFLUENZA(1) due on 12/10/2018 Taylor Ramirez CMA Encounters Date Type Reason Provider Location 01-10-2020 - Patient encounter External Provider [facility] 01-10-2020 procedure 12-19-2019 - Patient encounter External Provider [facility] 12-19-2019 procedure 12-06-2019 - Patient encounter External Provider [facility] 12-06-2019 procedure 11-23-2019 - Patient encounter External Provider [facility] 11-23-2019 procedure 01-10-2020 - Results Only External Provider [facility] 01-10-2020 12-19-2019 Results Only External Provider [facility] 12-06-2019 - Results Only External Provider [facility] 12-06-2019 11-23-2019 Results Only External Provider [facility] Procedures Procedure Name Date Provider Location EXTERNAL IMAGING 01-10-2020 - 01-10-2020 External Provider [facility] ([id number]) EXTERNAL LAB 12-19-2019 External Provider [facility] ([id number]) EXTERNAL LAB 12-06-2019 External Provider [facility] ([id number]) EXTERNAL IMAGING 12-06-2019 External Provider [facility] ([id number]) EXTERNAL LAB 11-23-2019 External Provider [facility] ic ([id number]) Plan of Treatment Plan Description Date Location DTAP,TDAP,TD (2 - Td) DTAP,TDAP,TD (2 - Td) 03-06-2028 - [facility] 03-06-2028 ([id number]) PROSTATE CANCER PROSTATE CANCER 03-06-2023 - [facility] SCREENING DISCUSSION SCREENING DISCUSSION 03-06-2023 ([id number] ) DIABETES SCREEN DIABETES SCREEN 12-27-2021 - [facility] 12-27-2021 ([id number]) ANNUAL PCP TEAM CHRONIC ANNUAL PCP TEAM CHRONIC 11-08-2020 - [facility] DISEASE VISIT DISEASE VISIT 11-08-2020 ([id number]) LUNG CANCER SCREENING LUNG CANCER SCREENING 01-05-2020 - [facility] 01-05-2020 ([id number]) INFLUENZA (#1) INFLUENZA (#1) 2019 - [facility] 12-11-2019 ([id number]) LIPID SCREEN LIPID SCREEN 04-07-2012 - [facility] 04-07-2012 ([id number]) SHINGRIX VACCINE (1 of SHINGRIX VACCINE (1 of 2011 - [facility] 2) 2) 2011 ([id number]) COLORECTAL CANCER COLORECTAL CANCER 2011 - [facility]ic SCREENING,SEE MODIFIER SCREENING,SEE MODIFIER 2011 ([phone]) HEPATITIS C SCREENING HEPATITIS C SCREENING 1979 - [facility] 1979 ([id number]) HIV SCREENING HIV SCREENING 1979 - [facility] 1979 ([id number]) Immunizations Vaccine Notes Status Date Location Tdap (Age 7+) tetanus toxoid, (completed) 03-06-2018 - [facility] linic reduced diphtheria 03-06-2018 ([id number]) toxoid, and acellular pertussis vaccine, adsorbed Payers Payer Name Policy Number Location [employer] [id number] [facility] (44 195) The following information is from the original human readable contentNo Payer Records FoundNo Payer Records FoundNo Payer Records Found Social History Type Social History Date Location Description Tobacco smoking status Current every day smoker 11-09-2019 - [facility] NHIS 11-09-2019 ([id number]) History of tobacco use Cigarette Smoker [facility] ([id number]) Cigarettes smoked 11-09-2019 - [facility] current (pack per day) 11-09-2019 (25164) - Reported Tobacco use and Never used 11-09-2019 - [facility] exposure 11-09-2019 (84608) Alcohol intake Current drinker of 11-09-2019 - [facility] is[facility] alcohol (finding) 11-09-2019 (13038) Alcohol Comment once or twice weekly 03-06-2018 - [facility] 03-06-2018 (18598) Sex Assigned At Not on file [facility] ([id number]) Exposure to SARS-CoV-2 Not sure [facility] (event) (25629) The following information is from the original human readable contentNo Social History Records FoundNo Social History Records FoundNo Social History Records Found Goals Patient Goal Desired Goal Summary Purpose Family History No Family History Records FoundNo Family History Records Found Advance Directives No Advanced Directives Records FoundNo Advanced Directives Records Found Additional Source Comments FOR RECORDS PERTAINING TO PATIENTS WHO ARE OR HAVE BEEN ENROLLED IN A CHEMICAL DEPENDENCY/SUBSTANCE ABUSE PROGRAM, SOME INFORMATION MAY BE OMITTED. This clinical summary was aggregated from multiple sources. Caution should be exercised in using it in the provision of clinical care. This summary normalizes information from multiple sources, and as a consequence, information in this document may materially changethe coding, format and clinical context of patient data. In addition, data may be omittedin some cases. CLINICAL DECISIONS SHOULD BE BASED ON THE PRIMARY CLINICAL RECORDS. [facility] provides no warranty or guarantee of the accuracy or completeness of information in this document. UNRECOGNIZED CONTENT PROVIDED BELOW FOR UNRECOGNIZED SECTION No Status Records FoundNo Status Records Found UNRECOGNIZED CONTENT PROVIDED BELOW FOR UNRECOGNIZED SECTION INFORMATION SOURCE DATE CREATED AUTHOR AUTHOR'S ORGANIZATIO N 12/12/[address] [facility] DATE CREATED AUTHOR AUTHOR'S ORGANIZATIO N 11/10/2019 [facility] UNRECOGNIZED CONTENT PROVIDED BELOW FOR UNRECOGNIZED SECTION Source Comments In the event this information is protected by the Federal Confidentiality of Alcohol and Drug Abuse Patient Records regulations: The Federal rules restrict any use of the information to criminally investigate or prosecute any alcohol or drug abuse patient.[facility] the event this information is protected by the Federal Confidentiality of Alcohol and Drug Abuse Patient Records regulations: The Federal rules restrict any use of the information to criminally investigate or prosecute any alcohol or drug abuse patient.[facility] the event this information is protected by the Federal Confidentiality of Alcohol and Drug Abuse Patient Records regulations: The Federal rules restrict any use of the information to criminally investigate or prosecute any alcohol or drug abuse patient.[facility] the event this information is protected by the Federal Confidentiality of Alcohol and Drug Abuse Patient Records regulations: The Federal rules restrict any use of the information to criminally investigate or prosecute any alcohol or drug abuse patient.[facility] the event this information is protected by the Federal Confidentiality of Alcohol and Drug Abuse Patient Records regulations: The Federal rules restrict any use of the information to criminally investigate or prosecute any alcohol or drug abuse patient.[facility] Hospital[facility] the event this information is protected by the Federal Confidentiality of Alcohol and Drug Abuse Patient Records regulations: The Federal rules restrict any use of the information to criminally investigate or prosecute any alcohol or drug abuse patient.[facility]
== END ==
PROVIDERS: PCP Family Medicine; Referring Provider Internal Medicine Critical Care Medicine; Visit Provider Internal Medicine Critical Care Medicine
DX: C34.90 Malignant neoplasm of unspecified part of unspecified bronchus or lung (principal)
CPT/HCPCS: 70553; A9575

== ENCOUNTER → 2019-08-27 10:09 | Outpatient (CLI) | payer MEDICAID, SELFPAY ==
[2019-08-23 06:25] VITALS: BMI 27.3
--- NOTE | 2019-08-27 09:00 | PET_ITS ---
EXAMINATION: FDG PET CT INDICATIONS: A 59-year-old male with history of carcinoma of the lung presenting for initial staging examination. COMPARISON EXAMINATION: CT of the chest report dated 07/04/19. INDEX LESION SIZE SUV INTERPRETATION Left upper hemithorax pulmonary parenchyma, left upper lobe-suprahilar region 6.1 cm x 8.0 cm (frame 283) 13.2 Fulfills quantitative criteria for viable neoplasm TECHNIQUE: Following the intravenous administration of 14.75 mCi of F-18 deoxyglucose via the left antecubital fossa, multiplanar image acquisitions of the neck, chest, abdomen and pelvis to level of mid thigh, obtained at one hour post radiopharmaceutical administration contemporaneously interpreted with the current CT of the neck, chest, abdomen and pelvis to level of mid thigh, dated 08/27/[address] of the chest report dated 07/04/19 reveal: SERUM GLUCOSE LEVEL: 85 mg/dl. HEIGHT: 70 inches. WEIGHT: 175 lbs. FINDINGS: 1. Heterogeneous increased radiopharmaceutical concentration is observed in the left upper hemithorax pulmonary parenchyma-left upper lobe-suprahilar region. The calculated maximum standard uptake value is 13.2. The maximal axial diameter of the corresponding metabolic, morphologic abnormality on review of CT of the chest dated 08/27/19 is 6.1 cm (transverse) x 8.0 cm (AP). 2. Normal physiologic distribution of the radiopharmaceutical is apparent in the hepatic (2.4) and splenic parenchyma, both renal units, bladder and visualized intestinal tract. There is uniform distribution of the radiopharmaceutical concentration defined in the visualized cerebellar hemispheres and cerebral cortical structures. Diffuse intestinal tract activity is noted throughout all four quadrants of the abdominal-pelvic retroperitoneum and mesentery consistent with normal physiologic distribution of the radiopharmaceutical. Fact tracer uptake is noted in the ascending and descending thoracic, as well as abdominal aorta commensurate with activated leukocytes associated with atherosclerotic plaque formation. (Celestina et al, Clinical Nuclear Medicine 29:93, 2004). Pertinent CT findings are as follows. CHEST: Atherosclerotic calcification is defined in the thoracic aorta without evidence of dilatation, aneurysm formation. Coronary arterial calcification is observed. There are no additional parenchymal densities-nodules defined in the right and left hemithorax demonstrating discernible increased FDG uptake. ABDOMEN AND PELVIS: Atherosclerotic calcification is defined in the abdominal aorta without evidence of dilatation, aneurysm formation. Pelvic arterial calcification is observed. Bilateral inguinal soft tissue densities are ametabolic. Fat-containing right and left inguinal hernias are visualized. SKELETAL: Degenerative changes defined in the cervical, thoracic and lumbar spine demonstrate no evidence of glucose hypermetabolism. PET/PET/CT Tumor Base -Thigh Init IMPRESSION: 1. ABNORMAL EXAMINATION INDICATIVE OF MALIGNANT-VIABLE NEOPLASM. 2. Heterogeneous increased glucose concentration observed in the left upper hemithorax pulmonary parenchyma-left upper lobe, suprahilar region fulfills quantitative criteria for viable neoplasm. (Peters et al, Annals of Internal Medicine, 138:724, 2003). 3. No other quantitatively significant hypermetabolic abnormalities are noted. There is no definitive scintigraphic evidence of distant metastatic disease. Electronic Signature Parviz Tuttle D.O. 61 Electronically Signed: Parviz Tuttle DO at 8:45 EDT Tel , Service support ,
--- OUTSIDE RECORDS SUMMARY | 2020-01-22 12:11 | XMS RPT_ITS | CCD ---
:1960 External Reference #:[id number] Author Organization [facility] Care Team Providers Name Role Phone Ida Aggarwal) Primary Care Provider Medications Medication Name Sig Date Prescriber Location Albuterol albuterol HFA 01-01-2019 Ida Roman) [facility] (PROVENTIL HFA) 90 Jasen (84564) mcg/actuation inhaler Indications: Wheezing , SOB (shortness of breath) Inhale 2 Puffs as instructed every 4 hours as needed for Wheezing/Shortness of Breath. 1 Inhaler 5 01/01/2019 Active Comment: Inhale 2 Puffs as instructed every 4 hours as needed for Wheezing/Shortness of Breath. Sertraline sertraline (ZOLOFT) 50 07-20-2019 Ida Romna) [facility] mg tablet Indications: Jasen (4419 5) Current moderate episode of major depressive disorder without prior episode (HCC) Take 1 tablet by mouth once daily. 30 tablet 2 07/20/2019 Active Comment: Take 1 tablet by mouth once daily. Problems Active Problems Category Problem Name Status Date Location Alcohol-related History of alcohol Active [facility] disorders abuse (07543) Chronic obstructive Chronic obstructive [facility] pulmonary disease and lung disease (99284 ) bronchiectasis Disorders of lipid Mixed hyperlipidemia Active 2007 [facility] metabolism (03029) Residual codes; Tobacco user Active [facility] in unclassified (91793) Past or Other Problems Category Problem Name Status Date Location Diabetes mellitus Impaired fasting Completed 2007 - [facility] without complication glycaemia (98009) Residual codes; FH: Cardiovascular Completed 2007 - [facility] unclassified disease (61411) Results Result Name Value Range Unit Interpretation Flag Date Location progress on 2019-10 PROGRESS HNO ID: [id number] Normal 11-09-2019 [facility] Author: Mario Leiva ([id number]) Service: ? Author Type: Physician Type: Progress [...] 2019-11-09 CNOV Office Visit (FAMPWS) Normal 11-09-[address] [place] [address] [facility] SHER NICOLE ([id number]) 1960 [facility] Date Time Provider Department (11590) 11/09/19 2:40 PM [facility] During your visit today, we recorded the following informati on about you: Pulse Blood pressure Weight 90/minute 116/68 81.6 kg Bonita Huerta Ma 11/09/2019 2:49 PM Signed HOSPITAL/ER FOLLOW UP: Reason for visit: head injury after fall Which facility: [facility] Date of visit: 10/30/19 Diagnosis: laceration Testing [...] Mario Whitten MD Referring Provider: IDA AGGARWAL) [[id number]] Allergies As of Date: 11/09/2019 (No Known [...] visit: head injury after fall Which facility: [facility] Date of visit: 10/30/19 Diagnosis: laceration Testing [...] 11/09/19 progress on 2019-07 PROGRESS HNO ID: [id number] Normal 07-20-2019 [facility] Author: Ida Roman) Jasen Leiva ([id number]) Service: ? Author Type: Physician Type: Progress [...] weeks. Currently homeless and staying at the [facility] [email or web address]. Following COVID 19 restrictions of staying inside and washing hands. S haring rooms and bunk beds with other residents. No history of depression or anxiety. Not seeing counseling currently, but has in the past at 180. PHQ-9 (Patient Health Questionnaire-9) from [employer] on 01/2020 All calculations should be rechecked [...] more than 50% of the to richmond omhy-se-vmij time of the visit in counseling / coordination of care. MD navarro Watson on 2019-07-18 [facility]) Normal 07-18-2019 [place] [facility] SHER NICOLE ([id number]) 1960 [facility] Date Time Provider Department (40371) 07/18/19 [facility] During your visit today, we recorded the following informati on about you: Jaycob Todd [facility] 07/18/2019 4:04 PM Signed Patient called in [...] on 2019-07-17 CNPN Telephone (FAMPWS) Normal 07-17-2019 [place] [facility] SHRE NICOLE ([id number]) 1960 [facility] Date Time Provider Department (92536) 07/17/19 [facility]WAL) [facility] During your visit today, we recorded the following informati on about you: Charu Ann, POWERHOUSE MECHANIC APPRENTICE, POWERHOUSE MECHANIC APPRENTICE 07/17/2019 12:19 PM Signed Clau nurse from Pulmonary here in [place] calls states pt voices to them that he is depressed And would like someone to talk to. eir emergency vehicle operator wanted her to reach out to u [...] 12:38 PM Signed Spoke with Eliot at [facility] [email or web address]. The patient is re siding there. She will have the patient return call to our office after lunch. Fredrick Singh RN 07/18/2019 3:58 PM Signed Patient returned call. Transferred to brownfield redevelopment site manager for VV with PCP. Fredrick Singh RN Jossie Javier [facility] 07/19/2019 11:37 AM Signed Spoke with patient [...] 07/18/19 progress on 2019-03 PROGRESS HNO ID: [id number] Normal 03-22-2019 [facility] Author: Jessica ChristiansenRn) MITALI Cooper [place] ([id number]) Service: ? Author Type: Registered Nurse Type: [...] pt. Jessica Cooper RN PROGRESS HNO ID: [id number] Normal 03-22-2019 [facility] Author: Jessica ChristiansenRn) MITALI Cooper ([id number]) Service: ? Author Type: Registered Nurse Type: Progress Notes Filed: 03/22/2019 10:45 AM Note Text: PRIMARY CARE COORDINATION QUICK NOTE Provider Action/FYI Unable to reach pt. Will discharge from care coordination. Patient identified by name and date . Received return letter. [facility] was unable to deliver. cnptoutreach on 201 12-22-11 CNPTOUTREACH Patient Outreach (FAMPWS) Normal 1 05-23-2018 [place] [facility] SHER NICOLE ([id number]) 1960 [facility] Date Time Provider Department (44301) 03/22/19 JESSICA COOPER (RN) FAMPWS During your [...] Camarena - Fully Assessed Reason for Visit: Channel Program Manager Chronic Care [3612] Prescriptions as of 03/22/2019 [...] Encounter Status:Closed by JESSICA COOPER on 03/22/19 [facility] Patient Outreach (FAMPWS) Normal 1 05-23-2018 [place] [facility] SHER NICOLE ([id number]) 1960 [facility] Date Time Provider Department (08361) 03/22/19 JESSICA COOPER (MITALI) FAMPWS During your visit today, we recorded the following informati on about you: Jessica Cooper RN, RN 03/22/2019 10:45 AM Signed PRIMARY CARE COORDINATION QUICK NOTE Provider Action/FYI Unable to reach pt. Will discharge from care coordination. Patient identified by name and date . Received return letter. [facility] was unable to deliver. 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 Author Type: Registered Nurse Type: Progress Notes Filed: 02/26/2019 1:36 PM Note Text: PRIMARY CARE COORDINATION QUICK NOTE Provider Action/FYI Letter sent. Patient identified by name and date . Sent certified letter about need to follow up with Care Coor dinator progress on 2019-02 PROGRESS HNO ID: [id number] Normal 02-14-2019 [facility] Author: Ida Roman) Jasen Leiva ([id number]) Service: ? Author Type: Physician Type: Progress Notes Filed: 02/14/2019 9:22 AM Note Text: Reviewed. Send letter? PROGRESS HNO ID: [id number] Normal 02-14-2019 [facility] Author: MITALI Aguilar Rn ([id number]) Service: ? Author Type: Registered Nurse Type: Progress Notes Filed: 02/26/2019 1:36 PM Note Text: PRIMARY CARE COORDINATION QUICK NOTE Provider Action/FYI Still unable to reach pt. Patient identified by name and date . Called patient, phone is not accepting phone calls. Called t o [facility] [email or web address], no one staying there by that name. cnptoutreach on 201 12-20-05 CNPTOUTREACH Patient Outreach (FAMPWS) Normal 1 04-16-2018 [place] SHER Segura ([id number]) 1960 [facility] Date Time Provider Department (86782) 02/14/19 [facility] (RN) [facility] During your visit today, we recorded the following informati on about you: Jessica Cooper RN, RN 02/26/2019 1:36 PM Signed PRIMARY CARE COORDINATION QUICK NOTE Provider Action/FYI Still unable to reach pt. Patient identified by name and date . Called patient, phone is not accepting phone myra ls. Called to [email or web address], no one staying there by that name. [...] Camarena - Fully Assessed Reason for Visit: Channel Program Manager Chronic Care [[id number]] Prescriptions as of 02/14/2019 Sig: ALBUTEROL SULFATE [...] 02/26/19 progress on 2019-01 PROGRESS HNO ID: [id number] Normal 01-24-2019 [facility] Author: Jessica (Rn) MITALI Cooper Leiva ([id number]) Service: ? Author Type: Registered Nurse Type: Progress Notes Filed: 01/24/2019 11:04 AM Note Text: PRIMARY CARE COORDINATION QUICK NOTE Patient identified by name and date . Called again to phone number in chart. Currently not accepti ng calls. Unable to contact pt at this time. cnptoutreach on 12-20-15 CNPTOUTREACH Patient Outreach (FAMPWS) Normal 1 [place] [facility] SHER NICOLE ([id number]) 1960 [facility] Date Time Provider Department (11517) 01/24/19 JESSICA COOPER (RN) FAMPWS During your [...] 01/24/19 progress on 2019-01 PROGRESS HNO ID: [id number] Normal 01-23-2019 [facility] Author: Siomara Paniagua) Bo [place] ([id number]) Service: ? Author Type: Nurse Practitioner Type: Progress Notes Filed: 01/23/2019 9:37 AM Note Text: Reviewed. Siomara Harden, VIKKI.[facility] PROGRESS HNO ID: [id number] Normal 01-23-2019 [facility] Author: Jessica (Rn) MITALI Cooper [place] ([id number]) Service: ? Author Type: Registered Nurse Type: Progress Notes Filed: 01/24/2019 10:46 AM Note Text: PRIMARY CARE COORDINATION QUICK NOTE Provider Action/FYI Unable to reach pt for TCM. No longer staying at [facility] A rmy Patient identified by name and date . Called to [facility], pt [facility] from [facility]. They have no other information about him. rolando on 201 12-19-14 CNPTOUTREACH Patient Outreach (FAMPWS) Normal 1 [place] [facility] SHER NICOLE ([id number]) 1960 Darian Leiva Date Time Provider Department (63197) 01/23/19 JESSICA COOPER (RN) FAMPWS During your visit today, we recorded the following informati on about you: Jessica Cooper RN, RN 01/24/2019 10:46 AM Signed PRIMARY CARE COORDINATION QUICK NOTE Provider Action/FYI Unable to reach pt for TCM. No longer staying at [facility] A rmy Patient identified by name and date . Called to [facility] , pt has been di smissed from the snf. They have no other information about him. Siomara Soriano APRN.BI APPLICATION DEVELOPER 01/23/2019 9:37 AM Signed Reviewed. Thanks, Siomara Soriano APRN.BI APPLICATION DEVELOPER Allergies As of Date: 01/23/2019 (No Known Allergies) Date Reviewed: 01/02/2019 Reviewed by: Ivania (Rn) MITALI Camarena - Fully Assessed Reason for Visit: Channel Program Manager Hospital Follow Up [3610] Prescriptions as of [...] 01/24/19 progress on 2019-01 PROGRESS HNO ID: [id number] Normal 01-22-2019 [facility] Author: Jessica (Mitali) MITALI Cooper [place] ([id number]) Service: ? Author Type: Registered Nurse Type: [...] I knew, he was living at the [employer] , I told the other girl that called that as well PROGRESS HNO ID: [id number] Normal 01-22-2019 [facility] Author: Charu Farmer (Assistant Professor Of Biochemistry) IDALIA Ann [place] ([id number]) Service: ? Author Type: LICENSED NURSE Type: Progress Notes Filed: 02/19/2019 3:01 AM Note Text: Received discharge papers from [facility] again pt was readmitted on the and discharged the coul d not complete tcm due to being discharged same day. Spoke with Siomara in Dr Carina Aggarwal's absence and she agrees Pt should have care coordination foll owing him. Gave papers to Jessica LUCIO to follow per TCM. rolando on 12-19-13 CNPTOUTREACH Patient Outreach (FAMPWS) Normal 1 [place] [facility] SHER NICOLE ([id number]) 1960 [place] Date Time Provider Department ([id number]) 01/22/19 JESSICA COOPER (RN) FAMPWS During your [...] I knew, [facility] was [facility] [email or web address], I to ld the other girl that called that as well Allergies As of Date: 01/22/2019 (No Known Allergies) Date Reviewed: 01/02/2019 Reviewed by: Ivania (Rn) MITAIL Camarena - Fully Assessed Reason for Visit: Channel Program Manager Hospital Follow Up [3610] Prescriptions as of [...] 01/22/19 progress on 2019-01 PROGRESS HNO ID: [id number] Normal 01-18-2019 [facility] Author: Charu Farmer (Idalia) IDALIA Ann ([id number]) Service: ? Author Type: LICENSED NURSE Type: Progress Notes Filed: 02/19/2019 3:01 AM Note Text: Attempted to reach pt on two other atemps and machine just s [employer] pt not available but is not a answering machine where message can b e left.Pt does have a hospital f/up scheduled with Siomara Soriano CNP ON . cnptoutreach on 201 12-19-08 CNPTOUTREACH Patient Outreach (FAMPWS) Normal 1 [place] [facility] SHER NICOLE ([id number]) 1960 [facility] Date Time Provider Department (65229) 01/17/19 IDA AGGARWAL) FAMPWS During your visit today, we recorded the following informati on about you: [place] Ann LPN, IDALIA 02/19/2019 3:01 AM Signed Attempted to call pt for tcm, number buchanan s not have answering machine will need to try back. TRANSITION CARE MANAGEMENT (TCM) INITIAL CONTACT Cutter Operator Brick Outreach Provider Action/FYI: Initial contact with patient [...] 3:01 AM Signed Received discharge papers fr [facility] 01/19/19 again pt was readmitted on the [...] alcohol abuse [F10.11] More... Encounter Status:Closed by [employer], [employer] on 02/19/19 progress on 2018-12 PROGRESS HNO ID: [id number] Normal 01-04-2019 [facility] Author: Evangelina Payne [place] ([id number]) Service: ? Author Type: ? Type: Progress [...] on 2018-12 OBSOLETE Refill (FAMPWS) Normal 12-29-2018 [facility] SHER NICOLE ([id number]) 1960 [facility] Date Time Provider Department (60837) 12/29/18 IDA AGGARWAL) FAMPWS During your visit [...] No RX INSTRUCTIONS: MyChart request. Claudia Thomas POWERHOUSE MECHANIC APPRENTICE Allergies As of Date: 12/29/2018 (No Known [...] on 9 cnpn on 2018-12-29 CNPN Telephone ([id number]) Normal 12-29 [place] [facility] SHER NICOLE ([id number]) 1960 [facility] Date Time Provider Department (29810) 12/29/18 AIMEE HERNANDEZ [id number] During your visit today, we recorded the following informati on about you: Theresa Thibodeaux 01/02/2019 3:50 PM Signed Called patient again, and le ft a detailed message; again, requested return call. Theresa Thibodeaux 01/03/2019 1:33 PM Signed Patient returned call from message re scheduled appointme nts. Patient requested and confirmed appointments on 01/07 AND 01/10/19. CT is being done at [place] on 01/04/19 Trung Briones MD 01/18/2019 7:40 AM Signed Looks like he cancelled his biopsy procedure Please call and find out how he is doing and if he is agreeable to rescheduling so I can reach out to the procedure team to help Avi Lowe Ma 01/18/2019 11:03 AM Signed [facility] but per recording pt was unavailable. [...] pt has calvin moore dismissed from the [employer] where he was staying, and the [employer] has no other information about him, noted [...] (PPP) [Time] 1.0 0.9-1.3 s Normal 9 [facility] (83641) Comment: Result Comment: Vitamin K An tagonist (VKA) Therapeutic Range: INR 2 to 3 (Target INR of 2.5) Note: For patients treated w ith VKA drugs, such as warfarin, the [place] [employer] 2012 Guideline recommends a therapeutic INR range of 2 to 3 (target INR of 2.5). This recommendation includes high-risk patients with antiphospholipid syndrome with previous arterial or venous thromboembolism, current-generation mechanical or bioprosthetic aortic heart valve replacement. Note: Patients with bench mechanic al aortic valve replacement and additional risk factors for thromboembolic events (atrial fibrillation, previous thromboembolism, LV dysfunction, hypercoagulable conditions) or an older generation mecha nical AVR (i.e., ball in-Cage) or any mechanical MVR should have a INR therapeutic range of 2.5 to 3.5 (target INR of 3). Kalen GH, et al. Chest 2012 , 141:7S-47S Kayla PINEDA, et al. [facility] 20 17, 70: 252-289 Performed By: #### CBCDIF, P T, PTT, BMP ####[place] [id number] [place], [place] [phone] PT Coag (PPP) [Time] 10.6 9.7-13.0 sec Normal 9 [facility] (62388) Comment: Performed By: #### CBCDIF, P T, PTT, BMP ####[place] [address] [place], [place] [phone] cbc and differential on 2018-12-27 Abs Baso 0.06 <0.11 k/uL Normal 12-27-2018 [facility] (90127) Comment: Performed By: #### CBCDIF, P T, PTT, BMP ####[place] [address] [place] [phone] Abs Macon 0.64 <0.87 k/uL Normal 12-27-2018 [facility] (77894) Comment: Performed By: #### CBCDIF, P T, PTT, BMP ####[place] [address] [place], [place] [phone] Abs Neut 7.32 1.45-7.50 k/uL Normal 12-27-2018 [facility] (85759) Comment: Performed By: #### CBCDIF, P T, PTT, BMP ####[place] [address] [place], [place] [phone] Absolute nRBC <0.01 <0.01 Normal 12-27-2018 [facility] (16284) Comment: Performed By: #### CBCDIF, P T, PTT, BMP ####[place] [address] [place], [place] [phone] Basophils/100 WBC (Bld) 0.6 % Normal 2018 [facility] (41232) Comment: Performed By: #### CBCDIF, P T, PTT, BMP ####[place] [address] [place], [place] [phone] DTYPE Auto Diff Normal 12-27-2018 [facility] (02861) Comment: Performed By: #### CBCDIF, P T, PTT, BMP ####[place] [address] [place], [place] [phone] Eosinophils (Bld) [#/Vol] 0.16 <0.46 k/uL Normal 12-10 [facility] (87122) Comment: Performed By: #### CBCDIF, P T, PTT, BMP ####[place] [address] [place], [place] [phone] Eosinophils/100 WBC (Bld) 1.6 % Normal 12-10 [facility] (19582) Comment: Performed By: #### CBCDIF, P T, PTT, BMP ####[place] [address] [place] [phone] Erythrocyte distribution 12.7 11.5-15.0 % Normal 12-27 [facility] width (RBC) [Ratio] [place] (99844) Comment: Performed By: #### CBCDIF, P T, PTT, BMP ####[place] [address] [place], [place] [phone] Hematocrit (Bld) [Volume 39.5 39.0-51.0 % Normal 12-27 [facility] fraction] [place] (62667) Comment: Performed By: #### CBCDIF, P T, PTT, BMP ####[place] [address] [place] [phone] Hemoglobin (Bld) 12.4 13.0-17.0 g/dL Low 12-27-2018 [facility] [Mass/Vol] [place] (26122) Comment: Performed By: #### CBCDIF, P T, PTT, BMP ####[place] [address] [place], [place] [phone] Lymphocytes (Bld) [#/Vol] 1.72 1.00-4.00 k/uL Normal 12-10 [facility] (19360) Comment: Performed By: #### CBCDIF, P T, PTT, BMP ####[place] [address] [place], [place] [phone] Lymphocytes/100 WBC (Bld) 17.4 % Normal 12-10 [facility] (96861) Comment: Performed By: #### CBCDIF, P T, PTT, BMP ####[place] [address] [place], [place] [phone] MCH (RBC) [Entitic mass] 31.2 26.0-34.0 pG Normal 12-27 [facility] (63847) Comment: Performed By: #### CBCDIF, P T, PTT, BMP ####[place] [address] [place], [place] [phone] MCHC (RBC) [Mass/Vol] 31.4 30.5-36.0 g/dL Normal 12-28-19 [facility] (86169) Comment: Performed By: #### CBCDIF, P T, PTT, BMP ####[place] [address] [place], [place] [phone] MCV (RBC) [Entitic vol] 99.2 80.0-100.0 fL Normal 12-27 [facility] (82959) Comment: Performed By: #### CBCDIF, P T, PTT, BMP ####[place] [address] [place], [place] [phone] Monocytes/100 WBC (Bld) 6.5 % Normal 2018 [facility] (66090) Comment: Performed By: #### CBCDIF, P T, PTT, BMP ####[place] [address] [place], [place] [phone] Neutrophils/100 WBC (Bld) 73.9 % Normal 12-10 [facility] (66122) Comment: Performed By: #### CBCDIF, P T, PTT, BMP ####[place] [address] [place], [place] [phone] NRBCs 0.0 0 /100 WBC Normal 12-27-2018 [facility] (06758) Comment: Performed By: #### CBCDIF, P T, PTT, BMP ####[facility] [address] [place], [place] [phone] Platelet mean volume 11.0 9.0-12.7 fL Normal [facility] (Bld) [Entitic vol] [place] (63509) Comment: Performed By: #### CBCDIF, P T, PTT, BMP ####[place] [address] [place], [place] [phone] Platelets (Bld) [#/Vol] 252 150-400 k/uL Normal 2018 [facility] (94886) Comment: Performed By: #### CBCDIF, P T, PTT, BMP ####[place] [address] [place], [place] [phone] RBC (Bld) [#/Vol] 3.98 4.20-6.00 m/uL Low 12-27-[address] [facility] (73419) Comment: Performed By: #### CBCDIF, P T, PTT, BMP ####[facility] [place], [place] [phone] WBC (Bld) [#/Vol] 9.90 3.70-11.00 k/uL Normal 12-27-2018 [facility] (58544) Comment: Performed By: #### CBCDIF, P T, PTT, BMP ####[place] [address] [place], [place] [phone] basic metabolic panl on 2018-12-27 Anion gap [Moles/Vol] 12 9-18 mmol/L Normal 12-28-19 [facility] (97515) Comment: Performed By: #### CBCDIF, P T, PTT, BMP ####[facility] [place], [place] [phone] Calcium [Mass/Vol] 9.2 8.5-10.2 mg/dL Normal 12-27-2018 [facility] (50165) Comment: Performed By: #### CBCDIF, P T, PTT, BMP ####[facility] [place], [place] [phone] Chloride [Moles/Vol] 100 97-105 mmol/L Normal [facility] (62474) Comment: Performed By: #### CBCDIF, P T, PTT, BMP ####[facility] [place], [place] [phone] CO2 [Moles/Vol] 27 22-30 mmol/L Normal 12-27-2018 [facility] (71495) Comment: Performed By: #### CBCDIF, P T, PTT, BMP ####[facility] [place], [place] [phone] Creatinine [Mass/Vol] 0.75 0.73-1.22 mg/dL Normal 12-28-19 [facility] (43303) Comment: Performed By: #### CBCDIF, P T, PTT, BMP ####[facility] [place], [place] [phone] eGFR- Amer. >60 Normal 12-27-2018 [facility] ([id number]) Comment: Performed By: #### CBCDIF, P T, PTT, BMP ####[facility] [place], [place] [phone] GFR/1.73 sq M predicted >60 mL/min/{1.73_m2} Normal 12-27-2018 [facility] among non-blacks MDRD [place] ([id number]) (S/P/Bld) [Vol rate/Area] Comment: Result Comment: eGFR [...] By: #### CBCDIF, P T, PTT, BMP ####[facility] [address] [place], [place] [phone] Glucose [Mass/Vol] 92 74-99 mg/dL Normal 12-27-2018 [facility] ([id number]) Comment: Result Comment: The [place] Diabetes Association (ADA) provides guidance for cutoff [...] for diagnosis of diabetes. Reference: Standards of [facility] Care in Diabetes 2016, [place] Diabetes Association. Diabetes Care. 2016.39(Suppl 1). Performed By: #### CBCDIF, P T, PTT, BMP ####[facility] [address] [place], [place] [phone] Potassium [Moles/Vol] 4.1 3.7-5.1 mmol/L Normal 12-28-19 19 [facility] (16758) Comment: Performed By: #### CBCDIF, P T, PTT, BMP ####[facility] [address] [place], [place] [phone] Sodium [Moles/Vol] 139 136-144 mmol/L Normal 12-27-2018 [facility] (16022) Comment: Performed By: #### CBCDIF, P T, PTT, BMP ####[facility] [place], [place] [phone] Urea nitrogen [Mass/Vol] 8 9-24 mg/dL Low 12-27 [facility] (10574) Comment: Performed By: #### CBCDIF, P T, PTT, BMP ####[facility] [place], [place] [phone] aptt on 2018-12-27 aPTT Coag (Bld) [Time] 28.5 23.0-32.4 sec Normal [address] [place] [address] ([address]) Comment: Result Comment: Unfractionat ed Heparin Therapeutic [...] By: #### CBCDIF, P T, PTT, BMP ####[facility] [place], [place] [phone] cnpn on 2018-12-21 CNPN Telephone (LAYLA) Normal 12-21-2018 [place] [facility] SHER NICOLE ([id number]) 1960 [facility] Time Provider Department ([id number]) 12/21/18 TRUNG BRIONES During your visit today, we recorded the following informati on about you: Trung Briones MD 12/21/2018 9:42 AM Signed Please call and update patient that I sp toi to the [facility] team and one of their schedulers will call to set up a final pro cedure date, but they did ask that labs get done before the scheduled procedure. The orders are in, please see if he can get these done in the next few days at any local [facility] lab so that we can see the results. Obdulia Amezcua 12/21/2018 10:12 AM Signed Left a voicemail for the pt to call the office b ack in regards to the message below. If pt calls back please let him know [facility] will call him to schedule his procedure, but he first needs to have lab work done at any of our [facility] labs, the order for lab work is placed. If it is better to go to a lab in [place] I did research and this on is close to him. [facility] [place] [address] [facility]. [place], [place] [address] Obdulia Amezcua 12/25/2018 3:55 PM Signed Left a voicemail for the pt to call the office b ack in regards to the message below. Obdulia Amezcua 12/26/2018 10:17 AM Signed Spoke with Pt, Pt verbalized understanding. No further quest ions. Pt has not heard from [facility] yet, he will g o and get the blood work done and then wait to hear back from [facility]. Trung Briones MD 12/27/2018 8:43 AM Signed Records from [place] received, 10/06/18 E D visit for which [...] density appears larger at this time. [facility] [place] is going to schedule interventional pulm f [...] 12/26/18 progress on 2018-12 PROGRESS HNO ID: [id number] Normal 12-20-2018 [place] Author: Aimee Hernandez [facility] Service: ? [place] Author Type: Physician ([id number]) Type: Progress Notes Filed: 12/21/2018 2:43 PM [...] on anticoagulants/anti-plt therapy? No Nursing Considerations: (ie: mcc, TB, respiratory isolation, etc.) none Diagnosis/Reason for [...] results found for: CREAT PROGRESS HNO ID: [id number] Normal 12-20-2018 [place] Author: Trung Briones Clinic Service: ? 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 cnov on 2018-12-20 CNOV Office Visit (PULMLO) Normal 12-21-19 19 [place] [facility] SHER NICOLE ([id number]) 1960 M URIEL [place] Date Time Provider Department ([id number]) 12/20/18 9:45 AM TRUNG BRIONES During your visit today, we recorded the following informati on about you: Temperature Pulse Blood pressure Weight 98.6 degrees 73/minute 115/71 82 kg Height 1.753 m Obdulia Amezcua 12/20/2018 9:39 AM Signed [facility] FACTS LAB HOURS: [place] lab is open from 7:30am to 6pm , open from 7:30am-5pm on Tuesday and open 8am-12pm on Tuesday. Closed on Tuesday [facility] lab is open from 7:30am to 5pm [...] 24 hours prior to the scheduled exam. [facility] Express Care -- No appointment needed At the [facility], patients 2 years and older can get walk -in medical attention for common health problems including: Cold and flu symptoms Conjunctivitis Ear and throat infections Minor bumps and cuts Seasonal allergies Skin rashes Simple sprains and strains Sinus infections Urinary tract infections Upper respiratory tract infections Locations and Times [facility] - [address] [facility], [facility] - [address] [place] [address] [employer] [facility] - Tuesday through Tuesday 6 AM - 9 PM - Tuesday and Tuesday 8 AM - 4 PM For Express Care LOCATIONS, HOURS OF OPERATION and CUR RENT WAIT TIMES, visit the following link for details. [email or web address][types][0]=Express%20Care%20ClinicsAN D Emergency Department Parviz St[facility]ard [facility] - [address] [facility] [address]), [facility] [phone] Pharmacy Hours: Tuesday through Tuesday 8 am to 6 pm Opt in to receive text reminders for your appointments with [facility] specialist today. To opt in, text 4clinictxt to [phone]. 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 No pets REVIEW OF [...] file Gets together: Not on file Attends advent service: Not on file Active member of [...] patient as noted below: Chest CT: 10/06/18 [facility] CT, no im age to review directly [...] signature obtained to get actual images from [place] The above plan was discussed with the rubi botello and all questions were answered. I will see Mr. Nicole for follow-up in 2 months Trung Briones MD Pulmonary and Critical Care Medicine [facility] Res[facility] [place] December 20, 2018 9:44 AM I spent 60 minutes in the visit, with more than 50% of the total fody-fl-sacy time of the visit in counseling / coordination of care. Referring Provider: IDA AGGARWAL) [[id number]] Allergies As of Date: 12/20/2018 (No Known Allergies) Date Reviewed: 12/20/2018 Reviewed by: Trung Briones - Fully Assessed Reason for Visit: New Patient [172] Cmt: Left lung lesion Primary Visit Diagnosis:Lung mass [R91.8] Other Visit Diagnoses:Dyspnea on exertion [R06.09] Chronic obstructive pulmonary disease, unspecified COPD type (HCC) [J44.9] Order(s):ECG COMPLETE [ECG01] Order #: [id number] FUTURE Prescriptions as of 12/20/2018 Sig: FLUTICASONE [...] [F10.11] More... Other instructions from your clinician: [employer] [facility] Play [employer] [facility] FACTS LAB HOURS: [employer] lab is open from 7:30am to 6pm M-, open from 7:30am -5pm on Tuesday and open 8am-12pm on Tuesday. Closed on Tuesday [facility] lab is open from 7:30am to 5pm [...] 24 hours prior to the scheduled exam. [facility] -- No appointment needed At the [facility], patients 2 years and older can get walk -in medical attention for common health problems including: Cold and flu symptoms Conjunctivitis Ear and throat infections Minor bumps and cuts Seasonal allergies Skin rashes Simple sprains and strains Sinus infections Urinary tract infections Upper respiratory tract infections Locations and Times [facility] - [address], [facility], [place] - [address] [facility] - Tuesday through Tuesday 6 AM - 9 PM - Tuesday and Tuesday 8 AM - 4 PM For Express Care LOCATIONS, HOURS OF OPERATION and CURRENT W AIT TIMES, visit the following link for details. [email or web address]?dFR[types][0]=Expr ess%20Care%20Clin icsAND Emergency Department [facility] - [address] [facility] ([address] [facility]), [facility] [phone] Pharmacy Hours: Tuesday through Tuesday 8 am to 6 pm Opt in to receive text reminders for your appointments with [facility] health specialist today. To opt in, text 4clinictxt to [phone]. Disposition: Return in about 2 months (around 02/19/2019). Follow-up and Disposition History Recorded Encounter Status:Closed by TRUNG BRIONES MD on 12/20/18 progress on 2018-12 PROGRESS HNO ID: [id number] Normal 12-13-2018 [facility] Author: Ida Gandara () Jasen [facility] ([id number]) Service: ? Author Type: Physician Type: Progress [...] file Gets together: Not on file Attends advent service: Not on file Active member of [...] 2018-12-13 CNOV Office Visit (FAMPWS) Normal 12-14-19 [place] [facility] SHER NICOLE ([id number]) 1960 [facility] Date Time Provider Department ([id number]) 12/13/18 11:20 AM IDA AGGARWAL) FAMPWS During [...] file Gets together: Not on file Attends advent service: Not on file Active member of [...] Aggarwal MD Referring Provider: IDA AGGARWAL () [[id number]] Allergies As of Date: 12/13/2018 (No Known Allergies) Date Reviewed: 12/13/2018 Reviewed by: Natanael Dennis Ma - Fully Assessed Reason for Visit: follow up PET scan results [Other] Primary Visit Diagnosis:Mass of left lung [R91.8] Other Visit Diagnosis:Abnormal PET scan of lung [R94.2] Order(s):CONSULT TO PULM/CRITICAL CARE [999959] Order #: [id number]: 1 Prescriptions as of 12/13/2018 Sig: FLUTICASONE [...] 12/13/18 progress on 2018-12 PROGRESS HNO ID: [id number] Normal 12-12-2018 [place] [facility]: [facility] Service: Nuclear Medicine ([id number]) Author Type: Cereal Maker Type: Progress Notes Filed: 12/12/2018 12:14 PM [...] regarding radiation safety can be found using [facility] link: [email or web address]%20Medicine%[email or web address].pdf SIGNATURE: Prosper Montelongo [facility] PATIENT NAME: Sher Nicole DATE: December 12, 2018 TIME: 12:14 PM PAGER/CONTACT #: wa pet/ct whole body init on 2018-12-12 NM PET/CT WHOLE * * *Final Report* * * Normal 0 12-12-2018 [facility] BODY INIT DATE OF EXAM: Dec 12 2018 1:29PM ([id number]) [facility] 0061 - NM PET/CT WHOLE [...] EXTREMITIES/SKELETON: No suspicious FDG avid osseous process. Deep Tissue Massage Therapist: TC Transcribe Date/Time: Dec 12 2018 1:51P Dictated by : JAUN CHILD MD This examination was interpreted and the report reviewed and electronically signed by: JAUN CHILD MD on Dec 12 2018 1:58PM EST [id number] [facility] on 2018-12-05 CNPN Telephone (ASWSTR) Normal 12-05-2018 [place] [facility] SHER NICOLE ([id number]) 1960 [facility] Date Time Provider Department ([id number]) 12/05/18 IDA AGGARWAL) ASWSTR During your visit [...] 12/07/18 progress on 2018-11 PROGRESS HNO ID: [id number] Normal 11-30-2018 [facility] Author: Ida Roman) Jasen [facility] ([id number]) Service: ? Author Type: Physician Type: Progress Notes Filed: 11/30/2018 3:21 PM Note Text: Reviewed. Thanks. PROGRESS HNO ID: [id number] Normal 11-30-2018 [facility] Author: Taylor Ramirez [facility] ([id number]) Service: ? Author Type: Cutter Operator Brick Type: Progress Notes Filed: 12/01/2018 10:49 AM Note Text: [facility] HEALTH STAFFING COORDINATOR QUICKNOTE Provider Action/FYI: I called and spoke with Trace and he said he will call to r/s his PET scan. He's aware he's due for fasting labs and an IFOBT. 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 He will make a follow up appointment with PCP after PET scan. Patient identified by name and . Taylor Ramirez CMA PROGRESS HNO ID: [id number] Normal 11-30-2018 [facility] Author: Taylor Ramirez [facility] ([id number]) Service: ? Author Type: Cutter Operator Brick Type: Progress Notes Filed: 12/01/2018 10:49 AM Note Text: MERGED WITH [facility] GAP REGISTRY DOCUMENTATION (OUTSIDE TEAMLET) [...] CNPTOUTREACH Patient Outreach (FAMPWS) Normal 0 11-30-2018 [place] SHER Segura ([id number]) 1960 [facility] Date Time Provider Department ([id number]) 11/30/18 [facility] FAMPWS During your visit today, we recorded the following informati on about you: Taylor Ramirez CMA 12/01/2018 10:49 AM Signed MERGED WITH [facility] G[facility] REGISTRY DOCUMENTATION (OUTSIDE TEAMLET) [...] No results found for: HDL LDL Chol, [place] (mg/dL) Date Value 04/07/2007 109 No results [...] CMA 12/01/2018 10:49 AM Signed [facility] HEALTH STAFFING COORDINATOR QUICKNOTE Provider Action/FYI: I called and spoke with Trace and he said he will call to r/s his PET scan. He's aware he's due for fasting labs and an IFOBT. 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 He will make a follow up [...] 12/01/18 progress on 2018-11 PROGRESS HNO ID: [id number] Normal 11-10-2018 [facility] Author: Ida Roman) Jasen ([id number]) Service: ? Author Type: Physician Type: Progress Notes Filed: 11/10/2018 10:15 AM Note Text: Reviewed. Thanks. PROGRESS HNO ID: [id number] Normal 11-10-2018 [facility] Author: Taylor Ramirez ([id number]) Service: ? Author Type: Cutter Operator Brick Type: Progress Notes Filed: 11/10/2018 9:51 AM Note Text: [facility] HEALTH STAFFING COORDINATOR QUICKNOTE Provider Action/FYI: I spoke with Trace [...] CMA progress on 2018-11 PROGRESS HNO ID: [id number] Normal 11-09-2018 [facility] Author: Taylor Leiva ([id number]) Service: ? Author Type: Cutter Operator Brick Type: Progress Notes Filed: 11/10/2018 9:51 AM [...] No results found for: HDL LDL Chol, [place] (mg/dL) Date Value 04/07/2007 109 No results found for: TG HGB A1C: No results found for: HBA1C TSH: No results found for: TSH) Care Gap: Hyperlipidemia COPD Plan: ? Confirm PCP / Status - active ? 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 Consultation Appointments: PET SCAN Labs, HM [...] Location 01-10-2020 - Patient encounter External Provider [facility] 01-10-2020 procedure 12-19-2019 - Patient encounter External Provider [facility] 12-19-2019 procedure 12-06-2019 - Patient encounter External Provider [facility] 12-06-2019 procedure 11-23-2019 - Patient encounter External Provider [facility] 11-23-2019 procedure 01-10-2020 - Results Only External Provider External[facility]N [facility] 01-10-2020 12-19-2019 Results Only External Provider External[facility]N [facility] 12-06-2019 - Results Only External Provider External[facility]N [facility] 12-06-2019 11-23-2019 Results Only External Provider [facility] Procedures Procedure Name Date Provider Location EXTERNAL IMAGING 01-10-2020 - 01-10-2020 External Provider [facility] ([id number]) EXTERNAL LAB 12-19-2019 External Provider [place] [facility] ([id number]) EXTERNAL LAB 12-06-2019 External Provider [facility] ([id number]) EXTERNAL IMAGING 12-06-2019 External Provider [place] [facility] isis (47947) EXTERNAL LAB 11-23-2019 External Provider [facility] ic ([id number]) Plan of Treatment Plan Description Date Location DTAP,TDAP,TD (2 - Td) DTAP,TDAP,TD (2 - Td) 03-06-2028 - [facility] 03-06-2028 (69795) PROSTATE CANCER PROSTATE CANCER 03-06-2023 - [facility] SCREENING DISCUSSION SCREENING DISCUSSION 03-06-2023 (75305 ) DIABETES SCREEN DIABETES SCREEN 12-27-2021 - [facility] 12-27-2021 (48483) ANNUAL PCP TEAM CHRONIC ANNUAL PCP TEAM CHRONIC 11-08-2020 - [facility] DISEASE VISIT DISEASE VISIT 11-08-2020 (68073) LUNG CANCER SCREENING LUNG CANCER SCREENING 01-05-2020 - [facility] 01-05-2020 (74914) INFLUENZA (#1) INFLUENZA (#1) 2019 - [facility] 12-11-2019 (02381) LIPID SCREEN LIPID SCREEN 04-07-2012 - [facility] 04-07-2012 (58553) SHINGRIX VACCINE (1 of SHINGRIX VACCINE (1 of 2011 - [facility] 2) 2) 2011 (02108) COLORECTAL CANCER COLORECTAL CANCER 2011 - [facility] inic SCREENING,SEE MODIFIER SCREENING,SEE MODIFIER 2011 (3 7769) HEPATITIS C SCREENING HEPATITIS C SCREENING 1979 - [facility] 1979 (70177) HIV SCREENING HIV SCREENING 1979 - [facility] 1979 (06671) Immunizations Vaccine Notes Status Date Location Tdap (Age 7+) tetanus toxoid, (completed) 03-06-2018 - [facility] linic reduced diphtheria 03-06-2018 (25870) toxoid, and acellular pertussis vaccine, adsorbed Payers Payer Name Policy Number Location [employer] [id number] [facility] (44 195) The following information is from the original human readable contentNo Payer Records FoundNo Payer Records FoundNo Payer Records Found Social History Type Social History Date Location Description Tobacco smoking status Current every day smoker 11-09-2019 - [facility] NHIS 11-09-2019 (93170) History of tobacco use Cigarette Smoker [facility] (55388) Cigarettes smoked 11-09-2019 - [place] [facility] current (pack per day) 11-09-2019 (49814) - Reported Tobacco use and Never used 11-09-2019 - [facility] exposure 11-09-2019 (43087) Alcohol intake Current drinker of 11-09-2019 - [place] [facility] alcohol (finding) 11-09-2019 (34742) Alcohol Comment once or twice weekly 03-06-2018 - [place] C linic 03-06-2018 (08908) Sex Assigned At Not on file [facility] (75652) Exposure to SARS-CoV-2 Not sure [facility] (event) (57113) The following information is from the original [...] BE BASED ON THE PRIMARY CLINICAL RECORDS. [facility] provides no warranty or guarantee of the accuracy or completeness of information in this document. UNRECOGNIZED CONTENT PROVIDED BELOW FOR UNRECOGNIZED SECTION No Status Records FoundNo Status Records Found UNRECOGNIZED CONTENT PROVIDED BELOW FOR UNRECOGNIZED SECTION INFORMATION SOURCE DATE CREATED AUTHOR AUTHOR'S ORGANIZATIO N 12/12/2018 [facility] DATE CREATED AUTHOR AUTHOR'S ORGANIZATIO N 11/10/2019 [facility] UNRECOGNIZED CONTENT PROVIDED BELOW FOR UNRECOGNIZED SECTION Source Comments In the event this information is protected by the Federal Confidentiality of Alcohol and Drug Abuse Patient Records regulations: The Federal rules restrict any use of the information to criminally investigate or prosecute any alcohol or drug abuse patient.[facility] Administration[facility] the event this information is protected by the Federal Confidentiality of Alcohol and Drug Abuse Patient Records regulations: The Federal rules restrict any use of the information to criminally investigate or prosecute any alcohol or drug abuse patient.[facility] AdministrationIn the event this information is protected by the Federal Confidentiality of Alcohol and Drug Abuse Patient Records regulations: The Federal rules restrict any use of the information to criminally investigate or prosecute any alcohol or drug abuse patient.[facility] AdministrationIn the event this information is protected by the Federal Confidentiality of Alcohol and Drug Abuse Patient Records regulations: The Federal rules restrict any use of the information to criminally investigate or prosecute any alcohol or drug abuse patient.[facility] AdministrationIn the event this information is protected by the Federal Confidentiality of Alcohol and Drug Abuse Patient Records regulations: The Federal rules restrict any use of the information to criminally investigate or prosecute any alcohol or drug abuse patient.[facility] Health AdministrationIn the event this information is protected by the Federal Confidentiality of Alcohol and Drug Abuse Patient Records regulations: The Federal rules restrict any use of the information to criminally investigate or prosecute any alcohol or drug abuse patient.[facility]
== END ==
PROVIDERS: PCP Family Medicine; Referring Provider Internal Medicine Critical Care Medicine; Visit Provider Internal Medicine Critical Care Medicine
DX: C34.12 Malignant neoplasm of upper lobe, left bronchus or lung (principal)
CPT/HCPCS: 78815; A9552

== ENCOUNTER 2019-08-29 17:56 | Emergency (ER) | payer MEDICAID, SELFPAY ==
[2019-08-23 06:25] VITALS: BMI 27.3
[2019-08-29 18:00] VITALS: BP 105/65; PULSE 72; RESP 12; TEMP 36.6; O2SAT 97; BMI 27.3
--- NOTE | 2019-08-29 18:36 | ED.VIS.GEN ---
History of Present Illness Chief Complaint: Back Informant: Patient Onset: Today Narrative: Sudden lower back spasms prior to arrival. Reports drank half bottle of vodka today, denies drinking daily. Denies any loss of bowel or bladder control. Denies any falls. History of similar in the past. Denies any allergies. No radicular symptoms. Brought in by EMS. Denies history of gastric ulcers or kidney injury. Prior similar symptoms: Yes Past Medical History - Allergies and Home Meds Allergies/Adverse Reactions: Allergies No Known Allergies Allergy (Verified 08/17/19 11:28) Primary Care Physician: Armando Aggarwal MD [Primary Care Provider] - Past Medical History: - - COPD, lung cancer history, chronic A. fib Surgical History: tonsillectomy Smoking Status: Current every day smoker - Family History Paternal Family History: Family History (Last Reviewed 08/02/19 @ 11:[address] Tariq Herrera, DO) Sister Uterine cancer Mother Emphysema lung Grandfather Emphysema lung Grandmother Emphysema lung Family History: Reports: Cancer, - - Lung cancer in father and other family member but not in siblings. Review of Systems General: Denies: Chills, Fever, Sweats Eyes: Denies: Visual changes - bilaterally, Diplopia ENT: Denies: Rhinorrhea, Sore throat Cardiovascular: Denies: Chest pain, Palpitations Respiratory: Denies: Dyspnea, Cough, Dyspnea on exertion Gastrointestinal: Denies: Abdominal pain, Nausea, Vomiting, Diarrhea, Melena, Hematochezia Genitourinary: Denies: Dysuria, Hematuria, Frequency Musculoskeletal: Reports: Back pain. Denies: Extremity Pain Skin: Denies: Rash, Wounds Neurological: Denies: Headache, Weakness, Numbness Physical Exam Vital Signs/Narrative: Vital Signs Temp Pulse Resp BP Pulse Ox 08/29/19 18:00 97.8 F 72 12 105/65 97 Inital Vital Signs reviewed: Yes General: Well nourished, Well developed, No Acute Distress, - - Answering questions appropriately. Head: Normocephalic, Atraumatic Eyes: Perrl, EOMI ENT: Moist mucous membranes, No rhinorrhea Neck: Supple, Nontender Cardiovascular: Regular rate, Regular rhythm, No murmurs Respiratory: No distress, CTA bilaterally, Chest nontender Abdomen: Soft, Nontender, Nondistended, Normal bowel sounds Back: Normal Inspection, - - Mild paralumbar tenderness, no midline tenderness, straight leg test negative bilaterally. 2+ patellar reflex bilaterally. Extremities: Nontender, No edema Skin: Normal color, No rash Neurological: Alert, Oriented x3, Cranial nerves II-XII grossly intact, Normal Strength, Normal Sensation Psychological: Normal affect, Normal Mood Diagnostic/Tx/Re-eval - Medical Decision Making Patient in no acute distress, prior to medications patient was able to get up and walk to the bathroom. He is treated with Toradol IM. He will be given prescription for NSAIDs to use. He will be discharged home with sober ride. ED Disposition - Plan for ED Patient: Disposition: Home or Assisted Living Diagnosis: Back muscle spasm, Alcohol use Instructions: ED Spasm Back No Trauma Prescriptions: Ibuprofen 600 mg PO Q6H PRN PRN #20 tab PRN Reason: Pain Or Fever Transmission Status: Pending to [facility] Referrals: Armando Aggarwal MD [Primary Care Provider] - 3-5 Days if not improving
[2019-08-29] MEDS: Ketorolac 60 MG/2 ML Vial IM (19:01)
--- OUTSIDE RECORDS SUMMARY | 2020-01-22 14:57 | XMS RPT_ITS | CCD ---
:1960 External Reference #:[id number] Author Organization [facility] Care Team Providers Name Role Phone Ida Aggarwal) Primary Care Provider [phone] Medications Medication Name Sig Date Prescriber Location Albuterol albuterol HFA 01-01-2019 Ida Roman) [facility] (PROVENTIL HFA) 90 Jasen (32565) mcg/actuation inhaler Indications: Wheezing , SOB (shortness of breath) Inhale 2 Puffs as instructed every 4 hours as needed for Wheezing/Shortness of Breath. 1 Inhaler 5 01/01/2019 Active Comment: Inhale 2 Puffs as instructed every 4 hours as needed for Wheezing/Shortness of Breath. Sertraline sertraline (ZOLOFT) 50 07-20-2019 Ida Roman) [facility] mg tablet Indications: Jasen (4419 5) Current moderate episode of major depressive disorder without prior episode (HCC) Take 1 tablet by mouth once daily. 30 tablet 2 07/20/2019 Active Comment: Take 1 tablet by mouth once daily. Problems Active Problems Category Problem Name Status Date Location Alcohol-related History of alcohol Active [place] [facility] disorders abuse (81364) Chronic obstructive [facility] pulmonary disease and lung disease (73550 ) bronchiectasis Disorders of lipid Mixed hyperlipidemia Active 2007 [facility] metabolism (29904) Residual codes; Tobacco user Active [facility] in unclassified (99513) Past or Other Problems Category Problem Name Status Date Location Diabetes mellitus Impaired fasting Completed 2007 - [place] [facility] without complication glycaemia (70090) Residual codes; FH: Cardiovascular Completed 2007 - [place] [facility] unclassified disease (45301) Results Result Name Value Range Unit Interpretation Flag Date Location progress on 2019-10 PROGRESS HNO ID: [id number] Normal 11-09-2019 [facility] Author: Mario Leiva ([id number]) Service: ? Author Type: Physician Type: Progress [...] 2019-11-09 CNOV Office Visit (FAMPWS) Normal 11-09-[address] [place] [address] [facility] SHER NICOLE ([id number]) 1960 [facility] Date Time Provider Department ([id number]) 11/09/19 2:40 PM [facility] During your visit today, we recorded the following informati on about you: Pulse Blood pressure Weight 90/minute 116/68 81.6 kg Bonita Huetra Ma 11/09/2019 2:49 PM Signed HOSPITAL/ER FOLLOW UP: Reason for visit: head injury after fall Which facility: [facility] Date of visit: 10/30/19 Diagnosis: laceration [...] Mario Whitten MD Referring Provider: IDA AGGARWAL) [[id number]] Allergies As of Date: 11/09/2019 (No Known [...] visit: head injury after fall Which facility: [facility] Date of visit: 10/30/19 Diagnosis: laceration Testing done: ct of head Treatment given: 5 shadai Current symptoms: no pain Medications Discontinued During [...] 11/09/19 progress on 2019-07 PROGRESS HNO ID: [id number] Normal 07-20-2019 [facility] Author: Ida Roman) Jasen Leiva ([id number]) Service: ? Author Type: Physician Type: Progress [...] weeks. Currently homeless and staying [facility] [employer]. Following COVID 19 restrictions of staying inside and washing hands. S haring rooms and bunk beds with other residents. No history of depression or anxiety. Not seeing counseling currently, but has in the past at 180. PHQ-9 (Patient Health Questionnaire-9) from [facility] on 01/2020 All calculations should be rechecked [...] more than 50% of the to richmond [id number] time of the visit in counseling / coordination of care. MD navarro Watson on 2019-07-18 [facility] Telephone (FAMPWS) Normal 07-18-2019 [facility] SHER NICOLE ([id number]) 1960 [facility] Date Time Provider Department (15911) 07/18/19 [facility]WAL) [facility] During your visit today, we recorded the following informati on about you: Jaycob Todd [facility] 07/18/2019 4:04 PM Signed Patient called in [...] on 2019-07-17 CNPN Telephone (FAMPWS) Normal 07-17-2019 [facility] SHER NICOLE ([id number]) 1960 [facility] Date Time Provider Department (47926) 07/17/19 IDA AGGARWAL) [facility] During your visit today, we recorded the following informati on about you: Charu Ann, SENIOR TECHNICAL MANAGER, SENIOR TECHNICAL MANAGER 07/17/2019 12:19 PM Signed Clau nurse from Pulmonary here in [place] calls states pt voices to them that he is depressed And would like someone to talk to. eir medical referral coordinator wanted her to reach out to u [...] 12:38 PM Signed Spoke with Eliot at [facility] [employer]. The patient is re siding there. She will have the patient return call to our office after lunch. Fredrick Singh RN 07/18/2019 3:58 PM Signed Patient returned call. Transferred to parts interpreter for VV with PCP. Fredrick Singh RN Jossie Javier [facility] 07/19/2019 11:37 AM Signed Spoke with patient [...] 07/18/19 progress on 2019-03 PROGRESS HNO ID: [id number] Normal 03-22-2019 [facility] Author: Jessica ChristiansenRn) MITALI Cooper [facility] ([id number]) Service: ? Author Type: Registered Nurse Type: [...] pt. Jessica Cooper RN PROGRESS HNO ID: [id number] Normal 03-22-2019 [facility] Author: Jessica ChristiansenRn) MITALI Cooper ([id number]) Service: ? Author Type: Registered Nurse Type: Progress Notes Filed: 03/22/2019 10:45 AM Note Text: PRIMARY CARE COORDINATION QUICK NOTE Provider Action/FYI Unable to reach pt. Will discharge from care coordination. Patient identified by name and date . Received return letter. [facility] was unable to deliver. 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 Will discharge from care coordination. Patient identified by name and date . Received return letter. [facility] was unable to deliver. 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 Author Type: Registered Nurse Type: Progress Notes Filed: 02/26/2019 1:36 PM Note Text: PRIMARY CARE COORDINATION QUICK NOTE Provider Action/FYI Letter sent. Patient identified by name and date . Sent certified letter about need to follow up with Care Coor dinator progress on 2019-02 PROGRESS HNO ID: [id number] Normal 02-14-2019 [facility] Author: Ida Roman) Jasen Leiva ([id number]) Service: ? Author Type: Physician Type: Progress Notes Filed: 02/14/2019 9:22 AM Note Text: Reviewed. Send letter? PROGRESS HNO ID: [id number] Normal 02-14-2019 [facility] Author: MITALI Aguilar Rn ([id number]) Service: ? Author Type: Registered Nurse Type: Progress Notes Filed: 02/26/2019 1:36 PM Note Text: PRIMARY CARE COORDINATION QUICK NOTE Provider Action/FYI Still unable to reach pt. Patient identified by name and date . Called patient, phone is not accepting phone calls. Called t [facility] [employer], no one staying there by that name. cnptoutreach on 201 12-20-05 CNPTOUTREACH Patient Outreach (FAMPWS) Normal 1 04-16-2018 [facility] SHER Segura ([id number]) 1960 [facility] Date Time Provider Department (71792) 02/14/19 JESSICA COOPER (RN) [facility] During your visit today, we recorded the following informati on about you: Jessica Cooper RN, RN 02/26/2019 1:36 PM Signed PRIMARY CARE COORDINATION QUICK NOTE Provider Action/FYI Still unable to reach pt. Patient identified by name and date . Called patient, phone is not accepting phone myra ls. Called to [facility], no one staying there by that name. 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 Author Type: Registered Nurse Type: Progress Notes Filed: 01/24/2019 11:04 AM Note Text: PRIMARY CARE COORDINATION QUICK NOTE Patient identified by name and date . Called again to phone number in chart. Currently not accepti ng calls. Unable to contact pt at this time. cnptoutreach on 12-20-15 CNPTOUTREACH Patient Outreach (FAMPWS) Normal 1 [facility] SHER NICOLE ([id number]) 1960 [facility] Date Time Provider Department (07390) 01/24/19 JESSICA COOPER (RN) FAMPWS During your [...] 01/24/19 progress on 2019-01 PROGRESS HNO ID: [id number] Normal 01-23-2019 [facility] Author: Siomara Paniagua) Bo [facility] ([id number]) Service: ? Author Type: Nurse Practitioner Type: Progress Notes Filed: 01/23/2019 9:37 AM Note Text: Reviewed. Siomara Harden, VIKKI.[facility] PROGRESS HNO ID: [id number] Normal 01-23-2019 [facility] Author: Jessica (Rn) MITALI Cooper [facility] ([id number]) Service: ? Author Type: Registered Nurse Type: Progress Notes Filed: 01/24/2019 10:46 AM Note Text: PRIMARY CARE COORDINATION QUICK NOTE Provider Action/FYI Unable to reach pt for TCM. No longer staying at [facility] A rmy Patient identified by name and date . Called to [facility], pt has been dismissed from the [facility]. They have no other information about him. rolando on 201 12-19-14 CNPTOUTREACH Patient Outreach (FAMPWS) Normal 1 [facility] SHER NICOLE ([id number]) 1960 Darian Leiva Date Time Provider Department (85529) 01/23/19 JESSICA COOPER (RN) FAMPWS During your visit today, we recorded the following informati on about you: Jessica Cooper RN, RN 01/24/2019 10:46 AM Signed PRIMARY CARE COORDINATION QUICK NOTE Provider Action/FYI Unable to reach pt for TCM. No longer staying at [facility] A rmy Patient identified by name and date . Called to [facility] , pt has been di smissed from the group home. They have no other information about him. Siomara Soriano APRN.MANUFACTURING ELECTRICIAN 01/23/2019 9:37 AM Signed Reviewed. 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 Author Type: Registered Nurse Type: [...] I knew, he was living at the [employer] , I told the other girl that called that as well PROGRESS HNO ID: [id number] Normal 01-22-2019 [facility] Author: Charu Farmer (Butadiene Convertor Operator) IDALIA Ann [facility] ([id number]) Service: ? Author Type: LICENSED NURSE Type: Progress Notes Filed: 02/19/2019 3:01 AM Note Text: Received discharge papers from [facility] again pt was readmitted on the and discharged the coul d not complete tcm due to being discharged same day. Spoke with Siomara in Dr Carina Aggarwal's absence and she agrees Pt should have care coordination foll owing him. Gave papers to Jessica LUCIO to follow per TCM. 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 Author Type: LICENSED NURSE Type: Progress Notes Filed: 02/19/2019 3:01 AM Note Text: Attempted to reach pt on two other atemps and machine just s [employer] pt not available but is not a answering machine where message can b e left.Pt does have a hospital f/up scheduled with Siomara Soriano CNP ON . cnptoutreach on 201 12-19-08 CNPTOUTREACH Patient Outreach (FAMPWS) Normal 1 [facility] SHER NICOLE ([id number]) 1960 [facility] Date Time Provider Department (76323) 01/17/19 IDA AGGARWAL) FAMPWS During your visit today, we recorded the following informati on about you: [place] Ann LPN, IDALIA 02/19/2019 3:01 AM Signed Attempted to call pt for tcm, number buchanan s not have answering machine will need to try back. TRANSITION CARE MANAGEMENT (TCM) INITIAL CONTACT Drawer [facility] [place] Outreach Provider Action/FYI: Initial contact with patient [...] 3:01 AM Signed Received discharge papers fr [facility] 01/19/19 again pt was readmitted on the [...] alcohol abuse [F10.11] More... Encounter Status:Closed by [employer], [employer] on 02/19/19 progress on 2018-12 PROGRESS HNO ID: [id number] Normal 01-04-2019 [facility] Author: Evangelina Payne [facility] ([id number]) Service: ? Author Type: ? Type: Progress [...] on 2018-12 OBSOLETE Refill (FAMPWS) Normal 12-29-2018 [facility] SHER NICOLE ([id number]) 1960 [facility] Date Time Provider Department (88130) 12/29/18 IDA AGGARWAL) FAMPWS During your visit [...] No RX INSTRUCTIONS: MyChart request. Claudia Thomas SENIOR TECHNICAL MANAGER Allergies As of Date: 12/29/2018 (No Known [...] on 9 cnpn on 2018-12-29 CNPN Telephone ([id number]) Normal 12-29 [facility] SHER NICOLE ([id number]) 1960 [facility] Date Time Provider Department (24712) 12/29/18 AIMEE HERNANDEZ [id number] During your visit today, we recorded the following informati on about you: Theresa Thibodeaux 01/02/2019 3:50 PM Signed Called patient again, and le ft a detailed message; again, requested return call. Theresa Thibodeaux 01/03/2019 1:33 PM Signed Patient returned call from message re scheduled appointme nts. Patient requested and confirmed appointments on 01/07 AND 01/10/19. CT is being done at [place] on 01/04/19 Trung Briones MD 01/18/2019 7:40 AM Signed Looks like he cancelled his biopsy procedure Please call and find out how he is doing and if he is agreeable to rescheduling so I can reach out to the procedure team to help Avi Lowe Ma 01/18/2019 11:03 AM Signed [facility] but per recording pt was unavailable. [...] pt has calvin moore dismissed from the [facility] where he was staying, and the [facility] has no other information about him, noted [...] (PPP) [Time] 1.0 0.9-1.3 s Normal 9 [facility] (45691) Comment: Result Comment: Vitamin K An tagonist (VKA) Therapeutic Range: INR 2 to 3 (Target INR of 2.5) Note: For patients treated w ith VKA drugs, such as warfarin, the [place] [employer] 2012 Guideline recommends a therapeutic INR range of 2 to 3 (target INR of 2.5). This recommendation includes high-risk patients with antiphospholipid syndrome with previous arterial or venous thromboembolism, current-generation mechanical or bioprosthetic aortic heart valve replacement. Note: Patients with pinsetter mechanic automatic al aortic valve replacement and additional risk factors for thromboembolic events (atrial fibrillation, previous thromboembolism, LV dysfunction, hypercoagulable conditions) or an older generation mecha nical AVR (i.e., ball in-Cage) or any mechanical MVR should have a INR therapeutic range of 2.5 to 3.5 (target INR of 3). Kalen GH, et al. Chest 2012 , 141:7S-47S Kayla PINEDA, et al. [facility] 20 17, 70: 252-289 Performed By: #### CBCDIF, P T, PTT, BMP ####[place] [address] [place], [place] [phone] PT Coag (PPP) [Time] 10.6 9.7-13.0 sec Normal 9 [facility] (09662) Comment: Performed By: #### CBCDIF, P T, PTT, BMP ####[place] [address] [place], [place] [phone] cbc and differential on 2018-12-27 Abs Baso 0.06 <0.11 k/uL Normal 12-27-2018 [facility] (89805) Comment: Performed By: #### CBCDIF, P T, PTT, BMP ####[place] [address] [place] [phone] Abs Bowie 0.64 <0.87 k/uL Normal 12-27-2018 [facility] (85297) Comment: Performed By: #### CBCDIF, P T, PTT, BMP ####[place] [address] [place], [place] [phone] Abs Neut 7.32 1.45-7.50 k/uL Normal 12-27-2018 [facility] (15553) Comment: Performed By: #### CBCDIF, P T, PTT, BMP ####[place] [address] [place], [place] [phone] Absolute nRBC <0.01 <0.01 Normal 12-27-2018 [facility] (79809) Comment: Performed By: #### CBCDIF, P T, PTT, BMP ####[place] [address] [place], [place] [phone] Basophils/100 WBC (Bld) 0.6 % Normal 2018 [facility] (67875) Comment: Performed By: #### CBCDIF, P T, PTT, BMP ####[place] [address] [place], [place] [phone] DTYPE Auto Diff Normal 12-27-2018 [facility] (66527) Comment: Performed By: #### CBCDIF, P T, PTT, BMP ####[place] [address] [place], [place] [phone] Eosinophils (Bld) [#/Vol] 0.16 <0.46 k/uL Normal 12-10 [facility] (17641) Comment: Performed By: #### CBCDIF, P T, PTT, BMP ####[place] [address] [place], [place] [phone] Eosinophils/100 WBC (Bld) 1.6 % Normal 12-10 [facility] (91433) Comment: Performed By: #### CBCDIF, P T, PTT, BMP ####[place] [address] [place] [phone] Erythrocyte distribution 12.7 11.5-15.0 % Normal 12-27 [facility] width (RBC) [Ratio] [facility] (72702) Comment: Performed By: #### CBCDIF, P T, PTT, BMP ####[place] [address] [place], [place] [phone] Hematocrit (Bld) [Volume 39.5 39.0-51.0 % Normal 12-27 [facility] fraction] [facility] (92617) Comment: Performed By: #### CBCDIF, P T, PTT, BMP ####[place] [address] [place] [phone] Hemoglobin (Bld) 12.4 13.0-17.0 g/dL Low 12-27-2018 [facility] [Mass/Vol] [facility] (59953) Comment: Performed By: #### CBCDIF, P T, PTT, BMP ####[place] [address] [place], [place] [phone] Lymphocytes (Bld) [#/Vol] 1.72 1.00-4.00 k/uL Normal 12-10 [facility] (22282) Comment: Performed By: #### CBCDIF, P T, PTT, BMP ####[place] [address] [place], [place] [phone] Lymphocytes/100 WBC (Bld) 17.4 % Normal 12-10 [facility] (09327) Comment: Performed By: #### CBCDIF, P T, PTT, BMP ####[place] [address] [place], [place] [phone] MCH (RBC) [Entitic mass] 31.2 26.0-34.0 pG Normal 12-27 [facility] (41878) Comment: Performed By: #### CBCDIF, P T, PTT, BMP ####[place] [address] [place], [place] [phone] MCHC (RBC) [Mass/Vol] 31.4 30.5-36.0 g/dL Normal 12-28-19 [facility] (33075) Comment: Performed By: #### CBCDIF, P T, PTT, BMP ####[place] [address] [place], [place] [phone] MCV (RBC) [Entitic vol] 99.2 80.0-100.0 fL Normal 12-27 [facility] (50680) Comment: Performed By: #### CBCDIF, P T, PTT, BMP ####[place] [address] [place], [place] [phone] Monocytes/100 WBC (Bld) 6.5 % Normal 2018 [facility] (72347) Comment: Performed By: #### CBCDIF, P T, PTT, BMP ####[place] [address] [place], [place] [phone] Neutrophils/100 WBC (Bld) 73.9 % Normal 12-10 [facility] (61573) Comment: Performed By: #### CBCDIF, P T, PTT, BMP ####[place] [address] [place], [place] [phone] NRBCs 0.0 0 /100 WBC Normal 12-27-2018 [facility] (04389) Comment: Performed By: #### CBCDIF, P T, PTT, BMP ####[facility] [address] [place], [place] [phone] Platelet mean volume 11.0 9.0-12.7 fL Normal [facility] (Bld) [Entitic vol] [facility] (19171) Comment: Performed By: #### CBCDIF, P T, PTT, BMP ####[place] [address] [place], [place] [phone] Platelets (Bld) [#/Vol] 252 150-400 k/uL Normal 2018 [facility] (51400) Comment: Performed By: #### CBCDIF, P T, PTT, BMP ####[place] [address] [place], [place] [phone] RBC (Bld) [#/Vol] 3.98 4.20-6.00 m/uL Low 12-27-2018 [facility] (60952) Comment: Performed By: #### CBCDIF, P T, PTT, BMP ####[facility] [place], [place] [phone] WBC (Bld) [#/Vol] 9.90 3.70-11.00 k/uL Normal 12-27-2018 [facility] (64409) Comment: Performed By: #### CBCDIF, P T, PTT, BMP ####[place] [address] [place], [place] [phone] basic metabolic panl on 2018-12-27 Anion gap [Moles/Vol] 12 9-18 mmol/L Normal 12-28-19 [facility] (67359) Comment: Performed By: #### CBCDIF, P T, PTT, BMP ####[facility] [place], [place] [phone] Calcium [Mass/Vol] 9.2 8.5-10.2 mg/dL Normal 12-27-2018 [facility] (86085) Comment: Performed By: #### CBCDIF, P T, PTT, BMP ####[facility] [place], [place] [phone] Chloride [Moles/Vol] 100 97-105 mmol/L Normal [facility] (45794) Comment: Performed By: #### CBCDIF, P T, PTT, BMP ####[facility] [place], [place] [phone] CO2 [Moles/Vol] 27 22-30 mmol/L Normal 12-27-2018 [facility] (38547) Comment: Performed By: #### CBCDIF, P T, PTT, BMP ####[facility] [place], [place] [phone] Creatinine [Mass/Vol] 0.75 0.73-1.22 mg/dL Normal 12-28-19 [facility] (44203) Comment: Performed By: #### CBCDIF, P T, PTT, BMP ####[facility] [place], [place] [phone] eGFR- Amer. >60 Normal 12-27-2018 [facility] ([id number]) Comment: Performed By: #### CBCDIF, P T, PTT, BMP ####[facility] [place], [place] [phone] GFR/1.73 sq M predicted >60 mL/min/{1.73_m2} Normal 12-27-2018 [facility] among non-blacks MDRD [facility] ([id number]) (S/P/Bld) [Vol rate/Area] Comment: Result Comment: eGFR [...] By: #### CBCDIF, P T, PTT, BMP ####[facility] [address] LabsK[place], [place] [phone] Glucose [Mass/Vol] 92 74-99 mg/dL Normal 12-27-2018 [facility] ([id number]) Comment: Result Comment: The [place] Diabetes Association (ADA) provides guidance for cutoff [...] for diagnosis of diabetes. Reference: Standards of [facility] Care in Diabetes 2016, [place] Diabetes Association. Diabetes Care. 2016.39(Suppl 1). Performed By: #### CBCDIF, P T, PTT, BMP ####[facility] [address] [employer] [place], [place] [phone] Potassium [Moles/Vol] 4.1 3.7-5.1 mmol/L Normal 12-28-19 19 [facility] ([id number]) Comment: Performed By: #### CBCDIF, P T, PTT, BMP ####[facility] [address] [place], [place] [phone] Sodium [Moles/Vol] 139 136-144 mmol/L Normal 12-27-2018 [facility] ([id number]) Comment: Performed By: #### CBCDIF, P T, PTT, BMP ####[facility] [place], [place] [phone] Urea nitrogen [Mass/Vol] 8 9-24 mg/dL Low 12-27 [facility] (84305) Comment: Performed By: #### CBCDIF, P T, PTT, BMP ####[facility] [place], [place] [phone] aptt on 2018-12-27 aPTT Coag (Bld) [Time] 28.5 23.0-32.[address] [place] [address] ([id number]) Comment: Result Comment: Unfractionat ed Heparin Therapeutic [...] laboratory APTT reagent in use throughout the [facility]. Performed By: #### CBCDIF, P T, PTT, BMP ####[facility] [place], [place] [phone] cnpn on 2018-12-21 CNPN Telephone (LAYLA) Normal 12-21-2018 [facility] SHER NICOLE ([id number]) 1960 [facility] Time Provider Department ([id number]) 12/21/18 TRUNG BRIONES During your visit today, we recorded the following informati on about you: Trung Briones MD 12/21/2018 9:42 AM Signed Please call and update patient that I sp toi to the [facility] team and one of their schedulers will call to set up a final pro cedure date, but they did ask that labs get done before the scheduled procedure. The orders are in, please see if he can get these done in the next few days at any local [facility] lab so that we can see the results. Obdulia Amezcua 12/21/2018 10:12 AM Signed Left a voicemail for the pt to call the office b ack in regards to the message below. If pt calls back please let him know [facility] will call him to schedule his procedure, but he first needs to have lab work done at any of our [facility] labs, the order for lab work is placed. If it is better to go to a lab in [place] I did research and this on is close to him. [facility] [place] [address] [facility] [place], [place] [address] Obdulia Amezcua 12/25/2018 3:55 PM Signed Left a voicemail for the pt to call the office b ack in regards to the message below. Obdulia Amezcua 12/26/2018 10:17 AM Signed Spoke with Pt, Pt verbalized understanding. No further quest ions. Pt has not heard from [facility] yet, he will g o and get the blood work done and then wait to hear back from [facility]. Trung Briones MD 12/27/2018 8:43 AM Signed Records from [place] received, 10/06/18 E D visit for which [...] density appears larger at this time. [facility] [place] is going to schedule interventional pulm f [...] 12/26/18 progress on 2018-12 PROGRESS HNO ID: [id number] Normal 12-20-2018 [facility] Author: iAmee Hernandez [facility] Service: ? [facility] Author Type: Physician ([id number]) Type: Progress Notes Filed: 12/21/2018 2:43 PM [...] on anticoagulants/anti-plt therapy? No Nursing Considerations: (ie: fci, TB, respiratory isolation, etc.) none Diagnosis/Reason for [...] results found for: CREAT PROGRESS HNO ID: [id number] Normal 12-20-2018 [facility] Author: Trung Briones [facility] Service: ? 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 cnov on 2018-12-20 CNOV Office Visit (PULMLO) Normal 12-21-19 19 [facility] SHER NICOLE ([id number]) 1960 M URIEL [facility] Date Time Provider Department ([id number]) 12/20/18 9:45 AM TRUNG BRIONES During your visit today, we recorded the following informati on about you: Temperature Pulse Blood pressure Weight 98.6 degrees 73/minute 115/71 82 kg Height 1.753 m Obdulia Amezcua 12/20/2018 9:39 AM Signed [facility] FACTS LAB HOURS: [place] lab is open from 7:30am to 6pm , open from 7:30am-5pm on Tuesday and open 8am-12pm on Tuesday. Closed on Tuesday [facility] lab is open from 7:30am to 5pm [...] 24 hours prior to the scheduled exam. [facility] -- No appointment needed At the [facility], patients 2 years and older can get walk -in medical attention for common health problems including: Cold and flu symptoms Conjunctivitis Ear and throat infections Minor bumps and cuts Seasonal allergies Skin rashes Simple sprains and strains Sinus infections Urinary tract infections Upper respiratory tract infections Locations and Times [facility] - [address] [facility], [facility] - [address] [place] [address] [facility] - Tuesday through Tuesday 6 AM - 9 PM - Tuesday and Tuesday 8 AM - 4 PM For Express Care LOCATIONS, HOURS OF OPERATION and CUR RENT WAIT TIMES, visit the following link for details. [email or web address]?dFR[types][0]=Express%20Care%20ClinicsAN D Emergency Department Parviz [facility] - [address] [facility] [address]), [facility] [phone] Pharmacy Hours: Tuesday through Tuesday 8 am to 6 pm Opt in to receive text reminders for your appointments with [facility] specialist today. To opt in, text 4clinictxt to [phone]. 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 No pets REVIEW OF [...] file Gets together: Not on file Attends adventist service: Not on file Active member of [...] patient as noted below: Chest CT: 10/06/18 [facility] CT, no im age to review [...] signature obtained to get actual images from [place] The above plan was discussed with the rubi botello and all questions were answered. I will see Mr. Nicole for follow-up in 2 months Trung Briones MD Pulmonary and Critical Care Medicine [facility] [place] December 20, 2018 9:44 AM I spent 60 minutes in the visit, with more than 50% of the total cbsb-ud-nocj time of the visit in counseling / coordination of care. Referring Provider: IDA AGGARWAL) [[id number]] Allergies As of Date: 12/20/2018 (No Known Allergies) Date Reviewed: 12/20/2018 Reviewed by: Trung Briones - Fully Assessed Reason for Visit: New Patient [172] Cmt: Left lung lesion Primary Visit Diagnosis:Lung mass [R91.8] Other Visit Diagnoses:Dyspnea on exertion [R06.09] Chronic obstructive pulmonary disease, unspecified COPD type (HCC) [J44.9] Order(s):ECG COMPLETE [ECG01] Order #: [id number] FUTURE Prescriptions as of 12/20/2018 Sig: FLUTICASONE [...] [F10.11] More... Other instructions from your clinician: [place] [facility] Zachary Prell [facility] FACTS LAB HOURS: [facility] lab is open from 7:30am to 6pm M-, open from 7:30am -5pm on Tuesday and open 8am-12pm on Tuesday. Closed on Tuesday [facility] lab is open from 7:30am to 5pm [...] 24 hours prior to the scheduled exam. [facility] -- No appointment needed At the [facility], patients 2 years and older can get walk -in medical attention for common health problems including: Cold and flu symptoms Conjunctivitis Ear and throat infections Minor bumps and cuts Seasonal allergies Skin rashes Simple sprains and strains Sinus infections Urinary tract infections Upper respiratory tract infections Locations and Times [facility] - [address] [facility] [address], [facility], [place] - [address] [facility] - Tuesday through Tuesday 6 AM - 9 PM - Tuesday and Tuesday 8 AM - 4 PM For Express Care LOCATIONS, HOURS OF OPERATION and CURRENT W AIT TIMES, visit the following link for details. [email or web address]?dFR[types][0]=Expr ess%20Care%20Clin icsAND Emergency Department [facility] - [address] [facility] ([address] [facility]), [facility] [phone] Pharmacy Hours: Tuesday through Tuesday 8 am to 6 pm Opt in to receive text reminders for your appointments with [facility] health specialist today. To opt in, text 4clinictxt to [phone]. Disposition: Return in about 2 months (around 02/19/2019). Follow-up and Disposition History Recorded Encounter Status:Closed by TRUNG BRIONES MD on 12/20/18 progress on 2018-12 PROGRESS HNO ID: [id number] Normal 12-13-2018 [facility] Author: Ida Gandara () Jasen [facility] ([id number]) Service: ? Author Type: Physician Type: Progress [...] file Gets together: Not on file Attends adventist service: Not on file Active member of [...] 2018-12-13 CNOV Office Visit (FAMPWS) Normal 12-14-19 [facility] SHER NICOLE ([id number]) 1960 [facility] Date Time Provider Department ([id number]) 12/13/18 11:20 AM IDA AGGARWAL) FAMPWS During [...] file Gets together: Not on file Attends adventist service: Not on file Active member of [...] Aggarwal MD Referring Provider: IDA AGGARWAL () [[id number]] Allergies As of Date: 12/13/2018 (No Known Allergies) Date Reviewed: 12/13/2018 Reviewed by: Natanael Dennis Ma - Fully Assessed Reason for Visit: follow up PET scan results [Other] Primary Visit Diagnosis:Mass of left lung [R91.8] Other Visit Diagnosis:Abnormal PET scan of lung [R94.2] Order(s):CONSULT TO PULM/CRITICAL CARE [584059] Order #: [id number]: 1 Prescriptions as of 12/13/2018 Sig: FLUTICASONE [...] 12/13/18 progress on 2018-12 PROGRESS HNO ID: [id number] Normal 12-12-2018 [place] Author: [facility] Service: Nuclear Medicine ([id number]) Author Type: Train Gate Attendant Type: Progress Notes Filed: 12/12/2018 12:14 PM [...] regarding radiation safety can be found using [facility] link: [email or web address]-%[email or web address]%20Nuclear%20Medicine%20Procedures.pdf SIGNATURE: Prosper Montelongo [facility] PATIENT NAME: Sher Nicole DATE: December 12, 2018 TIME: 12:14 PM PAGER/CONTACT #: sd pet/ct whole body init on 2018-12-12 NM PET/CT WHOLE * * *Final Report* * * Normal 0 12-12-2018 [facility] BODY INIT DATE OF EXAM: Dec 12 2018 1:29PM ([id number]) [facility] 0061 - NM PET/CT WHOLE BODY INIT [...] EXTREMITIES/SKELETON: No suspicious FDG avid osseous process. Arc Air Operator: TC Transcribe Date/Time: Dec 12 2018 1:51P Dictated by : JAUN CHILD MD This examination was interpreted and the report reviewed and electronically signed by: JAUN CHILD MD on Dec 12 2018 1:58PM EST [id number] [facility] on 2018-12-05 CNPN Telephone (ASWSTR) Normal 12-05-2018 [facility] SHER NICOLE ([id number]) 1960 [facility] Date Time Provider Department ([id number]) 12/05/18 IDA AGGARWAL) ASWSTR During your visit [...] 12/07/18 progress on 2018-11 PROGRESS HNO ID: [id number] Normal 11-30-2018 [facility] Author: Ida Roman) Jasen [facility] ([id number]) Service: ? Author Type: Physician Type: Progress Notes Filed: 11/30/2018 3:21 PM Note Text: Reviewed. Thanks. PROGRESS HNO ID: [id number] Normal 11-30-2018 [facility] Author: Taylor Ramirez [facility] ([id number]) Service: ? Author Type: Drawer In Plain Loom Type: Progress Notes Filed: 12/01/2018 10:49 AM Note Text: [facility] HEALTH OFFICE AUTOMATION TECHNICIAN QUICKNOTE Provider Action/FYI: I called and spoke with Trace and he said he will call to r/s his PET scan. He's aware he's due for fasting labs and an IFOBT. He lost I FOBT kit, but he will leaf size picker another one in the lab when he comes in for lab work. He will make a follow up appointment with PCP after PET scan. Patient identified by name and . Taylor Ramirez CMA PROGRESS HNO ID: [id number] Normal 11-30-2018 [facility] Author: Taylor Ramirez [facility] ([id number]) Service: ? Author Type: Drawer In Plain Loom Type: Progress Notes Filed: 12/01/2018 10:49 AM Note Text: [facility] CARE GAP REGISTRY DOCUMENTATION (OUTSIDE TEAMLET) Provider [...] CNPTOUTREACH Patient Outreach (FAMPWS) Normal 0 11-30-2018 [facility] SHER Segura ([id number]) 1960 M [facility] Date Time Provider Department ([id number]) [facility]30[facility] FAMP[facility] During your visit today, we recorded the following informati on about you: Taylor Ramirez CMA 12/01/2018 10:49 AM Signed [facility] CARE GAP REGISTRY DOCUMENTATION (OUTSIDE TEAMLET) Provider [...] No results found for: HDL LDL Chol, [place] (mg/dL) Date Value 04/07/2007 109 No results [...] CMA 12/01/2018 10:49 AM Signed [facility] OFFICE AUTOMATION TECHNICIAN QUICKNOTE Provider Action/FYI: I called and spoke with Trace and he said he will call to r/s his PET scan. He's aware he's due for fasting labs and an IFOBT. He lost IFOBT kit, but he will leaf size picker another one in the lab when he comes in for la [employer] work. He will make a follow up [...] 12/01/18 progress on 2018-11 PROGRESS HNO ID: [id number] Normal 11-10-2018 [facility] Author: Ida Roman) Jasen ([id number]) Service: ? Author Type: Physician Type: Progress Notes Filed: 11/10/2018 10:15 AM Note Text: Reviewed. Thanks. PROGRESS HNO ID: [id number] Normal 11-10-2018 [facility] Author: Taylor Ramirez ([id number]) Service: ? Author Type: Drawer In Plain Loom Type: Progress Notes Filed: 11/10/2018 9:51 AM Note Text: [facility] HEALTH OFFICE AUTOMATION TECHNICIAN QUICKNOTE Provider Action/FYI: I spoke with Trace [...] CMA progress on 2018-11 PROGRESS HNO ID: [id number] Normal 11-09-2018 [facility] Author: Taylor [facility] ([id number]) Service: ? Author Type: Drawer In Plain Loom Type: Progress Notes Filed: 11/10/2018 9:51 AM [...] No results found for: HDL LDL Chol, [place] (mg/dL) Date Value 04/07/2007 109 No results found for: TG HGB A1C: No results found for: HBA1C TSH: No results found for: TSH) Care Gap: Hyperlipidemia COPD Plan: ? Confirm PCP / Status - active ? Type of appointment needed: Follow-up Next available with Provider pcp or [employer] ? Consultation Appointments: PET SCAN Labs, HM [...] Location 01-10-2020 - Patient encounter External Provider [facility] 01-10-2020 procedure 12-19-2019 - Patient encounter External Provider [facility] 12-19-2019 procedure 12-06-2019 - Patient encounter External Provider [facility] 12-06-2019 procedure 11-23-2019 - Patient encounter External Provider [facility] 11-23-2019 procedure 01-10-2020 - Results Only External Provider External-N [facility] 01-10-2020 12-19-2019 Results Only External Provider External-N [facility] 12-06-2019 - Results Only External Provider External-N [facility] 12-06-2019 11-23-2019 Results Only External Provider External-N [facility] Procedures Procedure Name Date Provider Location EXTERNAL IMAGING 01-10-2020 - 01-10-2020 External Provider [facility] ([id number]) EXTERNAL LAB 12-19-2019 External Provider [facility] ic ([id number]) EXTERNAL LAB 12-06-2019 External Provider [facility] ic ([id number]) EXTERNAL IMAGING 12-06-2019 External Provider [facility] isis (05972) EXTERNAL LAB 11-23-2019 External Provider [facility] ic (18273) Plan of Treatment Plan Description Date Location DTAP,TDAP,TD (2 - Td) DTAP,TDAP,TD (2 - Td) 03-06-2028 - [facility] 03-06-2028 (44489) PROSTATE CANCER PROSTATE CANCER 03-06-2023 - [facility] SCREENING DISCUSSION SCREENING DISCUSSION 03-06-2023 (54334 ) DIABETES SCREEN DIABETES SCREEN 12-27-2021 - [facility] 12-27-2021 (36229) ANNUAL PCP TEAM CHRONIC ANNUAL PCP TEAM CHRONIC 11-08-2020 - [facility] DISEASE VISIT DISEASE VISIT 11-08-2020 (40979) LUNG CANCER SCREENING LUNG CANCER SCREENING 01-05-2020 - [facility] 01-05-2020 (98548) INFLUENZA (#1) INFLUENZA (#1) 2019 - [facility] 12-11-2019 (60341) LIPID SCREEN LIPID SCREEN 04-07-2012 - [facility] 04-07-2012 (46026) SHINGRIX VACCINE (1 of SHINGRIX VACCINE (1 of 2011 - [facility] 2) 2) 2011 (85655) COLORECTAL CANCER COLORECTAL CANCER 2011 - [facility] inic SCREENING,SEE MODIFIER SCREENING,SEE MODIFIER 2011 (2 3344) HEPATITIS C SCREENING HEPATITIS C SCREENING 1979 - [facility] 1979 (57326) HIV SCREENING HIV SCREENING 1979 - [facility] 1979 (79143) Immunizations Vaccine Notes Status Date Location Tdap (Age 7+) tetanus toxoid, (completed) 03-06-2018 - [facility] linic reduced diphtheria 03-06-2018 (27497) toxoid, and acellular pertussis vaccine, adsorbed Payers Payer Name Policy Number Location [employer] [id number] [facility] (44 195) The following information is from the original human readable contentNo Payer Records FoundNo Payer Records FoundNo Payer Records Found Social History Type Social History Date Location Description Tobacco smoking status Current every day smoker 11-09-2019 - [facility] NHIS 11-09-2019 (29283) History of tobacco use Cigarette Smoker [facility] (71446) Cigarettes smoked 11-09-2019 - [facility] ic current (pack per day) 11-09-2019 (94318) - Reported Tobacco use and Never used 11-09-2019 - [facility] exposure 11-09-2019 (54411) Alcohol intake Current drinker of 11-09-2019 - [facility] isis alcohol (finding) 11-09-2019 (61991) Alcohol Comment once or twice weekly 03-06-2018 - [facility] 03-06-2018 (68091) Sex Assigned At Not on file [facility] (65211) Exposure to SARS-CoV-2 Not sure [facility] (event) (95570) The following information is from the original [...] BE BASED ON THE PRIMARY CLINICAL RECORDS. [facility] provides no warranty or guarantee of the accuracy or completeness of information in this document. UNRECOGNIZED CONTENT PROVIDED BELOW FOR UNRECOGNIZED SECTION No Status Records FoundNo Status Records Found UNRECOGNIZED CONTENT PROVIDED BELOW FOR UNRECOGNIZED SECTION INFORMATION SOURCE DATE CREATED AUTHOR AUTHOR'S ORGANIZATIO N 12/12/2018 [facility] DATE CREATED AUTHOR AUTHOR'S ORGANIZATIO N 11/10/2019 [facility] UNRECOGNIZED CONTENT PROVIDED BELOW FOR UNRECOGNIZED SECTION Source Comments In the event this information is protected by the Federal Confidentiality of Alcohol and Drug Abuse Patient Records regulations: The Federal rules restrict any use of the information to criminally investigate or prosecute any alcohol or drug abuse patient.[facility] Hospital[facility] the event this information is protected by the Federal Confidentiality of Alcohol and Drug Abuse Patient Records regulations: The Federal rules restrict any use of the information to criminally investigate or prosecute any alcohol or drug abuse patient.[facility] HospitalIn the event this information is protected by the Federal Confidentiality of Alcohol and Drug Abuse Patient Records regulations: The Federal rules restrict any use of the information to criminally investigate or prosecute any alcohol or drug abuse patient.[facility] HospitalIn the event this information is protected by the Federal Confidentiality of Alcohol and Drug Abuse Patient Records regulations: The Federal rules restrict any use of the information to criminally investigate or prosecute any alcohol or drug abuse patient.[facility] HospitalIn the event this information is protected by the Federal Confidentiality of Alcohol and Drug Abuse Patient Records regulations: The Federal rules restrict any use of the information to criminally investigate or prosecute any alcohol or drug abuse patient.[facility] HospitalIn the event this information is protected by the Federal Confidentiality of Alcohol and Drug Abuse Patient Records regulations: The Federal rules restrict any use of the information to criminally investigate or prosecute any alcohol or drug abuse patient.[facility]
--- OUTSIDE RECORDS SUMMARY | 2020-01-22 15:07 | XMS RPT_ITS | CCD ---
:1960 External Reference #:[id number] Author Organization [facility] Care Team Providers Name Role Phone Ida Aggarwal) Primary Care Provider [phone] Medications Medication Name Sig Date Prescriber Location Albuterol albuterol HFA 01-01-2019 Ida Roman) [facility] (PROVENTIL HFA) 90 Jasen (46796) mcg/actuation inhaler Indications: Wheezing , SOB (shortness of breath) Inhale 2 Puffs as instructed every 4 hours as needed for Wheezing/Shortness of Breath. 1 Inhaler 5 01/01/2019 Active Comment: Inhale 2 Puffs as instructed every 4 hours as needed for Wheezing/Shortness of Breath. Sertraline sertraline (ZOLOFT) 50 07-20-2019 Ida Roman) [facility] mg tablet Indications: Jasen (4419 5) Current moderate episode of major depressive disorder without prior episode (HCC) Take 1 tablet by mouth once daily. 30 tablet 2 07/20/2019 Active Comment: Take 1 tablet by mouth once daily. Problems Active Problems Category Problem Name Status Date Location Alcohol-related History of alcohol Active [facility] disorders abuse (60165) Chronic obstructive [facility] pulmonary disease and lung disease (03875 ) bronchiectasis Disorders of lipid Mixed hyperlipidemia Active 2007 [facility] metabolism (03011) Residual codes; Tobacco user Active [facility] in unclassified (19056) Past or Other Problems Category Problem Name Status Date Location Diabetes mellitus Impaired fasting Completed 2007 - [facility] without complication glycaemia (66981) Residual codes; FH: Cardiovascular Completed 2007 - [facility] unclassified disease (07401) Results Result Name Value Range Unit Interpretation Flag Date Location progress on 2019-10 PROGRESS HNO ID: [id number] Normal 11-09-2019 [facility] Author: Mario Leiva ([id number]) Service: ? Author Type: Physician Type: Progress [...] 2019-11-09 CNOV Office Visit (FAMPWS) Normal 11-09-[address] [place] [address] [facility] SHER NICOLE ([id number]) [address] [facility] Date Time Provider Department (12886) 11/09/19 2:40 PM [facility] During your visit today, we recorded the following informati on about you: Pulse Blood pressure Weight 90/minute 116/68 81.6 kg Bonita Huerta Ma 11/09/2019 2:49 PM Signed HOSPITAL/ER FOLLOW UP: Reason for visit: head injury after fall Which facility: [facility] Date of visit: 10/30/19 Diagnosis: laceration Testing [...] Mario Whitten MD Referring Provider: IDA AGGARWAL) [[id number]] Allergies As of Date: 11/09/2019 (No Known [...] visit: head injury after fall Which facility: [facility] Date of visit: 10/30/19 Diagnosis: laceration Testing [...] 11/09/19 progress on 2019-07 PROGRESS HNO ID: [id number] Normal 07-20-2019 [facility] Author: Ida Roman) Jasen Leiva ([id number]) Service: ? Author Type: Physician Type: Progress [...] weeks. Currently homeless and staying at the [facility]. Following COVID 19 restrictions of staying inside and washing hands. S haring rooms and bunk beds with other residents. No history of depression or anxiety. Not seeing counseling currently, but has in the past at 180. PHQ-9 (Patient Health Questionnaire-9) from [employer] on 01/2020 All calculations should be rechecked [...] more than 50% of the to richmond ctuf-kw-[id number] time of the visit in counseling / coordination of care. MD navarro Watson [facility]07-[facility]) Normal 07-18-2019 [place] [facility] SHER NICOLE ([id number]) [address] [facility] Date Time Provider Department (20858) 07/18/19 [facility]AL[facility] During your visit today, we recorded the following informati on about you: Jaycob Todd [facility] 07/18/2019 4:04 PM Signed Patient called in [...] on 2019-07-17 CNPN Telephone (FAMPWS) Normal 07-17-2019 [place] [facility] SHER NICOLE ([id number]) [address] [facility] Date Time Provider Department (45046) 07/17/19 [facility]WAL[facility] During your visit today, we recorded the following informati on about you: Charu Ann, MOLD CHANGER, MOLD CHANGER 07/17/2019 12:19 PM Signed Clau nurse from Pulmonary here in [place] calls states pt voices to them that he is depressed And would like someone to talk to. eir pai gow dealer wanted her to reach out to u [...] 12:38 PM Signed Spoke with Eliot at [facility] [place]. The patient is re siding there. She will have the patient return call to our office after lunch. Fredrick Singh RN 07/18/2019 3:58 PM Signed Patient returned call. Transferred to qa auditor for VV with PCP. Fredrick Singh RN Jossie Javier [facility] 07/19/2019 11:37 AM Signed Spoke with patient [...] 07/18/19 progress on 2019-03 PROGRESS HNO ID: [id number] Normal 03-22-2019 [facility] Author: Jessica ChristiansenRn) MITALI Cooper [place] ([id number]) Service: ? Author Type: Registered Nurse Type: [...] pt. Jessica Cooper RN PROGRESS HNO ID: [id number] Normal 03-22-2019 [facility] Author: Jessica ChristiansenRn) MITALI Cooper ([id number]) Service: ? Author Type: Registered Nurse Type: Progress Notes Filed: 03/22/2019 10:45 AM Note Text: PRIMARY CARE COORDINATION QUICK NOTE Provider Action/FYI Unable to reach pt. Will discharge from care coordination. Patient identified by name and date . Received return letter. [facility] was unable to deliver. cnptoutreach on 201 12-22-11 CNPTOUTREACH Patient Outreach (FAMPWS) Normal 1 05-23-2018 [place] [facility] SHER NICOLE ([id number]) [address] [facility] Date Time Provider Department (32963) 03/22/19 JESSICA COOPER (RN) FAMPWS During your [...] Camarena - Fully Assessed Reason for Visit: [facility] [3612] Prescriptions as of 03/22/2019 [...] Encounter Status:Closed by JESSICA COOPER on 03/22/19 [facility] (FAMPWS) Normal 1 05-23-2018 [place] [facility] SHER NICOLE ([id number]) [address] [facility] Date Time Provider Department (19000) 03/22/19 JESSICA COOPER (MITALI) FAMPWS During your visit today, we recorded the following informati on about you: Jessica Cooper RN, RN 03/22/2019 10:45 AM Signed PRIMARY CARE COORDINATION QUICK NOTE Provider Action/FYI Unable to reach pt. Will discharge from care coordination. Patient identified by name and date . Received return letter. [facility] was unable to deliver. Allergies As of Date: 03/22/2019 (No Known Allergies) Date Reviewed: 01/02/2019 Reviewed by: Ivania ChristiansenRn) MITALI Camarena - Fully Assessed Reason for Visit: [facility] [3612] Prescriptions as of 03/22/2019 [...] 03/22/19 progress on 2019-02 PROGRESS HNO ID: [id number] Normal 02-22-2019 [facility] Author: MITALI Aguilar Rnveland ([id number]) Service: ? Author Type: Registered Nurse Type: Progress Notes Filed: 02/26/2019 1:36 PM Note Text: PRIMARY CARE COORDINATION QUICK NOTE Provider Action/FYI Letter sent. Patient identified by name and date . Sent certified letter about need to follow up with Care Coor dinator progress on 2019-02 PROGRESS HNO ID: [id number] Normal 02-14-2019 [facility] Author: Ida Roman) Jasen Leiva ([id number]) Service: ? Author Type: Physician Type: Progress Notes Filed: 02/14/2019 9:22 AM Note Text: Reviewed. Send letter? PROGRESS HNO ID: [id number] Normal 02-14-2019 [facility] Author: MITALI Aguilar Rn ([id number]) Service: ? Author Type: Registered Nurse Type: Progress Notes Filed: 02/26/2019 1:36 PM Note Text: PRIMARY CARE COORDINATION QUICK NOTE Provider Action/FYI Still unable to reach pt. Patient identified by name and date . Called patient, phone is not accepting phone calls. Called t o [facility], no one staying there by that name. cnptoutreach on 201 12-20-05 CNPTOUTREACH Patient Outreach (FAMPWS) Normal 1 04-16-2018 [place] SHER Segura ([id number]) [address] [facility] Date Time Provider Department (59931) 02/14/19 [facility]ESS[facility] COOPER (RN) [facility] During your visit today, we recorded the following informati on about you: Jessica Cooper RN, RN 02/26/2019 1:36 PM Signed PRIMARY CARE COORDINATION QUICK NOTE Provider Action/FYI Still unable to reach pt. Patient identified by name and date . Called patient, phone is not accepting phone myra ls. Called to [facility], no one staying there by that name. [...] Camarena - Fully Assessed Reason for Visit: [facility] [0569] Prescriptions as of 02/14/2019 Sig: ALBUTEROL SULFATE [...] 02/26/19 progress on 2019-01 PROGRESS HNO ID: [id number] Normal 01-24-2019 [facility] Author: Jessica (Rn) MITALI Cooper Leiva ([id number]) Service: ? Author Type: Registered Nurse Type: Progress Notes Filed: 01/24/2019 11:04 AM Note Text: PRIMARY CARE COORDINATION QUICK NOTE Patient identified by name and date . Called again to phone number in chart. Currently not accepti ng calls. Unable to contact pt at this time. cnptoutreach on 12-20-15 CNPTOUTREACH Patient Outreach (FAMPWS) Normal 1 [place] [facility] SHER NICOLE ([id number]) 1960 [facility] Date Time Provider Department (93851) 01/24/19 JESSICA COOPER (RN) FAMPWS During your [...] 01/24/19 progress on 2019-01 PROGRESS HNO ID: [id number] Normal 01-23-2019 [facility] Author: Siomara Paniagua) Bo [place] ([id number]) Service: ? Author Type: Nurse Practitioner Type: Progress Notes Filed: 01/23/2019 9:37 AM Note Text: Reviewed. Siomara Harden, VIKKI.[facility] PROGRESS HNO ID: [id number] Normal 01-23-2019 [facility] Author: Jessica (Rn) MITALI Cooper [place] ([id number]) Service: ? Author Type: Registered Nurse Type: Progress Notes Filed: 01/24/2019 10:46 AM Note Text: PRIMARY CARE COORDINATION QUICK NOTE Provider Action/FYI Unable to reach pt for TCM. No longer staying at [facility] Patient identified by name and date . Called to [facility], pt [facility] They have no other information about him. rolando on 201 12-19-14 CNPTOUTREACH Patient Outreach (FAMPWS) Normal 1 [place] [facility] SHER NICOLE ([id number]) 1960 Darian Leiva Date Time Provider Department (41744) 01/23/19 JESSICA COOPER (RN) FAMPWS During your visit today, we recorded the following informati on about you: Jessica Cooper RN, RN 01/24/2019 10:46 AM Signed PRIMARY CARE COORDINATION QUICK NOTE Provider Action/FYI Unable to reach pt for TCM. No longer staying at [facility] Patient identified by name and date . Called to [facility] , pt has been di smissed from the long term. They have no other information about him. Siomara Soriano APRN.ENGINEERING INTERN 01/23/2019 9:37 AM Signed Reviewed. Thanks, Siomara Soriano APRN.ENGINEERING INTERN Allergies As of Date: 01/23/2019 (No Known Allergies) Date Reviewed: 01/02/2019 Reviewed by: Ivania (Rn) MITALI Camarena - Fully Assessed Reason for Visit: [facility] Follow Up [3610] Prescriptions as of [...] 01/24/19 progress on 2019-01 PROGRESS HNO ID: [id number] Normal 01-22-2019 [facility] Author: Jessica (Mitali) MITALI Cooper [place] ([id number]) Service: ? Author Type: Registered Nurse Type: [...] I knew, he was living at the [facility] , I told the other girl that called that as well PROGRESS HNO ID: [id number] Normal 01-22-2019 [facility] Author: Charu Farmer ([employer]) IDALIA Ann [place] ([id number]) Service: ? Author Type: LICENSED NURSE Type: Progress Notes Filed: 02/19/2019 3:01 AM Note Text: [facility] on the and discharged the coul d not complete tcm due to being discharged same day. Spoke with Siomara in Dr Carina Aggarwal's absence and she agrees Pt should have care coordination foll owing him. Gave papers to Jessica LUCIO to follow per TCM. rolando on 12-19-13 CNPTOUTREACH Patient Outreach (FAMPWS) Normal 1 [place] [facility] SHER NICOLE ([id number]) 1960 [facility] [place] Date Time Provider Department (20987) 01/22/19 JESSICA COOPER (RN) FAMPWS During your [...] I knew, [facility], I to ld the other girl that called that as well Allergies As of Date: 01/22/2019 (No Known Allergies) Date Reviewed: 01/02/2019 Reviewed by: Ivania (Rn) MITALI Camarena - Fully Assessed Reason for Visit: [facility] Follow Up [3610] Prescriptions as of [...] 01/22/19 progress on 2019-01 PROGRESS HNO ID: [id number] Normal 01-18-[address] [facility] Author: Charu Farmer (Idalia) IDALIA Ann ([id number]) Service: ? Author Type: LICENSED NURSE Type: Progress Notes Filed: 02/19/2019 3:01 AM Note Text: Attempted to reach pt on two other atemps and machine just s [employer] pt not available but is not a answering machine where message can b e left.Pt does have a hospital f/up scheduled with Siomara Soriano CNP ON . cnptoutreach on 201 12-19-08 CNPTOUTREACH Patient Outreach (FAMPWS) Normal 1 [place] [facility] SHER NICOLE ([id number]) [address] [facility] Date Time Provider Department (62667) 01/17/19 IDA AGGARWAL) FAMPWS During your visit today, we recorded the following informati on about you: [place] Ann LPN, IDALIA 02/19/2019 3:01 AM Signed Attempted to call pt for tcm, number buchanan s not have answering machine will need to try back. TRANSITION CARE MANAGEMENT (TCM) INITIAL CONTACT Machine [employer] Outreach Provider Action/FYI: Initial contact with patient [...] 3:01 AM Signed Received discharge papers fr [facility] 01/19/19 again pt was readmitted on [...] alcohol abuse [F10.11] More... Encounter Status:Closed by [employer], MunaxUSER on 02/19/19 progress on 2018-12 PROGRESS HNO ID: [id number] Normal 01-04-2019 [facility] Author: Evangelina Payne [place] ([id number]) Service: ? Author Type: ? Type: Progress [...] on 2018-12 OBSOLETE Refill (FAMPWS) Normal 12-29-2018 [facility] SHER NICOLE ([id number]) 1960 [facility] Date Time Provider Department (47366) 12/29/18 IDA AGGARWAL) FAMPWS During your visit [...] No RX INSTRUCTIONS: MyChart request. Claudia Thomas MOLD CHANGER Allergies As of Date: 12/29/2018 (No Known [...] not on file. Encounter Status:Closed by IDA AGGRAWAL MD on 9 cnpn on 2018-12-29 CNPN Telephone ([id number]) Normal 12-29 [place] [facility] SHER NICOLE ([id number]) 1960 [facility] Date Time Provider Department (75100) 12/29/18 AIMEE HERNANDEZ [id number] During your visit today, we recorded the following informati on about you: Theresa Thibodeaux 01/02/2019 3:50 PM Signed Called patient again, and le ft a detailed message; again, requested return call. Theresa Thibodeaux 01/03/2019 1:33 PM Signed Patient returned call from message re scheduled appointme nts. Patient requested and confirmed appointments on 01/07 AND 01/10/19. CT is being done at [place] on 01/04/19 Trung Briones MD 01/18/2019 7:40 AM Signed Looks like he cancelled his biopsy procedure Please call and find out how he is doing and if he is agreeable to rescheduling so I can reach out to the procedure team to help Avi Lowe Ma 01/18/2019 11:03 AM Signed [facility] but per recording pt was unavailable. Attempted [...] pt has calvin moore dismissed from the [employer] where he was staying, and the [employer] has no other information about him, noted [...] (PPP) [Time] 1.0 0.9-1.3 s Normal [address] [facility] (49598) Comment: Result Comment: Vitamin K An tagonist (VKA) Therapeutic Range: INR 2 to 3 (Target INR of 2.5) Note: For patients treated w ith VKA drugs, such as warfarin, the [place] [employer] 2012 Guideline recommends a therapeutic INR range of 2 to 3 (target INR of 2.5). This recommendation includes high-risk patients with antiphospholipid syndrome with previous arterial or venous thromboembolism, current-generation mechanical or bioprosthetic aortic heart valve replacement. Note: Patients with relay mechanic al aortic valve replacement and additional risk factors for thromboembolic events (atrial fibrillation, previous thromboembolism, LV dysfunction, hypercoagulable conditions) or an older generation mecha nical AVR (i.e., ball in-Cage) or any mechanical MVR should have a INR therapeutic range of 2.5 to 3.5 (target INR of 3). Kalen GH, et al. Chest 2012 , 141:7S-47S Kayla PINEDA, et al. [facility] 20 17, 70: 252-289 Performed By: #### CBCDIF, P T, PTT, BMP ####[place] [id number] [place], [place] [phone] PT Coag (PPP) [Time] 10.6 9.7-13.0 sec Normal [address] [facility] (38041) Comment: Performed By: #### CBCDIF, P T, PTT, BMP ####[place] [address] [place], [place] [phone] cbc and differential on 2018-12-27 Abs Baso 0.06 <0.11 k/uL Normal 12-27-[address] [facility] (49662) Comment: Performed By: #### CBCDIF, P T, PTT, BMP ####[place] [address] [place] [phone] Abs Durham 0.64 <0.87 k/uL Normal 12-27-[address] [facility] (88206) Comment: Performed By: #### CBCDIF, P T, PTT, BMP ####[place] [address] [place], [place] [phone] Abs Neut 7.32 1.45-7.50 k/uL Normal 12-27-[address] [facility] (12734) Comment: Performed By: #### CBCDIF, P T, PTT, BMP ####[place] [address] [place], [place] [phone] Absolute nRBC <0.01 <0.01 Normal 12-27-[address] [facility] (93175) Comment: Performed By: #### CBCDIF, P T, PTT, BMP ####[place] [id number] [place], [place] [phone] Basophils/100 WBC (Bld) 0.6 % Normal [address] [facility] (99523) Comment: Performed By: #### CBCDIF, P T, PTT, BMP ####[place] [address] [place], [place] [phone] DTYPE Auto Diff Normal 12-27-[address] [facility] (53555) Comment: Performed By: #### CBCDIF, P T, PTT, BMP ####[place] [address] [place], [place] [phone] Eosinophils (Bld) [#/Vol] 0.16 <0.46 k/uL Normal 12-[address] [facility] (74499) Comment: Performed By: #### CBCDIF, P T, PTT, BMP ####[place] [address] [place], [place] [phone] Eosinophils/100 WBC (Bld) 1.6 % Normal 12-[address] [facility] (03588) Comment: Performed By: #### CBCDIF, P T, PTT, BMP ####[place] [address] [place] [phone] Erythrocyte distribution 12.7 11.5-15.0 % Normal 12-27 [facility] width (RBC) [Ratio] [place] (21201) Comment: Performed By: #### CBCDIF, P T, PTT, BMP ####[place] [address] [place], [place] [phone] Hematocrit (Bld) [Volume 39.5 39.0-51.0 % Normal 12-27 [facility] fraction] [place] (24091) Comment: Performed By: #### CBCDIF, P T, PTT, BMP ####[place] [address] [place] [phone] Hemoglobin (Bld) 12.4 13.0-17.0 g/dL Low 12-27-2018 [facility] [Mass/Vol] [place] (93290) Comment: Performed By: #### CBCDIF, P T, PTT, BMP ####[place] [address] [place], [place] [phone] Lymphocytes (Bld) [#/Vol] 1.72 1.00-4.00 k/uL Normal 12-[address] [facility] (52385) Comment: Performed By: #### CBCDIF, P T, PTT, BMP ####[place] [address] [place], [place] [phone] Lymphocytes/100 WBC (Bld) 17.4 % Normal 12-[address] [facility] (27624) Comment: Performed By: #### CBCDIF, P T, PTT, BMP ####[place] [address] [place], [place] [phone] MCH (RBC) [Entitic mass] 31.2 26.0-34.0 pG Normal 12-[address] [facility] (89908) Comment: Performed By: #### CBCDIF, P T, PTT, BMP ####[place] [address] [place], [place] [phone] MCHC (RBC) [Mass/Vol] 31.4 30.5-36.0 g/dL Normal 12-28-[address] [facility] (55746) Comment: Performed By: #### CBCDIF, P T, PTT, BMP ####[place] [address] [place], [place] [phone] MCV (RBC) [Entitic vol] 99.2 80.0-100.0 fL Normal 12-[address] [facility] (64493) Comment: Performed By: #### CBCDIF, P T, PTT, BMP ####[place] [address] [place], [place] [phone] Monocytes/100 WBC (Bld) 6.5 % Normal [address] [facility] (66490) Comment: Performed By: #### CBCDIF, P T, PTT, BMP ####[place] [address] [place], [place] [phone] Neutrophils/100 WBC (Bld) 73.9 % Normal 12-[address] [facility] (94857) Comment: Performed By: #### CBCDIF, P T, PTT, BMP ####[place] [id number] [place], [place] [phone] NRBCs 0.0 0 /100 WBC Normal 12-27-[address] [facility] (79812) Comment: Performed By: #### CBCDIF, P T, PTT, BMP ####[facility] [address] [place], [place] [phone] Platelet mean volume 11.0 9.0-12.7 fL Normal [facility] (Bld) [Entitic vol] [place] (47087) Comment: Performed By: #### CBCDIF, P T, PTT, BMP ####[place] [address] [place], [place] [phone] Platelets (Bld) [#/Vol] 252 150-400 k/uL Normal [address] [facility] (86430) Comment: Performed By: #### CBCDIF, P T, PTT, BMP ####[place] [address] [place], [place] [phone] RBC (Bld) [#/Vol] 3.98 4.20-6.00 m/uL Low 12-27-2018 [facility] (83754) Comment: Performed By: #### CBCDIF, P T, PTT, BMP ####[facility] [place] [place], [place] [phone] WBC (Bld) [#/Vol] 9.90 3.70-11.00 k/uL Normal 12-27-[address] [facility] (18873) Comment: Performed By: #### CBCDIF, P T, PTT, BMP ####[place] [address] [place], [place] [phone] basic metabolic panl on 2018-12-27 Anion gap [Moles/Vol] 12 9-18 mmol/L Normal 12-28-[address] [facility] (45855) Comment: Performed By: #### CBCDIF, P T, PTT, BMP ####[facility] [place] [place], [place] [phone] Calcium [Mass/Vol] 9.2 8.5-10.2 mg/dL Normal 12-27-[address] [facility] (05231) Comment: Performed By: #### CBCDIF, P T, PTT, BMP ####[facility] [place] [place], [place] [phone] Chloride [Moles/Vol] 100 97-105 mmol/L Normal [facility] (56734) Comment: Performed By: #### CBCDIF, P T, PTT, BMP ####[facility] [place] [place], [place] [phone] CO2 [Moles/Vol] 27 22-30 mmol/L Normal 12-27-2018 [facility] (54439) Comment: Performed By: #### CBCDIF, P T, PTT, BMP ####[facility] [place] [place], [place] [phone] Creatinine [Mass/Vol] 0.75 0.73-1.22 mg/dL Normal 12-28-[address] [facility] ([id number]) Comment: Performed By: #### CBCDIF, P T, PTT, BMP ####[facility] [place] [place], [place] [phone] eGFR- Amer. >60 Normal 12-27-[address] [facility] ([id number]) Comment: Performed By: #### CBCDIF, P T, PTT, BMP ####[facility] [place] [place], [place] [phone] GFR/1.73 sq M predicted >60 mL/min/{1.73_m2} Normal 12-27-2018 [facility] among non-blacks MDRD [place] ([id number]) (S/P/Bld) [Vol rate/Area] Comment: Result Comment: eGFR [...] By: #### CBCDIF, P T, PTT, BMP ####[facility] [address] Studios[place], [place] [phone] Glucose [Mass/Vol] 92 74-99 mg/dL Normal 12-27-[address] [facility] ([id number]) Comment: Result Comment: The [place] Diabetes Association (ADA) provides guidance for cutoff [...] for diagnosis of diabetes. Reference: Standards of [facility] Care in Diabetes 2016, [place] Diabetes Association. Diabetes Care. 2016.39(Suppl 1). Performed By: #### CBCDIF, P T, PTT, BMP ####[facility] [address] [place], [place] [phone] Potassium [Moles/Vol] 4.1 3.7-5.1 mmol/L Normal 12-28-[address] [facility] (35453) Comment: Performed By: #### CBCDIF, P T, PTT, BMP ####[facility] [address] [place], [place] [phone] Sodium [Moles/Vol] 139 136-144 mmol/L Normal 12-27-[address] [facility] ([id number]) Comment: Performed By: #### CBCDIF, P T, PTT, BMP ####[facility] [place] [place], [place] [phone] Urea nitrogen [Mass/Vol] 8 9-24 mg/dL Low 12-[address] [facility] ([id number]) Comment: Performed By: #### CBCDIF, P T, PTT, BMP ####[facility] [place] [place], [place] [phone] aptt on 2018-12-27 aPTT Coag (Bld) [Time] 28.5 23.0-32.4 sec Normal [address] [place] [address] ([id number]) Comment: Result Comment: Unfractionat ed Heparin Therapeutic [...] By: #### CBCDIF, P T, PTT, BMP ####[facility] [place] [place], [place] [phone] cnpn on 2018-12-21 CNPN Telephone (LAYLA) Normal 12-21-2018 [facility] SHER NICOLE ([id number]) 1960 [facility] Time Provider Department ([id number]) 12/21/18 TRUNG BRIONES During your visit today, we recorded the following informati on about you: Trung Briones MD 12/21/2018 9:42 AM Signed Please call and update patient that I sp toi to the [facility] team and one of their schedulers will call to set up a final pro cedure date, but they did ask that labs get done before the scheduled procedure. The orders are in, please see if he can get these done in the next few days at any local [facility] lab so that we can see the results. Obdulia Amezcua 12/21/2018 10:12 AM Signed Left a voicemail for the pt to call the office b ack in regards to the message below. If pt calls back please let him know [facility] will call him to schedule his procedure, but he first needs to have lab work done at any of our [facility] labs, the order for lab work is placed. If it is better to go to a lab in [place] I did research and this on is close to him. [facility] [place] [address] [facility]. [place], [place] [address] Obdulia Amezcua 12/25/2018 3:55 PM Signed Left a voicemail for the pt to call the office b ack in regards to the message below. Obdulia Amezcua 12/26/2018 10:17 AM Signed Spoke with Pt, Pt verbalized understanding. No further quest ions. Pt has not heard from [facility] yet, he will g o and get the blood work done and then wait to hear back from [facility]. Trung Briones MD 12/27/2018 8:43 AM Signed Records from [place] received, 10/06/18 E D visit for which [...] density appears larger at this time. [facility] [place] is going to schedule interventional pulm f [...] 12/26/18 progress on 2018-12 PROGRESS HNO ID: [id number] Normal 12-20-2018 [place] Author: Aimee Hernandez [facility] Service: ? [place] Author Type: Physician ([id number]) Type: Progress Notes Filed: 12/21/2018 2:43 PM [...] Physician Performing Bronchoscopy: Dr. Gomes or Dr. Heranndez Anesthesia Type: General Special Requests: None Needs Labs: Yes, CBC, BMP, PT/INR and PTT - asked for patien t to get this done prior to bronch day Needs EKG: No Needs CT prior: Yes EMN Bronchoscopy Protocol Chest CT Does the pt need cardiac clearance? No Is he/she on anticoagulants/anti-plt therapy? No Nursing Considerations: (ie: shelter, TB, respiratory isolation, etc.) none Diagnosis/Reason for [...] results found for: CREAT PROGRESS HNO ID: [id number] Normal 12-20-2018 [place] Author: Trung Br[facility] Service: ? 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 cnov on 2018-12-20 CNOV Office Visit (PULMLO) Normal 12-21-19 19 [place] [facility] SHER NICOLE ([id number]) 1960 M URIEL [place] Date Time Provider Department ([id number]) 12/20/18 9:45 AM TRUNG BRIONES During your visit today, we recorded the following informati on about you: Temperature Pulse Blood pressure Weight 98.6 degrees 73/minute 115/71 82 kg Height 1.753 m Obdulia Amezcua 12/20/2018 9:39 AM Signed [place] [facility] FACTS LAB HOURS: [facility] lab is open from 7:30am to 6pm , open from 7:30am-5pm on Tuesday and open 8am-12pm on Tuesday. Closed on Tuesday [email or web address] lab is open from 7:30am to 5pm [...] 24 hours prior to the scheduled exam. [facility] Express Care -- No appointment needed At the [facility], patients 2 years and older can get walk -in medical attention for common health problems including: Cold and flu symptoms Conjunctivitis Ear and throat infections Minor bumps and cuts Seasonal allergies Skin rashes Simple sprains and strains Sinus infections Urinary tract infections Upper respiratory tract infections Locations and Times [facility] - [address] [facility], [facility] - [address] [place] [address] [facility] - Tuesday through Tuesday 6 AM - 9 PM - Tuesday and Tuesday 8 AM - 4 PM For Express Care LOCATIONS, HOURS OF OPERATION and CUR RENT WAIT TIMES, visit the following link for details. [email or web address]%20Care%[email or web address] D Emergency Department Parviz Stoddard [facility] - [address]), [facility] [phone] Pharmacy Hours: Tuesday through Tuesday 8 am to 6 pm Opt in to receive text reminders for your appointments with [facility] specialist today. To opt in, text 4clinictxt to [phone]. 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 No pets REVIEW OF [...] file Gets together: Not on file Attends buddhist service: Not on file Active member of [...] patient as noted below: Chest CT: 10/06/[address] [facility] [address], no im age to review [...] signature obtained to get actual images from [place] The above plan was discussed with the rubi botello and all questions were answered. I will see Mr. Nicole for follow-up in 2 months Trung Briones MD Pulmonary and Critical Care Medicine [facility] [place] December 20, 2018 9:44 AM I spent 60 minutes in the visit, with more than 50% of the total azgs-ut-dbad time of the visit in counseling / coordination of care. Referring Provider: IDA AGGARWAL) [[id number]] Allergies As of Date: 12/20/2018 (No Known Allergies) Date Reviewed: 12/20/2018 Reviewed by: Trung Briones - Fully Assessed Reason for Visit: New Patient [172] Cmt: Left lung lesion Primary Visit Diagnosis:Lung mass [R91.8] Other Visit Diagnoses:Dyspnea on exertion [R06.09] Chronic obstructive pulmonary disease, unspecified COPD type (HCC) [J44.9] Order(s):ECG COMPLETE [ECG01] Order #: [id number] FUTURE Prescriptions as of 12/20/2018 Sig: FLUTICASONE [...] [F10.11] More... Other instructions from your clinician: [place] AND [facility]lyssafregoriNEW [facility]EX[facility] Ceres [facility] FACTS LAB HOURS: [employer] lab is open from 7:30am to 6pm M-, open from 7:30am -5pm on Tuesday and open 8am-12pm on Tuesday. Closed on Tuesday [email or web address] lab is open from 7:30am to 5pm [...] 24 hours prior to the scheduled exam. [facility] -- No appointment needed At the [facility], patients 2 years and older can get walk -in medical attention for common health problems including: Cold and flu symptoms Conjunctivitis Ear and throat infections Minor bumps and cuts Seasonal allergies Skin rashes Simple sprains and strains Sinus infections Urinary tract infections Upper respiratory tract infections Locations and Times [facility] - [address] [facility], [facility] [place] - [address] [facility] - Tuesday through Tuesday 6 AM - 9 PM - Tuesday and Tuesday 8 AM - 4 PM For Express Care LOCATIONS, HOURS OF OPERATION and CURRENT W AIT TIMES, visit the following link for details. [email or web address]]=Expr ess%20Care%20Clin icsAND Emergency Department Parviz Stoddard [facility] - [address] (off of [facility] [place]), [facility] [phone] Pharmacy Hours: Tuesday through Tuesday 8 am to 6 pm Opt in to receive text reminders for your appointments with [facility] health specialist today. To opt in, text 4clinictxt to [phone]. Disposition: Return in about 2 months (around 02/19/2019). Follow-up and Disposition History Recorded Encounter Status:Closed by TRUNG BRIONES MD on 12/20/18 progress on 2018-12 PROGRESS HNO ID: [id number] Normal 12-13-2018 [facility] Author: Ida Gandara () Jasen [facility] ([id number]) Service: ? Author Type: Physician Type: Progress Notes Filed: 12/13/2018 11:43 AM Note Text: Chief Complaint Patient presents with: follow up PET scan results SILVERIO Nicoel is a 58 year old male who [...] file Gets together: Not on file Attends buddhist service: Not on file Active member of [...] 2018-12-13 CNOV Office Visit (FAMPWS) Normal 12-14-19 [facility] SHER NICOLE ([id number]) 1960 [facility] Date Time Provider Department ([id number]) 12/13/18 11:20 AM IDA AGGARWAL) FAMPWS During [...] file Gets together: Not on file Attends buddhist service: Not on file Active member of [...] Aggarwal MD Referring Provider: IDA AGGARWAL () [[id number]] Allergies As of Date: 12/13/2018 (No Known Allergies) Date Reviewed: 12/13/2018 Reviewed by: Natanael Dennis Ma - Fully Assessed Reason for Visit: follow up PET scan results [Other] Primary Visit Diagnosis:Mass of left lung [R91.8] Other Visit Diagnosis:Abnormal PET scan of lung [R94.2] Order(s):CONSULT TO PULM/CRITICAL CARE [210079] Order #: [id number]: 1 Prescriptions as of 12/13/2018 Sig: FLUTICASONE [...] 12/13/18 progress on 2018-12 PROGRESS HNO ID: [id number] Normal 12-12-2018 [place] Author: [facility] Service: Nuclear Medicine ([id number]) Author Type: Bill Of Lading Clerk Type: Progress Notes Filed: 12/12/2018 12:14 PM [...] regarding radiation safety can be found using [facility] link: [email or web address] SIGNATURE: Prosper Mont[facility] PATIENT NAME: Sher Nicole DATE: December 12, 2018 TIME: 12:14 PM PAGER/CONTACT #: id pet/ct whole body init on 2018-12-12 NM PET/CT WHOLE * * *Final Report* * * Normal 0 12-12-2018 [facility] BODY INIT DATE OF EXAM: Dec 12 2018 1:29PM ([id number]) [facility] 0061 - NM PET/CT WHOLE BODY INIT [...] EXTREMITIES/SKELETON: No suspicious FDG avid osseous process. 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: TC Transcribe Date/Time: Dec 12 2018 1:51P Dictated by : JAUN CHILD MD This examination was interpreted and the report reviewed and electronically signed by: JAUN CHILD MD on Dec 12 2018 1:58PM EST [id number] [facility] 2018[facility]05 CNPN Telephone (ASWSTR) Normal 12-05-2018 [place] [facility] SHER NICOLE ([id number]) 1960 P[facility] to [facility] Date Time Provider Department ([id number]) 12/05/18 IDA AGGARWAL) ASWSTR During your visit [...] 12/07/18 progress on 2018-11 PROGRESS HNO ID: [id number] Normal 11-30-2018 [facility] Author: Ida Roman) Jasen [facility] ([id number]) Service: ? Author Type: Physician Type: Progress Notes Filed: 11/30/2018 3:21 PM Note Text: Reviewed. Thanks. PROGRESS HNO ID: [id number] Normal 11-30-2018 [facility] Author: Taylor Ramirez [facility] ([id number]) Service: ? Author Type: Machine Cell Tuber Type: Progress Notes Filed: 12/01/2018 10:49 AM Note Text: [facility] HEALTH DECK SCALER QUICKNOTE Provider Action/FYI: I called and spoke with Trace and he said he will call to r/s his PET scan. He's aware he's due for fasting labs and an IFOBT. 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 He will make a follow up appointment with PCP after PET scan. Patient identified by name and . Taylor Ramirez CMA PROGRESS HNO ID: [id number] Normal 11-30-2018 [facility] Author: Taylor Ramirez [facility] ([id number]) Service: ? Author Type: Machine Cell Tuber Type: Progress Notes Filed: 12/01/2018 10:49 AM Note Text: [facility] CARE GAP REGISTRY DOCUMENTATION (OUTSIDE TEAMLET) [...] CNPTOUTREACH Patient Outreach (FAMPWS) Normal 0 11-30-2018 [place] SHER Segura ([id number]) 1960 M [facility] Date Time Provider Department ([id number]) 11/30/[facility] FAMP[facility] During your visit today, we recorded the following informati on about you: Taylor Ramirez CMA 12/01/2018 10:[address] [facility] CARE GAP REGISTRY DOCUMENTATION (OUTSIDE TEAMLET) [...] No results found for: HDL LDL Chol, [place] (mg/dL) Date Value 04/07/2007 109 No results [...] CMA 12/01/2018 10:49 AM Signed [facility] SCALER QUICKNOTE Provider Action/FYI: I called and spoke with Trace and he said he will call to r/s his PET scan. He's aware he's due for fasting labs and an IFOBT. 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 He will make a follow up [...] 12/01/18 progress on 2018-11 PROGRESS HNO ID: [id number] Normal 11-10-[address] [facility] Author: Ida Roman) Jasen ([id number]) Service: ? Author Type: Physician Type: Progress Notes Filed: 11/10/2018 10:15 AM Note Text: Reviewed. Thanks. PROGRESS HNO ID: [id number] Normal 11-10-[address] [facility] Author: Taylor Ramirez ([id number]) Service: ? Author Type: Machine Cell Tuber Type: Progress Notes Filed: 11/10/2018 9:51 AM Note Text: [facility] HEALTH DECK SCALER QUICKNOTE Provider Action/FYI: I spoke with Trace [...] CMA progress on 2018-11 PROGRESS HNO ID: [id number] Normal 11-09-2018 [facility] Author: Taylor Leiva ([id number]) Service: ? Author Type: Machine Cell Tuber Type: Progress Notes Filed: 11/10/2018 9:51 AM [...] No results found for: HDL LDL Chol, [place] (mg/dL) Date Value 04/07/2007 109 No results found for: TG HGB A1C: No results found for: HBA1C TSH: No results found for: TSH) Care Gap: Hyperlipidemia COPD Plan: ? Confirm PCP / Status - active ? Type of appointment needed: Follow-up Next available with Provider pcp or international marketing specialist ? Consultation Appointments: PET SCAN Labs, HM [...] Location 01-10-2020 - Patient encounter External Provider [facility] 01-10-2020 procedure 12-19-2019 - Patient encounter External Provider [facility] 12-19-2019 procedure 12-06-2019 - Patient encounter External Provider [facility] 12-06-2019 procedure 11-23-2019 - Patient encounter External Provider [facility] 11-23-2019 procedure 01-10-2020 - Results Only External Provider [facility]N [facility] 01-10-2020 12-19-2019 Results Only External Provider [facility]N [facility] 12-06-2019 - Results Only External Provider External[facility]N [facility] 12-06-2019 11-23-2019 Results Only External Provider [facility] Procedures Procedure Name Date Provider Location EXTERNAL IMAGING 01-10-2020 - 01-10-2020 External Provider [facility] ([id number]) EXTERNAL LAB 12-19-2019 External Provider [facility] [place] [facility] ([id number]) EXTERNAL LAB 12-06-2019 External Provider [facility] ic ([id number]) EXTERNAL IMAGING 12-06-2019 External Provider [place] [facility] isis (07809) EXTERNAL LAB 11-23-2019 External Provider [facility] ic ([id number]) Plan of Treatment Plan Description Date Location DTAP,TDAP,TD (2 - Td) DTAP,TDAP,TD (2 - Td) 03-06-2028 - [facility] 03-06-2028 ([id number]) PROSTATE CANCER PROSTATE CANCER 03-06-2023 - [facility] SCREENING DISCUSSION SCREENING DISCUSSION 03-06-2023 ([id number] ) DIABETES SCREEN DIABETES SCREEN 12-27-2021 - [facility] 12-27-2021 ([id number]) ANNUAL PCP TEAM CHRONIC ANNUAL PCP TEAM CHRONIC 11-08-2020 - [facility] DISEASE VISIT DISEASE VISIT 11-08-2020 (87194) LUNG CANCER SCREENING LUNG CANCER SCREENING 01-05-2020 - [facility] 01-05-2020 (76403) INFLUENZA (#1) INFLUENZA (#1) 2019 - [facility] 12-11-2019 ([id number]) LIPID SCREEN LIPID SCREEN 04-07-2012 - [facility] 04-07-2012 (65328) SHINGRIX VACCINE (1 of SHINGRIX VACCINE (1 of 2011 - [facility] 2) 2) 2011 (35970) COLORECTAL CANCER COLORECTAL CANCER 2011 - [facility] inic SCREENING,SEE MODIFIER SCREENING,SEE MODIFIER 2011 (7 3092) HEPATITIS C SCREENING HEPATITIS C SCREENING 1979 - [facility] 1979 (10183) HIV SCREENING HIV SCREENING 1979 - [facility] 1979 (60219) Immunizations Vaccine Notes Status Date Location Tdap (Age 7+) tetanus toxoid, (completed) 03-06-2018 - [facility] l[facility] reduced diphtheria 03-06-2018 (99463) toxoid, and acellular pertussis vaccine, adsorbed Payers Payer Name Policy Number Location [employer] [id number] [facility] (44 195) The following information is from the original human readable contentNo Payer Records FoundNo Payer Records FoundNo Payer Records Found Social History Type Social History Date Location Description Tobacco smoking status Current every day smoker 11-09-2019 - [facility] NHIS 11-09-2019 (94884) History of tobacco use Cigarette Smoker [facility] (54695) Cigarettes smoked 11-09-2019 - [place] [facility] ic current (pack per day) 11-09-2019 (28871) - Reported Tobacco use and Never used 11-09-2019 - [facility] exposure 11-09-2019 (27222) Alcohol intake Current drinker of 11-09-2019 - [place] [facility] isis alcohol (finding) 11-09-2019 (05084) Alcohol Comment once or twice weekly 03-06-2018 - [place] [facility] linic 03-06-2018 (85274) Sex Assigned At Not on file [facility] ([id number]) Exposure to SARS-CoV-2 Not sure [facility] (event) (35782) The following information is from the original [...] BE BASED ON THE PRIMARY CLINICAL RECORDS. [facility] provides no warranty or guarantee of the accuracy or completeness of information in this document. UNRECOGNIZED CONTENT PROVIDED BELOW FOR UNRECOGNIZED SECTION No Status Records FoundNo Status Records Found UNRECOGNIZED CONTENT PROVIDED BELOW FOR UNRECOGNIZED SECTION INFORMATION SOURCE DATE CREATED AUTHOR AUTHOR'S ORGANIZATIO N 12/12/2018 [facility] DATE CREATED AUTHOR AUTHOR'S ORGANIZATIO N 11/10/2019 [facility] UNRECOGNIZED CONTENT PROVIDED BELOW FOR UNRECOGNIZED SECTION Source Comments In the event this information is protected by the Federal Confidentiality of Alcohol and Drug Abuse Patient Records regulations: The Federal rules restrict any use of the information to criminally investigate or prosecute any alcohol or drug abuse patient.[facility] Hospital[facility] the event this information is protected by the Federal Confidentiality of Alcohol and Drug Abuse Patient Records regulations: The Federal rules restrict any use of the information to criminally investigate or prosecute any alcohol or drug abuse patient.[facility] Hospital[facility] the event this information is protected by the Federal Confidentiality of Alcohol and Drug Abuse Patient Records regulations: The Federal rules restrict any use of the information to criminally investigate or prosecute any alcohol or drug abuse patient.[facility] HospitalIn the event this information is protected by the Federal Confidentiality of Alcohol and Drug Abuse Patient Records regulations: The Federal rules restrict any use of the information to criminally investigate or prosecute any alcohol or drug abuse patient.[facility] Hospital[facility] the event this information is protected by the Federal Confidentiality of Alcohol and Drug Abuse Patient Records regulations: The Federal rules restrict any use of the information to criminally investigate or prosecute any alcohol or drug abuse patient.[facility] HospitalIn the event this information is protected by the Federal Confidentiality of Alcohol and Drug Abuse Patient Records regulations: The Federal rules restrict any use of the information to criminally investigate or prosecute any alcohol or drug abuse patient.[facility]
== END 2019-08-29 19:46 | disposition home or self-care (01) ==
LOC: ED 19:41
PROVIDERS: Emergency Provider Emergency Medicine; PCP Family Medicine
DX: M62.830 Muscle spasm of back (principal)
CPT/HCPCS: 96372

== ENCOUNTER 2019-08-29 22:41 | Emergency (ER) | payer MEDICAID, SELFPAY ==
[2019-08-29 18:00] VITALS: BMI 27.3
[2019-08-29 22:41] VITALS: BP 99/57; PULSE 94; RESP 16; TEMP 36.7; O2SAT 88; O2SAT 93; BMI 30.2
--- NOTE | 2019-08-29 23:01 | ED.VIS.FALL ---
History of Present Illness Chief Complaint: Lower Extremity Injury Informant: Patient Mechanism/Context: Cannot recall fall Usually ambulates: Without assistance Location: left knee Quality of Pain: Aching Current Severity: Mild Maximum Severity: Mild Worsened by: bending Relieved by: remaining still Associated Symptoms: Amnesia. Negative for: Parasthesias, Weakness, Loss of function Narrative: Patient brought by EMS for an apparent fall, patient does not know the context of the fall admits to being drunk. States he injured his left knee and has no pain elsewhere, except for his chronic pain throughout his back. He also has dysesthesias throughout his right side from neuropathy from some type of head injury. He states that is no different, he denies any weakness in his extremities. Apparently patient was just here, he was walking home, and fell outside scraping his knee. Tetanus Immunization: Unknown - Past Medical History (1) Peripheral neuropathy Status: Chronic (2) Atrial fibrillation Status: Chronic (3) COPD (chronic obstructive pulmonary disease) Status: Chronic (4) Lung cancer Status: Chronic Past Medical History - Allergies and Home Meds Allergies/Adverse Reactions: Allergies No Known Allergies Allergy (Verified 08/17/19 11:28) Primary Care Physician: Armando Aggarwal MD [Primary Care Provider] - As Needed [facility] [STAFF PHYSICIAN] - (as needed for addiction/alcohol problems) Surgical History: tonsillectomy Smoking Status: Current every day smoker Alcohol: Heavy - Family History Paternal Family History: Family History (Last Reviewed 08/02/19 @ 11:[address] Tariq Herrera, DO) Sister Uterine cancer Mother Emphysema lung Grandfather Emphysema lung Grandmother Emphysema lung Family History: Reports: Cancer, - - Lung cancer in father and other family member but not in siblings. Review of Systems General: Denies: Chills, Fever, Sweats Eyes: Denies: Visual changes - bilaterally, Diplopia ENT: Denies: Rhinorrhea, Sore throat Cardiovascular: Denies: Chest pain, Palpitations Respiratory: Denies: Dyspnea, Cough, Dyspnea on exertion Gastrointestinal: Denies: Abdominal pain, Nausea, Vomiting, Diarrhea, Melena, Hematochezia Genitourinary: Denies: Dysuria, Hematuria, Frequency Musculoskeletal: Reports: Back pain, Extremity Pain. Denies: Neck pain Skin: Reports: Abrasions. Denies: Rash Neurological: Reports: Parasthesia. Denies: Headache, Weakness Physical Exam Vital Signs/Narrative: Vital Signs Temp Pulse Resp BP Pulse Ox 08/29/19 22:41 98.0 F 94 16 99/57 L 93 Inital Vital Signs reviewed: Yes General: Well nourished, Well developed, - - Alert, cooperative, no acute distress. Grossly intoxicated. GCS 15. Head: Normocephalic, Atraumatic Eyes: Perrl, EOMI ENT: TM's clear, No hemotympanum or drainage, No trauma. Negative for: Hemotympanum, Otorrhea, Nasal trauma Neck: Nontender, Full ROM. Negative for: Spinal Tenderness Cardiovascular: Regular rate, Regular rhythm, No murmurs Respiratory: No distress, CTA bilaterally, Chest nontender Abdomen: Soft, Nontender, Nondistended, Normal bowel sounds Back: - - Normal inspection. Can sit up in bed without any assistance.. Negative for: Spinal Tenderness Extremeties: Full range of motion throughout all 4 extremities including the left lower extremity and the knee. There is an abrasion anterolateral, distal aspect of the left knee, there is some mild tenderness there but otherwise none. No effusion. Extensor mechanism intact. Ligaments stable and intact without pain on stressing. Negative anterior and posterior drawer signs. Skin: Normal color, No rash, Trauma - Abrasion left knee, no other signs of trauma. Neurological: Alert, Oriented x3, Cranial nerves II-XII grossly intact, Normal Strength, Normal Sensation Psychological: Normal affect, Normal Mood, - - Intoxicated Diagnostic/Tx/Re-eval Clinical Impression(s) from Imaging Studies Brain CT 08/29/19 23:02 IMPRESSION: Chronic involutional changes of the brain. There is no evidence of intracranial hemorrhage or calvarial fracture. Electronically Signed: Darío Loredo MD at 23:43 EDT , Service support , Knee X-Ray 08/29/19 23:30 IMPRESSION: Mild degenerative changes of the medial knee compartment. There is no evidence of fracture, dislocation, free intra-articular calcifications, or suprapatellar effusion. Electronically Signed: Darío Loredo MD at 23:56 EDT , Service support , Laboratory Tests 08/30/19 08/30/19 08/30/19 Range/Units 01:45 01:45 01:45 WBC 8.5 (4.4-11.0) K/mm3 RBC 3.93 L (4.6-6.2) M/mm3 Hgb 11.4 L (13.0-16.5) g/dL Hct 35.9 L (40-54) % MCV 91.3 (80-94) fL MCH 29.0 (27.0-32.0) pg MCHC 31.8 L (32-36) g/dL RDW Std Deviation 47.0 H (35.1-43.9) fl RDW Coeff of Jose J 13.9 (11.6-14.6) % Plt Count 332 (150-450) K/mm3 MPV 9.4 (6.2-12.0) fl Immature Gran % (Auto) 0.500 (0.0-0.9) % Neut % (Auto) 63.5 (47-70) % Lymph % (Auto) 26.5 (19-41) % [place] % (Auto) 7.6 (0-10) % Eos % (Auto) 1.3 (0-5) % Baso % (Auto) 0.6 (0-1) % Absolute Neuts (auto) 5.4 (2.0-7.7) X10^3/uL Absolute Lymphs (auto) 2.25 (0.83-4.51) X10^3/uL Nucleated RBC % 0 (0-5) % Sodium 142 (136-145) mmol/L Potassium 3.7 (3.5-5.1) mmol/L Chloride 109 H (98-107) mmol/L Carbon Dioxide 25.0 (21.0-32.0) mmol/L Anion Gap 8 (5-15) BUN 14 (7-18) mg/dL Creatinine 1.12 (0.70-1.30) mg/dL Estim Creat Clear Calc 76.57 ml/min Est GFR (MDRD) Af Amer 87 (>60) mL/min Est GFR (MDRD) Non-Af 72 (>60) mL/min BUN/Creatinine Ratio 12.5 (10-20) RATIO Glucose 121 H (74-106) mg/dL Calcium 8.5 (8.5-10.1) mg/dL Ethyl Alcohol 265.0 mg/dL - Medical Decision Making CT of the head was obtained even though he does not have any evidence of trauma, because of a history of paroxysmal atrial fibrillation, possibility of being on an anticoagulant, and he does not know any of his medications. CT head is negative. X-ray of his left knee is negative. He is sleeping and intoxicated, therefore plan is to observe until he is clinically sober and able to ambulate, or overnight. The patient's observation, his pressure dropped to the 70s. A liter of IV fluid was run, his pressure responded favorably to this, I obtained some labs to ensure that he did not have blood loss from an injury that is not evident. Also obtained an alcohol level since I was drawing other labs. Labs are reassuring, his hemoglobin is similar to prior interpretations. Blood pressure has remained stable throughout observation of patient throughout night assistant. Patient woke up in the morning, ambulatory without difficulty, is clinically sober, and discharged in stable condition. ED Disposition - Plan for ED Patient: Disposition: Home or Assisted Living Diagnosis: Alcohol intoxication, Contusion of left knee, Fall Instructions: ED INTOXICATION Alcohol, ED Fall Uncertain Cause Referrals: Armando Aggarwal MD [Primary Care Provider] - As Needed [facility] [STAFF PHYSICIAN] - (as needed for addiction/alcohol problems)
--- NOTE | 2019-08-29 23:02 | CT_ITS ---
STUDY: CT BRAIN WITHOUT CONTRAST REASON FOR EXAM: Male, 59 years old. FALL, PT IS INTOXICATED. RADIATION DOSAGE (If Supplied By Facility): CTDIvol = ( 44.99 ) mGy, DLP = ( 796.11 ) mGycm TECHNIQUE: Transaxial CT imaging of the brain was performed without administration of intravenous contrast material. Individualized dose optimization techniques were used for this CT. COMPARISON: Prior study of 10/06/2018 FINDINGS: Normal soft tissue structures. Normal calvarium. There is mild cerebral atrophy with widening of the extra-axial spaces and ventricular dilatation. Normal white matter tracts of the cerebral hemispheres. Normal basal ganglia and thalami. Normal brainstem. Normal cerebellum. There is no intracranial hemorrhage. There are no findings of an acute ischemic infarction. Normal visualized paranasal sinuses. CT/Brain/Head without Contrast IMPRESSION: Chronic involutional changes of the brain. There is no evidence of intracranial hemorrhage or calvarial fracture. Electronically Signed: Darío Loredo MD at 23:43 EDT , Service support ,
--- NOTE | 2019-08-29 23:30 | RAD_ITS ---
STUDY: X-RAY - LEFT KNEE REASON FOR EXAM: Male, 59 years old. fall, abrasion to left knee TECHNIQUE: 4 view(s) of the knee. COMPARISON: None. FINDINGS: Normal visualized distal femur. Normal visualized proximal tibia and fibula. Normal proximal tibiofibular articulation. There is mild degenerative arthrosis of the medial femorotibial compartment. Normal lateral femorotibial compartment. Normal patellofemoral articulation. The soft tissue structures are unremarkable. RAD/Knee 4 or More Views IMPRESSION: Mild degenerative changes of the medial knee compartment. There is no evidence of fracture, dislocation, free intra-articular calcifications, or suprapatellar effusion. Electronically Signed: Darío Loredo MD at 23:56 EDT , Service support ,
[2019-08-30 01:34] VITALS: BP 72/51; PULSE 68; RESP 16; O2SAT 96
[2019-08-30] MEDS: 0.9% Normal Saline 1,000 ML 999 ML IV (01:41)
[2019-08-30 01:47] VITALS: BP 93/63
[2019-08-30 01:54] LABS: Absolute Lymphocyte Count 2.25 X10^3/uL (0.83-4.51); Absolute Neutrophil Count 5.4 X10^3/uL (2.0-7.7); Basophil# 0.05 X10^3/uL; Basophil% 0.6 % (0-1); Eosinophil# 0.11 X10^3/uL; Eosinophils% 1.3 % (0-5); Hematocrit 35.9 % (40-54); Hemoglobin 11.4 g/dL (13.0-16.5); Lymphocyte # 2.25 X10^3/ul (4.0); Lymphocyte % 26.5 % (19-41); Mean Corp Hgb Conc 31.8 g/dL (32-36); Mean Corpuscular Volume 91.3 fL (80-94); Mean Platelet Vol. 9.4 fl (6.2-12.0); Monocyte# 0.65 X10^3/uL; Monocyte% 7.6 % (0-10); NRBC Flagged by Analyzer 0 % (0-5); Neutrophil % 63.5 % (47-70); Platelet Count 332 K/mm3 (150-450); RBC Distribution Width CV 13.9 % (11.6-14.6); Red Blood Count 3.93 M/mm3 (4.6-6.2); White Blood Count 8.5 K/mm3 (4.4-11.0)
[2019-08-30 02:08] LABS: Anion Gap 8 (5-15); BUN 14 mg/dL (7-18); BUN/Creat Ratio 12.5 RATIO (10-20); Calcium,Total 8.5 mg/dL (8.5-10.1); Chloride 109 mmol/L (98-107); Creatinine, Serum 1.12 mg/dL (0.70-1.30); EST Glomerular Filtration Rate 72 mL/min (>60); Est Glom Filt Rate - Afr Amer 87 mL/min (>60); Estimated Creatinine Clearance 76.57 ml/min; Glucose 121 mg/dL (74-106); Potassium 3.7 mmol/L (3.5-5.1); Sodium Level 142 mmol/L (136-145)
[2019-08-30 03:01] VITALS: BP 98/62; PULSE 66; RESP 16; O2SAT 97
[2019-08-30 04:44] VITALS: BP 90/64; PULSE 59; RESP 14; O2SAT 95
[2019-08-30 06:11] VITALS: BP 94/66; PULSE 54; RESP 14; O2SAT 96
[2019-08-30 07:18] VITALS: BP 101/73; PULSE 52; RESP 18; O2SAT 99
--- OUTSIDE RECORDS SUMMARY | 2020-01-22 15:08 | XMS RPT_ITS | CCD ---
:1960 External Reference #:[id number] Author Organization [facility] Care Team Providers Name Role Phone Ida Aggarwal) Primary Care Provider Medications Medication Name Sig Date Prescriber Location Albuterol albuterol HFA 01-01-2019 Ida Roman) [facility] (PROVENTIL HFA) 90 Jasen (46758) mcg/actuation inhaler Indications: Wheezing , SOB (shortness of breath) Inhale 2 Puffs as instructed every 4 hours as needed for Wheezing/Shortness of Breath. 1 Inhaler 5 01/01/2019 Active Comment: Inhale 2 Puffs as instructed every 4 hours as needed for Wheezing/Shortness of Breath. Sertraline sertraline (ZOLOFT) 50 07-20-2019 Ida Roman) [facility] mg tablet Indications: Jasen (4419 5) Current moderate episode of major depressive disorder without prior episode (HCC) Take 1 tablet by mouth once daily. 30 tablet 2 07/20/2019 Active Comment: Take 1 tablet by mouth once daily. Problems Active Problems Category Problem Name Status Date Location Alcohol-related History of alcohol Active [facility] disorders abuse (19528) Chronic obstructive [facility] obstructive [facility] pulmonary disease and lung disease (62111 ) bronchiectasis Disorders of lipid Mixed hyperlipidemia Active 2007 [facility] metabolism (15928) Residual codes; Tobacco user Active [facility] in unclassified (25721) Past or Other Problems Category Problem Name Status Date Location Diabetes mellitus Impaired fasting Completed 2007 - [facility] without complication glycaemia (37185) Residual codes; FH: Cardiovascular Completed 2007 - [facility] unclassified disease (13355) Results Result Name Value Range Unit Interpretation Flag Date Location progress on 2019-10 PROGRESS HNO ID: [id number] Normal 11-09-2019 [facility] Author: Mario Leiva ([id number]) Service: ? Author Type: Physician Type: Progress [...] closed head instructions given. rto prn. MD inida Torre on 2019-11-09 CNOV Office Visit (FAMPWS) Normal 11-09-[address] [place] [address] [facility] SHER NICOLE ([id number]) 1960 [facility] Date Time Provider Department (99496) 11/09/19 2:40 PM [facility] During your visit today, we recorded the following informati on about you: Pulse Blood pressure Weight 90/minute 116/68 81.6 kg Bonita Huerta Ma 11/09/2019 2:49 PM Signed HOSPITAL/ER FOLLOW UP: Reason for visit: head injury after fall Which facility: [facility] Date of visit: 10/30/19 Diagnosis: laceration [...] Mario Whitten MD Referring Provider: IDA AGGARWAL) [[id number]] Allergies As of Date: 11/09/2019 (No Known [...] visit: head injury after fall Which facility: [facility] Date of visit: 10/30/19 Diagnosis: laceration [...] 11/09/19 progress on 2019-07 PROGRESS HNO ID: [id number] Normal 07-20-2019 [facility] Author: Ida Roman) Jasen Leiva ([id number]) Service: ? Author Type: Physician Type: Progress [...] weeks. Currently homeless and staying at the [facility]. Following COVID 19 restrictions of staying inside and washing hands. S haring rooms and bunk beds with other residents. No history of depression or anxiety. Not seeing counseling currently, but has in the past at 180. PHQ-9 (Patient Health Questionnaire-9) from [facility] on 01/2020 All calculations should be rechecked [...] more than 50% of the to richmond [id number] time of the visit in counseling / coordination of care. MD navarro Watson [facility]07[facility]) Normal 07-18-2019 [place] [facility] SHER NICOLE ([id number]) 1960 [facility] Date Time Provider Department (31401) 07/18/19 [facility]AL[facility] During your visit today, we recorded the following informati on about you: Jaycob Todd [facility] 07/18/2019 4:04 PM Signed Patient called in [...] on 2019-07-17 CNPN Telephone (FAMPWS) Normal 07-17-2019 [place] [facility] SHER NICOLE ([id number]) 1960 [facility] Date Time Provider Department (99360) 07/17/19 IDA AGGARWAL) [facility] During your visit today, we recorded the following informati on about you: Charu Ann, LOG CHIPPER OPERATOR, LOG CHIPPER OPERATOR 07/17/2019 12:19 PM Signed Clau nurse from Pulmonary here in [place] calls states pt voices to them that he is depressed And would like someone to talk to. eir promotions executive producer wanted her to reach out to u [...] 12:38 PM Signed Spoke with Eliot at [facility]. The patient is re siding there. She will have the patient return call to our office after lunch. Fredrick Singh RN 07/18/2019 3:58 PM Signed Patient returned call. Transferred to home care scheduler for VV with PCP. Fredrick Singh RN Jossie Javier [facility] 07/19/2019 11:37 AM Signed Spoke with patient [...] 07/18/19 progress on 2019-03 PROGRESS HNO ID: [id number] Normal 03-22-2019 [facility] Author: Jessica ChristiansenRn) MTIALI Cooper [place] ([id number]) Service: ? Author Type: Registered Nurse Type: [...] pt. Jessica Cooper RN PROGRESS HNO ID: [id number] Normal 03-22-2019 [facility] Author: Jessica ChristiansenRn) MITALI Cooper ([id number]) Service: ? Author Type: Registered Nurse Type: Progress Notes Filed: 03/22/2019 10:45 AM Note Text: PRIMARY CARE COORDINATION QUICK NOTE Provider Action/FYI Unable to reach pt. Will discharge from care coordination. Patient identified by name and date . Received return letter. [facility] was unable to deliver. cnptoutreach on 201 12-22-11 CNPTOUTREACH Patient Outreach (FAMPWS) Normal 1 05-23-2018 [place] [facility] SHER NICOLE ([id number]) 1960 [facility] Date Time Provider Department (27208) 03/22/19 JESSICA COOPER (RN) FAMPWS During your [...] Camarena - Fully Assessed Reason for Visit: Vice President Of Compliance Chronic Care [3612] Prescriptions as of 03/22/2019 [...] Encounter Status:Closed by JESSICA COOPER on 03/22/[facility] ([facility]) Normal 1 05-23-2018 [place] [facility] SHER NICOLE ([id number]) 1960 [facility] Date Time Provider Department (41945) 03/22/19 JESSICA COOPER (MITALI) FAMPWS During your visit today, we recorded the following informati on about you: Jessica Cooper RN, RN 03/22/2019 10:45 AM Signed PRIMARY CARE COORDINATION QUICK NOTE Provider Action/FYI Unable to reach pt. Will discharge from care coordination. Patient identified by name and date . Received return letter. [facility] was unable to deliver. Allergies As of Date: 03/22/2019 (No Known Allergies) Date Reviewed: 01/02/2019 Reviewed by: Ivania ChristiansenRn) MITALI Camarena - Fully Assessed Reason for Visit: Vice President Of Compliance Chronic Care [3612] Prescriptions as of 03/22/2019 [...] 03/22/19 progress on 2019-02 PROGRESS HNO ID: [id number] Normal 02-22-2019 [facility] Author: MITALI Aguilar Rnveland ([id number]) Service: ? Author Type: Registered Nurse Type: Progress Notes Filed: 02/26/2019 1:36 PM Note Text: PRIMARY CARE COORDINATION QUICK NOTE Provider Action/FYI Letter sent. Patient identified by name and date . Sent certified letter about need to follow up with Care Coor dinator progress on 2019-02 PROGRESS HNO ID: [id number] Normal 02-14-2019 [facility] Author: Ida Roman) Jasen Leiva ([id number]) Service: ? Author Type: Physician Type: Progress Notes Filed: 02/14/2019 9:22 AM Note Text: Reviewed. Send letter? PROGRESS HNO ID: [id number] Normal 02-14-2019 [facility] Author: MITALI Aguilar Rn ([id number]) Service: ? Author Type: Registered Nurse Type: Progress Notes Filed: 02/26/2019 1:36 PM Note Text: PRIMARY CARE COORDINATION QUICK NOTE Provider Action/FYI Still unable to reach pt. Patient identified by name and date . Called patient, phone is not accepting phone calls. Called t o [facility], no one staying there by that name. cnptoutreach on 201 12-20-05 CNPTOUTREACH Patient Outreach (FAMPWS) Normal 1 04-16-2018 [place] SHER Segura ([id number]) 1960 [facility] Date Time Provider Department (31860) 02/14/19 JESSICA COOPER (RN) [facility] During your visit today, we recorded the following informati on about you: Jessica Cooper RN, RN 02/26/2019 1:36 PM Signed PRIMARY CARE COORDINATION QUICK NOTE Provider Action/FYI Still unable to reach pt. Patient identified by name and date . Called patient, phone is not accepting phone myra ls. Called to [employer], no one staying there by that name. [...] Camarena - Fully Assessed Reason for Visit: Vice President Of Compliance Chronic Care [3386] Prescriptions as of 02/14/2019 Sig: ALBUTEROL SULFATE [...] 02/26/19 progress on 2019-01 PROGRESS HNO ID: [id number] Normal 01-24-2019 [facility] Author: Jessica (Rn) MITALI Cooper Leiva ([id number]) Service: ? Author Type: Registered Nurse Type: Progress Notes Filed: 01/24/2019 11:04 AM Note Text: PRIMARY CARE COORDINATION QUICK NOTE Patient identified by name and date . Called again to phone number in chart. Currently not accepti ng calls. Unable to contact pt at this time. cnptoutreach on 12-20-15 CNPTOUTREACH Patient Outreach (FAMPWS) Normal 1 [place] [facility] SHER NICOLE ([id number]) 1960 [facility] Date Time Provider Department (75221) 01/24/19 JESSICA COOPER (RN) FAMPWS During your [...] 01/24/19 progress on 2019-01 PROGRESS HNO ID: [id number] Normal 01-23-2019 [facility] Author: Siomara Paniagua) Bo [place] ([id number]) Service: ? Author Type: Nurse Practitioner Type: Progress Notes Filed: 01/23/2019 9:37 AM Note Text: Reviewed. Siomara Harden, VIKKI[facility] PROGRESS HNO ID: [id number] Normal 01-23-2019 [facility] Author: Jessica (Rn) MITALI Cooper [place] ([id number]) Service: ? Author Type: Registered Nurse Type: Progress Notes Filed: 01/24/2019 10:46 AM Note Text: PRIMARY CARE COORDINATION QUICK NOTE Provider Action/FYI Unable to reach pt for TCM. No longer staying at [facility] A rmy Patient identified by name and date . Called to [facility], pt [facility] the [facility]. They have no other information about him. rolando on 201 12-19-14 CNPTOUTREACH Patient Outreach (FAMPWS) Normal 1 [place] [facility] SHER NICOLE ([id number]) 1960 Darian Leiva Date Time Provider Department (83492) 01/23/19 JESSICA COOPER (RN) FAMPWS During your visit today, we recorded the following informati on about you: Jessica Cooper RN, RN 01/24/2019 10:46 AM Signed PRIMARY CARE COORDINATION QUICK NOTE Provider Action/FYI Unable to reach pt for TCM. No longer staying at [facility] A rmy Patient identified by name and date . Called to [facility] , pt has been di smissed from the longterm. They have no other information about him. Siomara Soriano APRN.PASSENGER CAR INSPECTOR 01/23/2019 9:37 AM Signed Reviewed. Thanks, Siomara Soriano APRN.PASSENGER CAR INSPECTOR Allergies As of Date: 01/23/2019 (No Known Allergies) Date Reviewed: 01/02/2019 Reviewed by: Ivania (Rn) MITALI Camarena - Fully Assessed Reason for Visit: Vice President Of Compliance Hospital Follow Up [3610] Prescriptions as of [...] 01/24/19 progress on 2019-01 PROGRESS HNO ID: [id number] Normal 01-22-2019 [facility] Author: Jessica (Mitali) MITALI Cooper [place] ([id number]) Service: ? Author Type: Registered Nurse Type: [...] I knew, he was living at the [facility] [employer] [facility] [employer] , I told the other girl that called that as well PROGRESS HNO ID: [id number] Normal 01-22-2019 [facility] Author: Charu Farmer (Air Bag Buffer) IDALIA Ann [place] ([id number]) Service: ? Author Type: LICENSED NURSE Type: Progress Notes Filed: 02/19/2019 3:01 AM Note Text: Received discharge papers from [facility] again pt was readmitted on the and discharged the coul d not complete tcm due to being discharged same day. Spoke with Siomara in Dr Carina Aggarwal's absence and she agrees Pt should have care coordination foll owing him. Gave papers to Jessica LUCIO to follow per TCM. rolando on 12-19-13 CNPTOUTREACH Patient Outreach (FAMPWS) Normal 1 [place] [facility] SHER NICOLE ([id number]) 1960 [place] Date Time Provider Department (57384) 01/22/19 JESSICA COOPER (RN) FAMPWS During your [...] I knew, [facility] was living [facility], I to ld the other girl that called that as well Allergies As of Date: 01/22/2019 (No Known Allergies) Date Reviewed: 01/02/2019 Reviewed by: Ivania (Rn) MITALI Camarena - Fully Assessed Reason for Visit: Vice President Of Compliance Hospital Follow Up [3610] Prescriptions as of [...] 01/22/19 progress on 2019-01 PROGRESS HNO ID: [id number] Normal 01-18-2019 [facility] Author: Charu Farmer (Idalia) IDALIA Ann ([id number]) Service: ? Author Type: LICENSED NURSE Type: Progress Notes Filed: 02/19/2019 3:01 AM Note Text: Attempted to reach pt on two other atemps and machine just s [employer] pt not available but is not a answering machine where message can b e left.Pt does have a hospital f/up scheduled with Siomara Soriano CNP ON . cnptoutreach on 201 12-19-08 CNPTOUTREACH Patient Outreach (FAMPWS) Normal 1 [place] [facility] SHER NICOLE ([id number]) 1960 [facility] Date Time Provider Department (74001) 01/17/19 IDA AGGARWAL) FAMPWS During your visit today, we recorded the following informati on about you: [place] Ann LPN, IDALIA 02/19/2019 3:01 AM Signed Attempted to call pt for tcm, number buchanan s not have answering machine will need to try back. TRANSITION CARE MANAGEMENT (TCM) INITIAL CONTACT Weaving Supervisor Outreach Provider Action/FYI: Initial contact with patient [...] 3:01 AM Signed Received discharge papers fr [facility] 01/19/19 again pt was readmitted [...] alcohol abuse [F10.11] More... Encounter Status:Closed by [employer], [email or web address] on 02/19/19 progress on 2018-12 PROGRESS HNO ID: [id number] Normal 01-04-2019 [facility] Author: Evangelina Payne [place] ([id number]) Service: ? Author Type: ? Type: Progress [...] on 2018-12 OBSOLETE Refill (FAMPWS) Normal 12-29-2018 [facility] SHER NICOLE ([id number]) 1960 [facility] Date Time Provider Department (46503) 12/29/18 IDA AGGARWAL) FAMPWS During your visit [...] No RX INSTRUCTIONS: MyChart request. Claudia Thomas LOG CHIPPER OPERATOR Allergies As of Date: 12/29/2018 (No Known [...] on 9 cnpn on 2018-12-29 CNPN Telephone ([id number]) Normal 12-29 [place] [facility] SHER NICOLE ([id number]) 1960 [facility] Date Time Provider Department (42483) 12/29/18 AIMEE HERNANDEZ [id number] During your visit today, we recorded the following informati on about you: Theresa Thibodeaux 01/02/2019 3:50 PM Signed Called patient again, and le ft a detailed message; again, requested return call. Theresa Thibodeaux 01/03/2019 1:33 PM Signed Patient returned call from message re scheduled appointme nts. Patient requested and confirmed appointments on 01/07 AND 01/10/19. CT is being done at [place] on 01/04/19 Trung Briones MD 01/18/2019 7:40 AM Signed Looks like he cancelled his biopsy procedure Please call and find out how he is doing and if he is agreeable to rescheduling so I can reach out to the procedure team to help Avi Lowe Ma 01/18/2019 11:03 AM Signed Attempted to call patient [facility] but per recording pt was unavailable. Attempted [...] pt has calvin moore dismissed from the [facility] where he was staying, and the [facility] has no other information about him, noted [...] (PPP) [Time] 1.0 0.9-1.3 s Normal 9 [facility] (43957) Comment: Result Comment: Vitamin K An tagonist (VKA) Therapeutic Range: INR 2 to 3 (Target INR of 2.5) Note: For patients treated w ith VKA drugs, such as warfarin, the [employer] 2012 Guideline recommends a therapeutic INR range of 2 to 3 (target INR of 2.5). This recommendation includes high-risk patients with antiphospholipid syndrome with previous arterial or venous thromboembolism, current-generation mechanical or bioprosthetic aortic heart valve replacement. Note: Patients with robotics mechanic al aortic valve replacement and additional risk factors for thromboembolic events (atrial fibrillation, previous thromboembolism, LV dysfunction, hypercoagulable conditions) or an older generation mecha nical AVR (i.e., ball in-Cage) or any mechanical MVR should have a INR therapeutic range of 2.5 to 3.5 (target INR of 3). Kalen GH, et al. Chest 2012 , 141:7S-47S Kayla PINEDA, et al. [facility] 20 17, 70: 252-289 Performed By: #### CBCDIF, P T, PTT, BMP ####[place] [id number] [place], [place] [phone] PT Coag (PPP) [Time] 10.6 9.7-13.0 sec Normal 9 [facility] (77842) Comment: Performed By: #### CBCDIF, P T, PTT, BMP ####[place] [address] [place], [place] [phone] cbc and differential on 2018-12-27 Abs Baso 0.06 <0.11 k/uL Normal 12-27-2018 [facility] (18316) Comment: Performed By: #### CBCDIF, P T, PTT, BMP ####[place] [address] [place] [phone] Abs [place] 0.64 <0.87 k/uL Normal 12-27-2018 [facility] (56235) Comment: Performed By: #### CBCDIF, P T, PTT, BMP ####[place] [address] [place], [place] [phone] Abs Neut 7.32 1.45-7.50 k/uL Normal 12-27-2018 [facility] (83076) Comment: Performed By: #### CBCDIF, P T, PTT, BMP ####[place] [address] [place], [place] [phone] Absolute nRBC <0.01 <0.01 Normal 12-27-2018 [facility] (68474) Comment: Performed By: #### CBCDIF, P T, PTT, BMP ####[place] [address] [place], [place] [phone] Basophils/100 WBC (Bld) 0.6 % Normal 2018 [facility] (52516) Comment: Performed By: #### CBCDIF, P T, PTT, BMP ####[place] [address] [place], [place] [phone] DTYPE Auto Diff Normal 12-27-2018 [facility] (85647) Comment: Performed By: #### CBCDIF, P T, PTT, BMP ####[place] [address] [place], [place] [phone] Eosinophils (Bld) [#/Vol] 0.16 <0.46 k/uL Normal 12-10 [facility] (58065) Comment: Performed By: #### CBCDIF, P T, PTT, BMP ####[place] [address] [place], [place] [phone] Eosinophils/100 WBC (Bld) 1.6 % Normal 12-10 [facility] (64039) Comment: Performed By: #### CBCDIF, P T, PTT, BMP ####[place] [address] [place] [phone] Erythrocyte distribution 12.7 11.5-15.0 % Normal 12-27 [facility] width (RBC) [Ratio] [place] (55991) Comment: Performed By: #### CBCDIF, P T, PTT, BMP ####[place] [address] [place], [place] [phone] Hematocrit (Bld) [Volume 39.5 39.0-51.0 % Normal 12-27 [facility] fraction] [place] (78635) Comment: Performed By: #### CBCDIF, P T, PTT, BMP ####[place] [address] [place] [phone] Hemoglobin (Bld) 12.4 13.0-17.0 g/dL Low 12-27-2018 [facility] [Mass/Vol] [place] (81124) Comment: Performed By: #### CBCDIF, P T, PTT, BMP ####[place] [address] [place], [place] [phone] Lymphocytes (Bld) [#/Vol] 1.72 1.00-4.00 k/uL Normal 12-10 [facility] (56627) Comment: Performed By: #### CBCDIF, P T, PTT, BMP ####[place] [address] [place], [place] [phone] Lymphocytes/100 WBC (Bld) 17.4 % Normal 12-10 [facility] (70413) Comment: Performed By: #### CBCDIF, P T, PTT, BMP ####[place] [address] [place], [place] [phone] MCH (RBC) [Entitic mass] 31.2 26.0-34.0 pG Normal 12-27 [facility] (29983) Comment: Performed By: #### CBCDIF, P T, PTT, BMP ####[place] [address] [place], [place] [phone] MCHC (RBC) [Mass/Vol] 31.4 30.5-36.0 g/dL Normal 12-28-19 [facility] (37337) Comment: Performed By: #### CBCDIF, P T, PTT, BMP ####[place] [address] [place], [place] [phone] MCV (RBC) [Entitic vol] 99.2 80.0-100.0 fL Normal 12-27 [facility] (16125) Comment: Performed By: #### CBCDIF, P T, PTT, BMP ####[place] [address] [place], [place] [phone] Monocytes/100 WBC (Bld) 6.5 % Normal 2018 [facility] (63741) Comment: Performed By: #### CBCDIF, P T, PTT, BMP ####[place] [address] [place], [place] [phone] Neutrophils/100 WBC (Bld) 73.9 % Normal 12-10 [facility] (10206) Comment: Performed By: #### CBCDIF, P T, PTT, BMP ####[place] [id number] [place], [place] [phone] NRBCs 0.0 0 /100 WBC Normal 12-27-2018 [facility] (73428) Comment: Performed By: #### CBCDIF, P T, PTT, BMP ####[facility] [address] [place], [place] [phone] Platelet mean volume 11.0 9.0-12.7 fL Normal [facility] (Bld) [Entitic vol] [place] (37788) Comment: Performed By: #### CBCDIF, P T, PTT, BMP ####[place] [address] [place], [place] [phone] Platelets (Bld) [#/Vol] 252 150-400 k/uL Normal 2018 [facility] (58980) Comment: Performed By: #### CBCDIF, P T, PTT, BMP ####[place] [address] [place], [place] [phone] RBC (Bld) [#/Vol] 3.98 4.20-6.00 m/uL Low 12-27-2018 [facility] (90893) Comment: Performed By: #### CBCDIF, P T, PTT, BMP ####[facility] [place], [place] [phone] WBC (Bld) [#/Vol] 9.90 3.70-11.00 k/uL Normal 12-27-2018 [facility] (63989) Comment: Performed By: #### CBCDIF, P T, PTT, BMP ####[place] [address] [place], [place] [phone] basic metabolic panl on 2018-12-27 Anion gap [Moles/Vol] 12 9-18 mmol/L Normal 12-28-19 [facility] (76840) Comment: Performed By: #### CBCDIF, P T, PTT, BMP ####[facility] [place], [place] [phone] Calcium [Mass/Vol] 9.2 8.5-10.2 mg/dL Normal 12-27-2018 [facility] (93084) Comment: Performed By: #### CBCDIF, P T, PTT, BMP ####[facility] [place], [place] [phone] Chloride [Moles/Vol] 100 97-105 mmol/L Normal [facility] (78394) Comment: Performed By: #### CBCDIF, P T, PTT, BMP ####[facility] [place], [place] [phone] CO2 [Moles/Vol] 27 22-30 mmol/L Normal 12-27-2018 [facility] (28367) Comment: Performed By: #### CBCDIF, P T, PTT, BMP ####[facility] [place], [place] [phone] Creatinine [Mass/Vol] 0.75 0.73-1.22 mg/dL Normal 12-28-19 [facility] ([id number]) Comment: Performed By: #### CBCDIF, P T, PTT, BMP ####[facility] [place], [place] [phone] eGFR- Amer. >60 Normal 12-27-2018 [facility] ([id number]) Comment: Performed By: #### CBCDIF, P T, PTT, BMP ####[facility] [place], [place] [phone] GFR/1.73 sq M predicted >60 mL/min/{1.73_m2} Normal 12-27-2018 [facility] among non-blacks MDRD [place] ([id number]) (S/P/Bld) [Vol rate/Area] Comment: Result Comment: eGFR [...] By: #### CBCDIF, P T, PTT, BMP ####[facility] [address] [place], [place] [phone] Glucose [Mass/Vol] 92 74-99 mg/dL Normal 12-27-2018 [facility] ([id number]) Comment: Result Comment: The [place] Diabetes Association (ADA) provides guidance for cutoff [...] for diagnosis of diabetes. Reference: Standards of [facility] Care in Diabetes 2016, [place] Diabetes Association. Diabetes Care. 2016.39(Suppl 1). Performed By: #### CBCDIF, P T, PTT, BMP ####[facility] [address] [place], [place] [phone] Potassium [Moles/Vol] 4.1 3.7-5.1 mmol/L Normal 12-28-19 19 [facility] ([id number]) Comment: Performed By: #### CBCDIF, P T, PTT, BMP ####[facility] [address] [place], [place] [phone] Sodium [Moles/Vol] 139 136-144 mmol/L Normal 12-27-2018 [facility] ([id number]) Comment: Performed By: #### CBCDIF, P T, PTT, BMP ####[facility] [place], [place] [phone] Urea nitrogen [Mass/Vol] 8 9-24 mg/dL Low 12-27 [facility] ([id number]) Comment: Performed By: #### CBCDIF, P T, PTT, BMP ####[facility] [place], [place] [phone] aptt on 2018-12-27 aPTT Coag (Bld) [Time] 28.5 23.0-32.4 sec Normal [address] [place] [address] ([id number]) Comment: Result Comment: Unfractionat ed Heparin Therapeutic [...] laboratory APTT reagent in use throughout the [facility]. Performed By: #### CBCDIF, P T, PTT, BMP ####[facility] [place], [place] [phone] cnpn on 2018-12-21 CNPN Telephone (LAYLA) Normal 12-21-2018 [facility] SHER NICOLE ([id number]) 1960 [facility] Time Provider Department ([id number]) 12/21/18 TRUNG BRIONES During your visit today, we recorded the following informati on about you: Trung Briones MD 12/21/2018 9:42 AM Signed Please call and update patient that I sp toi to the [facility] team and one of their schedulers will call to set up a final pro cedure date, but they did ask that labs get done before the scheduled procedure. The orders are in, please see if he can get these done in the next few days at any local [facility] lab so that we can see the results. Obdulia Amezcua 12/21/2018 10:12 AM Signed Left a voicemail for the pt to call the office b ack in regards to the message below. If pt calls back please let him know [facility] will call him to schedule his procedure, but he first needs to have lab work done at any of our [facility] labs, the order for lab work is placed. If it is better to go to a lab in [place] I did research and this on is close to him. [facility] [place] [address] [facility] [place], [place] [address] Obdulia Amezcua 12/25/2018 3:55 PM Signed Left a voicemail for the pt to call the office b ack in regards to the message below. Obdulia Amezcua 12/26/2018 10:17 AM Signed Spoke with Pt, Pt verbalized understanding. No further quest ions. Pt has not heard from [facility] yet, he will g o and get the blood work done and then wait to hear back from [facility]. Trung Briones MD 12/27/2018 8:43 AM Signed Records from [place] received, 10/06/18 E D visit for which [...] density appears larger at this time. [facility] [place] is going to schedule interventional pulm f [...] 12/26/18 progress on 2018-12 PROGRESS HNO ID: [id number] Normal 12-20-2018 [place] Author: Aimee Hernandez [facility] Service: ? [place] Author Type: Physician ([id number]) Type: Progress Notes Filed: 12/21/2018 2:43 PM [...] on anticoagulants/anti-plt therapy? No Nursing Considerations: (ie: jail, TB, respiratory isolation, etc.) none Diagnosis/Reason for [...] results found for: CREAT PROGRESS HNO ID: [id number] Normal 12-20-2018 [place] Author: Trung Briones [facility] Service: ? 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 cnov on 2018-12-20 CNOV Office Visit (PULMLO) Normal 12-21-19 19 [place] [facility] SHER NICOLE ([id number]) 1960 M URIEL [place] Date Time Provider Department ([id number]) 12/20/18 9:45 AM TRUNG BRIONES During your visit today, we recorded the following informati on about you: Temperature Pulse Blood pressure Weight 98.6 degrees 73/minute 115/71 82 kg Height 1.753 m Obdulia Amezcua 12/20/2018 9:39 AM Signed [facility] LAB FACTS LAB HOURS: [place] lab is open from 7:30am to 6pm , open from 7:30am-5pm on Tuesday and open 8am-12pm on Tuesday. Closed on Tuesday [facility] lab is open from 7:30am to 5pm [...] 24 hours prior to the scheduled exam. [facility] Express Care -- No appointment needed At the [facility], patients 2 years and older can get walk -in medical attention for common health problems including: Cold and flu symptoms Conjunctivitis Ear and throat infections Minor bumps and cuts Seasonal allergies Skin rashes Simple sprains and strains Sinus infections Urinary tract infections Upper respiratory tract infections Locations and Times [facility] - [address] [facility], [facility] - [address] [place] [address] [facility] - Tuesday through Tuesday 6 AM - 9 PM - Tuesday and Tuesday 8 AM - 4 PM For Express Care LOCATIONS, HOURS OF OPERATION and CUR RENT WAIT TIMES, visit the following link for details. [email or web address][types][0]=Express%20Care%20ClinicsAN D Emergency Department Parviz Stoddard [facility] - [address] [facility] [address]), [facility] [phone] Pharmacy Hours: Tuesday through Tuesday 8 am to 6 pm Opt in to receive text reminders for your appointments with [facility] specialist today. To opt in, text 4clinictxt to [phone]. 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 No pets REVIEW OF [...] file Gets together: Not on file Attends orthodoxy service: Not on file Active member of [...] patient as noted below: Chest CT: 10/06/18 [facility] CT, no im age to review [...] signature obtained to get actual images from [place] The above plan was discussed with the rubi botello and all questions were answered. I will see Mr. Nicole for follow-up in 2 months Trung Briones MD Pulmonary and Critical Care Medicine [facility] Respiratory Holiday December 20, 2018 9:44 AM I spent 60 minutes in the visit, with more than 50% of the total phzi-xb-yddt time of the visit in counseling / coordination of care. Referring Provider: IDA AGGARWAL) [[id number]] Allergies As of Date: 12/20/2018 (No Known Allergies) Date Reviewed: 12/20/2018 Reviewed by: Trung Briones - Fully Assessed Reason for Visit: New Patient [172] Cmt: Left lung lesion Primary Visit Diagnosis:Lung mass [R91.8] Other Visit Diagnoses:Dyspnea on exertion [R06.09] Chronic obstructive pulmonary disease, unspecified COPD type (HCC) [J44.9] Order(s):ECG COMPLETE [ECG01] Order #: [id number] FUTURE Prescriptions as of 12/20/2018 Sig: FLUTICASONE [...] [F10.11] More... Other instructions from your clinician: [facility] [employer] [facility] LAB FACTS LAB HOURS: [place] lab is open from 7:30am to 6pm M-, open from 7:30am -5pm on Tuesday and open 8am-12pm on Tuesday. Closed on Tuesday [facility] lab is open from 7:30am to 5pm [...] 24 hours prior to the scheduled exam. [facility] -- No appointment needed At the [facility], patients 2 years and older can get walk -in medical attention for common health problems including: Cold and flu symptoms Conjunctivitis Ear and throat infections Minor bumps and cuts Seasonal allergies Skin rashes Simple sprains and strains Sinus infections Urinary tract infections Upper respiratory tract infections Locations and Times [facility] - [address] [facility], [facility] [place] - [address] [facility] - Tuesday through Tuesday 6 AM - 9 PM - Tuesday and Tuesday 8 AM - 4 PM For Express Care LOCATIONS, HOURS OF OPERATION and CURRENT W AIT TIMES, visit the following link for details. [email or web address]?[email or web address][types][0]=Expr ess%20Care%20Clin icsAND Emergency Department Parviz Stoddard [facility] - [address] [facility] [address] [facility] [phone] Pharmacy Hours: Tuesday through Tuesday 8 am to 6 pm Opt in to receive text reminders for your appointments with [facility] health specialist today. To opt in, text 4clinictxt to [phone]. Disposition: Return in about 2 months (around 02/19/2019). Follow-up and Disposition History Recorded Encounter Status:Closed by TRUNG BRIONES MD on 12/20/18 progress on 2018-12 PROGRESS HNO ID: [id number] Normal 12-13-2018 [facility] Author: Ida Gandara () Jasen [facility] ([id number]) Service: ? Author Type: Physician Type: Progress [...] file Gets together: Not on file Attends orthodoxy service: Not on file Active member of [...] 2018-12-13 CNOV Office Visit (FAMPWS) Normal 12-14-19 [place] [facility] SHER NICOLE ([id number]) 1960 [facility] Date Time Provider Department ([id number]) 12/13/18 11:20 AM IDA AGGARWAL) FAMPWS During [...] file Gets together: Not on file Attends orthodoxy service: Not on file Active member of [...] Aggarwal MD Referring Provider: IDA AGGARWAL () [[id number]] Allergies As of Date: 12/13/2018 (No Known Allergies) Date Reviewed: 12/13/2018 Reviewed by: Natanael Dennis Ma - Fully Assessed Reason for Visit: follow up PET scan results [Other] Primary Visit Diagnosis:Mass of left lung [R91.8] Other Visit Diagnosis:Abnormal PET scan of lung [R94.2] Order(s):CONSULT TO PULM/CRITICAL CARE [280952] Order #: [id number]: 1 Prescriptions as of 12/13/2018 Sig: FLUTICASONE [...] 12/13/18 progress on 2018-12 PROGRESS HNO ID: [id number] Normal 12-12-2018 [place] [facility] Service: Nuclear Medicine ([id number]) Author Type: Fiberglass Model Maker Type: Progress Notes Filed: 12/12/2018 12:14 [...] radiation safety can be found using [facility] link: [email or web address]%20Medicine%[email or web address].pdf SIGNATURE: Prosper Montelongo [facility] PATIENT NAME: Sher Nicole DATE: December 12, 2018 TIME: 12:14 PM PAGER/CONTACT #: ut pet/ct whole body init on 2018-12-12 NM PET/CT WHOLE * * *Final Report* * * Normal 0 12-12-2018 [facility] BODY INIT DATE OF EXAM: Dec 12 2018 1:29PM ([id number]) [facility] 0061 - NM PET/CT WHOLE BODY [...] EXTREMITIES/SKELETON: No suspicious FDG avid osseous process. Medical Doctor: TC Transcribe Date/Time: Dec 12 2018 1:51P Dictated by : JAUN CHILD MD This examination was interpreted and the report reviewed and electronically signed by: JAUN CHILD MD on Dec 12 2018 1:58PM EST [id number] [facility] CNPN Telephone (ASWSTR) Normal 12-05-2018 [place] [facility] SHER NICOLE ([id number]) 1960 [facility] Date Time Provider Department ([id number]) 12/05/18 IDA AGGARWAL) ASWSTR During your visit [...] 12/07/18 progress on 2018-11 PROGRESS HNO ID: [id number] Normal 11-30-2018 [facility] Author: Ida Roman) Jasen [facility] ([id number]) Service: ? Author Type: Physician Type: Progress Notes Filed: 11/30/2018 3:21 PM Note Text: Reviewed. Thanks. PROGRESS HNO ID: [id number] Normal 11-30-2018 [facility] Author: Taylor Ramirez [facility] ([id number]) Service: ? Author Type: Weaving Supervisor Type: Progress Notes Filed: 12/01/2018 10:49 AM Note Text: [facility] CLOTH FINISHING RANGE OPERATOR QUICKNOTE Provider Action/FYI: I called and spoke with Trace and he said he will call to r/s his PET scan. He's aware he's due for fasting labs and an IFOBT. 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 He will make a follow up appointment with PCP after PET scan. Patient identified by name and . Taylor Ramirez CMA PROGRESS HNO ID: [id number] Normal 11-30-2018 [facility] Author: Taylor Ramirez [facility] ([id number]) Service: ? 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 He's aware he's due for fasting labs and an IFOBT. 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 He will make a follow up [...] 12/01/18 progress on 2018-11 PROGRESS HNO ID: [id number] Normal 11-10-2018 [facility] Author: Ida Roman) Jasen ([id number]) Service: ? Author Type: Physician Type: Progress Notes Filed: 11/10/2018 10:15 AM Note Text: Reviewed. Thanks. PROGRESS HNO ID: [id number] Normal 11-10-2018 [facility] Author: Taylor Ramirez ([id number]) Service: ? Author Type: Weaving Supervisor Type: Progress Notes Filed: 11/10/2018 9:51 AM Note Text: [facility] CLOTH FINISHING RANGE OPERATOR QUICKNOTE Provider Action/FYI: I spoke with Trace [...] CMA progress on 2018-11 PROGRESS HNO ID: [id number] Normal 11-09-2018 [facility] Author: Taylor [facility] ([id number]) Service: ? Author Type: Weaving Supervisor Type: Progress Notes Filed: 11/10/2018 9:51 AM [...] No results found for: HDL LDL Chol, [place] (mg/dL) Date Value 04/07/2007 109 No results found for: TG HGB A1C: No results found for: HBA1C TSH: No results found for: TSH) Care Gap: Hyperlipidemia COPD Plan: ? Confirm PCP / Status - active ? Type of appointment needed: Follow-up Next available with Provider pcp or bag filler machine operator ? Consultation Appointments: PET SCAN Labs, HM [...] Location 01-10-2020 - Patient encounter External Provider [facility] [place] [facility] 01-10-2020 procedure 12-19-2019 - Patient encounter External Provider [facility] [place] [facility] 12-19-2019 procedure 12-06-2019 - Patient encounter External Provider [facility] [place] [facility] 12-06-2019 procedure 11-23-2019 - Patient encounter External Provider [facility] [place] [facility] 11-23-2019 procedure 01-10-2020 - Results Only External Provider External-N [facility] 01-10-2020 12-19-2019 Results Only External Provider External-N [facility] 12-06-2019 - Results Only External Provider External-N [facility] 12-06-2019 11-23-2019 Results Only External Provider External-N [facility] Procedures Procedure Name Date Provider Location EXTERNAL IMAGING 01-10-2020 - 01-10-2020 External Provider [facility] [place] [facility] ([id number]) EXTERNAL LAB 12-19-2019 External Provider [place] [facility] ([id number]) EXTERNAL LAB 12-06-2019 External Provider [facility] ic ([id number]) EXTERNAL IMAGING 12-06-2019 External Provider [place] [facility] isis ([id number]) EXTERNAL LAB 11-23-2019 External Provider [facility] ic ([id number]) Plan of Treatment Plan Description Date Location DTAP,TDAP,TD (2 - Td) DTAP,TDAP,TD (2 - Td) 03-06-2028 - [facility] 03-06-2028 ([id number]) PROSTATE CANCER PROSTATE CANCER 03-06-2023 - [facility] SCREENING DISCUSSION SCREENING DISCUSSION 03-06-2023 ([id number] ) DIABETES SCREEN DIABETES SCREEN 12-27-2021 - [facility] 12-27-2021 ([id number]) ANNUAL PCP TEAM CHRONIC ANNUAL PCP TEAM CHRONIC 11-08-2020 - [facility] DISEASE VISIT DISEASE VISIT 11-08-2020 ([id number]) LUNG CANCER SCREENING LUNG CANCER SCREENING 01-05-2020 - [facility] 01-05-2020 ([id number]) INFLUENZA (#1) INFLUENZA (#1) 2019 - [facility] 12-11-2019 ([id number]) LIPID SCREEN LIPID SCREEN 04-07-2012 - [facility] 04-07-2012 ([id number]) SHINGRIX VACCINE (1 of SHINGRIX VACCINE (1 of 2011 - [facility] 2) 2) 2011 (07065) COLORECTAL CANCER COLORECTAL CANCER 2011 - [facility] inic SCREENING,SEE MODIFIER SCREENING,SEE MODIFIER 2011 (7 [id number]) HEPATITIS C SCREENING HEPATITIS C SCREENING 1979 - [facility] 1979 (12701) HIV SCREENING HIV SCREENING 1979 - [facility] 1979 (80643) Immunizations Vaccine Notes Status Date Location Tdap (Age 7+) tetanus toxoid, (completed) 03-06-2018 - [facility] linic reduced diphtheria 03-06-2018 (31031) toxoid, and acellular pertussis vaccine, adsorbed Payers Payer Name Policy Number Location [employer] [id number] [facility] (44 195) The following information is from the original human readable contentNo Payer Records FoundNo Payer Records FoundNo Payer Records Found Social History Type Social History Date Location Description Tobacco smoking status Current every day smoker 11-09-2019 - [facility] NHIS 11-09-2019 (70411) History of tobacco use Cigarette Smoker [facility] (33759) Cigarettes smoked 11-09-2019 - [place] [facility] current (pack per day) 11-09-2019 (40168) - Reported Tobacco use and Never used 11-09-2019 - [facility] exposure 11-09-2019 (89514) Alcohol intake Current drinker of 11-09-2019 - [place] [facility] isis alcohol (finding) 11-09-2019 (41651) Alcohol Comment once or twice weekly 03-06-2018 - [place] C linic 03-06-2018 (47467) Sex Assigned At Not on file [facility] (04463) Exposure to SARS-CoV-2 Not sure [facility] (event) (13998) The following information is from the original [...] BASED ON THE PRIMARY CLINICAL RECORDS. [facility] provides no warranty or guarantee of the accuracy or completeness of information in this document. UNRECOGNIZED CONTENT PROVIDED BELOW FOR UNRECOGNIZED SECTION No Status Records FoundNo Status Records Found UNRECOGNIZED CONTENT PROVIDED BELOW FOR UNRECOGNIZED SECTION INFORMATION SOURCE DATE CREATED AUTHOR AUTHOR'S ORGANIZATIO N 12/12/2018 [facility] DATE CREATED AUTHOR AUTHOR'S ORGANIZATIO N 11/10/2019 [facility] UNRECOGNIZED CONTENT PROVIDED BELOW FOR UNRECOGNIZED SECTION Source Comments In the event this information is protected by the Federal Confidentiality of Alcohol and Drug Abuse Patient Records regulations: The Federal rules restrict any use of the information to criminally investigate or prosecute any alcohol or drug abuse patient.[facility] the event this information is protected by the Federal Confidentiality of Alcohol and Drug Abuse Patient Records regulations: The Federal rules restrict any use of the information to criminally investigate or prosecute any alcohol or drug abuse patient.[facility] CenterIn the event this information is protected by the Federal Confidentiality of Alcohol and Drug Abuse Patient Records regulations: The Federal rules restrict any use of the information to criminally investigate or prosecute any alcohol or drug abuse patient.[facility] CenterIn the event this information is protected by the Federal Confidentiality of Alcohol and Drug Abuse Patient Records regulations: The Federal rules restrict any use of the information to criminally investigate or prosecute any alcohol or drug abuse patient.[facility] CenterIn the event this information is protected by the Federal Confidentiality of Alcohol and Drug Abuse Patient Records regulations: The Federal rules restrict any use of the information to criminally investigate or prosecute any alcohol or drug abuse patient.[facility] CenterIn the event this information is protected by the Federal Confidentiality of Alcohol and Drug Abuse Patient Records regulations: The Federal rules restrict any use of the information to criminally investigate or prosecute any alcohol or drug abuse patient.[facility]
--- OUTSIDE RECORDS SUMMARY | 2020-01-22 15:08 | XMS RPT_ITS | CCD ---
:1960 External Reference #:[id number] Author Organization [facility] Care Team Providers Name Role Phone Ida Aggarwal) Primary Care Provider Medications Medication Name Sig Date Prescriber Location Albuterol albuterol HFA 01-01-2019 Ida Roman) [facility] (PROVENTIL HFA) 90 Jasen (87122) mcg/actuation inhaler Indications: Wheezing , SOB (shortness of breath) Inhale 2 Puffs as instructed every 4 hours as needed for Wheezing/Shortness of Breath. 1 Inhaler 5 01/01/2019 Active Comment: Inhale 2 Puffs as instructed every 4 hours as needed for Wheezing/Shortness of Breath. Sertraline sertraline (ZOLOFT) 50 07-20-2019 Ida Roman) [facility] mg tablet Indications: Jasen (4419 5) Current moderate episode of major depressive disorder without prior episode (HCC) Take 1 tablet by mouth once daily. 30 tablet 2 07/20/2019 Active Comment: Take 1 tablet by mouth once daily. Problems Active Problems Category Problem Name Status Date Location Alcohol-related History of alcohol Active [facility] disorders abuse (61971) Chronic obstructive Chronic obstructive Active [facility] pulmonary disease and lung disease (64358 ) bronchiectasis Disorders of lipid Mixed hyperlipidemia Active [address] [facility] metabolism (60102) Residual codes; Tobacco user Active [facility] in unclassified (87188) Past or Other Problems Category Problem Name Status Date Location Diabetes mellitus Impaired fasting Completed 2007 - [facility] without complication glycaemia (65483) Residual codes; FH: Cardiovascular Completed 2007 - [facility] unclassified disease (16648) Results Result Name Value Range Unit Interpretation Flag Date Location progress on 2019-10 PROGRESS HNO ID: [id number] Normal 11-09-[address] [facility] Author: Mario Leiva ([id number]) Service: ? Author Type: Physician Type: Progress [...] 2019-11-09 CNOV Office Visit (FAMPWS) Normal 11-09-[address] [place] [address] [facility] SHER NICOLE ([id number]) 1960 [facility] Date Time Provider Department (34705) 11/09/19 2:40 PM [facility] During your visit today, we recorded the following informati on about you: Pulse Blood pressure Weight 90/minute 116/68 81.6 kg Bonita Huerta Ma 11/09/2019 2:49 PM Signed HOSPITAL/ER FOLLOW UP: Reason for visit: head injury after fall Which facility: [facility] Date of visit: 10/30/19 Diagnosis: laceration [...] Mario Whitten MD Referring Provider: IDA AGGARWAL) [[id number]] Allergies As of Date: 11/09/2019 (No Known [...] visit: head injury after fall Which facility: [facility] Date of visit: 10/30/19 Diagnosis: laceration [...] 11/09/19 progress on 2019-07 PROGRESS HNO ID: [id number] Normal 07-20-[address] [facility] Author: Ida Roman) Jasen Leiva ([id number]) Service: ? Author Type: Physician Type: Progress [...] weeks. Currently homeless and [facility]. Following COVID 19 restrictions of staying inside and washing hands. S haring rooms and bunk beds with other residents. No history of depression or anxiety. Not seeing counseling currently, but has in the past at 180. PHQ-9 (Patient Health Questionnaire-9) from [employer] on 01/2020 All calculations should be rechecked [...] more than 50% of the to richmond spmb-xt-mehi time of the visit in counseling / coordination of care. MD navarro Watson on 2019-07-18 [facility]) Normal 07-18-2019 [facility] SHER NICOLE ([id number]) 1960 [facility] Date Time Provider Department (89316) 07/18/19 IDA AGGARWAL) [facility] During your visit today, we recorded the following informati on about you: Jaycob Todd [facility] 07/18/2019 4:04 PM Signed Patient called in [...] Date Reviewed: 01/02/2019 Reviewed by: Ivania (Rn) MITLAI Camarena - Fully Assessed Reason for Visit: [...] on 2019-07-17 CNPN Telephone (FAMPWS) Normal 07-17-2019 [facility] SHER NICOLE ([id number]) 1960 [facility] Date Time Provider Department (83617) 07/17/19 IDA AGGARWAL) [facility] During your visit today, we recorded the following informati on about you: Charu Ann, SUPERVISOR SHAVING AND SPLITTING, [employer] 07/17/2019 12:19 PM Signed Clau nurse from Pulmonary here in [place] calls states pt voices to them that he is depressed And would like someone to talk to. eir irrigation teacher wanted her to reach out to u [...] 12:38 PM Signed Spoke with Eliot at [facility]. The patient is re siding there. She will have the patient return call to our office after lunch. Fredrick Singh RN 07/18/2019 3:58 PM Signed Patient returned call. Transferred to glass technician for VV with PCP. Fredrick Singh RN Jossie Javier [facility] 07/19/2019 11:37 AM Signed Spoke with patient [...] 07/18/19 progress on 2019-03 PROGRESS HNO ID: [id number] Normal 03-22-[address] [facility] Author: Jessica ChristiansenRn) MITALI Cooper [facility] ([id number]) Service: ? Author Type: Registered Nurse Type: [...] pt. Jessica Cooper RN PROGRESS HNO ID: [id number] Normal 03-22-[address] [facility] Author: Jessica ChristiansenRn) MITALI Cooper ([id number]) Service: ? Author Type: Registered Nurse Type: Progress Notes Filed: 03/22/2019 10:45 AM Note Text: PRIMARY CARE COORDINATION QUICK NOTE Provider Action/FYI Unable to reach pt. Will discharge from care coordination. Patient identified by name and date . Received return letter. [facility] was unable to deliver. 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 Will discharge from care coordination. Patient identified by name and date . Received return letter. [facility] was unable to deliver. 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 Author Type: Registered Nurse Type: Progress Notes Filed: 02/26/2019 1:36 PM Note Text: PRIMARY CARE COORDINATION QUICK NOTE Provider Action/FYI Letter sent. Patient identified by name and date . Sent certified letter about need to follow up with Care Coor dinator progress on 2019-02 PROGRESS HNO ID: [id number] Normal 02-14-[address] [facility] Author: Ida Roman) Jasen Leiva ([id number]) Service: ? Author Type: Physician Type: Progress Notes Filed: 02/14/2019 9:22 AM Note Text: Reviewed. Send letter? PROGRESS HNO ID: [id number] Normal 02-14-[address] [facility] Author: MITALI Aguilar Rn ([id number]) Service: ? Author Type: Registered Nurse Type: Progress Notes Filed: 02/26/2019 1:36 PM Note Text: PRIMARY CARE COORDINATION QUICK NOTE Provider Action/FYI Still unable to reach pt. Patient identified by name and date . Called patient, phone is not accepting phone calls. Called t [facility], no one staying there by that name. cnptoutreach on 201 12-20-05 CNPTOUTREACH Patient Outreach (FAMPWS) Normal 1 04-16-2018 [facility] SHER Segura ([id number]) 1960 [facility] Date Time Provider Department (48837) 02/14/19 JESSICA COOPER (RN) [facility] During your visit today, we recorded the following informati on about you: Jessica Cooper RN, RN 02/26/2019 1:36 PM Signed PRIMARY CARE COORDINATION QUICK NOTE Provider Action/FYI Still unable to reach pt. Patient identified by name and date . Called patient, phone is not accepting phone myra ls. Called to [email or web address], no one staying there by that name. 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 Author Type: Registered Nurse Type: Progress Notes Filed: 01/24/2019 11:04 AM Note Text: PRIMARY CARE COORDINATION QUICK NOTE Patient identified by name and date . Called again to phone number in chart. Currently not accepti ng calls. Unable to contact pt at this time. cnptoutreach on 12-20-15 CNPTOUTREACH Patient Outreach (FAMPWS) Normal 1 [facility] SHER NICOLE ([id number]) 1960 [facility] Date Time Provider Department (52723) 01/24/19 JESSICA COOPER (RN) FAMPWS During your [...] 01/24/19 progress on 2019-01 PROGRESS HNO ID: [id number] Normal 01-23-[address] [facility] Author: Siomara Paniagua) Bo [facility] ([id number]) Service: ? Author Type: Nurse Practitioner Type: Progress Notes Filed: 01/23/2019 9:37 AM Note Text: Reviewed. Siomara Harden, VIKKI.[facility] PROGRESS HNO ID: [id number] Normal 01-23-[address] [facility] Author: Jessica (Rn) MITALI Cooper [facility] ([id number]) Service: ? Author Type: Registered Nurse Type: Progress Notes Filed: 01/24/2019 10:46 AM Note Text: PRIMARY CARE COORDINATION QUICK NOTE Provider Action/FYI Unable to reach pt for TCM. No longer staying at [facility]my Patient identified by name and date . Called to [facility], pt [facility] They have no other information about him. rolando on 201 12-19-14 CNPTOUTREACH Patient Outreach (FAMPWS) Normal 1 [facility] SHER NICOLE ([id number]) 1960 Darian [facility]iva Date Time Provider Department (24786) 01/23/19 JESSICA COOPER (RN) FAMPWS During your visit today, we recorded the following informati on about you: Jessica Cooper RN, RN 01/24/2019 10:46 AM Signed PRIMARY CARE COORDINATION QUICK NOTE Provider Action/FYI Unable to reach pt for TCM. No longer staying at [facility] Patient identified by name and date . Called to [facility] , pt has been di smissed from the [facility]. They have no other information about him. Siomara Soriano APRN.ASSISTANT PASTRY CHEF 01/23/2019 9:37 AM Signed Reviewed. 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 Author Type: Registered Nurse Type: [...] I knew, he was living at the [employer] [employer] , I told the other girl that called that as well PROGRESS HNO ID: [id number] Normal 01-22-[address] [facility] Author: Charu Farmer (Community Service Officer) IDALIA Ann [facility] ([id number]) Service: ? Author Type: LICENSED NURSE Type: Progress Notes Filed: 02/19/2019 3:01 AM Note Text: Received discharge papers from [facility] again pt was readmitted on the and discharged the coul d not complete tcm due to being discharged same day. Spoke with Siomara in Dr Carina Aggarwal's absence and she agrees Pt should have care coordination foll owing him. Gave papers to Jessica LUCIO to follow per TCM. 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 Author Type: LICENSED NURSE Type: Progress Notes Filed: 02/19/2019 3:01 AM Note Text: Attempted to reach pt on two other atemps and machine just s [employer] pt not available but is not a answering machine where message can b e left.Pt does have a hospital f/up scheduled with Siomara Soriano CNP ON . cnptoutreach on 201 12-19-08 CNPTOUTREACH Patient Outreach (FAMPWS) Normal 1 [facility] SHER NICOLE ([id number]) 1960 [facility] Date Time Provider Department (45437) 01/17/19 IDA AGGARWAL) FAMPWS During your visit today, we recorded the following informati on about you: [place] Ann LPN, IDALIA 02/19/2019 3:01 AM Signed Attempted to call pt for tcm, number buchanan s not have answering machine will need to try back. TRANSITION CARE MANAGEMENT (TCM) INITIAL CONTACT Image Consultant Outreach Provider Action/FYI: Initial contact with patient [...] 3:01 AM Signed Received discharge papers [facility] 01/19/19 again pt was readmitted on [...] alcohol abuse [F10.11] More... Encounter Status:Closed by [employer], [employer] on 02/19/19 progress on 2018-12 PROGRESS HNO ID: [id number] Normal 01-04-[address] [facility] Author: Evangelina Payne [facility] ([id number]) Service: ? Author Type: ? Type: Progress [...] on 2018-12 OBSOLETE Refill (FAMPWS) Normal 12-29-2018 [facility] SHER NICOLE ([id number]) 1960 [facility] Date Time Provider Department (46494) 12/29/18 IDA AGGARWAL) FAMPWS During your visit [...] No RX INSTRUCTIONS: MyChart request. Claudia Thomas SUPERVISOR SHAVING AND SPLITTING Allergies As of Date: 12/29/2018 (No Known [...] on 9 cnpn on 2018-12-29 CNPN Telephone ([id number]) Normal 12-29 [facility] SHER NICOLE ([id number]) 1960 [facility] Date Time Provider Department (89074) 12/29/18 AIMEE HERNANDEZ [id number] During your visit today, we recorded the following informati on about you: Theresa Thibodeaux 01/02/2019 3:50 PM Signed Called patient again, and le ft a detailed message; again, requested return call. Theresa Thibodeaux 01/03/2019 1:33 PM Signed Patient returned call from message re scheduled appointme nts. Patient requested and confirmed appointments on 01/07 AND 01/10/19. CT is being done at [place] on 01/04/19 Trung Briones MD 01/18/2019 7:40 AM Signed Looks like he cancelled his biopsy procedure Please call and find out how he is doing and if he is agreeable to rescheduling so I can reach out to the procedure team to help Avi Lowe Ma 01/18/2019 11:03 AM Signed [facility]ed to call patient [facility] but per recording pt was unavailable. [...] pt has calvin moore dismissed from the [facility] where he was staying, and the [facility] has no other information about him, noted [...] (PPP) [Time] 1.0 0.9-1.3 s Normal 9 [facility] (23907) Comment: Result Comment: Vitamin K An tagonist (VKA) Therapeutic Range: INR 2 to 3 (Target INR of 2.5) Note: For patients treated w ith VKA drugs, such as warfarin, the [place] [employer] 2012 Guideline recommends a therapeutic INR range of 2 to 3 (target INR of 2.5). This recommendation includes high-risk patients with antiphospholipid syndrome with previous arterial or venous thromboembolism, current-generation mechanical or bioprosthetic aortic heart valve replacement. Note: Patients with airplane mechanic apprentice al aortic valve replacement and additional risk factors for thromboembolic events (atrial fibrillation, previous thromboembolism, LV dysfunction, hypercoagulable conditions) or an older generation mecha nical AVR (i.e., ball in-Cage) or any mechanical MVR should have a INR therapeutic range of 2.5 to 3.5 (target INR of 3). Kalen GH, et al. Chest 2012 , 141:7S-47S Kayla PINEDA, et al. [facility] 20 17, 70: 252-289 Performed By: #### CBCDIF, P T, PTT, BMP ####[place] [id number] [place], [place] [phone] PT Coag (PPP) [Time] 10.6 9.7-13.0 sec Normal 9 [facility] (60479) Comment: Performed By: #### CBCDIF, P T, PTT, BMP ####[place] [address] [place], [place] [phone] cbc and differential on 2018-12-27 Abs Baso 0.06 <0.11 k/uL Normal 12-27-2018 [facility] (87608) Comment: Performed By: #### CBCDIF, P T, PTT, BMP ####[place] [address] [place] [phone] Abs Larue 0.64 <0.87 k/uL Normal 12-27-2018 [facility] (65285) Comment: Performed By: #### CBCDIF, P T, PTT, BMP ####[place] [address] [place], [place] [phone] Abs Neut 7.32 1.45-7.50 k/uL Normal 12-27-2018 [facility] (24378) Comment: Performed By: #### CBCDIF, P T, PTT, BMP ####[place] [address] [place], [place] [phone] Absolute nRBC <0.01 <0.01 Normal 12-27-2018 [facility] (07754) Comment: Performed By: #### CBCDIF, P T, PTT, BMP ####[place] [address] [place], [place] [phone] Basophils/100 WBC (Bld) 0.6 % Normal 2018 [facility] (00921) Comment: Performed By: #### CBCDIF, P T, PTT, BMP ####[place] [address] [place], [place] [phone] DTYPE Auto Diff Normal 12-27-2018 [facility] (49969) Comment: Performed By: #### CBCDIF, P T, PTT, BMP ####[place] [address] [place], [place] [phone] Eosinophils (Bld) [#/Vol] 0.16 <0.46 k/uL Normal 12-10 [facility] (69488) Comment: Performed By: #### CBCDIF, P T, PTT, BMP ####[place] [address] [place], [place] [phone] Eosinophils/100 WBC (Bld) 1.6 % Normal 12-10 [facility] (51913) Comment: Performed By: #### CBCDIF, P T, PTT, BMP ####[place] [address] [place] [phone] Erythrocyte distribution 12.7 11.5-15.0 % Normal 12-[address] [facility] width (RBC) [Ratio] [facility] (95210) Comment: Performed By: #### CBCDIF, P T, PTT, BMP ####[place] [address] [place], [place] [phone] Hematocrit (Bld) [Volume 39.5 39.0-51.0 % Normal 12-[address] [facility] fraction] [facility] (03645) Comment: Performed By: #### CBCDIF, P T, PTT, BMP ####[place] [address] [place] [phone] Hemoglobin (Bld) 12.4 13.0-17.0 g/dL Low 12-27-2018 [facility] [Mass/Vol] [facility] (34311) Comment: Performed By: #### CBCDIF, P T, PTT, BMP ####[place] [address] [place], [place] [phone] Lymphocytes (Bld) [#/Vol] 1.72 1.00-4.00 k/uL Normal 12-10 [facility] (20452) Comment: Performed By: #### CBCDIF, P T, PTT, BMP ####[place] [address] [place], [place] [phone] Lymphocytes/100 WBC (Bld) 17.4 % Normal 12-10 [facility] (39643) Comment: Performed By: #### CBCDIF, P T, PTT, BMP ####[place] [address] [place], [place] [phone] MCH (RBC) [Entitic mass] 31.2 26.0-34.0 pG Normal 12-27 [facility] (91078) Comment: Performed By: #### CBCDIF, P T, PTT, BMP ####[place] [address] [place], [place] [phone] MCHC (RBC) [Mass/Vol] 31.4 30.5-36.0 g/dL Normal 12-28-19 [facility] (18572) Comment: Performed By: #### CBCDIF, P T, PTT, BMP ####[place] [address] [place], [place] [phone] MCV (RBC) [Entitic vol] 99.2 80.0-100.0 fL Normal 12-27 [facility] (08677) Comment: Performed By: #### CBCDIF, P T, PTT, BMP ####[place] [address] [place], [place] [phone] Monocytes/100 WBC (Bld) 6.5 % Normal 2018 [facility] (49009) Comment: Performed By: #### CBCDIF, P T, PTT, BMP ####[place] [address] [place], [place] [phone] Neutrophils/100 WBC (Bld) 73.9 % Normal 12-10 [facility] (68645) Comment: Performed By: #### CBCDIF, P T, PTT, BMP ####[place] [address] [place], [place] [phone] NRBCs 0.0 0 /100 WBC Normal 12-27-2018 [facility] (35900) Comment: Performed By: #### CBCDIF, P T, PTT, BMP ####[facility] [address] [place], [place] [phone] Platelet mean volume 11.0 9.0-12.[address] [facility] (Bld) [Entitic vol] [facility] (81011) Comment: Performed By: #### CBCDIF, P T, PTT, BMP ####[place] [address] [place], [place] [phone] Platelets (Bld) [#/Vol] 252 150-400 k/uL Normal 2018 [facility] (52924) Comment: Performed By: #### CBCDIF, P T, PTT, BMP ####[place] [address] [place], [place] [phone] RBC (Bld) [#/Vol] 3.98 4.20-6.00 m/uL Low 12-27-2018 [facility] (37566) Comment: Performed By: #### CBCDIF, P T, PTT, BMP ####[facility] [place], [place] [phone] WBC (Bld) [#/Vol] 9.90 3.70-11.00 k/uL Normal 12-27-2018 [facility] (14660) Comment: Performed By: #### CBCDIF, P T, PTT, BMP ####[place] [address] [place], [place] [phone] basic metabolic panl on 2018-12-27 Anion gap [Moles/Vol] 12 9-18 mmol/L Normal 12-28-19 [facility] (86364) Comment: Performed By: #### CBCDIF, P T, PTT, BMP ####[facility] [place], [place] [phone] Calcium [Mass/Vol] 9.2 8.5-10.2 mg/dL Normal 12-27-2018 [facility] (25518) Comment: Performed By: #### CBCDIF, P T, PTT, BMP ####[facility] [place], [place] [phone] Chloride [Moles/Vol] 100 97-105 mmol/L Normal [facility] (91590) Comment: Performed By: #### CBCDIF, P T, PTT, BMP ####[facility] [place], [place] [phone] CO2 [Moles/Vol] 27 22-30 mmol/L Normal 12-27-2018 [facility] (75516) Comment: Performed By: #### CBCDIF, P T, PTT, BMP ####[facility] [place], [place] [phone] Creatinine [Mass/Vol] 0.75 0.73-1.22 mg/dL Normal 12-28-19 [facility] ([id number]) Comment: Performed By: #### CBCDIF, P T, PTT, BMP ####[facility] [place], [place] [phone] eGFR- Amer. >60 Normal 12-27-2018 [facility] ([id number]) Comment: Performed By: #### CBCDIF, P T, PTT, BMP ####[facility] [place], [place] [phone] GFR/1.73 sq M predicted >60 mL/min/{1.73_m2} Normal 12-27-[address] [facility] among non-blacks MDRD [facility] ([id number]) (S/P/Bld) [Vol rate/Area] Comment: Result Comment: eGFR [...] By: #### CBCDIF, P T, PTT, BMP ####[facility] [address] [place] PharmaceuticalsSh[place], [place] [phone] Glucose [Mass/Vol] 92 74-99 mg/dL Normal 12-27-2018 [facility] (05885) Comment: Result Comment: The [place] Diabetes Association (ADA) provides guidance for cutoff [...] for diagnosis of diabetes. Reference: Standards of [facility] Care in Diabetes 2016, [place] Diabetes Association. Diabetes Care. 2016.39(Suppl 1). Performed By: #### CBCDIF, P T, PTT, BMP ####[facility] [address] [place], [place] [phone] Potassium [Moles/Vol] 4.1 3.7-5.1 mmol/L Normal 12-28-19 19 [facility] ([id number]) Comment: Performed By: #### CBCDIF, P T, PTT, BMP ####[facility] [address] [place], [place] [phone] Sodium [Moles/Vol] 139 136-144 mmol/L Normal 12-27-2018 [facility] (52912) Comment: Performed By: #### CBCDIF, P T, PTT, BMP ####[facility] [place], [place] [phone] Urea nitrogen [Mass/Vol] 8 9-24 mg/dL Low 12-27 [facility] ([id number]) Comment: Performed By: #### CBCDIF, P T, PTT, BMP ####[facility] [place], [place] [phone] aptt on 2018-12-27 aPTT Coag (Bld) [Time] 28.5 23.0-32.4 sec Normal [address] [place] [address] ([id number]) Comment: Result Comment: Unfractionat ed Heparin Therapeutic [...] laboratory APTT reagent in use throughout the [facility]. Performed By: #### CBCDIF, P T, PTT, BMP ####[facility] [place], [place] [phone] cnpn on 2018-12-21 CNPN Telephone (LAYLA) Normal 12-21-2018 [facility] SHER NICOLE ([id number]) 1960 [facility] Time Provider Department ([id number]) 12/21/18 TRUNG BRIONES During your visit today, we recorded the following informati on about you: Trung Briones MD 12/21/2018 9:42 AM Signed Please call and update patient that I sp toi to the [facility] team and one of their schedulers will call to set up a final pro cedure date, but they did ask that labs get done before the scheduled procedure. The orders are in, please see if he can get these done in the next few days at any local [facility] lab so that we can see the results. Obdulia Amezcua 12/21/2018 10:12 AM Signed Left a voicemail for the pt to call the office b ack in regards to the message below. If pt calls back please let him know [facility], but he first needs to have lab work done at any of our [facility] labs, the order for lab work is placed. If it is better to go to a lab in [place] I did research and this on is close to him. [facility] [address] [place], [place] [address] Obdulia Amezcua 12/25/2018 3:55 PM Signed Left a voicemail for the pt to call the office b ack in regards to the message below. Obdulia Amezcua 12/26/2018 10:17 AM Signed Spoke with Pt, Pt verbalized understanding. No further quest ions. Pt has not heard from [facility] yet, he will g o and get the blood work done and then wait to hear back from [facility]. Trung Briones MD 12/27/2018 8:43 AM Signed Records from [place] received, 10/06/18 E D visit for which [...] density appears larger at this time. [facility] [place] is going to schedule interventional pulm f [...] 12/26/18 progress on 2018-12 PROGRESS HNO ID: [id number] Normal 12-20-2018 [facility] Author: Aimee Hernandez [facility] Service: ? [facility] Author Type: Physician ([id number]) Type: Progress Notes Filed: 12/21/2018 2:43 PM [...] on anticoagulants/anti-plt therapy? No Nursing Considerations: (ie: senior care, TB, respiratory isolation, etc.) none Diagnosis/Reason for [...] results found for: CREAT PROGRESS HNO ID: [id number] Normal 12-20-2018 [facility] Author: [facility] Service: ? 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 [place] December 20, 2018 9:44 AM I spent 60 minutes in the visit, with more than 50% of the t otal gzrq-gr-hcxt time of the visit in counseling / coordination of care. cnov on 2018-12-20 CNOV Office Visit (PULMLO) Normal 12-21-19 19 [facility] SHER NCIOLE ([id number]) 1960 M URIEL [facility] Date Time Provider Department ([id number]) 12/20/18 9:45 AM TRUNG BRIONES During your visit today, we recorded the following informati on about you: Temperature Pulse Blood pressure Weight 98.6 degrees 73/minute 115/71 82 kg Height 1.753 m Obdulia Amezcua 12/20/2018 9:39 AM Signed [facility] FACTS LAB HOURS: [place] [facility] is open from 7:30am to 6pm , open from 7:30am-5pm on Tuesday and open 8am-12pm on Tuesday. Closed on Tuesday [facility] is open from 7:30am to 5pm [...] 24 hours prior to the scheduled exam. [facility] Express Care -- No appointment needed At the [facility], patients 2 years and older can get walk -in medical attention for common health problems including: Cold and flu symptoms Conjunctivitis Ear and throat infections Minor bumps and cuts Seasonal allergies Skin rashes Simple sprains and strains Sinus infections Urinary tract infections Upper respiratory tract infections Locations and Times [facility] - [address], [facility] - [address] [place] [address] [employer] [facility] - Tuesday through Tuesday 6 AM - 9 PM - Tuesday and Tuesday 8 AM - 4 PM For Express Care LOCATIONS, HOURS OF OPERATION and CUR RENT WAIT TIMES, visit the following link for details. [email or web address]?[email or web address][types][0]=Express%20Care%20ClinicsAN D Emergency Department [facility] St[facility]ard [facility] - [address]), [facility] [phone] Pharmacy Hours: Tuesday through Tuesday 8 am to 6 pm Opt in to receive text reminders for your appointments with [facility] specialist today. To opt in, text 4clinictxt to [phone]. 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 No pets REVIEW OF [...] file Gets together: Not on file Attends worship service: Not on file Active member of [...] patient as noted below: Chest CT: 10/06/18 [facility] CT, no im age to review [...] signature obtained to get actual images from [place] The above plan was discussed with the rubi botello and all questions were answered. I will see Mr. Nicole for follow-up in 2 months Trung Briones MD Pulmonary and Critical Care Medicine [facility] [place] December 20, 2018 9:44 AM I spent 60 minutes in the visit, with more than 50% of the total htvs-so-zjaa time of the visit in counseling / coordination of care. Referring Provider: IDA AGGARWAL) [[id number]] Allergies As of Date: 12/20/2018 (No Known Allergies) Date Reviewed: 12/20/2018 Reviewed by: Trung Briones - Fully Assessed Reason for Visit: New Patient [172] Cmt: Left lung lesion Primary Visit Diagnosis:Lung mass [R91.8] Other Visit Diagnoses:Dyspnea on exertion [R06.09] Chronic obstructive pulmonary disease, unspecified COPD type (HCC) [J44.9] Order(s):ECG COMPLETE [ECG01] Order #: [id number] FUTURE Prescriptions as of 12/20/2018 Sig: FLUTICASONE [...] [F10.11] More... Other instructions from your clinician: [facility] TRData [facility] FACTS LAB HOURS: [facility] is open from 7:30am to 6pm M-, open from 7:30am -5pm on Tuesday and open 8am-12pm on Tuesday. Closed on Tuesday [facility] lab is open from 7:30am to 5pm [...] 24 hours prior to the scheduled exam. [facility] -- No appointment needed At the [facility], patients 2 years and older can get walk -in medical attention for common health problems including: Cold and flu symptoms Conjunctivitis Ear and throat infections Minor bumps and cuts Seasonal allergies Skin rashes Simple sprains and strains Sinus infections Urinary tract infections Upper respiratory tract infections Locations and Times [facility] - [address], [facility] [place] - [address] [facility] - Tuesday through Tuesday 6 AM - 9 PM - Tuesday and Tuesday 8 AM - 4 PM For Express Care LOCATIONS, HOURS OF OPERATION and CURRENT W AIT TIMES, visit the following link for details. [email or web address]?dFR[types][0]=Expr ess%20Care%20Clin icsAND Emergency Department [facility] - [address] [facility]), [facility] [phone] Pharmacy Hours: Tuesday through Tuesday 8 am to 6 pm Opt in to receive text reminders for your appointments with [facility] health specialist today. To opt in, text 4clinictxt to [phone]. Disposition: Return in about 2 months (around 02/19/2019). Follow-up and Disposition History Recorded Encounter Status:Closed by TRUNG BRIONES MD on 12/20/18 progress on 2018-12 PROGRESS HNO ID: [id number] Normal 12-13-[address] [facility] Author: Ida Gandara () Jasen [facility] ([id number]) Service: ? Author Type: Physician Type: Progress [...] file Gets together: Not on file Attends worship service: Not on file Active member of [...] 2018-12-13 CNOV Office Visit (FAMPWS) Normal 12-14-19 [facility] SHER NICOLE ([id number]) 1960 [facility] Date Time Provider Department ([id number]) 12/13/18 11:20 AM IDA AGGARWAL) FAMPWS During [...] file Gets together: Not on file Attends worship service: Not on file Active member of [...] Aggarwal MD Referring Provider: IDA AGGARWAL () [[id number]] Allergies As of Date: 12/13/2018 (No Known Allergies) Date Reviewed: 12/13/2018 Reviewed by: Natanael Dennis Ma - Fully Assessed Reason for Visit: follow up PET scan results [Other] Primary Visit Diagnosis:Mass of left lung [R91.8] Other Visit Diagnosis:Abnormal PET scan of lung [R94.2] Order(s):CONSULT TO PULM/CRITICAL CARE [[id number]] Order #: [id number]: 1 Prescriptions as of 12/13/2018 Sig: FLUTICASONE [...] 12/13/18 progress on 2018-12 PROGRESS HNO ID: [id number] Normal 12-12-2018 [place] Author: [facility] Service: Nuclear Medicine ([id number]) Author Type: Assistant Real Estate Manager Type: Progress Notes Filed: 12/12/2018 12:14 PM [...] regarding radiation safety can be found using [facility] link: [email or web address] /[email or web address]%20Protection %[email or web address]-%20Diagnostic%20Nuclear%20Medicine%20Procedures.pdf SIGNATURE: Prosper Montelongo [facility] PATIENT NAME: Sher Nicole DATE: December 12, 2018 TIME: 12:14 PM PAGER/CONTACT #: or pet/ct whole body init on 2018-12-12 NM PET/CT WHOLE * * *Final Report* * * Normal 0 12-12-2018 [facility] BODY INIT DATE OF EXAM: Dec 12 2018 1:29PM ([id number]) [facility] 0061 - NM PET/CT WHOLE BODY [...] EXTREMITIES/SKELETON: No suspicious FDG avid osseous process. Education Reporter: TC Transcribe Date/Time: Dec 12 2018 1:51P Dictated by : JAUN CHILD MD This examination was interpreted and the report reviewed and electronically signed by: JAUN CHILD MD on Dec 12 2018 1:58PM EST [id number] [facility] CNPN Telephone (ASWSTR) Normal 12-05-2018 [facility] SHER NICOLE ([id number]) 1960 [facility] Date Time Provider Department ([id number]) 12/05/18 IDA AGGARWAL) ASWSTR During your visit [...] 12/07/18 progress on 2018-11 PROGRESS HNO ID: [id number] Normal 11-30-[address] [facility] Author: Ida Roman) Jasen [facility] ([id number]) Service: ? Author Type: Physician Type: Progress Notes Filed: 11/30/2018 3:21 PM Note Text: Reviewed. Thanks. PROGRESS HNO ID: [id number] Normal 11-30-[address] [facility] Author: Taylor Ramirez [facility] ([id number]) Service: ? 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 He's aware he's due for fasting labs and an IFOBT. 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 He will make a follow up appointment with PCP after PET scan. Patient identified by name and . Taylor Ramirez CMA PROGRESS HNO ID: [id number] Normal 11-30-[address] [facility] Author: Taylor Ramirez [facility] ([id number]) Service: ? Author Type: Image Consultant Type: Progress Notes Filed: 12/01/2018 10:49 AM Note Text: [facility] CARE GAP REGISTRY DOCUMENTATION (OUTSIDE TEAMLET) [...] CNPTOUTREACH Patient Outreach (FAMPWS) Normal 0 11-30-2018 [facility] SHER Segura ([id number]) 1960 M [facility] Date Time Provider Department ([id number]) 11/30/18 [facility] FAMPWS During your visit today, we recorded the following informati on about you: Taylor Ramirez CMA 12/01/2018 10:49 AM Signed [facility] CARE GAP REGISTRY DOCUMENTATION (OUTSIDE TEAMLET) [...] No results found for: HDL LDL Chol, [place] (mg/dL) Date Value 04/07/2007 109 No results [...] CMA 12/01/2018 10:49 AM Signed [facility] 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 He's aware he's due for fasting labs and an IFOBT. 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 He will make a follow up [...] 12/01/18 progress on 2018-11 PROGRESS HNO ID: [id number] Normal 11-10-2018 [facility] Author: Ida Roman) Jasen ([id number]) Service: ? Author Type: Physician Type: Progress Notes Filed: 11/10/2018 10:15 AM Note Text: Reviewed. Thanks. PROGRESS HNO ID: [id number] Normal 11-10-2018 [facility] Author: Taylor Ramirez ([id number]) Service: ? 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 Author Type: Image Consultant Type: Progress Notes Filed: 11/10/2018 9:51 AM [...] No results found for: HDL LDL Chol, [place] (mg/dL) Date Value 04/07/2007 109 No results found for: TG HGB A1C: No results found for: HBA1C TSH: No results found for: TSH) Care Gap: Hyperlipidemia COPD Plan: ? Confirm PCP / Status - active ? Type of appointment needed: Follow-up Next available with Provider pcp or cash control specialist ? Consultation Appointments: PET SCAN Labs, [...] Location 01-10-2020 - Patient encounter External Provider [facility] 01-10-2020 procedure 12-19-2019 - Patient encounter External Provider [facility] 12-19-2019 procedure 12-06-2019 - Patient encounter External Provider [facility] 12-06-2019 procedure 11-23-2019 - Patient encounter External Provider [facility] 11-23-2019 procedure 01-10-2020 - Results Only External Provider External-N [facility] 01-10-2020 12-19-2019 Results Only External Provider External-N [facility] 12-06-2019 - Results Only External Provider External-N [facility] 12-06-2019 11-23-2019 Results Only External Provider External-N [facility] Procedures Procedure Name Date Provider Location EXTERNAL IMAGING 01-10-2020 - 01-10-2020 External Provider [facility] ([id number]) EXTERNAL LAB 12-19-2019 External Provider [facility] ([id number]) EXTERNAL LAB 12-06-2019 External Provider [facility] ic ([id number]) EXTERNAL IMAGING 12-06-2019 External Provider [facility] isis ([id number]) EXTERNAL LAB 11-23-2019 External Provider [facility] ic ([id number]) Plan of Treatment Plan Description Date Location DTAP,TDAP,TD (2 - Td) DTAP,TDAP,TD (2 - Td) 03-06-2028 - [facility] 03-06-2028 ([id number]) PROSTATE CANCER PROSTATE CANCER 03-06-2023 - [facility] SCREENING DISCUSSION SCREENING DISCUSSION 03-06-2023 ([id number] ) DIABETES SCREEN DIABETES SCREEN 12-27-2021 - [facility] 12-27-2021 ([id number]) ANNUAL PCP TEAM CHRONIC ANNUAL PCP TEAM CHRONIC 11-08-2020 - [facility] DISEASE VISIT DISEASE VISIT 11-08-2020 (75323) LUNG CANCER SCREENING LUNG CANCER SCREENING 01-05-2020 - [facility] 01-05-2020 ([id number]) INFLUENZA (#1) INFLUENZA (#1) 2019 - [facility] 12-11-2019 (63077) LIPID SCREEN LIPID SCREEN 04-07-2012 - [facility] 04-07-2012 (55566) SHINGRIX VACCINE (1 of SHINGRIX VACCINE (1 of 2011 - [facility] 2) 2) 2011 (06161) COLORECTAL CANCER COLORECTAL CANCER 2011 - [facility] SCREENING,SEE MODIFIER SCREENING,SEE MODIFIER 2011 (8 [id number]) HEPATITIS C SCREENING HEPATITIS C SCREENING 1979 - [facility] 1979 (23877) HIV SCREENING HIV SCREENING [address] - [facility] 1979 (11735) Immunizations Vaccine Notes Status Date Location Tdap (Age 7+) tetanus toxoid, (completed) 03-06-2018 - [facility] linic reduced diphtheria 03-06-2018 (96219) toxoid, and acellular pertussis vaccine, adsorbed Payers Payer Name Policy Number Location [employer] [id number] [facility] (44 195) The following information is from the original human readable contentNo Payer Records FoundNo Payer Records FoundNo Payer Records Found Social History Type Social History Date Location Description Tobacco smoking status Current every day smoker 11-09-2019 - [facility] NHIS 11-09-2019 (36888) History of tobacco use Cigarette Smoker [facility] ([id number]) Cigarettes smoked 11-09-2019 - [facility] ic current (pack per day) 11-09-2019 (03982) - Reported Tobacco use and Never used 11-09-2019 - [facility] exposure 11-09-2019 (95093) Alcohol intake Current drinker of 11-09-2019 - [facility] isis alcohol (finding) 11-09-2019 (75164) Alcohol Comment once or twice weekly 03-06-2018 - [facility] 03-06-2018 (24356) Sex Assigned At Not on file [facility] (15682) Exposure to SARS-CoV-[address] [facility] (event) (84531) The following information is from the original [...] BE BASED ON THE PRIMARY CLINICAL RECORDS. [facility] provides no warranty or guarantee of the accuracy or completeness of information in this document. UNRECOGNIZED CONTENT PROVIDED BELOW FOR UNRECOGNIZED SECTION No Status Records FoundNo Status Records Found UNRECOGNIZED CONTENT PROVIDED BELOW FOR UNRECOGNIZED SECTION INFORMATION SOURCE DATE CREATED AUTHOR AUTHOR'S ORGANIZATIO N 12/12/2018 [facility] DATE CREATED AUTHOR AUTHOR'S ORGANIZATIO N 11/10/2019 [facility] UNRECOGNIZED CONTENT PROVIDED BELOW FOR UNRECOGNIZED SECTION Source Comments In the event this information is protected by the Federal Confidentiality of Alcohol and Drug Abuse Patient Records regulations: The Federal rules restrict any use of the information to criminally investigate or prosecute any alcohol or drug abuse patient.[facility] HospitalIn the event this information is protected by the Federal Confidentiality of Alcohol and Drug Abuse Patient Records regulations: The Federal rules restrict any use of the information to criminally investigate or prosecute any alcohol or drug abuse patient.[facility] HospitalIn the event this information is protected by the Federal Confidentiality of Alcohol and Drug Abuse Patient Records regulations: The Federal rules restrict any use of the information to criminally investigate or prosecute any alcohol or drug abuse patient.[facility] HospitalIn the event this information is protected by the Federal Confidentiality of Alcohol and Drug Abuse Patient Records regulations: The Federal rules restrict any use of the information to criminally investigate or prosecute any alcohol or drug abuse patient.[facility] HospitalIn the event this information is protected by the Federal Confidentiality of Alcohol and Drug Abuse Patient Records regulations: The Federal rules restrict any use of the information to criminally investigate or prosecute any alcohol or drug abuse patient.[facility] HospitalIn the event this information is protected by the Federal Confidentiality of Alcohol and Drug Abuse Patient Records regulations: The Federal rules restrict any use of the information to criminally investigate or prosecute any alcohol or drug abuse patient.[facility]
== END 2019-08-30 07:18 | disposition home or self-care (01) ==
PROVIDERS: Emergency Provider Emergency Medicine; PCP Family Medicine
DX: S80.02XA Contusion of left knee, initial encounter (principal); W19.XXXA Unspecified fall, initial encounter; Y93.9 Activity, unspecified; Y92.9 Unspecified place or not applicable; F10.129 Alcohol abuse with intoxication, unspecified; Y90.8 Blood alcohol level of 240 mg/100 ml or more; I48.0 Paroxysmal atrial fibrillation; J44.9 Chronic obstructive pulmonary disease, unspecified; G62.9 Polyneuropathy, unspecified; M62.830 Muscle spasm of back; G89.29 Other chronic pain; R03.1 Nonspecific low blood-pressure reading; F17.200 Nicotine dependence, unspecified, uncomplicated
CPT/HCPCS: 70450; 73564; 80048; 80320; 85025; 96360; 96372; 99284; 99285; A4216; G0480

== ENCOUNTER → 2019-09-11 10:14 | Outpatient (CLI) | payer MEDICAID, SELFPAY ==
[2019-09-05 15:28] VITALS: BMI 26.4
[2019-09-07 10:17] VITALS: BMI 26.0
--- NOTE | 2019-09-11 10:15 | MRI_ITS ---
STUDY: MRI LEFT BRACHIAL PLEXUS WITH AND WITHOUT CONTRAST REASON FOR EXAM: Male, 59 years old. LEFT brachial plexus, LEFT lung mass, CA, LEFT hand numbness concern for tumor involvement TECHNIQUE: Standardized fat and water weighted pulse sequences were obtained in all 3 orthogonal planes, pre-and post contrast administration. 17ml Dotarem via IV was administered for the contrast portion of the examination. COMPARISON: None. FINDINGS: No demonstrated abnormality in the course of the roots, trunks, divisions or cords of the brachial plexus. There is no demonstrated neural enlargement, neural edema or enhancement of the brachial plexus. The visualized shoulder is normal. Normal flow void in the left subclavian artery. Signal abnormality in the left subclavian vein, possible venous thrombosis. Edematous endplate changes are noted at C6-7. Marrow signal is otherwise normal. No demonstrated rib invasion. Left upper lobe mass measuring approximately 9 x 6.8 cm, consistent with previously reported history of mass/non-small cell lung CA. The mass extends to the pleural surface. No soft tissue extension is identified. MRI/Upper Ext No Joint W/WO Cont IMPRESSION: 1. No demonstrated abnormality of the brachial plexus. 2. Question venous thrombosis of the left subclavian vein. Recommend duplex venous ultrasound of the left upper extremity. 3. Left upper lobe mass consistent with known malignancy. Electronically Signed: Serena Yeh MD at 22:29 EDT Tel , Service support ,
--- OUTSIDE RECORDS SUMMARY | 2020-01-27 06:21 | XMS RPT_ITS | CCD ---
:1960 External Reference #:[id number] Author Organization [facility] Care Team Providers Name Role Phone Ida Aggarwal) Primary Care Provider Medications Medication Name Sig Date Prescriber Location Albuterol albuterol HFA 01-01-2019 Ida Roman) [facility] (PROVENTIL HFA) 90 Jasen (82796) mcg/actuation inhaler Indications: Wheezing , SOB (shortness of breath) Inhale 2 Puffs as instructed every 4 hours as needed for Wheezing/Shortness of Breath. 1 Inhaler 5 01/01/2019 Active Comment: Inhale 2 Puffs as instructed every 4 hours as needed for Wheezing/Shortness of Breath. Sertraline sertraline (ZOLOFT) 50 07-20-2019 Ida Roman) [facility] mg tablet Indications: Jasen (4419 5) Current moderate episode of major depressive disorder without prior episode (HCC) Take 1 tablet by mouth once daily. 30 tablet 2 07/20/2019 Active Comment: Take 1 tablet by mouth once daily. Problems Active Problems Category Problem Name Status Date Location Alcohol-related History of alcohol Active [facility] disorders abuse (00435) Chronic obstructive Chronic obstructive Active [facility] pulmonary disease and lung disease (02017 ) bronchiectasis Disorders of lipid Mixed hyperlipidemia Active 2007 [facility] metabolism (08789) Residual codes; Tobacco user Active [facility] in unclassified (71890) Past or Other Problems Category Problem Name Status Date Location Diabetes mellitus Impaired fasting Completed 2007 - [facility] without complication glycaemia (39681) Residual codes; FH: Cardiovascular Completed 2007 - [facility] unclassified disease (55494) Results Result Name Value Range Unit Interpretation Flag Date Location progress on 2019-10 PROGRESS HNO ID: [id number] Normal 11-09-2019 [facility] Author: Mario Leiva ([id number]) Service: ? Author Type: Physician Type: Progress [...] 2019-11-09 CNOV Office Visit (FAMPWS) Normal 11-09-[address] [place] [address] [facility] SHER NICOLE ([id number]) 1960 [facility] Date Time Provider Department (21167) 11/09/19 2:40 PM [facility] During your visit today, we recorded the following informati on about you: Pulse Blood pressure Weight 90/minute 116/68 81.6 kg Bonita Huerta Ma 11/09/2019 2:49 PM Signed HOSPITAL/ER FOLLOW UP: Reason for visit: head injury after fall Which facility: [facility] Date of visit: 10/30/19 Diagnosis: laceration [...] Mario Whitten MD Referring Provider: IDA AGGARWAL) [[id number]] Allergies As of Date: 11/09/2019 (No Known [...] visit: head injury after fall Which facility: [facility] Date of visit: 10/30/19 Diagnosis: laceration [...] 11/09/19 progress on 2019-07 PROGRESS HNO ID: [id number] Normal 07-20-2019 [facility] Author: Ida Roman) Jasen Leiva ([id number]) Service: ? Author Type: Physician Type: Progress [...] weeks. Currently homeless and [facility] [employer]. Following COVID 19 restrictions of staying inside and washing hands. S haring rooms and bunk beds with other residents. No history of depression or anxiety. Not seeing counseling currently, but has in the past at 180. PHQ-9 (Patient Health Questionnaire-9) from [employer] on 01/2020 All calculations should be rechecked [...] more than 50% of the to richmond [id number]-tmas time of the visit in counseling / coordination of care. MD navarro Watson [facility]) Normal 07-18-2019 [facility] SHER NICOLE ([id number]) 1960 [facility] Date Time Provider Department (62625) 07/18/19 [facility]AL) [facility] During your visit today, we recorded the following informati on about you: Jaycob Todd [facility] 07/18/2019 4:04 PM Signed Patient called [...] on 2019-07-17 CNPN Telephone (FAMPWS) Normal 07-17-2019 [facility] SHER NICOLE ([id number]) 1960 [facility] Date Time Provider Department (99897) 07/17/19 IDA [facility]GGARWAL) [facility] During your visit today, we recorded the following informati on about you: Charu Ann, ROUNDSMAN, ROUNDSMAN 07/17/2019 12:19 PM Signed Clau nurse from Pulmonary here in [place] calls states pt voices to them that he is depressed And would like someone to talk to. eir unemployment inspector wanted her to reach out to u [...] 12:38 PM Signed Spoke with Eliot at [facility] [employer]. The patient is re siding there. She will have the patient return call to our office after lunch. Fredrick Singh RN 07/18/2019 3:58 PM Signed Patient returned call. Transferred to oracle applications analyst for VV with PCP. Fredrick Singh RN Jossie Javier [facility] 07/19/2019 11:37 AM Signed Spoke with [...] 07/18/19 progress on 2019-03 PROGRESS HNO ID: [id number] Normal 03-22-2019 [facility] Author: Jessica ChristiansenRn) MITALI Cooper [employer] ([id number]) Service: ? Author Type: Registered Nurse Type: [...] pt. Jessica Cooper RN PROGRESS HNO ID: [id number] Normal 03-22-2019 [facility] Author: Jessica ChristiansenRn) MITALI Cooper ([id number]) Service: ? Author Type: Registered Nurse Type: Progress Notes Filed: 03/22/2019 10:45 AM Note Text: PRIMARY CARE COORDINATION QUICK NOTE Provider Action/FYI Unable to reach pt. Will discharge from care coordination. Patient identified by name and date . Received return letter. [facility] Post Office was unable to deliver. 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 Will discharge from care coordination. Patient identified by name and date . Received return letter. [facility] Post Office was unable to deliver. 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 Author Type: Registered Nurse Type: Progress Notes Filed: 02/26/2019 1:36 PM Note Text: PRIMARY CARE COORDINATION QUICK NOTE Provider Action/FYI Letter sent. Patient identified by name and date . Sent certified letter about need to follow up with Care Coor dinator progress on 2019-02 PROGRESS HNO ID: [id number] Normal 02-14-2019 [facility] Author: Ida Roman) Jasen Leiva ([id number]) Service: ? Author Type: Physician Type: Progress Notes Filed: 02/14/2019 9:22 AM Note Text: Reviewed. Send letter? PROGRESS HNO ID: [id number] Normal 02-14-2019 [facility] Author: MITALI Aguilar Rn ([id number]) Service: ? Author Type: Registered Nurse Type: Progress Notes Filed: 02/26/2019 1:36 PM Note Text: PRIMARY CARE COORDINATION QUICK NOTE Provider Action/FYI Still unable to reach pt. Patient identified by name and date . Called patient, phone is not accepting phone calls. Called t o [facility] [employer], no one staying there by that name. cnptoutreach on 201 12-20-05 CNPTOUTREACH Patient Outreach (FAMPWS) Normal 1 04-16-2018 [employer] SHER Segura ([id number]) 1960 [facility] Date Time Provider Department (56427) 02/14/19 JESS[facility] COOPER (RN) [facility] During your visit today, we recorded the following informati on about you: Jessica Cooper RN, RN 02/26/2019 1:36 PM Signed PRIMARY CARE COORDINATION QUICK NOTE Provider Action/FYI Still unable to reach pt. Patient identified by name and date . Called patient, phone is not accepting phone myra ls. Called to [employer], no one staying there by that name. 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 Author Type: Registered Nurse Type: Progress Notes Filed: 01/24/2019 11:04 AM Note Text: PRIMARY CARE COORDINATION QUICK NOTE Patient identified by name and date . Called again to phone number in chart. Currently not accepti ng calls. Unable to contact pt at this time. cnptoutreach on 12-20-15 CNPTOUTREACH Patient Outreach (FAMPWS) Normal 1 [employer] SHER NICOLE ([id number]) 1960 [facility] Date Time Provider Department (16849) 01/24/19 JESSICA COOPER (RN) FAMPWS During your [...] 01/24/19 progress on 2019-01 PROGRESS HNO ID: [id number] Normal 01-23-2019 [facility] Author: Siomara Paniagua) Bo [employer] ([id number]) Service: ? Author Type: Nurse Practitioner Type: Progress Notes Filed: 01/23/2019 9:37 AM Note Text: Reviewed. Siomara Harden, [facility] PROGRESS HNO ID: [id number] Normal 01-23-2019 [facility] Author: Jessica (Rn) MITALI Cooper [employer] ([id number]) Service: ? Author Type: Registered Nurse Type: Progress Notes Filed: 01/24/2019 10:46 AM Note Text: PRIMARY CARE COORDINATION QUICK NOTE Provider Action/FYI Unable to reach pt for TCM. No longer staying at [facility] A [facility]my Patient identified by name and date . Called to [facility], pt has been dismissed from the [facility]. They have no other information about him. rolando on 201 12-19-14 CNPTOUTREACH Patient Outreach (FAMPWS) Normal 1 [facility] SHER NICOLE ([id number]) 1960 Darian Leiva Date Time Provider Department (30640) 01/23/19 JESSICA COOPER (RN) FAMPWS During your visit today, we recorded the following informati on about you: Jessica Cooper RN, RN 01/24/2019 10:46 AM Signed PRIMARY CARE COORDINATION QUICK NOTE Provider Action/FYI Unable to reach pt for TCM. No longer staying at [facility] A rmy Patient identified by name and date . Called to [facility] , pt has been di smissed from the senior care. They have no other information about him. Siomara Soriano APRN.ELECTROLYSIS INVESTIGATOR 01/23/2019 9:37 AM Signed Reviewed. 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 Author Type: Registered Nurse Type: [...] I knew, he was living at the [facility] , I told the other girl that called that as well PROGRESS HNO ID: [id number] Normal 01-22-2019 [facility] Author: Charu Farmer (District Manager In Training) IDALIA Ann [employer] ([id number]) Service: ? Author Type: LICENSED NURSE Type: Progress Notes Filed: 02/19/2019 3:01 AM Note Text: Received discharge papers from [facility] again pt was readmitted on the and discharged the coul d not complete tcm due to being discharged same day. Spoke with Siomara in Dr Carina Aggarwal's absence and she agrees Pt should have care coordination foll owing him. Gave papers to Jessica LUCIO to follow per TCM. 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 Author Type: LICENSED NURSE Type: Progress Notes Filed: 02/19/2019 3:01 AM Note Text: Attempted to reach pt on two other atemps and machine just s [place] pt not available but is not a answering machine where message can b e left.Pt does have a hospital f/up scheduled with Siomara Soriano CNP ON . cnptoutreach on 201 12-19-08 CNPTOUTREACH Patient Outreach (FAMPWS) Normal 1 [facility] SHER NICOLE ([id number]) 1960 [facility] Date Time Provider Department (36978) 01/17/19 IDA AGGARWAL) FAMPWS During your visit today, we recorded the following informati on about you: [place] Ann LPN, IDALIA 02/19/2019 3:01 AM Signed Attempted to call pt for tcm, number buchanan s not have answering machine will need to try back. TRANSITION CARE MANAGEMENT (TCM) INITIAL CONTACT Professor Of Radiology Outreach Provider Action/FYI: Initial contact with patient [...] 3:01 AM Signed Received discharge papers fr [facility] 01/19/19 again pt was readmitted on [...] alcohol abuse [F10.11] More... Encounter Status:Closed by [employer], vChatterUSER on 02/19/19 progress on 2018-12 PROGRESS HNO ID: [id number] Normal 01-04-2019 [facility] Author: Evangelina Payne [employer] ([id number]) Service: ? Author Type: ? Type: Progress [...] on 2018-12 OBSOLETE Refill (FAMPWS) Normal 12-29-2018 [facility] SHER NICOLE ([id number]) 1960 [facility] Date Time Provider Department (59620) 12/29/18 IDA AGGARWAL) FAMPWS During your visit [...] No RX INSTRUCTIONS: MyChart request. Claudia Thomas ROUNDSMAN Allergies As of Date: 12/29/2018 (No Known [...] on 9 cnpn on 2018-12-29 CNPN Telephone ([id number]) Normal 12-29 [employer] SHER NICOLE ([id number]) 1960 [facility] Date Time Provider Department (04293) 12/29/18 AIMEE HERNANDEZ [id number] During your visit today, we recorded the following informati on about you: Theresa Thibodeaux 01/02/2019 3:50 PM Signed Called patient again, and le ft a detailed message; again, requested return call. Theresa Thibodeaux 01/03/2019 1:33 PM Signed Patient returned call from message re scheduled appointme nts. Patient requested and confirmed appointments on 01/07 AND 01/10/19. CT is being done at [place] on 01/04/19 Trung Briones MD 01/18/2019 7:40 AM Signed Looks like he cancelled his biopsy procedure Please call and find out how he is doing and if he is agreeable to rescheduling so I can reach out to the procedure team to help Avi Lowe Ma 01/18/2019 11:03 AM Signed [facility] but per recording pt was unavailable. [...] pt has calvin moore dismissed from the [facility] where he was staying, and the [employer] has no other information about him, noted [...] (PPP) [Time] 1.0 0.9-1.3 s Normal 9 [facility] (04946) Comment: Result Comment: Vitamin K An tagonist (VKA) Therapeutic Range: INR 2 to 3 (Target INR of 2.5) Note: For patients treated w ith VKA drugs, such as warfarin, the [place] [employer] 2012 Guideline recommends a therapeutic INR range of 2 to 3 (target INR of 2.5). This recommendation includes high-risk patients with antiphospholipid syndrome with previous arterial or venous thromboembolism, current-generation mechanical or bioprosthetic aortic heart valve replacement. Note: Patients with machine maintenance mechanic al aortic valve replacement and additional risk factors for thromboembolic events (atrial fibrillation, previous thromboembolism, LV dysfunction, hypercoagulable conditions) or an older generation mecha nical AVR (i.e., ball in-Cage) or any mechanical MVR should have a INR therapeutic range of 2.5 to 3.5 (target INR of 3). Kalen GH, et al. Chest 2012 , 141:7S-47S Kayla PINEDA, et al. [facility] 20 17, 70: 252-289 Performed By: #### CBCDIF, P T, PTT, BMP ####[place] [address] [place], [place] [phone] PT Coag (PPP) [Time] 10.6 9.7-13.0 sec Normal 9 [facility] (27061) Comment: Performed By: #### CBCDIF, P T, PTT, BMP ####[place] [address] [place], [place] [phone] cbc and differential on 2018-12-27 Abs Baso 0.06 <0.11 k/uL Normal 12-27-2018 [facility] (09497) Comment: Performed By: #### CBCDIF, P T, PTT, BMP ####[place] [address] [place] [phone] Abs Hood 0.64 <0.87 k/uL Normal 12-27-2018 [facility] (09108) Comment: Performed By: #### CBCDIF, P T, PTT, BMP ####[place] [address] [place], [place] [phone] Abs Neut 7.32 1.45-7.50 k/uL Normal 12-27-2018 [facility] (24344) Comment: Performed By: #### CBCDIF, P T, PTT, BMP ####[place] [address] [place], [place] [phone] Absolute nRBC <0.01 <0.01 Normal 12-27-2018 [facility] (04353) Comment: Performed By: #### CBCDIF, P T, PTT, BMP ####[place] [address] [place], [place] [phone] Basophils/100 WBC (Bld) 0.6 % Normal 2018 [facility] (24666) Comment: Performed By: #### CBCDIF, P T, PTT, BMP ####[place] [address] [place], [place] [phone] DTYPE Auto Diff Normal 12-27-2018 [facility] (43371) Comment: Performed By: #### CBCDIF, P T, PTT, BMP ####[place] [address] [place], [place] [phone] Eosinophils (Bld) [#/Vol] 0.16 <0.46 k/uL Normal 12-10 [facility] (71440) Comment: Performed By: #### CBCDIF, P T, PTT, BMP ####[place] [address] [place], [place] [phone] Eosinophils/100 WBC (Bld) 1.6 % Normal 12-10 [facility] (76963) Comment: Performed By: #### CBCDIF, P T, PTT, BMP ####[place] [address] [place] [phone] Erythrocyte distribution 12.7 11.5-15.0 % Normal 12-27 [facility] width (RBC) [Ratio] [employer] (73159) Comment: Performed By: #### CBCDIF, P T, PTT, BMP ####[place] [address] [place], [place] [phone] Hematocrit (Bld) [Volume 39.5 39.0-51.0 % Normal 12-27 [facility] fraction] [employer] (13238) Comment: Performed By: #### CBCDIF, P T, PTT, BMP ####[place] [address] [place] [phone] Hemoglobin (Bld) 12.4 13.0-17.0 g/dL Low 12-27-2018 [facility] [Mass/Vol] [employer] (67466) Comment: Performed By: #### CBCDIF, P T, PTT, BMP ####[place] [address] [place], [place] [phone] Lymphocytes (Bld) [#/Vol] 1.72 1.00-4.00 k/uL Normal 12-10 [facility] (94368) Comment: Performed By: #### CBCDIF, P T, PTT, BMP ####[place] [address] [place], [place] [phone] Lymphocytes/100 WBC (Bld) 17.4 % Normal 12-10 [facility] (72923) Comment: Performed By: #### CBCDIF, P T, PTT, BMP ####[place] [address] [place], [place] [phone] MCH (RBC) [Entitic mass] 31.2 26.0-34.0 pG Normal 12-27 [facility] (32928) Comment: Performed By: #### CBCDIF, P T, PTT, BMP ####[place] [address] [place], [place] [phone] MCHC (RBC) [Mass/Vol] 31.4 30.5-36.0 g/dL Normal 12-28-19 [facility] (26474) Comment: Performed By: #### CBCDIF, P T, PTT, BMP ####[place] [address] [place], [place] [phone] MCV (RBC) [Entitic vol] 99.2 80.0-100.0 fL Normal 12-27 [facility] (49797) Comment: Performed By: #### CBCDIF, P T, PTT, BMP ####[place] [address] [place], [place] [phone] Monocytes/100 WBC (Bld) 6.5 % Normal 2018 [facility] (83951) Comment: Performed By: #### CBCDIF, P T, PTT, BMP ####[place] [address] [place], [place] [phone] Neutrophils/100 WBC (Bld) 73.9 % Normal 12-10 [facility] (57177) Comment: Performed By: #### CBCDIF, P T, PTT, BMP ####[place] [address] [place], [place] [phone] NRBCs 0.0 0 /100 WBC Normal 12-27-2018 [facility] (81637) Comment: Performed By: #### CBCDIF, P T, PTT, BMP ####[facility] [address] [place], [place] [phone] Platelet mean volume 11.0 9.0-12.7 fL Normal [facility] (Bld) [Entitic vol] [employer] (03839) Comment: Performed By: #### CBCDIF, P T, PTT, BMP ####[place] [address] [place], [place] [phone] Platelets (Bld) [#/Vol] 252 150-400 k/uL Normal 2018 [facility] (43919) Comment: Performed By: #### CBCDIF, P T, PTT, BMP ####[place] [address] [place], [place] [phone] RBC (Bld) [#/Vol] 3.98 4.20-6.00 m/uL Low 12-27-2018 [facility] (05518) Comment: Performed By: #### CBCDIF, P T, PTT, BMP ####[facility] [place], [place] [phone] WBC (Bld) [#/Vol] 9.90 3.70-11.00 k/uL Normal 12-27-2018 [facility] (56652) Comment: Performed By: #### CBCDIF, P T, PTT, BMP ####[place] [address] [place], [place] [phone] basic metabolic panl on 2018-12-27 Anion gap [Moles/Vol] 12 9-18 mmol/L Normal 12-28-19 [facility] (37481) Comment: Performed By: #### CBCDIF, P T, PTT, BMP ####[facility] [place], [place] [phone] Calcium [Mass/Vol] 9.2 8.5-10.2 mg/dL Normal 12-27-2018 [facility] (15662) Comment: Performed By: #### CBCDIF, P T, PTT, BMP ####[facility] [place], [place] [phone] Chloride [Moles/Vol] 100 97-105 mmol/L Normal [facility] (37678) Comment: Performed By: #### CBCDIF, P T, PTT, BMP ####[facility] [place], [place] [phone] CO2 [Moles/Vol] 27 22-30 mmol/L Normal 12-27-2018 [facility] (50606) Comment: Performed By: #### CBCDIF, P T, PTT, BMP ####[facility] [place], [place] [phone] Creatinine [Mass/Vol] 0.75 0.73-1.22 mg/dL Normal 12-28-19 [facility] (36380) Comment: Performed By: #### CBCDIF, P T, PTT, BMP ####[facility] [place], [place] [phone] eGFR- Amer. >60 Normal 12-27-2018 [facility] (72739) Comment: Performed By: #### CBCDIF, P T, PTT, BMP ####[facility] [place], [place] [phone] GFR/1.73 sq M predicted >60 mL/min/{1.73_m2} Normal 12-27-2018 [facility] among non-blacks MDRD [place] ([id number]) (S/P/Bld) [Vol rate/Area] Comment: Result Comment: eGFR [...] P T, PTT, BMP ####[facility] [address] [employer] [place], [place] [phone] Glucose [Mass/Vol] 92 74-99 mg/dL Normal 12-27-2018 [facility] (45546) Comment: Result Comment: The [place] Diabetes Association (ADA) provides guidance for cutoff [...] for diagnosis of diabetes. Reference: Standards of [facility] Care in Diabetes 2016, [place] Diabetes Association. Diabetes Care. 2016.39(Suppl 1). Performed By: #### CBCDIF, P T, PTT, BMP ####[facility] [address] [place], [place] [phone] Potassium [Moles/Vol] 4.1 3.7-5.1 mmol/L Normal 12-28-19 19 [facility] (53608) Comment: Performed By: #### CBCDIF, P T, PTT, BMP ####[facility] [address] [place], [place] [phone] Sodium [Moles/Vol] 139 136-144 mmol/L Normal 12-27-2018 [facility] ([id number]) Comment: Performed By: #### CBCDIF, P T, PTT, BMP ####[facility] [place], [place] [phone] Urea nitrogen [Mass/Vol] 8 9-24 mg/dL Low 12-27 [facility] (88108) Comment: Performed By: #### CBCDIF, P T, PTT, BMP ####[facility] [place], [place] [phone] aptt on 2018-12-27 aPTT Coag (Bld) [Time] 28.5 23.0-32.4 sec Normal [address] [place] [address] ([id number]) Comment: Result Comment: Unfractionat ed Heparin Therapeutic [...] laboratory APTT reagent in use throughout the [facility]. Performed By: #### CBCDIF, P T, PTT, BMP ####[facility] [place], [place] [phone] cnpn on 2018-12-21 CNPN Telephone (LAYLA) Normal 12-21-2018 [facility] SHER NICOLE ([id number]) 1960 [facility] Time Provider Department ([id number]) 12/21/18 TRUNG BRIONES During your visit today, we recorded the following informati on about you: Trung Briones MD 12/21/2018 9:42 AM Signed Please call and update patient that I sp toi to the [facility] team and one of their schedulers will call to set up a final pro cedure date, but they did ask that labs get done before the scheduled procedure. The orders are in, please see if he can get these done in the next few days at any local [facility] lab so that we can see the results. Obdulia Amezcua 12/21/2018 10:12 AM Signed Left a voicemail for the pt to call the office b ack in regards to the message below. If pt calls back please let him know [facility] will call him to schedule his procedure, but he first needs to have lab work done at any of our [facility] labs, the order for lab work is placed. If it is better to go to a lab in [place] I did research and this on is close to him. [facility] [address] [facility] [place], [place] [address] Obdulia Amezcua 12/25/2018 3:55 PM Signed Left a voicemail for the pt to call the office b ack in regards to the message below. Obdulia Amezcua 12/26/2018 10:17 AM Signed Spoke with Pt, Pt verbalized understanding. No further quest ions. Pt has not heard from [facility] yet, he will g o and get the blood work done and then wait to hear back from [facility]. Trung Briones MD 12/27/2018 8:43 AM Signed Records from [place] received, 10/06/18 E D visit for which [...] density appears larger at this time. [facility] [place] is going to schedule interventional pulm f [...] 12/26/18 progress on 2018-12 PROGRESS HNO ID: [id number] Normal 12-20-2018 [place] Author: Aimee Hernandez [facility] Service: ? [place] Author Type: Physician ([id number]) Type: Progress Notes Filed: 12/21/2018 2:43 PM [...] on anticoagulants/anti-plt therapy? No Nursing Considerations: (ie: chcf, TB, respiratory isolation, etc.) none Diagnosis/Reason for [...] results found for: CREAT PROGRESS HNO ID: [id number] Normal 12-20-2018 [place] Author: [facility] Service: ? 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 cnov on 2018-12-20 CNOV Office Visit (PULMLO) Normal 12-21-19 19 [facility] [place] SHER NICOLE ([id number]) 1960 M URIEL [place] Date Time Provider Department ([id number]) 12/20/18 9:45 AM TRUNG BRIONES During your visit today, we recorded the following informati on about you: Temperature Pulse Blood pressure Weight 98.6 degrees 73/minute 115/71 82 kg Height 1.753 m Obdulia Amezcua 12/20/2018 9:39 AM Signed [facility] FACTS LAB HOURS: [place] lab is open from 7:30am to 6pm , open from 7:30am-5pm on Tuesday and open 8am-12pm on Tuesday. Closed on Tuesday [facility] is open from 7:30am to 5pm [...] 24 hours prior to the scheduled exam. [facility] Express Care -- No appointment needed At the [facility], patients 2 years and older can get walk -in medical attention for common health problems including: Cold and flu symptoms Conjunctivitis Ear and throat infections Minor bumps and cuts Seasonal allergies Skin rashes Simple sprains and strains Sinus infections Urinary tract infections Upper respiratory tract infections Locations and Times [facility] - [address], [facility] - [address] [place] [address] [facility] [place] - Tuesday through Tuesday 6 AM - 9 PM - Tuesday and Tuesday 8 AM - 4 PM For Express Care LOCATIONS, HOURS OF OPERATION and CUR RENT WAIT TIMES, visit the following link for details. [email or web address]][0]=Express%20Care%20ClinicsAN D Emergency Department Parviz Stoddard [facility] - [address] ([address]), [facility] [phone] Pharmacy Hours: Tuesday through Tuesday 8 am to 6 pm Opt in to receive text reminders for your appointments with [facility] specialist today. To opt in, text 4clinictxt to [phone]. 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 No pets REVIEW OF [...] file Gets together: Not on file Attends tenriism service: Not on file Active member of [...] patient as noted below: Chest CT: 10/06/[address] [facility] [address], no im age to review directly [...] signature obtained to get actual images from [place] The above plan was discussed with the rubi botello and all questions were answered. I will see Mr. Nicole for follow-up in 2 months Trung Briones MD Pulmonary and Critical Care Medicine [facility] [place] December 20, 2018 9:44 AM I spent 60 minutes in the visit, with more than 50% of the total cqmo-ez-gxea time of the visit in counseling / coordination of care. Referring Provider: IDA AGGARWAL) [[id number]] Allergies As of Date: 12/20/2018 (No Known Allergies) Date Reviewed: 12/20/2018 Reviewed by: Trung Briones - Fully Assessed Reason for Visit: New Patient [172] Cmt: Left lung lesion Primary Visit Diagnosis:Lung mass [R91.8] Other Visit Diagnoses:Dyspnea on exertion [R06.09] Chronic obstructive pulmonary disease, unspecified COPD type (HCC) [J44.9] Order(s):ECG COMPLETE [ECG01] Order #: [id number] FUTURE Prescriptions as of 12/20/2018 Sig: FLUTICASONE [...] [F10.11] More... Other instructions from your clinician: [employer] [facility] [place] FACTS LAB HOURS: [facility] lab is open from 7:30am to 6pm M-, open from 7:30am -5pm on Tuesday and open 8am-12pm on Tuesday. Closed on Tuesday [facility] is open from 7:30am to 5pm [...] 24 hours prior to the scheduled exam. [facility] -- No appointment needed At the [facility], patients 2 years and older can get walk -in medical attention for common health problems including: Cold and flu symptoms Conjunctivitis Ear and throat infections Minor bumps and cuts Seasonal allergies Skin rashes Simple sprains and strains Sinus infections Urinary tract infections Upper respiratory tract infections Locations and Times [facility] - [address], [facility], [place] - [address] [facility] - Tuesday through Tuesday 6 AM - 9 PM - Tuesday and Tuesday 8 AM - 4 PM For Express Care LOCATIONS, HOURS OF OPERATION and CURRENT W AIT TIMES, visit the following link for details. [email or web address][types][0]=Expr ess%20Care%20Clin icsAND Emergency Department Parviz Stoddard [facility] - [address] (off of [address]), [facility] [phone] Pharmacy Hours: Tuesday through Tuesday 8 am to 6 pm Opt in to receive text reminders for your appointments with [facility] health specialist today. To opt in, text 4clinictxt to [phone]. Disposition: Return in about 2 months (around 02/19/2019). Follow-up and Disposition History Recorded Encounter Status:Closed by TRUNG BRIONES MD on 12/20/18 progress on 2018-12 PROGRESS HNO ID: [id number] Normal 12-13-2018 [facility] Author: Ida Gandara () Jasen Le[facility] ([id number]) Service: ? Author Type: Physician Type: Progress [...] file Gets together: Not on file Attends tenriism service: Not on file Active member of [...] 2018-12-13 CNOV Office Visit (FAMPWS) Normal 12-14-19 [facility] SHER NICOLE ([id number]) 1960 [facility] Date Time Provider Department ([id number]) 12/13/18 11:20 AM IDA AGGARWAL) FAMPWS During [...] file Gets together: Not on file Attends tenriism service: Not on file Active member of [...] Aggarwal MD Referring Provider: IDA AGGARWAL () [[id number]] Allergies As of Date: 12/13/2018 (No Known Allergies) Date Reviewed: 12/13/2018 Reviewed by: Natanael Dennis Ma - Fully Assessed Reason for Visit: follow up PET scan results [Other] Primary Visit Diagnosis:Mass of left lung [R91.8] Other Visit Diagnosis:Abnormal PET scan of lung [R94.2] Order(s):CONSULT TO PULM/CRITICAL CARE [233656] Order #: [id number]: 1 Prescriptions as of 12/13/2018 Sig: FLUTICASONE [...] 12/13/18 progress on 2018-12 PROGRESS HNO ID: [id number] Normal 12-12-2018 [place] [facility]: [facility] Service: Nuclear Medicine ([id number]) 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 0061 - [place] PET/CT WHOLE BODY INIT [...] EXTREMITIES/SKELETON: No suspicious FDG avid osseous process. Interventional Technologist: TC Transcribe Date/Time: Dec 12 2018 1:51P Dictated by : JAUN CHILD MD This examination was interpreted and the report reviewed and electronically signed by: JAUN CHILD MD on Dec 12 2018 1:58PM EST [id number] [facility] 2018-12-05 CNPN Telephone (ASWSTR) Normal 12-05-2018 [place] SHER NICOLE ([id number]) 1960 [facility] Date Time Provider Department (77245) 12/05/18 IDA AGGARWAL) ASWSTR During your visit [...] 12/07/18 progress on 2018-11 PROGRESS HNO ID: [id number] Normal 11-30-2018 [facility] Author: Ida Roman) Jasen Leiva ([id number]) Service: ? Author Type: Physician Type: Progress Notes Filed: 11/30/2018 3:21 PM Note Text: Reviewed. Thanks. PROGRESS HNO ID: [id number] Normal 11-30-2018 [facility] Author: Taylor Ramirez [facility] ([id number]) Service: ? Author Type: Professor Of Radiology Type: Progress Notes Filed: 12/01/2018 10:49 AM Note Text: [facility] REC[facility]PER QUICKNOTE Provider Action/FYI: I called and spoke with Trace and he said he will call to r/s his PET scan. He's aware he's due for fasting labs and an IFOBT. He lost I FOBT kit, but he will last picker another one in the lab when he comes in for lab work. He will make a follow up appointment with PCP after PET scan. Patient identified by name and . Taylor Ramirez CMA PROGRESS HNO ID: [id number] Normal 11-30-2018 [facility] Author: Taylor Ramirez [facility] ([id number]) Service: ? Author Type: Professor Of Radiology Type: Progress Notes Filed: 12/01/2018 10:49 AM Note Text: [facility] GAP REGISTRY DOCUMENTATION (OUTSIDE TEAMLET) Provider [...] CNPTOUTREACH Patient Outreach (FAMPWS) Normal 0 11-30-2018 [place] SHER Segura ([id number]) 1960 M [facility] Date Time Provider Department ([id number]) [facility] FAMPWS During your visit today, we recorded the following informati on about you: Taylor Ramirez CMA 12/01/2018 10:49 AM Signed [facility] GAP REGISTRY DOCUMENTATION (OUTSIDE TEAMLET) Provider [...] No results found for: HDL LDL Chol, [place] (mg/dL) Date Value 04/07/2007 109 No results [...] CMA 12/01/2018 10:49 AM Signed [facility] RECORD KEEPER QUICKNOTE Provider Action/FYI: I called and spoke with Trace and he said he will call to r/s his PET scan. He's aware he's due for fasting labs and an IFOBT. He lost IFOBT kit, but he will last picker another one in the lab when he comes in for la [employer] work. He will make a follow up [...] 12/01/18 progress on 2018-11 PROGRESS HNO ID: [id number] Normal 11-10-2018 [facility] Author: Ida Roman) Jasen ([id number]) Service: ? Author Type: Physician Type: Progress Notes Filed: 11/10/2018 10:15 AM Note Text: Reviewed. Thanks. PROGRESS HNO ID: [id number] Normal 11-10-2018 [facility] Author: Taylor Ramirez ([id number]) Service: ? Author Type: Professor Of Radiology Type: Progress Notes Filed: 11/10/2018 9:51 AM Note Text: [facility] RECORD KEEPER QUICKNOTE Provider Action/FYI: I spoke with Trace [...] CMA progress on 2018-11 PROGRESS HNO ID: [id number] Normal 11-09-2018 [facility] Author: Taylor Leiva ([id number]) Service: ? Author Type: Professor Of Radiology Type: Progress Notes Filed: 11/10/2018 9:51 AM [...] No results found for: HDL LDL Chol, [place] (mg/dL) Date Value 04/07/2007 109 No results found for: TG HGB A1C: No results found for: HBA1C TSH: No results found for: TSH) Care Gap: Hyperlipidemia COPD Plan: ? Confirm PCP / Status - active ? Type of appointment needed: Follow-up Next available with Provider pcp or airways control specialist ? Consultation Appointments: PET SCAN [...] Location 01-10-2020 - Patient encounter External Provider [facility] 01-10-2020 procedure 12-19-2019 - Patient encounter External Provider [facility] 12-19-2019 procedure 12-06-2019 - Patient encounter External Provider [facility] 12-06-2019 procedure 11-23-2019 - Patient encounter External Provider [facility] 11-23-2019 procedure 01-10-2020 - Results Only External Provider External[facility]N [facility] 01-10-2020 12-19-2019 Results Only External Provider External[facility]N [facility] 12-06-2019 - Results Only External Provider External[facility]N [facility] 12-06-2019 11-23-2019 Results Only External Provider External-N [facility] Procedures Procedure Name Date Provider Location EXTERNAL IMAGING 01-10-2020 - 01-10-2020 External Provider [facility] ([id number]) EXTERNAL LAB 12-19-2019 External Provider [facility] ([id number]) EXTERNAL LAB 12-06-2019 External Provider [facility] ic ([id number]) EXTERNAL IMAGING 12-06-2019 External Provider [facility] isis (68059) EXTERNAL LAB 11-23-2019 External Provider [facility] ic (98645) Plan of Treatment Plan Description Date Location DTAP,TDAP,TD (2 - Td) DTAP,TDAP,TD (2 - Td) 03-06-2028 - [facility] 03-06-2028 ([id number]) PROSTATE CANCER PROSTATE CANCER 03-06-2023 - [facility] SCREENING DISCUSSION SCREENING DISCUSSION 03-06-2023 ([id number] ) DIABETES SCREEN DIABETES SCREEN 12-27-2021 - [facility] 12-27-2021 (64976) ANNUAL PCP TEAM CHRONIC ANNUAL PCP TEAM CHRONIC 11-08-2020 - [facility] DISEASE VISIT DISEASE VISIT 11-08-2020 (61645) LUNG CANCER SCREENING LUNG CANCER SCREENING 01-05-2020 - [facility] 01-05-2020 (60077) INFLUENZA (#1) INFLUENZA (#1) 2019 - [facility] 12-11-2019 (05129) LIPID SCREEN LIPID SCREEN 04-07-2012 - [facility] 04-07-2012 (44814) SHINGRIX VACCINE (1 of SHINGRIX VACCINE (1 of 2011 - [facility] 2) 2) 2011 (12902) COLORECTAL CANCER COLORECTAL CANCER 2011 - [facility] SCREENING,SEE MODIFIER SCREENING,SEE MODIFIER 2011 (1 8737) HEPATITIS C SCREENING HEPATITIS C SCREENING 1979 - [facility] 1979 (17096) HIV SCREENING HIV SCREENING 1979 - [facility] 1979 (15981) Immunizations Vaccine Notes Status Date Location Tdap (Age 7+) tetanus toxoid, (completed) 03-06-2018 - [facility] linic reduced diphtheria 03-06-2018 (32038) toxoid, and acellular pertussis vaccine, adsorbed Payers Payer Name Policy Number Location [employer] [id number] [facility] (44 195) The following information is from the original human readable contentNo Payer Records FoundNo Payer Records FoundNo Payer Records Found Social History Type Social History Date Location Description Tobacco smoking status Current every day smoker 11-09-2019 - [facility] NHIS 11-09-2019 (37937) History of tobacco use Cigarette Smoker [facility] (49486) Cigarettes smoked 11-09-2019 - [facility] current (pack per day) 11-09-2019 (12359) - Reported Tobacco use and Never used 11-09-2019 - [facility] exposure 11-09-2019 (37306) Alcohol intake Current drinker of 11-09-2019 - [facility] isis alcohol (finding) 11-09-2019 (99095) Alcohol Comment once or twice weekly 03-06-2018 - [facility] linic 03-06-2018 (13576) Sex Assigned At Not on file [facility] (85916) Exposure to SARS-CoV-2 Not sure [facility] (event) (92225) The following information is from the original [...] BE BASED ON THE PRIMARY CLINICAL RECORDS. [facility] provides no warranty or guarantee of the accuracy or completeness of information in this document. UNRECOGNIZED CONTENT PROVIDED BELOW FOR UNRECOGNIZED SECTION No Status Records FoundNo Status Records Found UNRECOGNIZED CONTENT PROVIDED BELOW FOR UNRECOGNIZED SECTION INFORMATION SOURCE DATE CREATED AUTHOR AUTHOR'S ORGANIZATIO N 12/12/2018 [facility] DATE CREATED AUTHOR AUTHOR'S ORGANIZATIO N 11/10/2019 [facility] UNRECOGNIZED CONTENT PROVIDED BELOW FOR UNRECOGNIZED SECTION Source Comments In the event this information is protected by the Federal Confidentiality of Alcohol and Drug Abuse Patient Records regulations: The Federal rules restrict any use of the information to criminally investigate or prosecute any alcohol or drug abuse patient.[facility] Center[facility] the event this information is protected by the Federal Confidentiality of Alcohol and Drug Abuse Patient Records regulations: The Federal rules restrict any use of the information to criminally investigate or prosecute any alcohol or drug abuse patient.[facility] Center[facility] the event this information is protected by the Federal Confidentiality of Alcohol and Drug Abuse Patient Records regulations: The Federal rules restrict any use of the information to criminally investigate or prosecute any alcohol or drug abuse patient.[facility] CenterIn the event this information is protected by the Federal Confidentiality of Alcohol and Drug Abuse Patient Records regulations: The Federal rules restrict any use of the information to criminally investigate or prosecute any alcohol or drug abuse patient.[facility] CenterIn the event this information is protected by the Federal Confidentiality of Alcohol and Drug Abuse Patient Records regulations: The Federal rules restrict any use of the information to criminally investigate or prosecute any alcohol or drug abuse patient.[facility] CenterIn the event this information is protected by the Federal Confidentiality of Alcohol and Drug Abuse Patient Records regulations: The Federal rules restrict any use of the information to criminally investigate or prosecute any alcohol or drug abuse patient.[facility]
== END ==
PROVIDERS: PCP Family Medicine; Referring Provider Student in an Organized Health Care Education/Training Program; Visit Provider Student in an Organized Health Care Education/Training Program
DX: C34.92 Malignant neoplasm of unspecified part of left bronchus or lung (principal); G56.92 Unspecified mononeuropathy of left upper limb
CPT/HCPCS: 73220; A9575

== ENCOUNTER 2019-09-18 10:12 | Day surgery (SDC) | payer MEDICAID, SELFPAY ==
[2019-09-07 10:17] VITALS: BMI 26.0
--- NOTE | 2019-09-13 02:16 | HP_ITS ---
Intake Vital Signs 09/13/19 Height 5 ft 10.75 in 09/13/19 Weight: 180 lb 09/13/19 BMI 25.2 09/13/19 BP 104/65 09/13/19 Blood Pressure Location Rt brachial 09/13/19 Position Sitting 09/13/19 Respiration 16 09/13/19 Temp 97.8 F 09/13/19 Temp Source Temporal Intake Visit Reasons: PORT PLACEMENT Chief Complaint: Lung cancer Manufacturing Tech Required: No Is patient in pain?: No Allergies No Known Allergies Allergy (Verified 09/13/19 13:22) Medications Albuterol Inhaler [Ventolin Hfa] 1 - 2 puff INHALATION Q4H PRN PRN #1 inhaler 01/16/19 [Rx Confirmed 09/13/19] fluticasone propionate 250 mcg/actuation blister powder for inhalation 1 inh INHALATION BID #60 ea 07/03/19 [Rx Confirmed 09/13/19] Glycopyrrolate/Formoterol Fum [Bevespi Aerosphere] 2 puff INHALATION BID 08/14/19 [History Confirmed 09/13/19] Sertraline HCl [Zoloft] 50 mg PO DAILY 08/14/19 [History Confirmed 09/13/19] Ibuprofen 600 mg PO Q6H PRN PRN #20 tab 08/29/19 [Rx Confirmed 09/13/19] PFSH Medical History Severe sepsis (Acute) Pneumonia (Acute) Hypoxia (Acute) Lung cancer (Chronic) COPD (chronic obstructive pulmonary disease) (Chronic) Acute alcohol intoxication with alcoholism (Chronic) Atrial fibrillation (Chronic) Hilar mass (Chronic) Atelectasis of left lung (Chronic) Neuropathy (Acute) Surgical History History of tonsillectomy (Resolved) Family History Sister Uterine cancer Mother Emphysema lung Grandfather Emphysema lung Grandmother Emphysema lung Social History (Updated 09/13/19 @ 14:[address] Rod Kothari MD) Smoking Status: Current every day smoker tobacco type: cigarettes Tobacco: How many years used: 44 HPI HPI HPI: SHER PENNINGTON, is a 59 M who presents to the office today for HPI HPI Surgical H&P: Yes HPI: SHER PENNINGTON, is a 59 M who presents to the office today for port consult. The patient has lung cancer and requires port for treatment. ROS General General: No weight change or fatigue Cardio Cardiovascular: Yes atrial fibrillation; no murmur, pacemaker, heart disease, high blood pressure, heart attack, heart stent, palpitations, shortness of breat with exertion or chest pain Psych Psychiatric: Yes depression and anxiety Resp Respiratory: Yes shortness of breath, No sleep apnea, Yes cough, Yes COPD, No asthma, No emphysema, No wheezing Gastro Gastrointestinal: No abdominal pain, No nausea or vomiting, No diarrhea, No constipation, No blood in stool, No acid reflux, No hemorrhoids, No ulcers, No gallbladder problem, No black,tarry stools Finn Hematologic: No blood thinners Exam Const General: cooperative Orientation: alert, oriented x3 Resp Effort & Inspection: normal respiratory effort Auscultation: clear to auscultation bilaterally Cardio Rate: regular rate Rhythm: regular rhythm Heart Sounds: no murmurs GI Inspection: non-distended Palpation: soft, nontender Assessment & Plan Problems 1. Tobacco abuse Z72.0 Cigarettes 1/2 pack/day 2. 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 Encounter for adjustment and management of vascular access device Z45.2 Plan The patient has lung cancer and is in need for a port for vascular access. I discussed port placement with the patient in detail. I discussed the risks including but not limited to bleeding, infection, pneumothorax, DVT, line infection. The patient understands the risks and will proceed with port placement. We discussed the current risks associated with COVID-19. While it is understood that there is a community spread of COVID-19, the risk of sonali COVID-[address] [facility] ([facility]) is very low; however, the risk cannot be completely mitigated because of the community spread of the disease. We discussed in detail the risk of exposure to and/or potential harm posed by the COVID-19 virus with having a surgery/procedure at this time versus the risk of delaying the surgery/procedure. It is not possible to know either the risk of delaying the surgery or procedure or chance of getting an infection with perfect accuracy, but a joint decision was made to proceed at this time with the scheduled surgery/procedure as indicated on the consent form. Patient was notified that we will need to comply with any screening or testing [facility] wishes to perform or that surgery may be delayed for any positive results. Rod Kothari MD Pager: [facility] [address] [place] [address], [address] [place] [phone] Office: Coding Level of Care Code Off vis,new,level 3 Diagnoses Tobacco abuse Z72.0 Non-small cell cancer of left lung C34.92 Encounter for adjustment and management of vascular access device Z45.2 09/13/19 1416 <Electronically signed by Rod palmer MD> Date _ Rod Kothari MD I have re-examined the patient. There are no clinical changes since date of exam.
[2019-09-13 13:23] VITALS: BMI 26.4
[2019-09-13 14:48] VITALS: BMI 26.2
[2019-09-18 10:37] VITALS: BP 107/66; PULSE 73; RESP 15; TEMP 37.3; O2SAT 97; BMI 26.2
[2019-09-18] MEDS: Lactated Ringers 1,000 ML 100 ML IV (10:46)
[2019-09-18] MEDS: Cefazolin 2 GM in 0.9% Normal Saline 100 ML IV (11:22)
[2019-09-18] MEDS: Bupiv/Epi 0.5% Mpf 30 ML Vial (11:22)
[2019-09-18 12:00] VITALS: BP 101/68; BP 107/66; PULSE 70; RESP 16; TEMP 37.3; O2SAT 94
[2019-09-18 12:05] VITALS: BP 100/62; BP 107/66; PULSE 72; RESP 16; O2SAT 94
--- NOTE | 2019-09-18 12:08 | OP.PCM_ITS ---
Problem List (1) Encounter for adjustment and management of vascular access device Status: Acute (2) Non-small cell cancer of left lung Status: Acute Report of Operation Date of Procedure: 09/18/19 Pre-Operative Diagnosis: Need for vascular access for chemotherapy Post-Operative Diagnosis: Same Surgery/Procedure Performed:: Ultrasound and fluoroscopy guided right chest port placement utilizing right IJ Description of Procedure: After obtaining informed consent patient was brought back to the operating room MAC anesthesia was induced and the right chest and neck were prepped in normal sterile fashion. Ultrasound was used to evaluate both IJs and the right IJ was selected. Next, using a needle, the right IJ was accessed and a guidewire was passed on into the superior vena cava under fluoroscopy guidance. A small incision was made over the puncture site and the dilator introducer was placed over the guidewire. Next this was capped and the pocket was made for the port. 1% lidocaine with epinephrine was injected in the proposed port site. An incision was made with scalpel. Electrocautery was used to make a pocket under the skin and subcutaneous tissue. Hemostasis was obtained. Next, the catheter was tunneled up to the neck incision site and placed through the introducer. The peel-away introducer was removed and the position of the catheter was confirmed on fluoroscopy. Next, the catheter was trimmed and attached to the port with the locking device. Interrupted 2-0 Vicryl sutures were used to anchor the port to the chest wall and then the port was placed inside the pocket. The pocket was then flushed with saline and the port irrigated with saline. There was good blood return and the port flushed easily. Next, heparin was injected into the port. The skin was closed with subcutaneous interrupted 3-0 Vicryl sutures. A single 3-0 Vicryl sutures placed under the skin at the neck incision site. Steri-Strips were placed as well as op sites. Patient tolerated procedure well, was taken to PACU in stable condition. Chest x-ray will be obtained. Grafts/Implants Used: 8 [employer] - Admit VTE Documentation VTE Mechan Device Prophylaxis: SCD's
--- NOTE | 2019-09-18 12:09 | DCINST_ITS ---
Discharge Diet: No Restrictions - Pain medication may cause nausea. You should typically eat light foods as you take your pain medication. Discharge Activity: Return to Normal Activity, May Shower - with your bandage in place in 1-2 days after surgery. DO NOT SHOWER WHEN YOUR PORT IS ACCESSED. Call your doctor if your incision/area has: Continuous Slow Oozing, Sudden Increased Bleeding, Increased Pain/ Swelling, Increased Redness Call your doctor if you observe: Fever of 101 or Higher Remove Dressing in (days):: 1 - When you remove the bandage, leave the steri- strips intact until they fall off. Additional Instructions: Tylenol and Ibuprofen as needed for pain. Allergies/Adverse Reactions: Allergies No Known Allergies Allergy (Verified 09/18/19 10:36) Medications to take at Discharge Albuterol Inhaler [Ventolin Hfa] 1 - 2 puff INHALATION Q4H PRN PRN #1 inhaler 01/16/19 fluticasone propionate 250 mcg/actuation blister powder for inhalation 1 inh INHALATION BID #60 ea 07/03/19 Glycopyrrolate/Formoterol Fum [Bevespi Aerosphere] 2 puff INHALATION BID 08/14/19 Sertraline HCl [Zoloft] 50 mg PO DAILY 08/14/19 Ibuprofen 600 mg PO Q6H PRN PRN #20 tab 08/29/19 Lidocaine/Prilocaine [Lidocaine-Prilocaine Cream] 1 applicatio TP DAILY PRN PRN 30 Days #1 tube 09/13/19 Ondansetron [Ondansetron Odt] 8 mg PO Q8H PRN PRN 10 Days #30 tab.rapdis 09/13/19 Prochlorperazine Maleate 10 mg PO Q6H PRN PRN 10 Days #30 tab 09/13/19 Test Results: Test results from this visit will be discussed in further detail at your follow- up appointment, if applicable. Please Follow Up With: Rod Kothari MD When: Please call to schedule 2 week follow up appointment. [phone]
[2019-09-18 12:10] VITALS: BP 101/64; BP 107/66; PULSE 69; RESP 16; O2SAT 95
--- NOTE | 2019-09-18 12:15 | RAD_ITS ---
STUDY: X-RAY CHEST REASON FOR EXAM: Male, 59 years old. POST PORT PLACEMENT TECHNIQUE: Single AP portable view of the chest. COMPARISON: Comparison is made with prior chest radiograph dated January. FINDINGS: A right-sided portacatheter has been placed with tip at the junction of the superior vena cava and right atrium. No evidence of a 6.6 cm x 7.9 cm mass in the left lung apex. There is no demonstrated pleural abnormality. Normal size heart. Normal mediastinum and bartolo. Normal visualized pulmonary arteries. Normal visualized aortic arch and descending thoracic aorta. There are diffuse degenerative changes of the visualized thoracic spine. Normal visualized ribs, clavicles, and shoulders. There is no demonstrated abnormality of the visualized soft tissue structures of the upper abdomen. RAD/CXR for Line Placement IMPRESSION: The tip of the Port-A-Cath. It is at the junction of the superior vena cava and right atrium. 6.6 cm x 7.9 cm right apical mass. Electronically Signed: Neno Ibarra, at 12:34 EDT , Service support ,
[2019-09-18 12:23] VITALS: BP 103/67; BP 107/66; PULSE 67; RESP 16; TEMP 37.4; O2SAT 96
[2019-09-18 13:00] VITALS: BP 107/66
--- OUTSIDE RECORDS SUMMARY | 2020-01-27 10:11 | XMS RPT_ITS | CCD ---
:1960 External Reference #:[id number] Author Organization [facility] Care Team Providers Name Role Phone Ida Aggarwal) Primary Care Provider [phone] Medications Medication Name Sig Date Prescriber Location Albuterol albuterol HFA 01-01-2019 Ida Roman) [facility] (PROVENTIL HFA) 90 Jasen (36431) mcg/actuation inhaler Indications: Wheezing , SOB (shortness [...] Date Location Alcohol-related History of alcohol Active [facility] disorders abuse (80319) Chronic obstructive Chronic obstructive Active [facility] pulmonary disease and lung disease (82970 ) bronchiectasis Disorders of lipid Mixed hyperlipidemia Active [address] [facility] metabolism (81374) Residual codes; Tobacco user Active [facility] in unclassified (99850) Past or Other Problems Category Problem Name Status Date Location Diabetes mellitus Impaired fasting Completed 2007 - [facility] without complication glycaemia (65496) Residual codes; FH: Cardiovascular Completed 2007 - [facility] unclassified disease (85790) Results Result Name Value Range Unit Interpretation Flag Date Location progress on 2019-10 PROGRESS HNO ID: [id number] Normal 11-09-2019 [facility] Author: Mario Leiva ([id number]) Service: ? Author Type: Physician Type: Progress [...] 2019-11-09 CNOV Office Visit (FAMPWS) Normal 11-09-[address] [place] [address] [facility] SHER NICOLE ([id number]) 1960 [facility] Date Time Provider Department (44249) 11/09/19 2:40 PM [facility] During your visit today, we recorded the following informati on about you: Pulse Blood pressure Weight 90/minute 116/68 81.6 kg Bonita Huerta Ma 11/09/2019 2:49 PM Signed HOSPITAL/ER FOLLOW UP: Reason for visit: head injury after fall Which facility: [facility] Date of visit: 10/30/19 Diagnosis: laceration [...] Mario Whitten MD Referring Provider: IDA AGGARWAL) [[id number]] Allergies As of Date: 11/09/2019 (No Known [...] visit: head injury after fall Which facility: [facility] Date of visit: 10/30/19 Diagnosis: laceration [...] 11/09/19 progress on 2019-07 PROGRESS HNO ID: [id number] Normal 07-20-2019 [facility] Author: Ida Roman) Jasen Leiva ([id number]) Service: ? Author Type: Physician Type: Progress [...] weeks. Currently homeless and staying at the [facility] [employer]. Following COVID 19 restrictions of staying inside and washing hands. S haring rooms and bunk beds with other residents. No history of depression or anxiety. Not seeing counseling currently, but has in the past at 180. PHQ-9 (Patient Health Questionnaire-9) from [employer] on 01/2020 All calculations should be rechecked [...] more than 50% of the to richmond gqdj-ow-dwra time of the visit in counseling / coordination of care. MD navarro Watson [facility]07[facility]) Normal 07-18-2019 [place] [facility] SHER NICOLE ([id number]) 1960 [facility] Date Time Provider Department (57904) 07/18/19 [facility] During your visit today, we recorded the following informati on about you: Jaycob Todd [facility] 07/18/2019 4:04 PM Signed Patient called [...] on 2019-07-17 CNPN Telephone (FAMPWS) Normal 07-17-2019 [facility] SHER NICOLE ([id number]) 1960 [facility] Date Time Provider Department (80816) 07/17/19 [facility]WAL[facility] During your visit today, we recorded the following informati on about you: Charu Ann, PROOF TESTER, PROOF TESTER 07/17/2019 12:19 PM Signed Clau nurse from Pulmonary here in [place] calls states pt voices to them that he is depressed And would like someone to talk to. eir kosher butcher wanted her to reach out to u [...] 12:38 PM Signed Spoke with Eliot at [facility] [employer]. The patient is re siding there. She will have the patient return call to our office after lunch. Fredrick Singh RN 07/18/2019 3:58 PM Signed Patient returned call. Transferred to rehab assistant for VV with PCP. Fredrick Singh RN Jossie Javier [facility] 07/19/2019 11:37 AM Signed Spoke with [...] 07/18/19 progress on 2019-03 PROGRESS HNO ID: [id number] Normal 03-22-2019 [facility] Author: Jessica ChristiansenRn) MITALI Cooper [place] ([id number]) Service: ? Author Type: Registered Nurse Type: [...] pt. Jessica Cooper RN PROGRESS HNO ID: [id number] Normal 03-22-2019 [facility] Author: Jessica ChristiansenRn) MITALI Cooper ([id number]) Service: ? Author Type: Registered Nurse Type: Progress Notes Filed: 03/22/2019 10:45 AM Note Text: PRIMARY CARE COORDINATION QUICK NOTE Provider Action/FYI Unable to reach pt. Will discharge from care coordination. Patient identified by name and date . Received return letter. [facility] was unable to deliver. 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 Will discharge from care coordination. Patient identified by name and date . Received return letter. [facility] was unable to deliver. 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 Author Type: Registered Nurse Type: Progress Notes Filed: 02/26/2019 1:36 PM Note Text: PRIMARY CARE COORDINATION QUICK NOTE Provider Action/FYI Letter sent. Patient identified by name and date . Sent certified letter about need to follow up with Care Coor dinator progress on 2019-02 PROGRESS HNO ID: [id number] Normal 02-14-2019 [facility] Author: Ida Roman) Jasen Leiva ([id number]) Service: ? Author Type: Physician Type: Progress Notes Filed: 02/14/2019 9:22 AM Note Text: Reviewed. Send letter? PROGRESS HNO ID: [id number] Normal 02-14-2019 [facility] Author: MITALI Aguilar Rn ([id number]) Service: ? Author Type: Registered Nurse Type: Progress Notes Filed: 02/26/2019 1:36 PM Note Text: PRIMARY CARE COORDINATION QUICK NOTE Provider Action/FYI Still unable to reach pt. Patient identified by name and date . Called patient, phone is not accepting phone calls. Called t o [facility] [employer], no one staying there by that name. cnptoutreach on 201 12-20-05 CNPTOUTREACH Patient Outreach (FAMPWS) Normal 1 04-16-2018 [place] SHER Segura ([id number]) 1960 [facility] Date Time Provider Department (72976) 02/14/19 [facility] (RN) [facility] During your visit today, we recorded the following informati on about you: Jessica Cooper RN, RN 02/26/2019 1:36 PM Signed PRIMARY CARE COORDINATION QUICK NOTE Provider Action/FYI Still unable to reach pt. Patient identified by name and date . Called patient, phone is not accepting phone myra ls. Called to [facility] [employer], no one staying there by that name. 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 Author Type: Registered Nurse Type: Progress Notes Filed: 01/24/2019 11:04 AM Note Text: PRIMARY CARE COORDINATION QUICK NOTE Patient identified by name and date . Called again to phone number in chart. Currently not accepti ng calls. Unable to contact pt at this time. cnptoutreach on 12-20-15 CNPTOUTREACH Patient Outreach (FAMPWS) Normal 1 [place] [facility] SHER NICOLE ([id number]) 1960 [facility] Date Time Provider Department (74697) 01/24/19 JESSICA COOPER (RN) FAMPWS During your [...] 01/24/19 progress on 2019-01 PROGRESS HNO ID: [id number] Normal 01-23-2019 [facility] Author: Siomara Paniagua) Bo [place] ([id number]) Service: ? Author Type: Nurse Practitioner Type: Progress Notes Filed: 01/23/2019 9:37 AM Note Text: Reviewed. Siomara Harden, VIKKI.[facility] PROGRESS HNO ID: [id number] Normal 01-23-2019 [facility] Author: Jessica (Rn) MITALI Cooper [place] ([id number]) Service: ? Author Type: Registered Nurse Type: Progress Notes Filed: 01/24/2019 10:46 AM Note Text: PRIMARY CARE COORDINATION QUICK NOTE Provider Action/FYI Unable to reach pt for TCM. No longer staying at [facility] A rmy Patient identified by name and date . Called to [facility], pt has been dismissed from the [facility] lter. They have no other information about him. rolando on 201 12-19-14 CNPTOUTREACH Patient Outreach (FAMPWS) Normal 1 [place] [facility] SHER NICOLE ([id number]) 1960 Darian Leiva Date Time Provider Department (82419) 01/23/19 JESSICA COOPER (RN) FAMPWS During your visit today, we recorded the following informati on about you: Jessica Cooper RN, RN 01/24/2019 10:46 AM Signed PRIMARY CARE COORDINATION QUICK NOTE Provider Action/FYI Unable to reach pt for TCM. No longer staying at [facility] A rmy Patient identified by name and date . Called to [facility] , pt has been di smissed from the custodial. They have no other information about him. Siomara Soriano APRN.POWER SHOVEL ENGINEER 01/23/2019 9:37 AM Signed Reviewed. 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 Author Type: Registered Nurse Type: [...] I knew, he was living at the [facility] , I told the other girl that called that as well PROGRESS HNO ID: [id number] Normal 01-22-2019 [facility] Author: Charu Farmer (Lot Attendant) IDALIA Ann [place] ([id number]) Service: ? Author Type: LICENSED NURSE Type: Progress Notes Filed: 02/19/2019 3:01 AM Note Text: [facility] again pt was readmitted on the and discharged the coul d not complete tcm due to being discharged same day. Spoke with Siomara in Dr Carina Aggarwal's absence and she agrees Pt should have care coordination foll owing him. Gave papers to Jessica LUCIO to follow per TCM. 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 Author Type: LICENSED NURSE Type: Progress Notes Filed: 02/19/2019 3:01 AM Note Text: Attempted to reach pt on two other atemps and machine just s [employer] pt not available but is not a answering machine where message can b e left.Pt does have a hospital f/up scheduled with Siomara Soriano CNP ON . cnptoutreach on 201 12-19-08 CNPTOUTREACH Patient Outreach (FAMPWS) Normal 1 [place] [facility] SHER NICOLE ([id number]) 1960 [facility] Date Time Provider Department (83566) 01/17/19 IDA AGGARWAL) FAMPWS During your visit today, we recorded the following informati on about you: [place] Ann LPN, IDALIA 02/19/2019 3:01 AM Signed Attempted to call pt for tcm, number buchanan s not have answering machine will need to try back. TRANSITION CARE MANAGEMENT (TCM) INITIAL CONTACT Dental Laboratory Supervisor Outreach Provider Action/FYI: Initial contact with [...] 3:01 AM Signed [facility] pt was readmitted on the [...] alcohol abuse [F10.11] More... Encounter Status:Closed by [employer], [employer] on 02/19/19 progress on 2018-12 PROGRESS HNO ID: [id number] Normal 01-04-2019 [facility] Author: Evangelina Payne [place] ([id number]) Service: ? Author Type: ? Type: Progress [...] on 2018-12 OBSOLETE Refill (FAMPWS) Normal 12-29-2018 [facility] SHER NICOLE ([id number]) 1960 [facility] Date Time Provider Department (62143) 12/29/18 IDA AGGARWAL) FAMPWS During your visit [...] No RX INSTRUCTIONS: MyChart request. Claudia Thomas PROOF TESTER Allergies As of Date: 12/29/2018 (No Known [...] on 9 cnpn on 2018-12-29 CNPN Telephone ([id number]) Normal 12-29 [place] [facility] SHER NICOLE ([id number]) 1960 [facility] Date Time Provider Department (91258) 12/29/18 AIMEE HERNANDEZ [id number] During your visit today, we recorded the following informati on about you: Theresa Thibodeaux 01/02/2019 3:50 PM Signed Called patient again, and le ft a detailed message; again, requested return call. Theresa Thibodeaux 01/03/2019 1:33 PM Signed Patient returned call from message re scheduled appointme nts. Patient requested and confirmed appointments on 01/07 AND 01/10/19. CT is being done at [place] on 01/04/19 Trung Briones MD 01/18/2019 7:40 AM Signed Looks like he cancelled his biopsy procedure Please call and find out how he is doing and if he is agreeable to rescheduling so I can reach out to the procedure team to help Avi Lowe Ma 01/18/2019 11:03 AM Signed Attempted to call patient at his listed [facility] [place] but per recording pt was unavailable. Attempted [...] pt has calvin moore dismissed from the [employer] where he was staying, and the [employer] has no other information about him, noted [...] 1.0 0.9-1.3 s Normal 9 [facility] (92174) Comment: Result Comment: Vitamin K An tagonist (VKA) Therapeutic Range: INR 2 to 3 (Target INR of 2.5) Note: For patients treated w ith VKA drugs, such as warfarin, the [place] [employer] 2012 Guideline recommends a therapeutic INR range of 2 to 3 (target INR of 2.5). This recommendation includes high-risk patients with antiphospholipid syndrome with previous arterial or venous thromboembolism, current-generation mechanical or bioprosthetic aortic heart valve replacement. Note: Patients with mechanical process engineer al aortic valve replacement and additional risk factors for thromboembolic events (atrial fibrillation, previous thromboembolism, LV dysfunction, hypercoagulable conditions) or an older generation mecha nical AVR (i.e., ball in-Cage) or any mechanical MVR should have a INR therapeutic range of 2.5 to 3.5 (target INR of 3). Kalen GH, et al. Chest 2012 , 141:7S-47S Kayla PINEDA, et al. [facility] 20 17, 70: 252-289 Performed By: #### CBCDIF, P T, PTT, BMP ####[place] [address] [place], [place] [phone] PT Coag (PPP) [Time] 10.6 9.7-13.0 sec Normal 9 [facility] (41736) Comment: Performed By: #### CBCDIF, P T, PTT, BMP ####[place] [address] [place], [place] [phone] cbc and differential on 2018-12-27 Abs Baso 0.06 <0.11 k/uL Normal 12-27-2018 [facility] (66401) Comment: Performed By: #### CBCDIF, P T, PTT, BMP ####[place] [address] [place] [phone] Abs Yell 0.64 <0.87 k/uL Normal 12-27-2018 [facility] (38922) Comment: Performed By: #### CBCDIF, P T, PTT, BMP ####[place] [address] [place], [place] [phone] Abs Neut 7.32 1.45-7.50 k/uL Normal 12-27-2018 [facility] (44063) Comment: Performed By: #### CBCDIF, P T, PTT, BMP ####[place] [address] [place], [place] [phone] Absolute nRBC <0.01 <0.01 Normal 12-27-2018 [facility] (77936) Comment: Performed By: #### CBCDIF, P T, PTT, BMP ####[place] [address] [place], [place] [phone] Basophils/100 WBC (Bld) 0.6 % Normal 2018 [facility] (27490) Comment: Performed By: #### CBCDIF, P T, PTT, BMP ####[place] [address] [place], [place] [phone] DTYPE Auto Diff Normal 12-27-2018 [facility] (95169) Comment: Performed By: #### CBCDIF, P T, PTT, BMP ####[place] [address] [place], [place] [phone] Eosinophils (Bld) [#/Vol] 0.16 <0.46 k/uL Normal 12-10 [facility] (88320) Comment: Performed By: #### CBCDIF, P T, PTT, BMP ####[place] [address] [place], [place] [phone] Eosinophils/100 WBC (Bld) 1.6 % Normal 12-10 [facility] (60267) Comment: Performed By: #### CBCDIF, P T, PTT, BMP ####[place] [address] [place] [phone] Erythrocyte distribution 12.7 11.5-15.0 % Normal 12-27 [facility] width (RBC) [Ratio] [place] (31663) Comment: Performed By: #### CBCDIF, P T, PTT, BMP ####[place] [address] [place], [place] [phone] Hematocrit (Bld) [Volume 39.5 39.0-51.0 % Normal 12-27 [facility] fraction] [place] (81064) Comment: Performed By: #### CBCDIF, P T, PTT, BMP ####[place] [address] [place] [phone] Hemoglobin (Bld) 12.4 13.0-17.0 g/dL Low 12-27-2018 [facility] [Mass/Vol] [place] (59713) Comment: Performed By: #### CBCDIF, P T, PTT, BMP ####[place] [address] [place], [place] [phone] Lymphocytes (Bld) [#/Vol] 1.72 1.00-4.00 k/uL Normal 12-10 [facility] (78537) Comment: Performed By: #### CBCDIF, P T, PTT, BMP ####[place] [address] [place], [place] [phone] Lymphocytes/100 WBC (Bld) 17.4 % Normal 12-10 [facility] (83545) Comment: Performed By: #### CBCDIF, P T, PTT, BMP ####[place] [address] [place], [place] [phone] MCH (RBC) [Entitic mass] 31.2 26.0-34.0 pG Normal 12-27 [facility] (34809) Comment: Performed By: #### CBCDIF, P T, PTT, BMP ####[place] [address] [place], [place] [phone] MCHC (RBC) [Mass/Vol] 31.4 30.5-36.0 g/dL Normal 12-28-19 [facility] (11043) Comment: Performed By: #### CBCDIF, P T, PTT, BMP ####[place] [address] [place], [place] [phone] MCV (RBC) [Entitic vol] 99.2 80.0-100.0 fL Normal 12-27 [facility] (29653) Comment: Performed By: #### CBCDIF, P T, PTT, BMP ####[place] [address] [place], [place] [phone] Monocytes/100 WBC (Bld) 6.5 % Normal 2018 [facility] (21092) Comment: Performed By: #### CBCDIF, P T, PTT, BMP ####[place] [address] [place], [place] [phone] Neutrophils/100 WBC (Bld) 73.9 % Normal 12-10 [facility] (41216) Comment: Performed By: #### CBCDIF, P T, PTT, BMP ####[place] [address] [place], [place] [phone] NRBCs 0.0 0 /100 WBC Normal 12-27-2018 [facility] (92854) Comment: Performed By: #### CBCDIF, P T, PTT, BMP ####[facility] [address] [place], [place] [phone] Platelet mean volume 11.0 9.0-12.7 fL Normal [facility] (Bld) [Entitic vol] [place] (39378) Comment: Performed By: #### CBCDIF, P T, PTT, BMP ####[place] [address] [place], [place] [phone] Platelets (Bld) [#/Vol] 252 150-400 k/uL Normal 2018 [facility] (40047) Comment: Performed By: #### CBCDIF, P T, PTT, BMP ####[place] [address] [place], [place] [phone] RBC (Bld) [#/Vol] 3.98 4.20-6.00 m/uL Low 12-27-[address] [facility] (05216) Comment: Performed By: #### CBCDIF, P T, PTT, BMP ####[facility] [place], [place] [phone] WBC (Bld) [#/Vol] 9.90 3.70-11.00 k/uL Normal 12-27-2018 [facility] (65923) Comment: Performed By: #### CBCDIF, P T, PTT, BMP ####[place] [address] [place], [place] [phone] basic metabolic panl on 2018-12-27 Anion gap [Moles/Vol] 12 9-18 mmol/L Normal 12-28-19 [facility] (85953) Comment: Performed By: #### CBCDIF, P T, PTT, BMP ####[facility] [place], [place] [phone] Calcium [Mass/Vol] 9.2 8.5-10.2 mg/dL Normal 12-27-2018 [facility] (37912) Comment: Performed By: #### CBCDIF, P T, PTT, BMP ####[facility] [place], [place] [phone] Chloride [Moles/Vol] 100 97-105 mmol/L Normal [facility] (57598) Comment: Performed By: #### CBCDIF, P T, PTT, BMP ####[facility] [place], [place] [phone] CO2 [Moles/Vol] 27 22-30 mmol/L Normal 12-27-2018 [facility] (91335) Comment: Performed By: #### CBCDIF, P T, PTT, BMP ####[facility] [place], [place] [phone] Creatinine [Mass/Vol] 0.75 0.73-1.22 mg/dL Normal 12-28-19 [facility] (24670) Comment: Performed By: #### CBCDIF, P T, PTT, BMP ####[facility] [place], [place] [phone] eGFR- Amer. >60 Normal 12-27-2018 [facility] (42493) Comment: Performed By: #### CBCDIF, P T, PTT, BMP ####[facility] [place], [place] [phone] GFR/1.73 sq M predicted >60 mL/min/{1.73_m2} Normal 12-27-2018 [facility] among non-blacks MDRD [place] (40812) (S/P/Bld) [Vol rate/Area] Comment: Result Comment: eGFR [...] CBCDIF, P T, PTT, BMP ####[facility] [address] [place], [place] [phone] Glucose [Mass/Vol] 92 74-99 mg/dL Normal 12-27-2018 [facility] (86076) Comment: Result Comment: The [place] Diabetes Association (ADA) provides guidance for cutoff [...] for diagnosis of diabetes. Reference: Standards of [facility] Care in Diabetes 2016, [place] Diabetes Association. Diabetes Care. 2016.39(Suppl 1). Performed By: #### CBCDIF, P T, PTT, BMP ####[facility] [address] [place], [place] [phone] Potassium [Moles/Vol] 4.1 3.7-5.1 mmol/L Normal 12-28-19 19 [facility] ([id number]) Comment: Performed By: #### CBCDIF, P T, PTT, BMP ####[facility] [address] [place], [place] [phone] Sodium [Moles/Vol] 139 136-144 mmol/L Normal 12-27-2018 [facility] ([id number]) Comment: Performed By: #### CBCDIF, P T, PTT, BMP ####[facility] [place], [place] [phone] Urea nitrogen [Mass/Vol] 8 9-24 mg/dL Low 12-27 [facility] ([id number]) Comment: Performed By: #### CBCDIF, P T, PTT, BMP ####[facility] [place], [place] [phone] aptt on 2018-12-27 aPTT Coag (Bld) [Time] 28.5 23.0-32.4 sec Normal [address] [place] [address] ([id number]) Comment: Result Comment: Unfractionat ed Heparin Therapeutic [...] laboratory APTT reagent in use throughout the [facility]. Performed By: #### CBCDIF, P T, PTT, BMP ####[facility] [place], [place] [phone] cnpn on 2018-12-21 CNPN Telephone (LAYLA) Normal 12-21-2018 [facility] SHER NICOLE ([id number]) 1960 [facility] Time Provider Department ([id number]) 12/21/18 TRUNG BRIONES During your visit today, we recorded the following informati on about you: Trung Briones MD 12/21/2018 9:42 AM Signed Please call and update patient that I sp toi to the [facility] team and one of their schedulers will call to set up a final pro cedure date, but they did ask that labs get done before the scheduled procedure. The orders are in, please see if he can get these done in the next few days at any local [facility] lab so that we can see the results. Obdulia Amezcua 12/21/2018 10:12 AM Signed Left a voicemail for the pt to call the office b ack in regards to the message below. If pt calls back please let him know [facility] will call him to schedule his procedure, but he first needs to have lab work done at any of our [facility] labs, the order for lab work is placed. If it is better to go to a lab in [place] I did research and this on is close to him. [facility] [place] [address] [facility]. [place], [place] [address] Obdulia Amezcua 12/25/2018 3:55 PM Signed Left a voicemail for the pt to call the office b ack in regards to the message below. Obdulia Amezcua 12/26/2018 10:17 AM Signed Spoke with Pt, Pt verbalized understanding. No further quest ions. Pt has not heard from [facility] yet, he will g o and get the blood work done and then wait to hear back from [facility]. Trung Briones MD 12/27/2018 8:43 AM Signed Records from [place] received, 10/06/18 E D visit for which [...] density appears larger at this time. Main Marty is going to schedule interventional pulm f [...] 12/26/18 progress on 2018-12 PROGRESS HNO ID: [id number] Normal 12-20-2018 [place] Author: Aimee Hernandez [facility] Service: ? [place] Author Type: Physician ([id number]) Type: Progress Notes Filed: 12/21/2018 2:43 PM [...] on anticoagulants/anti-plt therapy? No Nursing Considerations: (ie: group home, TB, respiratory isolation, etc.) none Diagnosis/Reason for [...] results found for: CREAT PROGRESS HNO ID: [id number] Normal 12-20-2018 [place] Author: [facility] Service: ? 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 CT, no image to review directly [...] Briones MD Pulmonary and Critical Care Medicine [facility] [place] December 20, 2018 9:44 AM I spent 60 minutes in the visit, with more than 50% of the t otal nwhw-ww-jxvo time of the visit in counseling / coordination of care. cnov on 2018-12-20 CNOV Office Visit (PULMLO) Normal 12-21-19 19 [place] [facility] SHER NICOLE ([id number]) 1960 M URIEL [place] Date Time Provider Department ([id number]) 12/20/18 9:45 AM TRUNG BRIONES During your visit today, we recorded the following informati on about you: Temperature Pulse Blood pressure Weight 98.6 degrees 73/minute 115/71 82 kg Height 1.753 m Obdulia Amezcua 12/20/2018 9:39 AM Signed [facility] LAB FACTS LAB HOURS: [place] lab is open from 7:30am to 6pm , open from 7:30am-5pm on Tuesday and open 8am-12pm on Tuesday. Closed on Tuesday [facility] [facility] is open from 7:30am to 5pm [...] Care -- No appointment needed At the [facility], patients 2 years and older can get walk -in medical attention for common health problems including: Cold and flu symptoms Conjunctivitis Ear and throat infections Minor bumps and cuts Seasonal allergies Skin rashes Simple sprains and strains Sinus infections Urinary tract infections Upper respiratory tract infections Locations and Times [facility] - [address] [facility], [facility] - [address] [place] [address] [employer] [facility] - Tuesday through Tuesday 6 AM - 9 PM - Tuesday and Tuesday 8 AM - 4 PM For Express Care LOCATIONS, HOURS OF OPERATION and CUR RENT WAIT TIMES, visit the following link for details. [email or web address][types][0]=Express%20Care%20ClinicsAN D Emergency Department Parviz Stoddard [facility] - [address]), [facility] [phone] Pharmacy Hours: Tuesday through Tuesday 8 am to 6 pm Opt in to receive text reminders for your appointments with [facility] specialist today. To opt in, text 4clinictxt to [phone]. 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 No pets REVIEW [...] file Gets together: Not on file Attends yazidi service: Not on file Active member of [...] patient as noted below: Chest CT: 10/06/18 [facility] CT, no im age to review [...] signature obtained to get actual images from [place] The above plan was discussed with the rubi botello and all questions were answered. I will see Mr. Nicole for follow-up in 2 months Trung Briones MD Pulmonary and Critical Care Medicine [facility] [place] December 20, 2018 9:44 AM I spent 60 minutes in the visit, with more than 50% of the total rcbh-bi-chfh time of the visit in counseling / coordination of care. Referring Provider: IDA AGGARWAL) [[id number]] Allergies As of Date: 12/20/2018 (No Known Allergies) Date Reviewed: 12/20/2018 Reviewed by: Trung Briones - Fully Assessed Reason for Visit: New Patient [172] Cmt: Left lung lesion Primary Visit Diagnosis:Lung mass [R91.8] Other Visit Diagnoses:Dyspnea on exertion [R06.09] Chronic obstructive pulmonary disease, unspecified COPD type (HCC) [J44.9] Order(s):ECG COMPLETE [ECG01] Order #: [id number] FUTURE Prescriptions as of 12/20/2018 Sig: FLUTICASONE [...] [F10.11] More... Other instructions from your clinician: [employer] [facility] [place] [facility] LAB FACTS LAB HOURS: [facility] lab is open from 7:30am to 6pm M-, open from 7:30am -5pm on Tuesday and open 8am-12pm on Tuesday. Closed on Tuesday [facility] is open from 7:30am to 5pm [...] prior to the scheduled exam. [facility] -- No appointment needed At the [facility], patients 2 years and older can get walk -in medical attention for common health problems including: Cold and flu symptoms Conjunctivitis Ear and throat infections Minor bumps and cuts Seasonal allergies Skin rashes Simple sprains and strains Sinus infections Urinary tract infections Upper respiratory tract infections Locations and Times [facility] - [address] [facility] [address], [facility] [place] - [address] [facility] - Tuesday through Tuesday 6 AM - 9 PM - Tuesday and Tuesday 8 AM - 4 PM For Express Care LOCATIONS, HOURS OF OPERATION and CURRENT W AIT TIMES, visit the following link for details. [email or web address]?dFR[types][0]=Expr ess%20Care%20Clin icsAND Emergency Department Parviz Stoddard [facility] - [address]), [facility] [phone] Pharmacy Hours: Tuesday through Tuesday 8 am to 6 pm Opt in to receive text reminders for your appointments with [facility] health specialist today. To opt in, text 4clinictxt to [phone]. Disposition: Return in about 2 months (around 02/19/2019). Follow-up and Disposition History Recorded Encounter Status:Closed by TRUNG BRIONES MD on 12/20/18 progress on 2018-12 PROGRESS HNO ID: [id number] Normal 12-13-2018 [facility] Author: Ida Gandara () Jasen [facility] ([id number]) Service: ? Author Type: Physician Type: Progress [...] file Gets together: Not on file Attends yazidi service: Not on file Active member of [...] 2018-12-13 CNOV Office Visit (FAMPWS) Normal 12-14-19 [facility] SHER NICOLE ([id number]) 1960 [facility] Date Time Provider Department ([id number]) 12/13/18 11:20 AM IDA AGGARWAL) FAMPWS During [...] file Gets together: Not on file Attends yazidi service: Not on file Active member of [...] Aggarwal MD Referring Provider: IDA AGGARWAL () [[id number]] Allergies As of Date: 12/13/2018 (No Known Allergies) Date Reviewed: 12/13/2018 Reviewed by: Natanael Dennis Ma - Fully Assessed Reason for Visit: follow up PET scan results [Other] Primary Visit Diagnosis:Mass of left lung [R91.8] Other Visit Diagnosis:Abnormal PET scan of lung [R94.2] Order(s):CONSULT TO PULM/CRITICAL CARE [342991] Order #: [id number]: 1 Prescriptions as of 12/13/2018 Sig: FLUTICASONE [...] 12/13/18 progress on 2018-12 PROGRESS HNO ID: [id number] Normal 12-12-2018 [place] [facility]: [facility] Service: Nuclear Medicine ([id number]) Author Type: [employer] Engineer Type: Progress Notes Filed: 12/12/2018 12:14 PM [...] regarding radiation safety can be found using [facility] link: [email or web address]%20Medicine%[email or web address].pdf SIGNATURE: Prosper Montelongo [facility] PATIENT NAME: Sher Nicole DATE: December 12, 2018 TIME: 12:14 PM PAGER/CONTACT #: la pet/ct whole body init on 2018-12-12 NM PET/CT WHOLE * * *Final Report* * * Normal 0 12-12-2018 [facility] BODY INIT DATE OF EXAM: Dec 12 2018 1:29PM ([id number]) [facility] 0061 - NM PET/CT WHOLE [...] EXTREMITIES/SKELETON: No suspicious FDG avid osseous process. Insulation Packer: TC Transcribe Date/Time: Dec 12 2018 1:51P Dictated by : JAUN CHILD MD This examination was interpreted and the report reviewed and electronically signed by: JAUN CHILD MD on Dec 12 2018 1:58PM EST [id number] [facility] CNPN Telephone (ASWSTR) Normal 12-05-2018 [place] [facility] SHER NICOLE ([id number]) 1960 [facility] Date Time Provider Department ([id number]) 12/05/18 IDA AGGARWAL) ASWSTR During your visit [...] 12/07/18 progress on 2018-11 PROGRESS HNO ID: [id number] Normal 11-30-2018 [facility] Author: Ida Roman) Jasen [facility] ([id number]) Service: ? Author Type: Physician Type: Progress Notes Filed: 11/30/2018 3:21 PM Note Text: Reviewed. Thanks. PROGRESS HNO ID: [id number] Normal 11-30-2018 [facility] Author: Taylor Ramirez [facility] ([id number]) Service: ? Author Type: Dental Laboratory Supervisor Type: Progress Notes Filed: 12/01/2018 10:49 AM Note Text: [facility] F[facility]ER AND DIRECTOR QUICKNOTE Provider Action/FYI: I called and spoke with Trace and he said he will call to r/s his PET scan. He's aware he's due for fasting labs and an IFOBT. He lost I FOBT kit, but he will picker tender another one in the lab when he comes in for lab work. He will make a follow up appointment with PCP after PET scan. Patient identified by name and . Taylor Ramirez CMA PROGRESS HNO ID: [id number] Normal 11-30-2018 [facility] Author: Tyalor Ramirez [facility] ([id number]) Service: ? Author Type: Dental Laboratory Supervisor Type: Progress Notes Filed: 12/01/2018 10:49 AM Note Text: [facility] GAP REGISTRY DOCUMENTATION (OUTSIDE TEAMLET) [...] CNPTOUTREACH Patient Outreach (FAMPWS) Normal 0 11-30-2018 [place] SHER Segura ([id number]) 1960 M [facility] Date Time Provider Department ([id number]) 11/30/[facility] F[facility] During your visit today, we recorded the following informati on about you: Taylor Ramirez CMA 12/01/2018 10:[address] [facility] CARE GAP REGISTRY DOCUMENTATION (OUTSIDE TEAMLET) [...] No results found for: HDL LDL Chol, [place] (mg/dL) Date Value 04/07/2007 109 No results [...] CMA 12/01/2018 10:49 AM Signed [facility] [employer] QU[employer] Provider Action/FYI: I called and spoke with Trace and he said he will call to r/s his PET scan. He's aware he's due for fasting labs and an IFOBT. He lost IFOBT kit, but he will picker tender another one in the lab when he comes in for la [employer] work. He will make a follow up [...] alcohol abuse [F10.11] More... Encounter Status:Closed by TYALOR RAMIREZ CMA on 12/01/18 progress on 2018-11 PROGRESS HNO ID: [id number] Normal 11-10-2018 [facility] Author: Ida Roman) Jasen ([id number]) Service: ? Author Type: Physician Type: Progress Notes Filed: 11/10/2018 10:15 AM Note Text: Reviewed. Thanks. PROGRESS HNO ID: [id number] Normal 11-10-2018 [facility] Author: Taylor Ramirez ([id number]) Service: ? Author Type: Dental Laboratory Supervisor Type: Progress Notes Filed: 11/10/2018 9:51 AM Note Text: [facility] AND DIRECTOR QUICKNOTE Provider Action/FYI: I spoke with Trace [...] CMA progress on 2018-11 PROGRESS HNO ID: [id number] Normal 11-09-2018 [facility] Author: Taylor [facility] ([id number]) Service: ? Author Type: Dental Laboratory Supervisor Type: Progress Notes Filed: 11/10/2018 9:51 [...] No results found for: HDL LDL Chol, [place] (mg/dL) Date Value 04/07/2007 109 No results found for: TG HGB A1C: No results found for: HBA1C TSH: No results found for: TSH) Care Gap: Hyperlipidemia COPD Plan: ? Confirm PCP / Status - active ? Type of appointment needed: Follow-up Next available with Provider pcp or marketing manager health communications ? Consultation Appointments: PET SCAN Labs, HM [...] Location 01-10-2020 - Patient encounter External Provider [facility] 01-10-2020 procedure 12-19-2019 - Patient encounter External Provider [facility] 12-19-2019 procedure 12-06-2019 - Patient encounter External Provider [facility] 12-06-2019 procedure 11-23-2019 - Patient encounter External Provider [facility] 11-23-2019 procedure 01-10-2020 - Results Only External Provider External-N [facility] 01-10-2020 12-19-2019 Results Only External Provider External-N [facility] 12-06-2019 - Results Only External Provider External-N [facility] 12-06-2019 11-23-2019 Results Only External Provider External-N [facility] Procedures Procedure Name Date Provider Location EXTERNAL IMAGING 01-10-2020 - 01-10-2020 External Provider [facility] ([id number]) EXTERNAL LAB 12-19-2019 External Provider [facility] ([id number]) EXTERNAL LAB 12-06-2019 External Provider [facility] ic ([id number]) EXTERNAL IMAGING 12-06-2019 External Provider [place] [facility] ([id number]) EXTERNAL LAB 11-23-2019 External Provider [facility] ic ([id number]) Plan of Treatment Plan Description Date Location DTAP,TDAP,TD (2 - Td) DTAP,TDAP,TD (2 - Td) 03-06-2028 - [facility] 03-06-2028 ([id number]) PROSTATE CANCER PROSTATE CANCER 03-06-2023 - [facility] SCREENING DISCUSSION SCREENING DISCUSSION 03-06-2023 ([id number] ) DIABETES SCREEN DIABETES SCREEN 12-27-2021 - [facility] 12-27-2021 ([id number]) ANNUAL PCP TEAM CHRONIC ANNUAL PCP TEAM CHRONIC 11-08-2020 - [facility] DISEASE VISIT DISEASE VISIT 11-08-2020 ([id number]) LUNG CANCER SCREENING LUNG CANCER SCREENING 01-05-2020 - [facility] 01-05-2020 ([id number]) INFLUENZA (#1) INFLUENZA (#1) 2019 - [facility] 12-11-2019 ([id number]) LIPID SCREEN LIPID SCREEN 04-07-2012 - [facility] 04-07-2012 (56573) SHINGRIX VACCINE (1 of SHINGRIX VACCINE (1 of 2011 - [facility] 2) 2) 2011 (80672) COLORECTAL CANCER COLORECTAL CANCER 2011 - [facility] inic SCREENING,SEE MODIFIER SCREENING,SEE MODIFIER 2011 (1 5950) HEPATITIS C SCREENING HEPATITIS C SCREENING 1979 - [facility] 1979 (13727) HIV SCREENING HIV SCREENING 1979 - [facility] 1979 (05530) Immunizations Vaccine Notes Status Date Location Tdap (Age 7+) tetanus toxoid, (completed) 03-06-2018 - [facility] linic reduced diphtheria 03-06-2018 (01646) toxoid, and acellular pertussis vaccine, adsorbed Payers Payer Name Policy Number Location [employer] [id number] [facility] (44 195) The following information is from the original human readable contentNo Payer Records FoundNo Payer Records FoundNo Payer Records Found Social History Type Social History Date Location Description Tobacco smoking status Current every day smoker 11-09-2019 - [facility] NHIS 11-09-2019 (69844) History of tobacco use Cigarette Smoker [facility] (36866) Cigarettes smoked 11-09-2019 - [facility] current (pack per day) 11-09-2019 (25625) - Reported Tobacco use and Never used 11-09-2019 - [facility] exposure 11-09-2019 (97816) Alcohol intake Current drinker of 11-09-2019 - [place] [facility] isis alcohol (finding) 11-09-2019 (27596) Alcohol Comment once or twice weekly 03-06-2018 - [place] [facility] 03-06-2018 (41774) Sex Assigned At Not on file [facility] (82017) Exposure to SARS-CoV-2 Not sure [facility] (event) (99188) The following information is from the original [...] BE BASED ON THE PRIMARY CLINICAL RECORDS. [employer] provides no warranty or guarantee of the accuracy or completeness of information in this document. UNRECOGNIZED CONTENT PROVIDED BELOW FOR UNRECOGNIZED SECTION No Status Records FoundNo Status Records Found UNRECOGNIZED CONTENT PROVIDED BELOW FOR UNRECOGNIZED SECTION INFORMATION SOURCE DATE CREATED AUTHOR AUTHOR'S ORGANIZATIO N 12/12/2018 [facility] DATE CREATED AUTHOR AUTHOR'S ORGANIZATIO N 11/10/2019 [facility] UNRECOGNIZED CONTENT PROVIDED BELOW FOR [...]
== END 2019-09-18 13:16 | disposition home or self-care (01) ==
LOC: SDC 10:13 → AC 10:13
PROVIDERS: Anesthesiology; PCP Family Medicine; Visit Provider Surgery
PROC: (CPT 36561; principal; 2019-09-18 11:20)
DX: Z45.2 Encounter for adjustment and management of vascular access device (principal); C34.92 Malignant neoplasm of unspecified part of left bronchus or lung; J44.9 Chronic obstructive pulmonary disease, unspecified; F32.9 Major depressive disorder, single episode, unspecified; F41.9 Anxiety disorder, unspecified; F17.210 Nicotine dependence, cigarettes, uncomplicated; Z79.51 Long term (current) use of inhaled steroids; Z11.59 Encounter for screening for other viral diseases
CPT/HCPCS: 00532; 36561; 71045; 77001; 87635; G2023; J7120; C1788; U0003

== ENCOUNTER 2019-10-30 20:36 | Emergency (ER) | payer MEDICAID, SELFPAY ==
[2019-09-07 10:17] VITALS: BMI 26.0
[2019-10-26 12:40] VITALS: BMI 25.5
--- NOTE | 2019-10-30 20:51 | CT_ITS ---
STUDY: CT BRAIN WITHOUT CONTRAST REASON FOR EXAM: Male, 59 years old. FALL, LACERATION TO POSTERIOR SCALP RADIATION DOSAGE (If Supplied By Facility): CTDIvol = ( 44.99 ) mGy, DLP = ( 779.24 ) mGycm TECHNIQUE: Transaxial CT imaging of the brain was performed without administration of intravenous contrast material. Individualized dose optimization techniques were used for this CT. COMPARISON: 08/29/2019 FINDINGS: Normal soft tissue structures. Normal calvarium. Normal size ventricles and extra-axial spaces for the patient''s age. There are areas of decreased attenuation within the white matter tracts of the supratentorial brain, consistent with microvascular disease changes. Age-related changes of the basal ganglia. Normal brainstem. Normal cerebellum. There is no intracranial hemorrhage. There are no findings of an acute ischemic infarction. Normal visualized paranasal sinuses. CT/Brain/Head without Contrast IMPRESSION: No fracture or intracranial hemorrhage. Electronically Signed: Mario Espinoza MD at 21:19 EDT Tel , Service support ,
[2019-10-30 21:06] VITALS: BP 109/69; PULSE 74; PULSE 81; RESP 16; TEMP 37.2; O2SAT 95; BMI 25.9
[2019-10-30] MEDS: Morphine 4 MG/ML Syringe IV (21:28)
[2019-10-30] MEDS: 0.9% Normal Saline 1,000 ML 150 ML IV (21:30)
[2019-10-30 21:44] LABS: Absolute Lymphocyte Count 0.69 X10^3/uL (0.83-4.51); Absolute Neutrophil Count 0.9 X10^3/uL (2.0-7.7); Basophil# 0.02 X10^3/uL; Eosinophil# 0.07 X10^3/uL; Eosinophils% 3.6 % (0-5); Hemoglobin 9.4 g/dL (13.0-16.5); Lymphocyte # 0.69 X10^3/ul (4.0); Lymphocyte % 35.2 % (19-41); Mean Corp Hgb Conc 33.6 g/dL (32-36); Mean Corpuscular Hgb 31.4 pg (27.0-32.0); Mean Corpuscular Volume 93.6 fL (80-94); Mean Platelet Vol. 9.9 fl (6.2-12.0); Monocyte% 15.3 % (0-10); Neutrophil # 0.87 X10^3/uL (2.7-7.7); Neutrophil % 44.4 % (47-70); POSITIVE COUNT YES; POSITIVE DIFFERENTIAL YES; POSITIVE MORPHOLOGY YES; Platelet Count 74 K/mm3 (150-450); RBC Distribution Width CV 21.9 % (11.6-14.6); RBC Distribution Width SD 69.9 fl (35.1-43.9); Red Blood Count 2.99 M/mm3 (4.6-6.2)
[2019-10-30 21:46] LABS: Differential Indicated SCAN CRITERIA MET
[2019-10-30 21:56] LABS: Anion Gap 7 (5-15); BUN 16 mg/dL (7-18); BUN/Creat Ratio 15.1 RATIO (10-20); Calcium,Total 8.4 mg/dL (8.5-10.1); Chloride 106 mmol/L (98-107); Creatinine, Serum 1.06 mg/dL (0.70-1.30); EST Glomerular Filtration Rate 76 mL/min (>60); Est Glom Filt Rate - Afr Amer 92 mL/min (>60); Estimated Creatinine Clearance 78.43 ml/min; Glucose 123 mg/dL (74-106); Potassium 3.7 mmol/L (3.5-5.1); Sodium Level 140 mmol/L (136-145)
--- NOTE | 2019-10-30 22:03 | ED.DCSUM_ITS ---
History of Present Illness Chief Complaint: Laceration Informant: Patient Onset: Today Context: Sudden Onset Timing: Continuous Current Severity: Moderate Maximum Severity: Moderate Narrative: The patient is a 59-year-old male with medical history significant for lung cancer who is currently undergoing chemo and radiation that presents to the emergency department with head injury after fall. The patient had leaned back in a chair, fell and struck his head. He is unsure if he lost consciousness. He has had headaches since then. He did have a small laceration on the back of his head. He denies weakness or numbness. He is not on anticoagulants. He has had no chest pain or shortness of breath. He denies fevers or chills. Prior similar symptoms: No Recent Illness/Hospitalization: Yes Past Medical History - Allergies and Home Meds Allergies/Adverse Reactions: Allergies No Known Allergies Allergy (Verified 10/24/19 13:20) Primary Care Physician: Armando Aggarwal MD [Primary Care Provider] - 10 Day for suture removal Prior records reviewed: Yes Past Medical History: - - Lung cancer currently on chemo Surgical History: tonsillectomy Smoking Status: Current every day smoker - Family History Paternal Family History: Family History (Last Reviewed 10/24/19 @ 09:04 by Ariadna Montague) Sister Uterine cancer Mother Emphysema lung Grandfather Emphysema lung Grandmother Emphysema lung Family History: Reports: Cancer, - - Lung cancer in father and other family member but not in siblings. Review of Systems General: Denies: Chills, Fever, Sweats Eyes: Denies: Visual changes - bilaterally, Diplopia ENT: Denies: Rhinorrhea, Sore throat Cardiovascular: Denies: Chest pain, Palpitations Respiratory: Denies: Dyspnea, Cough, Dyspnea on exertion Gastrointestinal: Denies: Abdominal pain, Nausea, Vomiting, Diarrhea, Melena, Hematochezia Genitourinary: Denies: Dysuria, Hematuria, Frequency Musculoskeletal: Denies: Back pain, Extremity Pain Skin: Denies: Rash, Wounds Neurological: Denies: Headache, Weakness, Numbness Physical Exam Vital Signs/Narrative: Vital Signs Temp Pulse Resp BP Pulse Ox 10/30/19 21:06 98.9 F 81 16 109/69 95 Inital Vital Signs reviewed: Yes General: Well nourished, Well developed, No Acute Distress Head: Normocephalic, Trauma - Left posterior occipital trauma with small laceration. No step-off or deformity. Eyes: Perrl, EOMI ENT: Moist mucous membranes, No rhinorrhea Neck: Supple, Nontender Cardiovascular: Regular rate, Regular rhythm, No murmurs Respiratory: No distress, CTA bilaterally, Chest nontender Abdomen: Soft, Nontender, Nondistended, Normal bowel sounds Back: Nontender, Normal Inspection Extremities: Nontender, No edema Skin: Normal color, No rash Neurological: Alert, Oriented x3, Cranial nerves II-XII grossly intact, Normal Strength, Normal Sensation Psychological: Normal affect, Normal Mood Diagnostic/Tx/Re-eval Clinical Impression(s) from Imaging Studies Brain CT 10/30/19 20:51 IMPRESSION: No fracture or intracranial hemorrhage. Electronically Signed: Mario Espinoza MD at 21:19 EDT Tel , Service support , Abnormal Lab Results 10/30/19 10/30/19 21:30 21:30 WBC 2.0 L RBC 2.99 L Hgb 9.4 L Hct 28.0 L MCV 93.6 MCH 31.4 MCHC 33.6 RDW Std Deviation 69.9 H RDW Coeff of Jose J 21.9 H Plt Count 74 L MPV 9.9 Immature Gran % (Auto) 0.500 Neut % (Auto) 44.4 L Lymph % (Auto) 35.2 Sierra % (Auto) 15.3 H Eos % (Auto) 3.6 Baso % (Auto) 1.0 Absolute Neuts (auto) 0.9 L Absolute Lymphs (auto) 0.69 L Nucleated RBC % 1.0 Differential Comment SEE COMMENT Platelet Estimate MOD DEC RBC Morphology N CHROM Anisocytosis 1+ Macrocytosis 1+ Sodium 140 Potassium 3.7 Chloride 106 Carbon Dioxide 27.0 Anion Gap 7 BUN 16 Creatinine 1.06 Estim Creat Clear Calc 78.43 Est GFR (MDRD) Af Amer 92 Est GFR (MDRD) Non-Af 76 BUN/Creatinine Ratio 15.1 Glucose 123 H Calcium 8.4 L - Medical Decision Making Patient presents with scalp laceration after fall. He was not syndrome on prodromal. His tetanus is up-to-date. He is on chemo and has been thrombocytopenic. He was sent immediately for head CT. This was negative for acute intracranial process. Labs are unremarkable. The patient's wound was anesthetized with 1% lidocaine with epinephrine. It was irrigated. It was reapproximated with 5 shadia. He tolerated this without issue. He was counseled local wound care and will be discharged home. Impression 1. 2 cm scalp laceration with repair ED Disposition - Plan for ED Patient: Instructions: ED Laceration Scalp Sutures or [place] Referrals: Armando Aggarwal MD [Primary Care Provider] - 10 Day for suture removal
[2019-10-30 22:25] LABS: Anisocytosis 1+; Macrocytosis 1+; Platelet Estimate MOD DEC (ADEQ); Red Cell Morphology N CHROM NORMAL (NORM C&C)
[2019-10-30 22:48] VITALS: BP 109/89; PULSE 82; RESP 16; O2SAT 95
== END 2019-10-30 22:50 | disposition home or self-care (01) ==
LOC: ED 21:50
PROVIDERS: Emergency Provider Emergency Medicine; PCP Family Medicine
DX: S01.01XA Laceration without foreign body of scalp, initial encounter (principal); W07.XXXA Fall from chair, initial encounter; Y93.89 Activity, other specified; Y92.9 Unspecified place or not applicable; C34.90 Malignant neoplasm of unspecified part of unspecified bronchus or lung; F17.200 Nicotine dependence, unspecified, uncomplicated
CPT/HCPCS: 12001; 70450; 77386; 80048; 85025; 96361; 96374; 99284; J7030; A4216

== ENCOUNTER → 2019-12-05 11:14 | Outpatient (CLI) | payer MEDICAID, SELFPAY ==
[2019-09-07 10:17] VITALS: BMI 26.0
[2019-11-14 09:45] VITALS: BMI 25.2
[2019-11-29 10:36] VITALS: BMI 25.0
--- NOTE | 2019-12-05 11:15 | CT_ITS ---
STUDY: CT CHEST WITH CONTRAST REASON FOR EXAM: Male, 59 years old. FOLLOW UP POST TREATMENT -- LUNG CA RADIATION DOSAGE (If Supplied By Facility): CTDIvol = ( 10.52 ) mGy, DLP = ( 425.29 ) mGycm TECHNIQUE: Transaxial imaging was performed following intravenous administration of IV 100mL Isovue-300. Multiplanar coronal and sagittal images were reformatted. Individualized dose optimization techniques were used for this CT. COMPARISON: Comparison is made with prior examination dated 01/16/2019. FINDINGS: A right-sided portacatheter is seen. Since prior study, there has been progressive inhomogeneous infiltration in the medial aspect of the right upper lobe. There is evidence of a 2.1 cm x 1.8 cm cavity with the soft tissue densities within the dura and this may represent a fungus ball. Persistent left perihilar mass measuring 3.5 cm x 2.9 cm. There is narrowing of the left upper lobe bronchus. There are calcifications of the coronary arteries. There are multiple small lymph nodes within the mediastinum, which are normal in size and morphology most compatible with reactive lymph hyperplasia. Normal hilar regions. Normal enhanced pulmonary arteries. Normal aorta arch and descending thoracic aorta. There are multi-level degenerative changes of the thoracic spine. There is no demonstrated abnormality of the visualized upper abdomen. CT/Chest WITH Contrast IMPRESSION: Persistent inhomogeneous infiltration in the left upper lobe with a possible fungus ball in the cavity as described. Persistent left hilar soft tissue mass with narrowing of the right upper lobe bronchus. Electronically Signed: Neno Ibarra, at 13:41 EDT , Service support ,
[2019-12-05] MEDS: 0.9% Saline Lock 10 ML Syringe IV (11:40)
== END ==
PROVIDERS: PCP Family Medicine; Referring Provider Nurse Practitioner Family; Visit Provider Nurse Practitioner Family
DX: C34.92 Malignant neoplasm of unspecified part of left bronchus or lung (principal)
CPT/HCPCS: 71260; Q9967; A4216

== ENCOUNTER 2020-01-14 17:33 | Emergency (ER) | payer MEDICAID, SELFPAY ==
[2019-09-07 10:17] VITALS: BMI 26.0
[2019-11-29 10:36] VITALS: BMI 25.0
[2020-01-14 17:38] VITALS: BP 93/66; PULSE 90; RESP 18; TEMP 36.6; O2SAT 98; BMI 23.3
--- NOTE | 2020-01-14 18:00 | EKG12_ITS ---
Test Reason : DYSRHYTHMIA Blood Pressure : / mmHG Vent. Rate : 083 BPM Atrial Rate : 083 BPM P-R Int : 166 ms QRS Dur : 080 ms QT Int : 372 ms P-R-T Axes : 020 080 078 degrees QTc Int : 437 ms Normal sinus rhythm Septal infarct , age undetermined Abnormal ECG Confirmed by REBECCA RAMIREZ, JACQUELIN ([id number]), television news video editor MARYJO SAVAGE ([id number]) on 01/16/2020 9:36:53 AM Referred By: ZE Confirmed By:JACQUELIN FERNANDEZ MD
[2020-01-14 18:20] VITALS: PULSE 94; RESP 14
[2020-01-14] MEDS: Ipratropium/Albuterol Sulfate 3 ML AMPUL.NEB INHALATION (18:20)
[2020-01-14 19:30] LABS: Absolute Lymphocyte Count 0.69 X10^3/uL (0.83-4.51); Absolute Neutrophil Count 3.6 X10^3/uL (2.0-7.7); Basophil# 0.02 X10^3/uL; Basophil% 0.4 % (0-1); Eosinophil# 0.06 X10^3/uL; Eosinophils% 1.2 % (0-5); Hematocrit 29.9 % (40-54); Hemoglobin 10.3 g/dL (13.0-16.5); Lymphocyte # 0.69 X10^3/ul (4.0); Mean Corp Hgb Conc 34.4 g/dL (32-36); Mean Corpuscular Volume 110.3 fL (80-94); Mean Platelet Vol. 10.9 fl (6.2-12.0); Monocyte# 0.48 X10^3/uL; Monocyte% 9.7 % (0-10); NRBC Flagged by Analyzer 0 % (0-5); Neutrophil # 3.64 X10^3/uL (2.7-7.7); Neutrophil % 73.9 % (47-70); POSITIVE COUNT YES; Platelet Count 79 K/mm3 (150-450); RBC Distribution Width CV 13.9 % (11.6-14.6); RBC Distribution Width SD 54.6 fl (35.1-43.9); Red Blood Count 2.71 M/mm3 (4.6-6.2); White Blood Count 4.9 K/mm3 (4.4-11.0)
[2020-01-14 19:34] LABS: Differential Indicated SCAN CRITERIA MET
[2020-01-14 19:50] LABS: ALB/GLOB Ratio 0.7 RATIO (0.9-2.4); AST(SGOT) 50 U/L (15-37); Alanine Aminotransfer ALT/SGPT 29 U/L (16-61); Albumin, Serum 2.8 g/dL (3.2-5.0); Alkaline Phosphatase 142 U/L (45-117); Anion Gap 12 (5-15); BUN 8 mg/dL (7-18); BUN/Creat Ratio 8.3 RATIO (10-20); Calcium,Total 7.8 mg/dL (8.5-10.1); Chloride 92 mmol/L (98-107); Creatinine, Serum 0.97 mg/dL (0.70-1.30); EST Glomerular Filtration Rate 84 mL/min (>60); Est Glom Filt Rate - Afr Amer 102 mL/min (>60); Estimated Creatinine Clearance 88.41 ml/min; Glucose 104 mg/dL (74-106); Potassium 2.8 mmol/L (3.5-5.1); Protein, Total 6.8 g/dL (6.4-8.2); Sodium Level 131 mmol/L (136-145)
--- NOTE | 2020-01-14 19:50 | RAD_ITS ---
STUDY: X-RAY CHEST REASON FOR EXAM: Male, 59 years old. weakness, alcohol intoxication, Hx lung cancer TECHNIQUE: AP portable COMPARISON: 01/18/2019 FINDINGS: Lungs are hyperinflated. There is an irregular nodular opacity in left upper lobe which may be consistent with neoplasm with associated apical pleural thickening.. There is no demonstrated pleural abnormality. Mediport catheter seen on the right with tip in distal superior vena cava Normal size heart. Normal mediastinum and bartolo. Normal visualized pulmonary arteries. Normal visualized aortic arch and descending thoracic aorta. Dorsal spine demonstrates degenerative change. Normal visualized ribs, clavicles, and shoulders. There is no demonstrated abnormality of the visualized soft tissue structures of the upper abdomen. RAD/Chest 1 View (Portable) IMPRESSION: COPD Findings consistent with neoplasm in the left upper lobe and associated pleural thickening in the pulmonary apex without evidence for pleural effusion or pneumothorax Electronically Signed: Maksim Posadas MD at 20:56 EDT , Service support ,
[2020-01-14 19:51] VITALS: BP 106/71; PULSE 103; RESP 20; O2SAT 93
[2020-01-14 20:04] LABS: Differential Comment SCANNED
--- NOTE | 2020-01-14 21:20 | CM.ED ---
SOCIAL WORK Informant: Dr. Wagner Reason for Consult: Resources Met with patient in room. Introduced role and reason for referral. Patient reports is homeless and was at the [employer] and time is up. Patient intoxicated. Patient denies any suicidal ideation. Patient denies need for detox, however, states does want to quit drinking. Patient provided with [facility] resource folder. Patient gave permission for this worker to call the [facility] to inquire about return. Patient denies any friends or family that he can stay with. Call to the [facility], worker states is just filling in and states does not know of patient. Worker states unable to take patient this evening and recommends follow up in the morning. Dr. Wagner updated on the above. Russel Magallon MSW, KNOWLEDGE MANAGEMENT CONSULTANT
--- NOTE | 2020-01-14 21:32 | ED.DCSUM_ITS ---
- ER Visit Summary Date of Service: 01/14/20 Chief Complaint: Intoxicated and homeless History of Present Illness: The patient is a [address] Almeida. The patient is intoxicated and not a reliable informant. He tells me that he drank most of the fifth of vodka and that he drinks every day. However, he reports that he does not want help with alcohol. He denies any trauma. No fall, MVA, or change in activity. Patient reports that he has a history of lung cancer and that he is always janis rt of breath. He reports that he is been nausea and vomited 3 times today. States that he always has diarrhea. He denies any blood in either of these. No black tarry stools. Physical Examination: Vitals: Stable. Afebrile. General: Well-nourished and well-developed. Head: Normocephalic atraumatic. Neck: Supple, no lymphadenopathy. No JVD. Nontender. Cardiovascular: Regular rate and rhythm. No murmurs. Respiratory: No respiratory distress. Mild wheezing bilaterally with good air movement. Abdominal: Soft, nontender, nondistended, normal bowel sounds. No guarding, rebound, or peritoneal signs. Back: Nontender. Extremities: Nontender, no edema. Skin: Normal color, no rash. Neurologic: Alert and oriented ?3. Cranial nerves II through XII are intact. Normal strength and sensation. Mental status exam: Patient appears their stated age. Good posture and grooming. Good eye contact. Normal rate, volume, and latency of speech. No homicidal ideation. No auditory or visual hallucinations. Flow of thought is logical. Insight and judgment is fair. Test Results: EKG is sinus with Q waves in leads V1 and V2. This is unchanged from earlier this year. Troponin is negative. LFTs show an albumin of 2.8, alk phos 142, AST of 50. Chem-7 shows a sodium 131, potassium 2.8, chloride of 92, calcium 7.8. CBC shows an H&H 10.3 and 29.9, platelets 79, segmented for 74, lymphocytes of 14. Alcohol is 358. Clinical Impression(s) from Imaging Studies Chest X-Ray 01/14/20 19:50 IMPRESSION: COPD Findings consistent with neoplasm in the left upper lobe and associated pleural thickening in the pulmonary apex without evidence for pleural effusion or pneumothorax Electronically Signed: Maksim Posadas MD at 20:56 EDT , Service support , Emergency Department Course and Treatment: Patient was given albuterol Atrovent aerosols. He is resting comfortably. He was given K-Dur p.o. He was seen by case management. Patient is not suicidal and does not meet criteria for psychiatric hospitalization. He also does not want help with his alcohol abuse. He states that he has used up all of his days at [employer]. He states that he does not have any family in the area that he wants to live with. He does not have anyone that can come and pick him up. Treatment Plan: I do not have an indication for admission to the hospital. Patient will be discharged with instructions to follow-up with his primary care physician within 3 to 5 days for repeat potassium. He is given a prescription for K-Dur. He is instructed to follow-up with 180 for his alcoholism. He will be allowed to sleep in the emergency department overnight as he is homeless. Disposition: Discharged in stable condition. Impression: 1. Alcohol intoxication. 2. Homelessness. 3. Hypokalemia. 4. Anemia. 5. History of lung cancer. This note was generated with [employer] dictation software. It may contain incorrect words, spelling, and punctuation that were not noted in review of the chart prior to signing ED Disposition - Plan for ED Patient: Instructions: ED Alcohol Abuse, ED Potassium Deficiency Prescriptions: Potassium Chloride [K-Dur] 40 meq PO DAILY #10 tablet Referrals: Armando Aggarwal MD [Primary Care Provider] - 3-5 Days [facility] [STAFF PHYSICIAN] - As soon as possible
[2020-01-14 21:58] VITALS: BP 92/45; PULSE 103; RESP 18
[2020-01-15] MEDS: 0.9% Normal Saline 1,000 ML 999 ML IV (00:12)
[2020-01-15 00:13] VITALS: BP 84/43; PULSE 95; RESP 20; O2SAT 94
[2020-01-15 02:06] VITALS: BP 91/52; PULSE 110; RESP 16; O2SAT 94
[2020-01-15 03:49] VITALS: BP 101/60; PULSE 90; RESP 16; O2SAT 94
[2020-01-15 06:03] VITALS: BP 107/73; PULSE 88; RESP 20; O2SAT 94
[2020-01-15] MEDS: 0.9% Saline Lock 10 ML Syringe IV (06:47)
[2020-01-15] MEDS: 0.9 % NaCl (Sterile) Posiflush 10 mL IV (06:47)
[2020-01-15 06:49] VITALS: BP 118/80; PULSE 90; RESP 16; O2SAT 98
== END 2020-01-15 06:49 | disposition home or self-care (01) ==
LOC: ED 18:08
PROVIDERS: Emergency Provider Emergency Medicine; PCP Family Medicine
DX: F10.129 Alcohol abuse with intoxication, unspecified (principal); Z59.0 Homelessness; E87.6 Hypokalemia; D64.9 Anemia, unspecified; Z85.118 Personal history of other malignant neoplasm of bronchus and lung
CPT/HCPCS: 36591; 71045; 80053; 80320; 84484; 85025; 93005; 94640; 96360; 96361; 99285; J7030; J7040; A4216; G0480

== ENCOUNTER 2020-01-15 08:21 | Emergency (ER) | payer MEDICAID, SELFPAY ==
[2019-09-07 10:17] VITALS: BMI 26.0
[2020-01-14 17:38] VITALS: BMI 23.3
[2020-01-15 08:23] VITALS: BP 135/79; PULSE 108; RESP 18; TEMP 36.1; O2SAT 97; BMI 25.8
[2020-01-15 09:01] VITALS: PULSE 100; RESP 18
[2020-01-15] MEDS: Ipratropium/Albuterol Sulfate 3 ML AMPUL.NEB INHALATION (09:01)
--- NOTE | 2020-01-15 10:36 | ED.VISSUMM ---
- ER Visit Summary Date of Service: 01/15/20 Chief Complaint: Hemoptysis History of Present Illness: The patient is a 59 M who presents with hemoptysis that he noticed today. Patient was seen here yesterday evening and had chest x-ray and blood work. Patient states he had an episode of coughing up some red blood. Patient states it was approximately 1 tablespoon. Patient denies any fevers or chills. Patient denies any nausea or vomiting. Patient admits to some mild shortness of breath. Patient does have a history of lung cancer. Physical Examination: Vital signs are stable. Patient is afebrile. Patient is in no acute distress. Oral mucosa is pink and moist. Neck is supple. Trachea is midline. There is no JVD. Heart was regular rate and rhythm. Lungs showed mild expiratory wheezing. There are no retractions noted. There is good respiratory effort noted. Abdomen is soft. Bowel sounds are normal. There is no tenderness. Cranial nerves II through XII are intact. There are no focal motor or sensory deficits noted. Test Results: I reviewed his lab results from his previous visit and there were no acute abnormalities. Chest x-ray shows a lung mass. I do not feel he needed a repeat chest x-ray again this morning. Emergency Department Course and Treatment: Patient was given a DuoNeb aerosol here. Patient was feeling better on reevaluation. Patient had no further episodes of hemoptysis. Patient was sleeping on reevaluation. Patient was instructed to follow-up with his primary care physician in 5 to 7 days. Patient understood and was agreeable with the plan. All questions were answered. Disposition: Discharge home Impression: 1. Hemoptysis 2. History of lung cancer This note was generated with [employer] dictation software. It may contain incorrect words, spelling, and punctuation that were not noted in review of the chart prior to signing ED Disposition - Plan for ED Patient: Disposition: Home or Assisted Living Diagnosis: Hemoptysis, Non-small cell cancer of left lung Instructions: ED Hemoptysis Referrals: Armando Aggarwal MD [Primary Care Provider] - 3-5 Days
[2020-01-15 11:01] VITALS: BP 146/79; PULSE 104; RESP 18; O2SAT 94
[2020-01-15 11:02] VITALS: BP 146/79; PULSE 104; RESP 18; TEMP 36.1; O2SAT 94
== END 2020-01-15 11:02 | disposition home or self-care (01) ==
PROVIDERS: Emergency Provider Emergency Medicine; PCP Family Medicine
DX: R04.2 Hemoptysis (principal); F17.200 Nicotine dependence, unspecified, uncomplicated; Z85.118 Personal history of other malignant neoplasm of bronchus and lung
CPT/HCPCS: 99283